=== PATIENT | male | born 1945 | race Caucasian/White ===

== ENCOUNTER 2018-05-11 05:36 | Inpatient (IN) ==
[2018-05-11 06:14] LABS: Basophils % 0.2 %; Eosinophils # 0.2 K/mcL (0.0-0.6); Eosinophils % 1.5 %; Hematocrit 52.4 % (37.5-50.1); Hemoglobin 17.3 g/dL (12.9-16.9); Immature Granulocytes % 0.2 % (0-4); Lymphocytes # 2.2 K/mcL (0.6-4.6); Lymphocytes % 22.6 %; Mean Corpuscular Hemoglobin 30.4 pg (28.0-33.3); Mean Corpuscular Volume 91.9 fL (83.0-100.0); Mean Platelet Volume 9.1 fL (9.4-12.4); Monocytes # 0.8 K/mcL (0.0-1.3); Monocytes % 7.7 %; Neutrophils # 6.6 K/mcL (1.6-8.9); Platelet Count 234 K/mcL (140-400); Red Cell Distribution Width 14.2 % (11.5-14.5); Segmented Neutrophils % 67.8 %
[2018-05-11 06:21] LABS: INR 1.1; Prothrombin Time 12.5 Seconds (9.4-12.1)
[2018-05-11 06:24] LABS: Activated Partial Thrombo Time 28.6 Seconds (26.0-36.0)
[2018-05-11] MEDS ORDERED: Ipratropium/Albuterol Neb 3 ML IH ONE (06:26)
--- NOTE | 2018-05-11 06:30 | Emergency Department Note ---
Disposition Clinical Impression: Elevated troponin Community acquired pneumonia Qualifiers: Laterality: right Lung location: lower lobe of lung Qualified Code(s): J18.1 - Lobar pneumonia, unspecified organism Dyspnea Qualifiers: Dyspnea type: unspecified Qualified Code(s): R06.00 - Dyspnea, unspecified Disposition: Admitted As Inpatient Condition: Fair Referrals: Ofelia Peterson [employer] [Primary Care Provider] - Forms: ED Satisfaction Letter Time of Disposition: 07:51 SOB HPI - General Chief Complaint: ED Shortness of Breath/Dyspnea Stated Complaint: shortness of breath Time Seen by Provider: 05/11/18 05:39 Source: EMS Limitations: no limitations Nursing Notes Reviewed: Yes Vital Signs Reviewed: Yes - History of Present Illness Nontoxic-appearing 72-year-old male presents for evaluation of shortness of breath that awoke him from his sleep at approximately 4:00 AM. He states a history of cigarette use with an approximately one pack per day smoking history. He complains of an associated cough that is productive of a clearish/ yellowish colored sputum. He states that this is his baseline "smoker's cough" . He denies any hemoptysis. He denies any pain with inspiration. He denies any chest pain. He denies any associated nausea or vomiting. He denies any noticeable swelling of the lower extremities. He does state a history of asthma , which is controlled with a "rescue inhaler". Family members state that he has been progressively getting more dyspneic with exertion for quite some time. Pt Subjective Complaint: shortness of breath Onset (ago): hour(s) Severity: moderate Consistency/Duration: other (Improved after oxygen administration) Improves with: oxygen Worsens with: exertion Known history of: asthma Associated symptoms: Reports: cough, wheezing, sputum production. Denies: chest pain, pain with inspiration, fever, orthopnea, lower extremity pain, palpitations, hemoptysis, diaphoresis, nausea/vomiting Treatment prior to arrival: none Cough present: Yes Cough Description: Involuntary Cough Frequency: Intermittent Sputum production: Yes Sputum Amount: Scant Sputum Color: Yellow - Related Data Home oxygen amount: none Allergies Allergy/AdvReac Type Severity Reaction Status Date / Time Penicillins Allergy Anaphylaxis Verified 05/11/18 05:44 All systems ED: reviewed and negative except as stated. Constitutional: Denies: fever, chills, weakness, weight change Eyes: Denies: eye pain, eye discharge, vision change ENT ED: Denies: ear pain, throat pain, dental pain, hearing loss, epistaxis, congestion, dysphagia Cardiovascular: Denies: chest pain, palpitations, dyspnea on exertion, edema, syncope Respiratory: Reports: as per HPI, cough, dyspnea, wheezes, sputum production. Denies: hemoptysis, stridor Gastrointestinal: Denies: abdominal pain, nausea, vomiting, diarrhea, constipation, hematemesis, melena, hematochezia Genitourinary: Denies: urgency, dysuria, frequency, hematuria Musculoskeletal: Denies: back pain, neck pain, arthralgia, myalgia Integumentary: Denies: rash, abrasion, lesions Neurological: Denies: headache, weakness, numbness, paresthesias, confusion, abnormal gait, vertigo Psychiatric: Denies: anxiety, depression, suicidal thoughts, homicidal thoughts , auditory hallucinations, visual hallucinations Endocrine: Denies: fatigue Hematological/Lymphatic: Denies: easy bleeding, easy bruising Allergic/Immunologic: Denies: facial swelling, urticaria Past Medical History - Past Medical History Attestation: Yes The following information was validated with the patient. Source: patient, nursing notes reviewed Medical history: Reports: COPD, hypertension - Social History Smoking Status: Current every day smoker Smokeless Tobacco Status: No Alcohol use: Reports: none Drug use: Reports: none Physical Exam - General Limitations: no limitations General appearance: alert, in no apparent distress - Head Head exam: atraumatic, normocephalic, normal inspection - Eye Eye exam: Present: normal appearance, PERRL, EOMI. Absent: nystagmus - ENT ENT exam: mucous membranes moist - Neck Neck exam: Present: normal inspection, full ROM, trachea midline - Chest Chest inspection: Present: normal inspection - Respiratory Respiratory exam: Present: wheezes (Extra wheezes noted bilaterally throughout the periphery). Absent: respiratory distress, stridor, accessory muscle use, prolonged expiratory phase - Cardiovascular Cardiovascular exam: Present: regular rate, normal rhythm, normal heart sounds - Abdominal Exam Abdominal exam: Present: soft, Non-Tender, normal bowel sounds - Extremities Exam Extremities exam: Present: normal inspection, full ROM. Absent: tenderness, pedal edema - Neurological Exam Neurological exam: Present: alert, oriented X3 - Psychiatric Psychiatric exam: Present: normal affect, normal mood - Skin Skin exam: Present: warm, dry, intact, normal color. Absent: rash Course Course Narrative: 0640: While the patient's age-adjusted d-dimer is still within normal limits, he remains tachycardic here in the department. In combination with chest x-ray results which revealed lateral lower lobe airspace disease and his persistent tachycardia, we will obtain a CTA of the chest. The patient did have a slightly elevated troponin at 0.04 however has no complaints of chest pain at all. Aspirin was aerial lineman in the emergency department. 0750: I discussed this patient's case with Dr. Escobedo of the Hospital services agreed to accept the patient for admission under the hospitalist care for further treatment of community-acquired pneumonia, and further evaluation of his elevated troponins. I discussed this plan with Dr. Florian has had face-to -face time with the patient and agrees with this plan. Vital Signs Temperature 97.9 F 05/11/18 05:39 Pulse Rate 106 05/11/18 05:39 Respiratory Rate 20 05/11/18 05:39 Blood Pressure 143/95 05/11/18 05:39 O2 Sat by Pulse Oximetry 96 05/11/18 05:39 Temperature 97.9 F 05/11/18 05:39 Pulse Rate 115 05/11/18 07:03 Respiratory Rate 24 05/11/18 07:15 Blood Pressure 146/98 05/11/18 07:03 O2 Sat by Pulse Oximetry 92 05/11/18 07:15 Oxygen Delivery Oxygen Delivery Nasal Cannula Shortness of Breath/Dyspnea - Medical Records Medical records reviewed: Yes I reviewed the patient's medical records. - Lab Data Lab results reviewed: Yes I reviewed the patient's lab results. Lab results narrative: Laboratory Last Values WBC 9.8 K/mcL (4.3-11.1) 05/11/18 05:58 RBC 5.70 M/mcL (4.19-5.50) H 05/11/18 05:58 Hgb 17.3 g/dL (12.9-16.9) H 05/11/18 05:58 Hct 52.4 % (37.5-50.1) H 05/11/18 05:58 MCV 91.9 fL (83.0-100.0) 05/11/18 05:58 MCH 30.4 pg (28.0-33.3) 05/11/18 05:58 MCHC 33.0 g/dL (31.6-35.5) 05/11/18 05:58 RDW 14.2 % (11.5-14.5) 05/11/18 05:58 Plt Count 234 K/mcL (140-400) 05/11/18 05:58 MPV 9.1 fL (9.4-12.4) L 05/11/18 05:58 Immature Gran % 0.2 % (0-4) 05/11/18 05:58 Seg Neutrophils % 67.8 % 05/11/18 05:58 Lymphocytes % 22.6 % 05/11/18 05:58 Monocytes % 7.7 % 05/11/18 05:58 Eosinophils % 1.5 % 05/11/18 05:58 Basophils % 0.2 % 05/11/18 05:58 Neutrophils # 6.6 K/mcL (1.6-8.9) 05/11/18 05:58 Lymphocytes # 2.2 K/mcL (0.6-4.6) 05/11/18 05:58 Monocytes # 0.8 K/mcL (0.0-1.3) 05/11/18 05:58 Eosinophils # 0.2 K/mcL (0.0-0.6) 05/11/18 05:58 Basophils # 0.0 K/mcL (0.0-0.2) 05/11/18 05:58 PT 12.5 Seconds (9.4-12.1) H 05/11/18 05:58 INR 1.1 05/11/18 05:58 APTT 28.6 Seconds (26.0-36.0) 05/11/18 05:58 D-Dimer 523 ng/mLFEU (0-500) H 05/11/18 05:58 Sodium 136 mEq/L (136-145) 05/11/18 05:58 Potassium 3.8 mEq/L (3.5-5.1) 05/11/18 05:58 Chloride 101 mEq/L (98-107) 05/11/18 05:58 Carbon Dioxide 30 mEq/L (23-29) H 05/11/18 05:58 BUN 15 mg/dL (8-23) 05/11/18 05:58 Creatinine 1.02 mg/dL (0.70-1.30) 05/11/18 05:58 Est GFR ( Amer) > 60 (> 60) 05/11/18 05:58 Est GFR (Non-Af Amer) > 60 (> 60) 05/11/18 05:58 BUN/Creatinine Ratio 15 (6-26) 05/11/18 05:58 Glucose 127 mg/dL (70-105) H 05/11/18 05:58 Calculated Osmolality 284 (280-300) 05/11/18 05:58 Calcium 9.1 mg/dL (8.6-10.3) 05/11/18 05:58 Troponin I 0.04 ng/mL (< 0.04) H* 05/11/18 05:58 B-Natriuretic Peptide 44 pg/mL (Less than 100) 05/11/18 05:58 Urine Color Yellow (Yellow) 05/11/18 06:28 Urine Clarity Clear (Clear) 05/11/18 06:28 Urine pH 6.0 pH Units (5.0-8.0) 05/11/18 06:28 Ur Specific [place] 1.021 (1.010-1.025) 05/11/18 06:28 Urine Protein Trace mg/dL (Neg-Trace) 05/11/18 06:28 Urine Glucose (UA) Normal mg/dL (Normal) 05/11/18 06:28 Urine Ketones Negative mg/dL (Negative) 05/11/18 06:28 Urine Blood Negative (Negative) 05/11/18 06:28 Urine Nitrite Negative (Negative) 05/11/18 06:28 Urine Bilirubin Negative (Negative) 05/11/18 06:28 Urine Urobilinogen Normal mg/dL (Normal) 05/11/18 06:28 Ur Leukocyte Esterase Negative (Negative) 05/11/18 06:28 Urine Microscopic RBC 3-5 per hpf (0-3) H 05/11/18 06:28 Urine Microscopic WBC 0-3 per hpf (0-3) 05/11/18 06:28 Ur Squamous Epith Cells None Seen per lpf (None-Few) 05/11/18 06:28 Urine Bacteria None Seen per hpf (None-Few) 05/11/18 06:28 Hyaline Casts None Seen per lpf (None-Few) 05/11/18 06:28 Ur Culture Indicated? NO (NO) 05/11/18 06:28 Result diagrams: 05/11/18 05:58 05/11/18 05:58 Lab Results 05/11/18 05/11/18 05/11/18 Range/Units 05:58 05:58 05:58 WBC 9.8 (4.3-11.1) K/mcL RBC 5.70 H (4.19-5.50) M/mcL Hgb 17.3 H (12.9-16.9) g/dL Hct 52.4 H (37.5-50.1) % MCV 91.9 (83.0-100.0) fL MCH 30.4 (28.0-33.3) pg MCHC 33.0 (31.6-35.5) g/dL RDW 14.2 (11.5-14.5) % Plt Count 234 (140-400) K/mcL MPV 9.1 L (9.4-12.4) fL Immature Gran % 0.2 (0-4) % Seg Neutrophils % 67.8 % Lymphocytes % 22.6 % Monocytes % 7.7 % Eosinophils % 1.5 % Basophils % 0.2 % Neutrophils # 6.6 (1.6-8.9) K/mcL Lymphocytes # 2.2 (0.6-4.6) K/mcL Monocytes # 0.8 (0.0-1.3) K/mcL Eosinophils # 0.2 (0.0-0.6) K/mcL Basophils # 0.0 (0.0-0.2) K/mcL PT 12.5 H (9.4-12.1) Seconds INR 1.1 APTT 28.6 (26.0-36.0) Seconds D-Dimer 523 H (0-500) ng/mLFEU Sodium 136 (136-145) mEq/L Potassium 3.8 (3.5-5.1) mEq/L Chloride 101 (98-107) mEq/L Carbon Dioxide 30 H (23-29) mEq/L BUN 15 (8-23) mg/dL Creatinine 1.02 (0.70-1.30) mg/dL Est GFR ( Amer) > 60 (> 60) Est GFR (Non-Af Amer) > 60 (> 60) BUN/Creatinine Ratio 15 (6-26) Glucose 127 H (70-105) mg/dL Calculated Osmolality 284 (280-300) Calcium 9.1 (8.6-10.3) mg/dL Troponin I 0.04 H* (< 0.04) ng/mL B-Natriuretic Peptide (Less than 100) pg/mL Urine Color (Yellow) Urine Clarity (Clear) Urine pH (5.0-8.0) pH Units Ur Specific [place] (1.010-1.025) Urine Protein (Neg-Trace) mg/dL Urine Glucose (UA) (Normal) mg/dL Urine Ketones (Negative) mg/dL Urine Blood (Negative) Urine Nitrite (Negative) Urine Bilirubin (Negative) Urine Urobilinogen (Normal) mg/dL Ur Leukocyte Esterase (Negative) Urine Microscopic RBC (0-3) per hpf Urine Microscopic WBC (0-3) per hpf Ur Squamous Epith Cells (None-Few) per lpf Urine Bacteria (None-Few) per hpf Hyaline Casts (None-Few) per lpf Ur Culture Indicated? (NO) 05/11/18 05/11/18 Range/Units 05:58 06:28 WBC (4.3-11.1) K/mcL RBC (4.19-5.50) M/mcL Hgb (12.9-16.9) g/dL Hct (37.5-50.1) % MCV (83.0-100.0) fL MCH (28.0-33.3) pg MCHC (31.6-35.5) g/dL RDW (11.5-14.5) % Plt Count (140-400) K/mcL MPV (9.4-12.4) fL Immature Gran % (0-4) % Seg Neutrophils % % Lymphocytes % % Monocytes % % Eosinophils % % Basophils % % Neutrophils # (1.6-8.9) K/mcL Lymphocytes # (0.6-4.6) K/mcL Monocytes # (0.0-1.3) K/mcL Eosinophils # (0.0-0.6) K/mcL Basophils # (0.0-0.2) K/mcL PT (9.4-12.1) Seconds INR APTT (26.0-36.0) Seconds D-Dimer (0-500) ng/mLFEU Sodium (136-145) mEq/L Potassium (3.5-5.1) mEq/L Chloride (98-107) mEq/L Carbon Dioxide (23-29) mEq/L BUN (8-23) mg/dL Creatinine (0.70-1.30) mg/dL Est GFR ( Amer) (> 60) Est GFR (Non-Af Amer) (> 60) BUN/Creatinine Ratio (6-26) Glucose (70-105) mg/dL Calculated Osmolality (280-300) Calcium (8.6-10.3) mg/dL Troponin I (< 0.04) ng/mL B-Natriuretic Peptide 44 (Less than 100) pg/mL Urine Color Yellow (Yellow) Urine Clarity Clear (Clear) Urine pH 6.0 (5.0-8.0) pH Units Ur Specific [place] 1.021 (1.010-1.025) Urine Protein Trace (Neg-Trace) mg/dL Urine Glucose (UA) Normal (Normal) mg/dL Urine Ketones Negative (Negative) mg/dL Urine Blood Negative (Negative) Urine Nitrite Negative (Negative) Urine Bilirubin Negative (Negative) Urine Urobilinogen Normal (Normal) mg/dL Ur Leukocyte Esterase Negative (Negative) Urine Microscopic RBC 3-5 H (0-3) per hpf Urine Microscopic WBC 0-3 (0-3) per hpf Ur Squamous Epith Cells None Seen (None-Few) per lpf Urine Bacteria None Seen (None-Few) per hpf Hyaline Casts None Seen (None-Few) per lpf Ur Culture Indicated? NO (NO) - Radiology Data Radiology results reviewed: Yes I reviewed the patient's radiology results. Chest X-Ray 05/11/18 05:41 IMPRESSION: Right greater than left lower lobe airspace disease. D/ / Vipul Lay MD / Vipul Lay MD Interpreting Provider: Vipul Lay MD Chest CTA 05/11/18 06:40 IMPRESSION: 1. No findings of pulmonary embolism. 2. 5.7 cm x 4.4 cm masslike consolidative opacity in the base of the right lower lobe with adjacent groundglass opacity, most likely pneumonia. Neoplasia is not excluded. Recommend follow-up imaging following treatment. 3. Diffuse tree-in-bud opacities bilaterally, most likely infectious bronchiolitis. 4. Mild bronchial wall thickening with patchy airway secretions, suggesting bronchitis. 5. Subpleural reticulations and consolidative opacities most prominent in the mid lungs. Considerations include interstitial fibrotic changes of indeterminate etiology and organizing pneumonia. Recommend attention on follow-up imaging. 6. Interstitial opacities near the right lung apex and base, potentially interstitial edema or pneumonia. 7. Mildly enlarged right hilar lymph node, most likely reactive. Recommend attention on follow-up imaging. D/ / Vipul Zuniga MD / Vipul Zuniga MD Interpreting Provider: Vipul Zuniga MD - EKG Data EKG attestation: Yes I reviewed and interpreted this EKG. EKG results narrative: EKG reviewed by Dr. George as well. EKG shows a sinus tachycardia with short MA interval at a rate of 115 bpm. MA interval 112, QRS duration 104, QT/QTc interval 320/388. No ectopy noted. No ST elevation. No significant changes when compared to an EKG dated from 06/08/13.
[2018-05-11 06:35] LABS: BUN/Creatinine Ratio 15 (6-26); Blood Urea Nitrogen 15 mg/dL (8-23); Calcium 9.1 mg/dL (8.6-10.3); Carbon Dioxide 30 mEq/L (23-29); Chloride 101 mEq/L (98-107); Glucose 127 mg/dL (70-105); Osmolality,Calculated 284 (280-300); Potassium 3.8 mEq/L (3.5-5.1); Sodium 136 mEq/L (136-145); eGFR For African Americans > 60 (> 60); eGFR For Non-African Americans > 60 (> 60)
[2018-05-11 06:37] LABS: Bilirubin,Urine Negative (Negative); Blood,Urine Negative (Negative); Clarity,Urine Clear (Clear); Color,Urine Yellow (Yellow); Glucose,Urine (UA) Normal (Normal); Ketones,Urine Negative (Negative); Leukocyte Esterase,Urine Negative (Negative); Nitrite,Urine Negative (Negative); Protein,Urine Trace mg/dL (Neg-Trace); Specific Gravity,Urine 1.021 (1.010-1.025); Urobilinogen,Urine Normal (Normal)
[2018-05-11 06:39] LABS: Troponin I 0.04 ng/mL (< 0.04)
[2018-05-11 06:40] LABS: Bacteria,Urine None Seen per hpf (None-Few); Hyaline Casts,Urine None Seen per lpf (None-Few); Squamous Epithelial Cell,Urine None Seen per lpf (None-Few); WBC,Urine 0-3 per hpf (0-3)
[2018-05-11] MEDS ORDERED: Aspirin 81 MG TAB.CHEW PO ONE (06:40)
[2018-05-11] MEDS ORDERED: Isovue-370 500 ML INFUS..BTL IV ONE (06:40)
[2018-05-11] MEDS ORDERED: Azithromycin 500 MG in D5% in Water 250 ML IVPB ONE (07:45)
--- NOTE | 2018-05-11 08:25 | Emergency Department Note ---
Disposition Clinical Impression: Elevated troponin Community acquired pneumonia Qualifiers: Laterality: right Lung location: lower lobe of lung Qualified Code(s): J18.1 - Lobar pneumonia, unspecified organism Dyspnea Qualifiers: Dyspnea type: unspecified Qualified Code(s): R06.00 - Dyspnea, unspecified Disposition: Admitted As Inpatient Condition: Fair General Adult HPI - General Chief complaint: ED Shortness of Breath/Dyspnea Stated complaint: shortness of breath Time Seen by Provider: 05/11/18 05:39 Source: EMS Limitations: no limitations Nursing Notes Reviewed: Yes Vital Signs Reviewed: Yes - History of Present Illness Pain Scale: 0 - Related Data Allergies Allergy/AdvReac Type Severity Reaction Status Date / Time Penicillins Allergy Anaphylaxis Verified 05/11/18 05:44 Constitutional: Denies: fever, chills, weakness, weight change Eyes: Denies: eye pain, eye discharge, vision change ENT ED: Denies: ear pain, throat pain, dental pain, hearing loss, epistaxis, congestion, dysphagia Cardiovascular: Denies: chest pain, palpitations, dyspnea on exertion, edema, syncope Respiratory: Reports: as per HPI, cough, dyspnea, wheezes, sputum production. Denies: hemoptysis, stridor Gastrointestinal: Denies: abdominal pain, nausea, vomiting, diarrhea, constipation, hematemesis, melena, hematochezia Genitourinary: Denies: urgency, dysuria, frequency, hematuria Musculoskeletal: Denies: back pain, neck pain, arthralgia, myalgia Integumentary: Denies: rash, abrasion, lesions Neurological: Denies: headache, weakness, numbness, paresthesias, confusion, abnormal gait, vertigo Psychiatric: Denies: anxiety, depression, suicidal thoughts, homicidal thoughts , auditory hallucinations, visual hallucinations Endocrine: Denies: fatigue Hematological/Lymphatic: Denies: easy bleeding, easy bruising Allergic/Immunologic: Denies: facial swelling, urticaria Past Medical History - Past Medical History Medical history: Reports: COPD, hypertension - Social History Smoking Status: Current every day smoker Smokeless Tobacco Status: No Alcohol use: Reports: none Drug use: Reports: none Physical Exam - General Limitations: no limitations General appearance: alert, in no apparent distress Course Vital Signs Temperature 97.9 F 05/11/18 05:39 Pulse Rate 106 05/11/18 05:39 Respiratory Rate 20 05/11/18 05:39 Blood Pressure 143/95 05/11/18 05:39 O2 Sat by Pulse Oximetry 96 05/11/18 05:39 Temperature 97.9 F 05/11/18 05:39 Pulse Rate 100 05/11/18 08:18 Respiratory Rate 18 05/11/18 08:18 Blood Pressure 121/82 05/11/18 08:18 O2 Sat by Pulse Oximetry 93 05/11/18 08:18 Oxygen Delivery Oxygen Delivery Nasal Cannula Medical Decision Making - Medical Records Medical records reviewed: Yes I reviewed the patient's medical records. - Lab Data Lab results reviewed: Yes I reviewed the patient's lab results. Result diagrams: 05/11/18 05:58 05/11/18 05:58 Lab Results 05/11/18 05/11/18 05/11/18 Range/Units 05:58 05:58 05:58 WBC 9.8 (4.3-11.1) K/mcL RBC 5.70 H (4.19-5.50) M/mcL Hgb 17.3 H (12.9-16.9) g/dL Hct 52.4 H (37.5-50.1) % MCV 91.9 (83.0-100.0) fL MCH 30.4 (28.0-33.3) pg MCHC 33.0 (31.6-35.5) g/dL RDW 14.2 (11.5-14.5) % Plt Count 234 (140-400) K/mcL MPV 9.1 L (9.4-12.4) fL Immature Gran % 0.2 (0-4) % Seg Neutrophils % 67.8 % Lymphocytes % 22.6 % Monocytes % 7.7 % Eosinophils % 1.5 % Basophils % 0.2 % Neutrophils # 6.6 (1.6-8.9) K/mcL Lymphocytes # 2.2 (0.6-4.6) K/mcL Monocytes # 0.8 (0.0-1.3) K/mcL Eosinophils # 0.2 (0.0-0.6) K/mcL Basophils # 0.0 (0.0-0.2) K/mcL PT 12.5 H (9.4-12.1) Seconds INR 1.1 APTT 28.6 (26.0-36.0) Seconds D-Dimer 523 H (0-500) ng/mLFEU Sodium 136 (136-145) mEq/L Potassium 3.8 (3.5-5.1) mEq/L Chloride 101 (98-107) mEq/L Carbon Dioxide 30 H (23-29) mEq/L BUN 15 (8-23) mg/dL Creatinine 1.02 (0.70-1.30) mg/dL Est GFR ( Amer) > 60 (> 60) Est GFR (Non-Af Amer) > 60 (> 60) BUN/Creatinine Ratio 15 (6-26) Glucose 127 H (70-105) mg/dL Calculated Osmolality 284 (280-300) Calcium 9.1 (8.6-10.3) mg/dL Troponin I 0.04 H* (< 0.04) ng/mL B-Natriuretic Peptide (Less than 100) pg/mL Urine Color (Yellow) Urine Clarity (Clear) Urine pH (5.0-8.0) pH Units Ur Specific [place] (1.010-1.025) Urine Protein (Neg-Trace) mg/dL Urine Glucose (UA) (Normal) mg/dL Urine Ketones (Negative) mg/dL Urine Blood (Negative) Urine Nitrite (Negative) Urine Bilirubin (Negative) Urine Urobilinogen (Normal) mg/dL Ur Leukocyte Esterase (Negative) Urine Microscopic RBC (0-3) per hpf Urine Microscopic WBC (0-3) per hpf Ur Squamous Epith Cells (None-Few) per lpf Urine Bacteria (None-Few) per hpf Hyaline Casts (None-Few) per lpf Ur Culture Indicated? (NO) 05/11/18 05/11/18 Range/Units 05:58 06:28 WBC (4.3-11.1) K/mcL RBC (4.19-5.50) M/mcL Hgb (12.9-16.9) g/dL Hct (37.5-50.1) % MCV (83.0-100.0) fL MCH (28.0-33.3) pg MCHC (31.6-35.5) g/dL RDW (11.5-14.5) % Plt Count (140-400) K/mcL MPV (9.4-12.4) fL Immature Gran % (0-4) % Seg Neutrophils % % Lymphocytes % % Monocytes % % Eosinophils % % Basophils % % Neutrophils # (1.6-8.9) K/mcL Lymphocytes # (0.6-4.6) K/mcL Monocytes # (0.0-1.3) K/mcL Eosinophils # (0.0-0.6) K/mcL Basophils # (0.0-0.2) K/mcL PT (9.4-12.1) Seconds INR APTT (26.0-36.0) Seconds D-Dimer (0-500) ng/mLFEU Sodium (136-145) mEq/L Potassium (3.5-5.1) mEq/L Chloride (98-107) mEq/L Carbon Dioxide (23-29) mEq/L BUN (8-23) mg/dL Creatinine (0.70-1.30) mg/dL Est GFR ( Amer) (> 60) Est GFR (Non-Af Amer) (> 60) BUN/Creatinine Ratio (6-26) Glucose (70-105) mg/dL Calculated Osmolality (280-300) Calcium (8.6-10.3) mg/dL Troponin I (< 0.04) ng/mL B-Natriuretic Peptide 44 (Less than 100) pg/mL Urine Color Yellow (Yellow) Urine Clarity Clear (Clear) Urine pH 6.0 (5.0-8.0) pH Units Ur Specific [place] 1.021 (1.010-1.025) Urine Protein Trace (Neg-Trace) mg/dL Urine Glucose (UA) Normal (Normal) mg/dL Urine Ketones Negative (Negative) mg/dL Urine Blood Negative (Negative) Urine Nitrite Negative (Negative) Urine Bilirubin Negative (Negative) Urine Urobilinogen Normal (Normal) mg/dL Ur Leukocyte Esterase Negative (Negative) Urine Microscopic RBC 3-5 H (0-3) per hpf Urine Microscopic WBC 0-3 (0-3) per hpf Ur Squamous Epith Cells None Seen (None-Few) per lpf Urine Bacteria None Seen (None-Few) per hpf Hyaline Casts None Seen (None-Few) per lpf Ur Culture Indicated? NO (NO) - Radiology Data Radiology results reviewed: Yes I reviewed the patient's radiology results. Chest X-Ray 05/11/18 05:41 IMPRESSION: Right greater than left lower lobe airspace disease. D/ / Vipul Lay MD / Vipul Lay MD Interpreting Provider: Vipul Lay MD Chest CTA 05/11/18 06:40 IMPRESSION: 1. No findings of pulmonary embolism. 2. 5.7 cm x 4.4 cm masslike consolidative opacity in the base of the right lower lobe with adjacent groundglass opacity, most likely pneumonia. Neoplasia is not excluded. Recommend follow-up imaging following treatment. 3. Diffuse tree-in-bud opacities bilaterally, most likely infectious bronchiolitis. 4. Mild bronchial wall thickening with patchy airway secretions, suggesting bronchitis. 5. Subpleural reticulations and consolidative opacities most prominent in the mid lungs. Considerations include interstitial fibrotic changes of indeterminate etiology and organizing pneumonia. Recommend attention on follow-up imaging. 6. Interstitial opacities near the right lung apex and base, potentially interstitial edema or pneumonia. 7. Mildly enlarged right hilar lymph node, most likely reactive. Recommend attention on follow-up imaging. D/ / Vipul Zuniga MD / Vipul Zuniga MD Interpreting Provider: Vipul Zuniga MD Critical Care Time Critical Care Time: No Attestation Statement - Attestation Attestation: IKelvin MD, personally evaluated this patient and discussed their management with the midlevel provicer, PAC/SKIRT MAKER. I reviewed the midlevel provider 's note and agree with the documented findings, medical decision making, and plan of care. 72-year-old male presenting to the emergency department with a complaint of shortness of breath. Patient is a smoker and continues to smoke. He has a history of COPD and uses an inhaler as well as home nebulizer treatments. He does not have home oxygen. He patient complains that he became short of breath during the night and has just been unable to get any air. No chest pain or palpitations. No syncope. No fever. No increased cough. He does have some sputum production which is baseline for him and he states it has been clear. On examination patient is a well-developed well-nourished elderly male in no acute distress. He is alert and oriented 3. There is no cyanosis or diaphoresis. Rest sounds are decreased bilaterally with tight diffuse bilateral expiratory wheezes. Heart regular with a mild tachycardia. Abdomen soft and nontender with normal bowel sounds. Labs reviewed. Chest x-ray showed some bibasilar airspace disease, right greater than left. CTA of the lungs had no evidence of pulmonary embolism. It did show a right lower lobe pneumonia and cannot rule out underlying neoplasm. Also other multifocal areas of possible pneumonia. Blood cultures obtained and antibiotics initiated. The hospitalist, Dr. Escobedo, was consulted and accepted admission of the patient.
[2018-05-11] MEDS ORDERED: Naloxone 0.4 MG/ML INJ IVP PRN (09:17)
--- NOTE | 2018-05-11 09:22 | Internal Med History&Physical ---
Date of Encounter: 05/11/18 Time of Encounter: 09:21 Internal Medicine - H&P: HPI Chief complaint: Shortness of breath Admitted From: Emergency Dept Plans for Post Hospital Care: Home History of present illness: Mr. Lea is a 72 year old male patient with a history of hypertension, COPD who presented to the ER with complaints of shortness of breath. He had an episode of what appears to be bronchitis recently and was prescribed prednisone. He felt better initially but began to have shortness of breath that began 2 days back. This has been progressively worsening so he came to the ER. He denies any chest pain. She does have cough with clear sputum. He did have an episode of blood-tinged sputum earlier this morning. He denies any fevers or chills. No nausea or vomiting. No recent hospitalizations. Past Med Surg Social Fam HX - Past Medical History Attestation: Yes The following information was validated with the patient. Source: patient Medical history: COPD, hypertension - Social History Smoking Status: Current every day smoker Smokeless Tobacco Status: No Alcohol use: none Drug use: none - Additional Family History Additional family history: Family history reviewed and found to be noncontributory at this time. Internal Medicine - H&P: Meds 3 Allergy/AdvReac Type Severity Reaction Status Date / Time Penicillins Allergy Anaphylaxis Verified 05/11/18 05:44 All Systems PM: A 10-system review of systems was performed and is negative for pertinent findings except as documented above in the HPI. - Constitutional Constitutional: no chills, no fever(s), no night sweats - EENT Eyes: no change in vision, no discharge, no pain, no photophobia Ears: no ear discharge, no ear pain, no tinnitus Nose, mouth and throat: no dysphagia, no nasal discharge, no neck pain, no sore throat - Cardiovascular Cardiovascular ROS IM: no chest pain, no diaphoresis, no dyspnea, no lightheadedness, no palpitations, no syncope - Respiratory Respiratory: cough, wheezing, excessive phlegm production - Gastrointestinal Gastrointestinal: no abdominal pain, no diarrhea, no hematemesis, no hematochezia, no melena, no nausea, no vomiting - Musculoskeletal Musculoskeletal ROS IM: no numbness, no tingling - Integumentary Integumentary IM: no rash, no unusual bruising - Neurological Neurological ROS: no confusion, no convulsions, no focal weakness, no numbness, no tingling, no tremor(s) - Hematologic/Lymphatic Hematologic/Lymphatic: no easy bruising - Constitutional Vitals: Temp Pulse Resp BP Pulse Ox 97.9 F 117 21 143/86 93 05/11/18 09:08 05/11/18 09:08 05/11/18 09:08 05/11/18 09:08 05/11/18 09:08 General appearance: Present: A&O X 3, answers questions appropriately - Respiratory Respiratory exam: Present: wheezes. Absent: accessory muscle use, rales, rhonchi - Cardiovascular Cardiovascular exam: Present: RRR, +S1, +S2. Absent: diastolic murmur, gallop, rubs, systolic murmur - GI/Abdominal GI/Abdominal exam: Present: normal bowel sounds, soft, no peritoneal signs. Absent: distended, tenderness - Extremities Exam Extremities exam: Present: warm, radial pulses palpable and symmetrical. Absent : calf tenderness, cyanotic, pedal edema Internal Med - H&P Results - Labs CBC & Chem 7: 05/11/18 05:58 05/11/18 05:58 - Impressions Impressions Chest X-Ray 05/11/18 05:41 IMPRESSION: Right greater than left lower lobe airspace disease. D/ / Vipul Lay MD / Vipul Lay MD Interpreting Provider: Vipul Lay MD Chest CTA 05/11/18 06:40 IMPRESSION: 1. No findings of pulmonary embolism. 2. 5.7 cm x 4.4 cm masslike consolidative opacity in the base of the right lower lobe with adjacent groundglass opacity, most likely pneumonia. Neoplasia is not excluded. Recommend follow-up imaging following treatment. 3. Diffuse tree-in-bud opacities bilaterally, most likely infectious bronchiolitis. 4. Mild bronchial wall thickening with patchy airway secretions, suggesting bronchitis. 5. Subpleural reticulations and consolidative opacities most prominent in the mid lungs. Considerations include interstitial fibrotic changes of indeterminate etiology and organizing pneumonia. Recommend attention on follow-up imaging. 6. Interstitial opacities near the right lung apex and base, potentially interstitial edema or pneumonia. 7. Mildly enlarged right hilar lymph node, most likely reactive. Recommend attention on follow-up imaging. D/ / Vipul Zuniga MD / Vipul Zuniga MD Interpreting Provider: Vipul Zuniga MD - Assessment and plan (1) Pneumonia Current Visit: Yes Status: Suspected Assessment and plan: Patient presenting with pneumonia in the right lower lobe. Most likely community-acquired. Will treat with Rocephin and azithromycin. Follow culture results. Check urine legionella and strep antigens. High risk for complications. Qualifiers: Pneumonia type: due to Pneumococcus Laterality: right Lung location: lower lobe of lung Qualified Code(s): J13 - Pneumonia due to Streptococcus pneumoniae (2) Elevated troponin Current Visit: Yes Status: Acute Assessment and plan: Mild elevation in troponin. Most likely related to pneumonia. Will trend troponins. Get 2-D echocardiogram. (3) Essential hypertension Current Visit: Yes Status: Chronic Assessment and plan: Monitor blood pressure. Continue home medications. (4) COPD (chronic obstructive pulmonary disease) Current Visit: Yes Status: Chronic Assessment and plan: Patient with history of COPD. Will place patient on bronchodilators. O2 supplementation as needed. Qualifiers: COPD type: chronic bronchitis Chronic bronchitis type: simple Qualified Code(s): J41.0 - Simple chronic bronchitis (5) Tobacco abuse Current Visit: Yes Status: Chronic Assessment and plan: Counseled about cessation. Offered nicotine patch. - Time Spent With Patient Total time spent is greater than 50% in coordination of care (as documented) at patient's floor/unit and/or counseling patient:
[2018-05-11] MEDS: cefTRIAXone 2,000 MG in 0.9 % Sodium Chloride Mini Bag 100 ML IVPB SCH (10:56)
[2018-05-11] MEDS: Nicotine 21 MG PATCH.TD24 TD SCH (10:57)
--- NOTE | 2018-05-11 13:30 | Event Note ---
Date of Encounter: 05/11/18 Time of Encounter: 13:29 Troponins increased to 0.35. Could be from demand ischemia and acute respiratory illness. Could also be from non-ST elevation NE. We will place patient on Lovenox for now. If troponins continue to trend upwards, we will consult cardiology.
[2018-05-11] MEDS: *HR* Enoxaparin 100 MG/ML SYRINGE SQ SCH ×2 (17:43→21:25)
[2018-05-11] MEDS ORDERED: *HR* Heparin 5,000 UNIT/ML VIAL SQ SCH (18:00)
[2018-05-12 01:38] LABS: Basophils % 0.2 %; Eosinophils # 0.2 K/mcL (0.0-0.6); Eosinophils % 1.5 %; Hematocrit 51.9 % (37.5-50.1); Hemoglobin 17.1 g/dL (12.9-16.9); Immature Granulocytes % 0.3 % (0-4); Lymphocytes # 2.7 K/mcL (0.6-4.6); Mean Corpuscular HGB Conc 32.9 g/dL (31.6-35.5); Mean Corpuscular Hemoglobin 30.6 pg (28.0-33.3); Mean Corpuscular Volume 92.8 fL (83.0-100.0); Mean Platelet Volume 9.3 fL (9.4-12.4); Monocytes % 8.4 %; Neutrophils # 8.2 K/mcL (1.6-8.9); Platelet Count 236 K/mcL (140-400); Red Blood Count 5.59 M/mcL (4.19-5.50); Red Cell Distribution Width 14.2 % (11.5-14.5); Segmented Neutrophils % 67.6 %
[2018-05-12 01:57] LABS: BUN/Creatinine Ratio 17 (6-26); Blood Urea Nitrogen 15 mg/dL (8-23); Calcium 9.2 mg/dL (8.6-10.3); Carbon Dioxide 31 mEq/L (23-29); Chloride 102 mEq/L (98-107); Glucose 115 mg/dL (70-105); Osmolality,Calculated 286 (280-300); Potassium 4.3 mEq/L (3.5-5.1); Sodium 137 mEq/L (136-145); eGFR For African Americans > 60 (> 60); eGFR For Non-African Americans > 60 (> 60)
[2018-05-12] MEDS: *HR* Enoxaparin 100 MG/ML SYRINGE SQ SCH (05:37)
[2018-05-12] MEDS ORDERED: Ipratropium/Albuterol Neb 3 ML IH PRN (07:39)
[2018-05-12] MEDS ORDERED: Ringers Solution, Lactated 1,000 ML IVC SCH (07:45)
[2018-05-12] MEDS ORDERED: Ringers Solution, Lactated 1,000 ML ONE (08:42)
[2018-05-12] MEDS: Aspirin Enteric Coated 81 MG Tablet PO SCH (08:48)
[2018-05-12] MEDS: Nicotine 21 MG PATCH.TD24 TD SCH (08:51)
[2018-05-12] MEDS: cefTRIAXone 2,000 MG in 0.9 % Sodium Chloride Mini Bag 100 ML IVPB SCH (08:52)
[2018-05-12] MEDS ORDERED: Lisinopril-HCTZ 20-12.5mg TABLET PO SCH (09:00)
--- NOTE | 2018-05-12 10:37 | Cardiology Consult Note ---
<Nicho Xiong - Last Filed: 05/12/18 10:32> Date of Encounter: 05/12/18 Time of Encounter: 10:32 Assessment and Plan (1) Community acquired pneumonia Current Visit: Yes Status: Acute CTA of the chest shows multilobular PNA and infectious bronchitis. H/o recent bronchitis. Leukocytosis and tachycardia noted. On IV antibiotics and IV fluid is being started. He is being followed by primary team. Qualifiers: Laterality: right Lung location: lower lobe of lung Qualified Code(s): J18.1 - Lobar pneumonia, unspecified organism (2) Elevated troponin Current Visit: Yes Status: Acute Troponin elevation at 0.35, 0.52, 0.42. Likely demand ischemia in the setting of multifocal PNA. EKG shows sinus tachycardia with no acute ST/T wave changes. Managment per primary team. Denies having significant chest pain symptoms. Noted to have ankle edema, abdominal bloating, and orthopnea. Monitor closely with IV fluid infusing. Symptoms may be secondary to PNA. TTE pending. Recommend continuing asa and lovenox. Currently hypertensive. Add low dose bb. Discussion w patient/family: The assessment and plan as outlined above was discussed with the patient and/or family members who expressed understanding and agreement. All questions were answered. Thank you for involving us in the care of your patient. Please call with any questions. History of Present Illness Consult date: 05/12/18 Requesting physician: Carson Escobedo Consult reason: elevated troponin Chief complaint: SOB, cough History of present illness: Mr. Lea is a 72 year old male with past medical history of tobacco use and HTN presents with difficulty breathing. Reports having viral bronchitis two months ago. He was treated with antibiotic and nebulizers with improvement. Shortly after feeling better he had recurrent symptoms and has relied on breathing treatment several times a day to help him breath. He is found to have PNA on CTA of the chest. Cardiology consulted for evaluation of elevated troponin. He denies history of CAD or prior cardiac work-up. He Denies chest pain but states his chest feels tight when it is hard to breath. Denies palpitations. Past Med Surg Social Fam HX - Past Medical History Medical history: COPD, hypertension Psychiatric history: no psych history - Social History Smoking Status: Current every day smoker Smokeless Tobacco Status: No Alcohol use: none Drug use: none Medications and Allergies Albuterol Sulfate [Ventolin Hfa] 2 puff IH Q4H PRN 05/11/18 [History] Aspirin [Lo-Dose Aspirin EC] 162 mg PO DAILY 05/11/18 [History] Clarithromycin [Clarithromycin ER] 1,000 mg PO DAILY 05/11/18 [History] Ibuprofen [Ibuprofen] 800 mg PO TID PRN 05/11/18 [History] Loratadine/Pseudoephedrine [Ra Lorata-D 24-Hour Tablet] 1 tab PO DAILY 05/11/18 [History] Montelukast [Singulair] 10 mg PO HS 05/11/18 [History] Quinapril/Hydrochlorothiazide [Quinapril-Hctz 20-12.5 mg Tab] 1 tab PO DAILY [History] predniSONE [PredniSONE] 20 mg PO AD 05/11/18 [History] 3 Allergy/AdvReac Type Severity Reaction Status Date / Time Penicillins Allergy See Verified 05/11/18 15:18 Comments All Systems Review: The remainder of the systems were reviewed and are negative Physical Examination Vital Signs, Last 4 Hours Temp Pulse Resp BP Pulse Ox 05/12/18 07:10 149/100 05/12/18 06:35 97.7 F 109 18 148/100 93 General: Conversant, No Apparent Distress HEENT: Atraumatic, Normocephaly, Mucus Membranes Moist Neck: No JVD, Normal carotid pulses Cardiac: Reg Rate and Rhythm, Normal S1 and S2, No Murmur Lungs: Other (respirations labored, expiratory wheezes throughout. ) Neuro: Alert and responsive, No focal deficits noted Abdomen: Soft, Non-Tender Skin: No rashes noted on visualized skin Musculoskeletal: No Chest Wall Tenderness Extremities: No Clubbing, No Cyanosis, No Edema, Normal Pulses Results 05/12/18 01:16 05/12/18 01:16 Lab Results 05/11/18 05/11/18 05/12/18 12:15 17:41 01:16 WBC 12.1 H Hgb 17.1 H Hct 51.9 H Plt Count 236 Sodium Potassium Chloride Carbon Dioxide BUN Creatinine Glucose Calcium Troponin I 0.35 H* 0.52 H* 05/12/18 05/12/18 01:16 01:16 WBC Hgb Hct Plt Count Sodium 137 Potassium 4.3 Chloride 102 Carbon Dioxide 31 H BUN 15 Creatinine 0.86 Glucose 115 H Calcium 9.2 Troponin I 0.42 H* Chest X-Ray 05/11/18 05:41 IMPRESSION: Right greater than left lower lobe airspace disease. D/ / Vipul Lay MD / Vipul Lay MD Interpreting Provider: Vipul Lay MD Chest CTA 05/11/18 06:40 IMPRESSION: 1. No findings of pulmonary embolism. 2. 5.7 cm x 4.4 cm masslike consolidative opacity in the base of the right lower lobe with adjacent groundglass opacity, most likely pneumonia. Neoplasia is not excluded. Recommend follow-up imaging following treatment. 3. Diffuse tree-in-bud opacities bilaterally, most likely infectious bronchiolitis. 4. Mild bronchial wall thickening with patchy airway secretions, suggesting bronchitis. 5. Subpleural reticulations and consolidative opacities most prominent in the mid lungs. Considerations include interstitial fibrotic changes of indeterminate etiology and organizing pneumonia. Recommend attention on follow-up imaging. 6. Interstitial opacities near the right lung apex and base, potentially interstitial edema or pneumonia. 7. Mildly enlarged right hilar lymph node, most likely reactive. Recommend attention on follow-up imaging. D/ / Vipul Zuniga MD / Vipul Zuniga MD Interpreting Provider: Vipul Zuniga MD - Imaging and Cardiology Chest Xray: report reviewed Echo: pending - EKG Interpretation EKG results cardiology: normal ECG Consult Discharge Plan - Plan Instructions: Acute Respiratory Distress Syndrome (DC), Chronic Obstructive Pulmonary Disease (DC), Chronic Hypertension (DC), Pneumonia (DC), Cigarette Smoking and Your Health, Portable Pinch Riveter (GEN) Referrals: Ofelia Peterson CNP [Primary Care Provider] - 05/21/18 1:00 pm <Malick Ocampo - Last Filed: 05/14/18 08:59> Date of Encounter: 05/14/18 - Attending Attestation I have personally performed a face to face evaluation on this patient. I have reviewed and agree with the care plan. History and Exam by me shows: Elevated troponin in setting of COPD exacerbation. Conservative mgmt. from cardiac standpt. Assessment and Plan Discussion w patient/family: The assessment and plan as outlined above was discussed with the patient and/or family members who expressed understanding and agreement. All questions were answered. Thank you for involving us in the care of your patient. Please call with any questions. History of Present Illness History of present illness: Mr. Lea is a 72 year old male All Systems Review: The remainder of the systems were reviewed and are negative Physical Examination Vital Signs, Last 4 Hours Temp Pulse Resp BP Pulse Ox 05/14/18 07:18 93 05/14/18 06:43 97.4 F L 83 16 135/73 94 Results 05/14/18 06:45 05/14/18 06:45 Lab Results 05/14/18 05/14/18 06:45 06:45 WBC 21.6 H Hgb 16.1 Hct 50.2 H Plt Count 271 Sodium 140 Potassium 4.6 Chloride 102 Carbon Dioxide 31 H BUN 21 Creatinine 0.74 Glucose 131 H Calcium 9.9
[2018-05-12] MEDS: Azithromycin 500 MG in D5% in Water 250 ML IVPB SCH (11:34)
[2018-05-12] MEDS ORDERED: Mag Hydrox/Al Hydrox/Simeth 30 ML UDC PO PRN (13:16)
--- NOTE | 2018-05-12 13:22 | Internal Med Progress Note ---
Date of Encounter: 05/12/18 Time of Encounter: 11:00 - Assessment and plan (1) Elevated troponin Current Visit: Yes Status: Acute Assessment and plan: Mild elevation in troponin. Most likely related to pneumonia. Will trend troponins. Get 2-D echocardiogram. 05/12: Cardiology evaluation appreciated. Suspected to be demand ischemia. Echocardiogram showed EF of 50-55%, mild left ventricular diastolic dysfunction. No pulmonary hypertension. (2) Pneumonia Current Visit: Yes Status: Suspected Assessment and plan: Patient presenting with pneumonia in the right lower lobe. Most likely community-acquired. Will treat with Rocephin and azithromycin. Follow culture results. Check urine legionella and strep antigens. High risk for complications. 05/12: Day #2 Rocephin and azithromycin. Anticipate a 7-10 day course total. Patient denies any choking or history of aspiration. Will need close follow-up imaging to ensure there is not an underlying mass Qualifiers: Pneumonia type: due to Pneumococcus Laterality: right Lung location: lower lobe of lung Qualified Code(s): J13 - Pneumonia due to Streptococcus pneumoniae (3) Essential hypertension Current Visit: Yes Status: Chronic Assessment and plan: Monitor blood pressure. Continue home medications. (4) COPD (chronic obstructive pulmonary disease) Current Visit: Yes Status: Chronic Assessment and plan: Patient with history of COPD. Will place patient on bronchodilators. O2 supplementation as needed. 05/12: Add IV Solu-Medrol. Mucolytic's. Qualifiers: COPD type: chronic bronchitis Chronic bronchitis type: simple Qualified Code(s): J41.0 - Simple chronic bronchitis (5) Tobacco abuse Current Visit: Yes Status: Chronic Assessment and plan: Counseled about cessation. Offered nicotine patch. - Time Spent With Patient Total time spent is greater than 50% in coordination of care (as documented) at patient's floor/unit and/or counseling patient: 25 - 35 minutes - Subjective Interval history: Mr. Lea is a 72 year old male patient with a history of hypertension, COPD who presented to the ER with complaints of shortness of breath. He had an episode of what appears to be bronchitis recently and was prescribed prednisone. He felt better initially but began to have shortness of breath that began 2 days back. This has been progressively worsening so he came to the ER. He denies any chest pain. She does have cough with clear sputum. He did have an episode of blood-tinged sputum earlier this morning. He denies any fevers or chills. No nausea or vomiting. No recent hospitalizations. 05/12: Patient continues to have dyspnea but improved. Vitamin Cesilia productive cough. No chest pain. No nausea, vomiting, diarrhea. No fevers or chills. He still reports wheezing. - Constitutional Vitals: Temp Pulse Resp BP Pulse Ox 97.5 F L 110 20 135/84 91 05/12/18 11:00 05/12/18 11:00 05/12/18 11:00 05/12/18 11:05/12/18 11:00 General appearance: Present: mild distress, A&O X 3, pleasant, answers questions appropriately Exam: Sitting up in bed, tripod position, increased work of breathing, full sentence dyspnea. - Head Head exam: Present: atraumatic, normocephalic - Eye Eye exam: Present: PERRL, conjuntiva pink, sclera anicteric Pupils: Present: PERRL - Neck Neck exam general surgery: Present: supple, trachea midline. Absent: lymphadenopathy - Respiratory Respiratory exam: Present: rales, respiratory distress, wheezes. Absent: accessory muscle use, rhonchi - Cardiovascular Cardiovascular exam: Present: RRR, +S1, +S2. Absent: diastolic murmur, gallop, rubs, systolic murmur - GI/Abdominal GI/Abdominal exam: Present: normal bowel sounds, soft, no peritoneal signs. Absent: distended, tenderness - Extremities Exam Extremities exam: Present: warm, radial pulses palpable and symmetrical. Absent : calf tenderness, cyanotic, pedal edema - Neurological Exam Neurological exam: Present: CN II-XII intact, oriented X3, no focal deficits. Absent: pronater drift, facial droop, speech deficit - Skin Skin exam: Present: dry, intact Additional comments: oh Internal Medicine: Result - Labs CBC & Chem 7: 05/12/18 01:16 05/12/18 01:16 Labs: Short CBC 05/12/18 Range/Units 01:16 WBC 12.1 H (4.3-11.1) K/mcL Hgb 17.1 H (12.9-16.9) g/dL Hct 51.9 H (37.5-50.1) % Plt Count 236 (140-400) K/mcL Neutrophils # 8.2 (1.6-8.9) K/mcL BMP 05/12/18 01:16 Sodium 137 Potassium 4.3 Chloride 102 Carbon Dioxide 31 H BUN 15 Creatinine 0.86 Glucose 115 H Calcium 9.2 Cardiac Enzymes 05/11/18 05/11/18 05/12/18 Range/Units 12:15 17:41 01:16 Troponin I 0.35 H* 0.52 H* 0.42 H* (< 0.04) ng/mL - ABG Interpretation ABG results: PT/INR, D-dimer PT 12.5 Seconds (9.4-12.1) H 05/11/18 05:58 D-Dimer 523 ng/mLFEU (0-500) H 05/11/18 05:58 Consult Discharge Plan - Plan Referrals: Ofelia Peterson, PHARMACEUTICAL WORKER [Primary Care Provider] -
[2018-05-12] MEDS ORDERED: methylPREDNISolone 60 MG in 0.9 % Sodium Chloride 100 ML IVPB SCH (13:28)
[2018-05-12] MEDS: methylPREDNISolone 125 MG/2 ML VIAL IVP SCH ×2 (14:19→19:41)
[2018-05-12] MEDS ORDERED: Acetaminophen 325 MG TABLET PO PRN (14:28)
[2018-05-12] MEDS ORDERED: Benzonatate 100 MG CAPSULE PO PRN (22:07)
[2018-05-13] MEDS: methylPREDNISolone 125 MG/2 ML VIAL IVP SCH ×4 (00:06→18:09)
[2018-05-13 03:44] LABS: Basophils % 0.1 %; Hematocrit 49.1 % (37.5-50.1); Hemoglobin 16.4 g/dL (12.9-16.9); Immature Granulocytes % 0.6 % (0-4); Lymphocytes # 1.4 K/mcL (0.6-4.6); Lymphocytes % 7.6 %; Mean Corpuscular HGB Conc 33.4 g/dL (31.6-35.5); Mean Corpuscular Hemoglobin 30.7 pg (28.0-33.3); Mean Corpuscular Volume 91.8 fL (83.0-100.0); Mean Platelet Volume 9.7 fL (9.4-12.4); Monocytes # 0.7 K/mcL (0.0-1.3); Neutrophils # 15.6 K/mcL (1.6-8.9); Platelet Count 241 K/mcL (140-400); Red Blood Count 5.35 M/mcL (4.19-5.50); Red Cell Distribution Width 13.8 % (11.5-14.5); Segmented Neutrophils % 87.7 %
[2018-05-13 03:59] LABS: BUN/Creatinine Ratio 24 (6-26); Blood Urea Nitrogen 19 mg/dL (8-23); Calcium 9.4 mg/dL (8.6-10.3); Carbon Dioxide 30 mEq/L (23-29); Chloride 99 mEq/L (98-107); Glucose 213 mg/dL (70-105); Osmolality,Calculated 285 (280-300); Potassium 4.5 mEq/L (3.5-5.1); Sodium 133 mEq/L (136-145); eGFR For African Americans > 60 (> 60); eGFR For Non-African Americans > 60 (> 60)
[2018-05-13] MEDS: Lisinopril 20 MG TABLET PO SCH (10:45)
[2018-05-13] MEDS: Nicotine 21 MG PATCH.TD24 TD SCH (10:45)
[2018-05-13] MEDS: Aspirin Enteric Coated 81 MG Tablet PO SCH (10:45)
[2018-05-13] MEDS: cefTRIAXone 2,000 MG in 0.9 % Sodium Chloride Mini Bag 100 ML IVPB SCH (10:46)
[2018-05-13] MEDS: *HR* Enoxaparin 40 MG/0.4 ML SYRINGE SQ SCH (10:46)
[2018-05-13] MEDS: Azithromycin 500 MG in D5% in Water 250 ML IVPB SCH (10:47)
--- NOTE | 2018-05-13 10:54 | Internal Med Progress Note ---
Date of Encounter: 05/13/18 Time of Encounter: 09:00 - Assessment and plan (1) Pneumonia Current Visit: Yes Status: Suspected Assessment and plan: Patient presenting with pneumonia in the right lower lobe. Most likely community-acquired. Will treat with Rocephin and azithromycin. Follow culture results. Check urine legionella and strep antigens. High risk for complications. 05/12: Day #2 Rocephin and azithromycin. Anticipate a 7-10 day course total. Patient denies any choking or history of aspiration. Will need close follow-up imaging to ensure there is not an underlying mass 05/13: Day #3 Rocephin and Azithromycin. Clinically improved. White blood cell count has increased but patient has clinically improved. Suspect this is a steroid effect. Qualifiers: Pneumonia type: due to Pneumococcus Laterality: right Lung location: lower lobe of lung Qualified Code(s): J13 - Pneumonia due to Streptococcus pneumoniae (2) COPD (chronic obstructive pulmonary disease) Current Visit: Yes Status: Chronic Assessment and plan: Patient with history of COPD. Will place patient on bronchodilators. O2 supplementation as needed. 05/12: Add IV Solu-Medrol. Mucolytic's. 05/13: Continue current therapy. Change to oral steroids tomorrow. Aggressive bronchodilator therapy and mucolytics. Qualifiers: COPD type: chronic bronchitis Chronic bronchitis type: simple Qualified Code(s): J41.0 - Simple chronic bronchitis (3) Elevated troponin Current Visit: Yes Status: Acute Assessment and plan: Mild elevation in troponin. Most likely related to pneumonia. Will trend troponins. Get 2-D echocardiogram. 05/12: Cardiology evaluation appreciated. Suspected to be demand ischemia. Echocardiogram showed EF of 50-55%, mild left ventricular diastolic dysfunction. No pulmonary hypertension. (4) Essential hypertension Current Visit: Yes Status: Chronic (5) Tobacco abuse Current Visit: Yes Status: Chronic Assessment and plan: Counseled about cessation. Offered nicotine patch. 05/13: Continue counseling. Patient is not motivated to quit. (6) Acute hypoxemic respiratory failure Current Visit: Yes Status: Acute Assessment and plan: Due to pneumonia and COPD exacerbation Continue to monitor. Wean as able, may need home O2. - Time Spent With Patient Total time spent is greater than 50% in coordination of care (as documented) at patient's floor/unit and/or counseling patient: 25 - 35 minutes - Subjective Interval history: Mr. Lea is a 72 year old male patient with a history of hypertension, COPD who presented to the ER with complaints of shortness of breath. He had an episode of what appears to be bronchitis recently and was prescribed prednisone. He felt better initially but began to have shortness of breath that began 2 days back. This has been progressively worsening so he came to the ER. He denies any chest pain. She does have cough with clear sputum. He did have an episode of blood-tinged sputum earlier this morning. He denies any fevers or chills. No nausea or vomiting. No recent hospitalizations. 05/12: Patient continues to have dyspnea but improved. Minimal productive cough. No chest pain. No nausea, vomiting, diarrhea. No fevers or chills. He still reports wheezing. 05/13: Patient states he feels much better today. He is still short of breath and sitting up in bed to assist with his breathing. No chest pain. He is producing more sputum, yellow in color. No fevers or chills. No nausea, vomiting, diarrhea. - Constitutional Vitals: Temp Pulse Resp BP Pulse Ox 97.9 F 96 16 129/76 92 05/13/18 06:41 05/13/18 06:41 05/13/18 06:41 05/13/18 06:41 05/13/18 06:41 General appearance: Present: mild distress, A&O X 3, pleasant, answers questions appropriately Exam: Sitting up on the edge of the bed, tripod position. Conversational dyspnea. - Head Head exam: Present: atraumatic, normocephalic - Eye Eye exam: Present: PERRL, conjuntiva pink, sclera anicteric Pupils: Present: PERRL - Neck Neck exam general surgery: Present: supple, trachea midline. Absent: lymphadenopathy - Respiratory Respiratory exam: Present: CTAB. Absent: accessory muscle use, rales, rhonchi, wheezes - Cardiovascular Cardiovascular exam: Present: RRR, +S1, +S2. Absent: diastolic murmur, gallop, rubs, systolic murmur - GI/Abdominal GI/Abdominal exam: Present: normal bowel sounds, soft, no peritoneal signs. Absent: distended, tenderness - Extremities Exam Extremities exam: Present: warm, radial pulses palpable and symmetrical. Absent : calf tenderness, cyanotic, pedal edema - Neurological Exam Neurological exam: Present: CN II-XII intact, oriented X3, no focal deficits. Absent: pronater drift, facial droop, speech deficit - Skin Skin exam: Present: dry, intact Internal Medicine: Result - Labs CBC & Chem 7: 05/13/18 03:28 05/13/18 03:28 Labs: Short CBC 05/13/18 Range/Units 03:28 WBC 17.7 H (4.3-11.1) K/mcL Hgb 16.4 (12.9-16.9) g/dL Hct 49.1 (37.5-50.1) % Plt Count 241 (140-400) K/mcL Neutrophils # 15.6 H (1.6-8.9) K/mcL BMP 05/13/18 03:28 Sodium 133 L Potassium 4.5 Chloride 99 Carbon Dioxide 30 H BUN 19 Creatinine 0.78 Glucose 213 H Calcium 9.4 - ABG Interpretation ABG results: PT/INR, D-dimer PT 12.5 Seconds (9.4-12.1) H 05/11/18 05:58 D-Dimer 523 ng/mLFEU (0-500) H 05/11/18 05:58 Consult Discharge Plan - Plan Referrals: Ofelia Peterson CNP [Primary Care Provider] - 05/21/18 1:00 pm
--- NOTE | 2018-05-13 13:18 | Cardiology Progress Note ---
Date of Encounter: 05/13/18 Time of Encounter: 13:16 Assessment and Plan (1) Community acquired pneumonia Current Visit: Yes Status: Acute CTA of the chest shows multilobular PNA and infectious bronchitis. H/o recent bronchitis. Leukocytosis and tachycardia noted. On IV antibiotics and IV fluid is being started. He is being followed by primary team. Qualifiers: Laterality: right Lung location: lower lobe of lung Qualified Code(s): J18.1 - Lobar pneumonia, unspecified organism (2) Elevated troponin Current Visit: Yes Status: Acute Troponin elevation at 0.35, 0.52, 0.42. Likely demand ischemia in the setting of multifocal PNA. EKG shows sinus tachycardia with no acute ST/T wave changes. Managment per primary team. Denies having significant chest pain symptoms. TTE completed shows preserved EF. No WMA. There is moderate aortic stenosis. Recommend continuing asa and bb. Medical management. Out-pt cardiology f/u. (3) Aortic stenosis Current Visit: Yes Status: Acute Moderate aortic stenosis on TTE. Mean gradient 30 mmHg. Peak velocity 3.45 m/ s. Leaflets not well visualized. EF 50-55%. Recommend out-pt monitoring with cardiology. Qualifiers: Cardiac valve disease etiology: etiology unspecified Qualified Code(s): I35.0 - Nonrheumatic aortic (valve) stenosis Discussion w patient/family: The assessment and plan as outlined above was discussed with the patient and/or family members who expressed understanding and agreement. All questions were answered. Thank you for involving us in the care of your patient. Please call with any questions. Subjective Principal diagnosis: Multilobular PNA Interval history: Reports he is breathing much better. Denies chest pain. Objective Vital Signs, Last 4 Hours Temp Pulse Resp BP Pulse Ox 05/13/18 11:12 97.6 F 106 16 115/77 88 General: Conversant, No Apparent Distress HEENT: Atraumatic, Normocephaly, Mucus Membranes Moist Neck: No JVD, Normal carotid pulses Cardiac: Reg Rate and Rhythm, Normal S1 and S2, No Murmur Lungs: Other (Respirations easy. Lungs diminished on the right LL and bilateral upper lobes with rhonci scattered throughout. ) Neuro: Alert and responsive, No focal deficits noted Abdomen: Soft, Non-Tender Skin: No rashes noted on visualized skin Musculoskeletal: No Chest Wall Tenderness Extremities: No Clubbing, No Cyanosis, Normal Pulses, Other (edema noted in left ankle, pt reports is chronic. ) Results 05/13/18 03:28 05/13/18 03:28 Lab Results 05/13/18 05/13/18 03:28 03:28 WBC 17.7 H Hgb 16.4 Hct 49.1 Plt Count 241 Sodium 133 L Potassium 4.5 Chloride 99 Carbon Dioxide 30 H BUN 19 Creatinine 0.78 Glucose 213 H Calcium 9.4 - Imaging and Cardiology Echo: report reviewed Consult Discharge Plan - Plan Referrals: Ofelia Peterson, PIETRO [Primary Care Provider] - 05/21/18 1:00 pm
--- NOTE | 2018-05-13 17:59 | Electrocardiograph Report ---
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
[2018-05-14] MEDS: methylPREDNISolone 125 MG/2 ML VIAL IVP SCH ×2 (00:03→06:26)
[2018-05-14 07:05] LABS: Basophils % 0.1 %; Eosinophils % 0.1 %; Hematocrit 50.2 % (37.5-50.1); Hemoglobin 16.1 g/dL (12.9-16.9); Immature Granulocytes % 0.8 % (0-4); Lymphocytes # 1.4 K/mcL (0.6-4.6); Lymphocytes % 6.4 %; Mean Corpuscular HGB Conc 32.1 g/dL (31.6-35.5); Mean Corpuscular Hemoglobin 29.6 pg (28.0-33.3); Mean Corpuscular Volume 92.3 fL (83.0-100.0); Mean Platelet Volume 9.8 fL (9.4-12.4); Monocytes # 1.2 K/mcL (0.0-1.3); Monocytes % 5.7 %; Neutrophils # 18.8 K/mcL (1.6-8.9); Platelet Count 271 K/mcL (140-400); Red Blood Count 5.44 M/mcL (4.19-5.50); Red Cell Distribution Width 14.2 % (11.5-14.5); Segmented Neutrophils % 86.9 %
[2018-05-14 07:25] LABS: BUN/Creatinine Ratio 28 (6-26); Blood Urea Nitrogen 21 mg/dL (8-23); Calcium 9.9 mg/dL (8.6-10.3); Carbon Dioxide 31 mEq/L (23-29); Chloride 102 mEq/L (98-107); Glucose 131 mg/dL (70-105); Osmolality,Calculated 295 (280-300); Potassium 4.6 mEq/L (3.5-5.1); Sodium 140 mEq/L (136-145); eGFR For African Americans > 60 (> 60); eGFR For Non-African Americans > 60 (> 60)
--- NOTE | 2018-05-14 08:30 | Internal Med Progress Note ---
<Maribel Jarvis N - Last Filed: 05/14/18 18:13> Date of Encounter: 05/14/18 Time of Encounter: 08:30 - Assessment and plan (1) Pneumonia Current Visit: Yes Status: Suspected Assessment and plan: Day #4 of rocephin and azithromycin. Expect a total of antibiotic course of 5 days. WBC count has continued to rise (21.6 today, up from 17.7 yesterday); however, suspect this is due to steroid effect as patient has had symptomatic improvement and has remained afebrile. Qualifiers: Pneumonia type: due to Pneumococcus Laterality: right Lung location: lower lobe of lung Qualified Code(s): J13 - Pneumonia due to Streptococcus pneumoniae (2) COPD (chronic obstructive pulmonary disease) Current Visit: Yes Status: Chronic Assessment and plan: Day #3 of steroids. Changed dose of IV solu-medrol to 40 mg Q8H in preparation for weaning/transitioning to PO steroids tomorrow. Expect a total of 5 days of steroid therapy. Patient has qualified for home oxygen therapy, which is being arranged in preparation for expected discharge tomorrow. Qualifiers: COPD type: chronic bronchitis Chronic bronchitis type: simple Qualified Code(s): J41.0 - Simple chronic bronchitis (3) Essential hypertension Current Visit: Yes Status: Chronic Assessment and plan: Continue current medication regimen. (4) Dark stools Current Visit: Yes Status: Acute Assessment and plan: Patient complaining of darker coloration to his stool. Low suspicion of GI bleed , as hemoglobin/hematocrit are stable and patient has had hemoptysis. Hemoccult ordered to assess/rule-out for potential bleed. (5) Tobacco abuse Current Visit: Yes Status: Chronic Assessment and plan: Patient is using nicotine patch. Encouraged continued smoking cessation. (6) Elevated troponin Current Visit: Yes Status: Acute Assessment and plan: Likely due to demand ischemia. Cardiology was initially consulted but did not recommend further investigation at this time. Will continue to monitor. (7) Acute on chronic respiratory failure with hypoxemia Current Visit: Yes Status: Acute Assessment and plan: Improving. Will continue to monitor. Patient will be discharged with home oxygen available. - Time Spent With Patient Total time spent is greater than 50% in coordination of care (as documented) at patient's floor/unit and/or counseling patient: - Subjective Interval history: Mr. Lea is a 72-year old male who was admitted with a right lower lobe pneumonia and COPD exacerbation. He reports improvement in his symptoms, and states that while his sputum is does still contain some blood, it has lessened and become more clear. He denies any fevers, chills, or chest pain. He does report some continued exertional dyspnea, though it is not as severe today as it was yesterday.\\. He was qualified today to receive supplemental oxygen at home, which will be set up prior to discharge. He reports that the color of his stool has darkened, approaching black in color, and states that he is going "more regularly", approximately three times per day. He denies any other complaints or concerns at this time. - Constitutional Vitals: Temp Pulse Resp BP Pulse Ox 97.4 F L 83 16 135/73 93 05/14/18 06:43 05/14/18 06:43 05/14/18 06:43 05/14/18 06:43 05/14/18 07:18 Exam: Patient is alert and oriented. He does not appear to be in acute distress. He is pleasant and conversational, and answers questions appropriately. - Head Head exam: Present: atraumatic, normocephalic - Neck Additional comments: Neck is supple with no apparent JVD or lymphadenopathy. - Respiratory Additional comments: Intermittent expiratory wheeze present. Decreased breath sounds bilaterally, particularly in the lower lobes due to diminished respiratory effort. - Cardiovascular Additional comments: Regular rate and rhythm. 2/6 systolic murmur present. - Extremities Exam Additional comments: Patient moves all extremities spontaneously. Mild lower extremity edema present bilaterally. Internal Medicine: Result - Labs CBC & Chem 7: 05/14/18 06:45 05/14/18 06:45 Labs: Short CBC 05/14/18 Range/Units 06:45 WBC 21.6 H (4.3-11.1) K/mcL Hgb 16.1 (12.9-16.9) g/dL Hct 50.2 H (37.5-50.1) % Plt Count 271 (140-400) K/mcL Neutrophils # 18.8 H (1.6-8.9) K/mcL BMP 05/14/18 06:45 Sodium 140 Potassium 4.6 Chloride 102 Carbon Dioxide 31 H BUN 21 Creatinine 0.74 Glucose 131 H Calcium 9.9 - ABG Interpretation ABG results: PT/INR, D-dimer PT 12.5 Seconds (9.4-12.1) H 05/11/18 05:58 D-Dimer 523 ng/mLFEU (0-500) H 05/11/18 05:58 Consult Discharge Plan - Plan Instructions: Acute Respiratory Distress Syndrome (DC), Chronic Obstructive Pulmonary Disease (DC), Chronic Hypertension (DC), Pneumonia (DC), Cigarette Smoking and Your Health, Home Aid (GEN) Referrals: Ofelia Peterson CNP [Primary Care Provider] - 05/21/18 1:00 pm <Vitor Hart - Last Filed: 05/14/18 18:20> Date of Encounter: 05/14/18 - Assessment and plan (1) Acute on chronic respiratory failure with hypoxemia Current Visit: Yes Status: Acute (2) Pneumonia Current Visit: Yes Status: Suspected Qualifiers: Pneumonia type: due to Pneumococcus Laterality: right Lung location: lower lobe of lung Qualified Code(s): J13 - Pneumonia due to Streptococcus pneumoniae (3) Essential hypertension Current Visit: Yes Status: Chronic (4) COPD (chronic obstructive pulmonary disease) Current Visit: Yes Status: Chronic Qualifiers: COPD type: chronic bronchitis Chronic bronchitis type: simple Qualified Code(s): J41.0 - Simple chronic bronchitis (5) Tobacco abuse Current Visit: Yes Status: Chronic (6) COPD exacerbation Current Visit: Yes Status: Acute Assessment and plan: Taper steroids today. (7) Dark stools Current Visit: Yes Status: Acute (8) Elevated troponin Current Visit: Yes Status: Acute - Time Spent With Patient Total time spent is greater than 50% in coordination of care (as documented) at patient's floor/unit and/or counseling patient: - Constitutional Vitals: Temp Pulse Resp BP Pulse Ox 97.5 F L 64 16 111/76 96 05/14/18 15:30 05/14/18 15:30 05/14/18 15:30 05/14/18 15:30 05/14/18 15:30 Internal Medicine: Result - Labs CBC & Chem 7: 05/14/18 06:45 05/14/18 06:45 Labs: Short CBC 05/14/18 Range/Units 06:45 WBC 21.6 H (4.3-11.1) K/mcL Hgb 16.1 (12.9-16.9) g/dL Hct 50.2 H (37.5-50.1) % Plt Count 271 (140-400) K/mcL Neutrophils # 18.8 H (1.6-8.9) K/mcL BMP 05/14/18 06:45 Sodium 140 Potassium 4.6 Chloride 102 Carbon Dioxide 31 H BUN 21 Creatinine 0.74 Glucose 131 H Calcium 9.9 - ABG Interpretation ABG results: PT/INR, D-dimer PT 12.5 Seconds (9.4-12.1) H 05/11/18 05:58 D-Dimer 523 ng/mLFEU (0-500) H 05/11/18 05:58 - Attending Attestation I examined this patient and my medical decision-making was reviewed with the Resident Physician on 05/14/18. I agree with the documented findings, disposition and treatment plan as described except to the extent set forth below. Mr Lea is currently admitted for acute exac COPD and probable pneumonia. He remains moderate to high risk due to potential for worsening respiratory status. Mr Lea feels OK. He is on high dose IV steroids. No fever or chills. Less cough. No GI issues. Exam alert Comfortable at rest. Mucus membranes dry Heart reg No wheeze at this time No edema I/P 1. Exac COPD 2. Probable PNA Further diagnoses and plan as above Anticipate d/c tomorrow.
[2018-05-14] MEDS: Aspirin Enteric Coated 81 MG Tablet PO SCH (09:50)
[2018-05-14] MEDS: Nicotine 21 MG PATCH.TD24 TD SCH (09:50)
[2018-05-14] MEDS: cefTRIAXone 1,000 MG in Water for inj. (sterile) 20 ML 10 ML IVP SCH (09:51)
[2018-05-14] MEDS: Azithromycin 500 MG in D5% in Water 250 ML IVPB SCH (09:51)
[2018-05-14] MEDS: Lisinopril 20 MG TABLET PO SCH (09:52)
[2018-05-14] MEDS: *HR* Enoxaparin 40 MG/0.4 ML SYRINGE SQ SCH (09:52)
[2018-05-14] MEDS: MethylPREDNISolone 40 MG/ML VIAL IVP SCH (17:49)
[2018-05-15] MEDS: MethylPREDNISolone 40 MG/ML VIAL IVP SCH ×2 (00:29→09:06)
[2018-05-15 07:21] VITALS: BP 114/66
--- NOTE | 2018-05-15 07:57 | Internal Med Progress Note ---
Date of Encounter: 05/15/18 - Assessment and plan (1) Elevated troponin Current Visit: Yes Status: Acute (2) Pneumonia Current Visit: Yes Status: Suspected Qualifiers: Pneumonia type: due to Pneumococcus Laterality: right Lung location: lower lobe of lung Qualified Code(s): J13 - Pneumonia due to Streptococcus pneumoniae (3) Essential hypertension Current Visit: Yes Status: Chronic (4) COPD (chronic obstructive pulmonary disease) Current Visit: Yes Status: Chronic Qualifiers: COPD type: chronic bronchitis Chronic bronchitis type: simple Qualified Code(s): J41.0 - Simple chronic bronchitis (5) Tobacco abuse Current Visit: Yes Status: Chronic (6) Dark stools Current Visit: Yes Status: Acute (7) Acute on chronic respiratory failure with hypoxemia Current Visit: Yes Status: Acute (8) COPD exacerbation Current Visit: Yes Status: Acute - Time Spent With Patient Total time spent is greater than 50% in coordination of care (as documented) at patient's floor/unit and/or counseling patient: - Subjective Interval history: Mr. Lea is a 72-year old male who was admitted with a right lower lobe pneumonia and COPD exacerbation. He reports improvement in his symptoms, and states that while his sputum is does still contain some blood, it has lessened and become more clear. He denies any fevers, chills, or chest pain. He does report some continued exertional dyspnea, though it is not as severe today as it was yesterday.\\. He was qualified today to receive supplemental oxygen at home, which will be set up prior to discharge. He reports that the color of his stool has darkened, approaching black in color, and states that he is going "more regularly", approximately three times per day. He denies any other complaints or concerns at this time. - Constitutional Vitals: Temp Pulse Resp BP Pulse Ox 97.8 F 97 18 114/66 95 05/15/18 07:20 05/15/18 07:20 05/15/18 07:20 05/15/18 07:20 05/15/18 07:20 General appearance: Present: cooperative, A&O X 3, pleasant, no acute distress, answers questions appropriately Internal Medicine: Result - Labs CBC & Chem 7: 05/14/18 06:45 05/14/18 06:45 - ABG Interpretation ABG results: PT/INR, D-dimer PT 12.5 Seconds (9.4-12.1) H 05/11/18 05:58 D-Dimer 523 ng/mLFEU (0-500) H 05/11/18 05:58 Consult Discharge Plan - Plan Instructions: Acute Respiratory Distress Syndrome (DC), Chronic Obstructive Pulmonary Disease (DC), Chronic Hypertension (DC), Pneumonia (DC), Cigarette Smoking and Your Health, [employer] (GEN) Referrals: Oeflia Peterson CNP [Primary Care Provider] - 05/21/18 1:00 pm
[2018-05-15 08:49] LABS: Basophils % 0.1 %; Hematocrit 47.7 % (37.5-50.1); Hemoglobin 15.5 g/dL (12.9-16.9); Immature Granulocytes % 0.8 % (0-4); Lymphocytes # 1.3 K/mcL (0.6-4.6); Mean Corpuscular HGB Conc 32.5 g/dL (31.6-35.5); Mean Corpuscular Hemoglobin 30.6 pg (28.0-33.3); Mean Corpuscular Volume 94.1 fL (83.0-100.0); Mean Platelet Volume 9.8 fL (9.4-12.4); Monocytes % 5.3 %; Neutrophils # 16.4 K/mcL (1.6-8.9); Platelet Count 280 K/mcL (140-400); Red Blood Count 5.07 M/mcL (4.19-5.50); Red Cell Distribution Width 14.1 % (11.5-14.5); Segmented Neutrophils % 86.8 %
[2018-05-15] MEDS ORDERED: Azithromycin 250 MG TABLET PO SCH (09:00)
[2018-05-15] MEDS: Aspirin Enteric Coated 81 MG Tablet PO SCH (09:06)
[2018-05-15] MEDS: Lisinopril 20 MG TABLET PO SCH (09:06)
[2018-05-15] MEDS: Nicotine 21 MG PATCH.TD24 TD SCH (09:07)
[2018-05-15] MEDS: *HR* Enoxaparin 40 MG/0.4 ML SYRINGE SQ SCH (09:07)
[2018-05-15] MEDS: cefTRIAXone 1,000 MG in Water for inj. (sterile) 20 ML 10 ML IVP SCH (09:16)
--- NOTE | 2018-05-15 09:53 | Discharge Summary ---
<Maribel Jarvis N - Last Filed: 05/15/18 14:51> - NOTES TO OUTPATIENT PROVIDER Notes to Outpatient Provider: Mr. Lea was admitted on 05/11/2018 for COPD exacerbation and right lower lobe pneumonia. He was treated with a 5-day course of rocephin and azithromycin, with an additional two days of azithromycin 500mg prescribed upon discharge. He received high-dose IV steroids for 4 days, with PO steroids prescribed at discharge for steroid taper. While admitted, he was qualified for use of supplimental oxygen at home, which has been arranged by his case resolution specialist. Orders not resulted at time of discharge: Pending orders 05/14/18 10:21 Fecal Hemoccult [Occult Blood,Stool] [BF] Stat Date of Encounter: 05/15/18 Time of Encounter: 09:52 - Discharge Diagnosis (1) Pneumonia Priority: Primary Status: Suspected Assessment and Plan: Day #5 of rocephin and azithromycin. Patient discharged with an additional 2 days of azithromycin 500mg. Qualifiers: Pneumonia type: due to Pneumococcus Laterality: right Lung location: lower lobe of lung Qualified Code(s): J13 - Pneumonia due to Streptococcus pneumoniae (2) Acute on chronic respiratory failure with hypoxemia Priority: Secondary Status: Acute Assessment and Plan: Improving. Patient will be discharged with home oxygen available. (3) COPD (chronic obstructive pulmonary disease) Priority: Secondary Status: Chronic Assessment and Plan: Complete course of steroids as prescribed. Patient instructed to use inhaler as directed and follow up with PCP for further management. Qualifiers: COPD type: chronic bronchitis Chronic bronchitis type: simple Qualified Code(s): J41.0 - Simple chronic bronchitis (4) Essential hypertension Priority: Secondary Status: Chronic Assessment and Plan: Continue home medication therapy. (5) Dark stools Priority: Secondary Status: Resolved Assessment and Plan: Patient reports return to normal stool coloration. He was advised to follow up with his PCP should this recur. (6) Tobacco abuse Priority: Secondary Status: Chronic Assessment and Plan: Encouraged continued smoking cessation. Patient was prescribed nicotine patches to assist with that goal. (7) Elevated troponin Priority: Secondary Status: Resolved (8) COPD exacerbation Priority: Secondary Status: Acute Assessment and Plan: Transitioned patient to PO steroids following discharge. Plan to start with 50mg prednisone daily, decreasing by 10mg Q3 days, for a total taper of 15 days. Patient was provided a prescription for a one-month supply of albuterol Q4h PRN dyspnea. Hospital course: Mr. Lea is a 72 year old male who presented to the ED on 05/11/2018 complaining of shortness of breath that woke him from his sleep. He reported an associated cough productive of yellow-tinged sputum. Evaluation in the ED revealed a probable pneumonia in the right lower lobe, for which he was admitted to the hospital and antibiotic therapy was initiated. Cardiology was consulted for elevated troponins. Echocardiogram revealed LVEF 50-55% and mild left ventricular diastolic dysfunction, along with moderate aortic stenosis. Outpatient cardiology follow up was advised after discharge. Patient reported some dark colored stools on day 4 of this hospitalization, for which a hemoccult was ordered. The patient was unable to provide a stool sample prior to discharge, but did report that his stool returned to its normal color on the day of dischage. The patient was treated for a total of 5 days of antibiotics and received high- dose IV steroids for a total of 4 days, with good improvement of symptoms. Patient reported good alleviation of dyspnea with use of supplemental oxygen, and was qualified for home oxygen use, which was arranged. Upon discharge, patient was provided with a 15-day taper of PO steroids and two additional days of azithromycin 500mg. Discharge discussed with: patient, family Time spent discussing smoking cessation with patient: 3 to 10 minutes - Time Spent with Patient Total time spent providing and/or coordinating discharge services: - Discharge Medications Prescriptions: Albuterol Neb [AccuNeb] 0.63 mg IH Q4H PRN 30 Days #1 pkg PRN Reason: Dyspnea Azithromycin [Zithromax] 500 mg PO Q24H #2 tablet Metoprolol [Lopressor] 25 mg PO BID #30 tablet Nicotine Patch [Nicoderm] 21 mg TD DAILY 30 Days patch.[id number] predniSONE [PredniSONE] 10 mg PO DAILY #45 tablet Home Medications: Albuterol Sulfate [Ventolin Hfa] 2 puff IH Q4H PRN 05/11/18 [History] Aspirin [Lo-Dose Aspirin EC] 162 mg PO DAILY 05/11/18 [History] Ibuprofen 800 mg PO TID PRN 05/11/18 [History] Loratadine/Pseudoephedrine [Ra Lorata-D 24-Hour Tablet] 1 tab PO DAILY 05/11/18 [History] Montelukast [Singulair] 10 mg PO HS 05/11/18 [History] Quinapril/Hydrochlorothiazide [Quinapril-Hctz 20-12.5 mg Tab] 1 tab PO DAILY [History] Albuterol Neb [AccuNeb] 0.63 mg IH Q4H PRN 30 Days #1 pkg 05/15/18 [Rx] Azithromycin [Zithromax] 500 mg PO Q24H #2 tablet 05/15/18 [Rx] Metoprolol [Lopressor] 25 mg PO BID #30 tablet 05/15/18 [Rx] Nicotine Patch [Nicoderm] 21 mg TD DAILY 30 Days patch.td24 05/15/18 [Rx] predniSONE [PredniSONE] 10 mg PO DAILY #45 tablet 05/15/18 [Rx] Allergies/Adverse Reactions: 3 Allergy/AdvReac Type Severity Reaction Status Date / Time Penicillins Allergy See Verified 05/11/18 15:18 Comments Date of admission: 05/11/18 10:34 Primary care physician: Ofelia Peterson CNP Consults: 05/11/18 17:31 Consult to Cardiology [CONS] Routine Comment: Consulting Provider: Cardiology [place] Reason for Consult: Elevated troponin Call Completed: No Discharging clinician: Maribel Jarvis Anticipated date of discharge: 05/15/18 - Constitutional Vitals: Temp Pulse Resp BP Pulse Ox 97.8 F 97 18 114/66 95 05/15/18 07:20 05/15/18 07:20 05/15/18 07:20 05/15/18 07:20 05/15/18 07:20 Exam: Patient is awake and conversational. He is sitting up and appears to be in no acute distress. - Head Additional comments: Atraumatic and normocephalic. Patient has nasal canula in place. - Respiratory Additional comments: Occasional wheeze present bilaterally. Decreased breath sounds due to poor inspiration. - Cardiovascular Additional comments: Regular rate and rhythm. Systolic murmur present. - Neurological Exam Additional comments: Patient move all extremities spontaneously. No apparent focal deficits. - Patient Status Disposition: Home, Self-Care Condition: Fair Functional capacity at discharge: independent ambulation Overall status at discharge: patient is progressing back to baseline - Discharge Instructions Instructions: Metoprolol (By mouth), Albuterol (By breathing), Prednisone (By mouth), Azithromycin (By mouth), Nicotine (Absorbed through the skin), Acute Respiratory Distress Syndrome (DC), Chronic Obstructive Pulmonary Disease (DC), Chronic Hypertension (DC), Pneumonia (DC), Cigarette Smoking and Your Health, Can Line Examiner (GEN) Follow Up With: Ofelia Peterson CNP [Primary Care Provider] - 05/21/18 1:00 pm Additional Instructions: Finish course of antibiotics as prescribed. Take steroids as directed: 50mg for 3 days, then 40mg for 3 days, then 30mg for 3 days, then 20mg for 3 days, then 10mg for 3 days. Use albuterol every 4 hours as needed for shortness of breath. Continue taking metoprolol 25mg twice daily. Continue smoking cessation with assistance of nicotine patches. Follow up with your primary care provider in 3-5 days. Return to the emergency department if symptoms worsen/recur or if new concerns arise. - Diet and Activity Activity: increase activity as tolerated, other (Wear oxygen as needed) Diet: regular diet <Vitor Hart - Last Filed: 05/15/18 16:40> Orders not resulted at time of discharge: Pending orders 05/14/18 10:21 Fecal Hemoccult [Occult Blood,Stool] [BF] Stat Date of Encounter: 05/15/18 - Discharge Diagnosis (1) Acute on chronic respiratory failure with hypoxemia Status: Acute (2) COPD exacerbation Status: Acute (3) Pneumonia Status: Suspected Qualifiers: Pneumonia type: due to Pneumococcus Laterality: right Lung location: lower lobe of lung Qualified Code(s): J13 - Pneumonia due to Streptococcus pneumoniae (4) Essential hypertension Status: Chronic (5) COPD (chronic obstructive pulmonary disease) Status: Chronic Qualifiers: COPD type: chronic bronchitis Chronic bronchitis type: simple Qualified Code(s): J41.0 - Simple chronic bronchitis (6) Tobacco abuse Status: Chronic Hospital course: Mr. Lea is a 72 year old male - Time Spent with Patient Total time spent providing and/or coordinating discharge services: Date of admission: 05/11/18 10:34 Primary care physician: Ofelia Peterson CNP Consults: 05/11/18 17:31 Consult to Cardiology [CONS] Routine Comment: Consulting Provider: [facility] [place] Reason for Consult: Elevated troponin Call Completed: No - Constitutional Vitals: Temp Pulse Resp BP Pulse Ox 97.8 F 97 18 114/66 95 05/15/18 07:20 05/15/18 07:20 05/15/18 07:20 05/15/18 07:20 05/15/18 07:20 - Attending Attestation I examined this patient and my medical decision-making was reviewed with the Resident Physician on 05/15/18. I agree with the documented findings, disposition and treatment plan as described except to the extent set forth below. Mr Lea has been admitted for acute respiratory failure due to COPD. He has qualified for oxygen. He is feeling OK and is afebrile. He will complete abx and steroids. He is ready for discharge home. Exam alert Comfortable Mucus membranes dry Heart reg Lungs diminished but clear Plan D/C home today Complete abx and steroids Oxygen Follow up with PCP
== END 2018-05-15 12:09 | disposition home or self-care (01) | DRG 193 ==
LOC: EMEROO 05:36 → 2NENU 05:36 → SUATTDRO 10:34
PROVIDERS: ADMIT Internal Medicine; ATTEND Internal Medicine

== ENCOUNTER 2018-12-27 22:09 | Observation (INO) ==
[2018-12-27] MEDS ORDERED: WATER FOR INJ NS ONE (22:24)
[2018-12-27] MEDS ORDERED: TRANEXAMIC ACID NS ONE (22:24)
--- NOTE | 2018-12-27 22:31 | Emergency Department Note ---
Disposition Clinical Impression: Hemoptysis Disposition: Admitted As Inpatient Condition: Good Referrals: Ofelia Peterson CNP [Primary Care Provider] - Forms: ED Satisfaction Letter Time of Disposition: 01:43 SOB HPI - General Chief Complaint: ED Shortness of Breath/Dyspnea Stated Complaint: Vomiting Blood Time Seen by Provider: 12/27/18 22:24 Source: patient, EMS Mode of arrival: EMS Limitations: no limitations Nursing Notes Reviewed: Yes Vital Signs Reviewed: Yes - History of Present Illness Patient is a 73-year-old male with past medical history of COPD, previous smoking history. He presents today via EMS due to hemoptysis. Patient states that around 9:30 PM, he felt a gurgling in his right chest. He did not have any pain at that time. He started coughing up blood. Denies any vomiting of blood. This is a charting ER from the original complaint. He stated that he coughed up a large amount of blood in his sink. EMS states that when they arrived he was 91%. He usually does not wear any oxygen, does not use any daily inhalers. Denies any recent instrumentation or trauma. Denies any blood thinners. Denies any previous episodes of coughing up blood. Denies any previous history of CT or stents. Not any previous known history of lung cancer or tumors. - Related Data Home Medications Medication Instructions Recorded Confirmed Albuterol Sulfate [Ventolin Hfa] 2 puff IH Q4H PRN 05/11/18 05/11/18 Aspirin [Lo-Dose Aspirin EC] 162 mg PO DAILY 05/11/18 05/11/18 Ibuprofen 800 mg PO TID PRN 05/11/18 05/11/18 Loratadine/Pseudoephedrine [Ra 1 tab PO DAILY 05/11/18 05/11/18 Lorata-D 24-Hour Tablet] Montelukast [Singulair] 10 mg PO HS 05/11/18 05/11/18 Quinapril/Hydrochlorothiazide 1 tab PO DAILY 05/11/18 05/11/18 [Quinapril-Hctz 20-12.5 mg Tab] Previous Rx's Medication Instructions Recorded Albuterol Neb [AccuNeb] 0.63 mg IH Q4H PRN 30 Days #1 pkg 05/15/18 Azithromycin [Zithromax] 500 mg PO Q24H #2 tablet 05/15/18 Metoprolol [Lopressor] 25 mg PO BID #30 tablet 05/15/18 Nicotine Patch [Nicoderm] 21 mg TD DAILY 30 Days patch.td24 05/15/18 predniSONE [PredniSONE] 10 mg PO DAILY #45 tablet 05/15/18 Allergies Allergy/AdvReac Type Severity Reaction Status Date / Time Penicillins Allergy See Verified 05/11/18 15:18 Comments All systems ED: reviewed and negative except as stated. Constitutional: Denies: fever Cardiovascular: Denies: chest pain Respiratory: Reports: dyspnea, hemoptysis Genitourinary: Denies: urgency, dysuria Integumentary: Denies: rash Neurological: Denies: headache, weakness Past Medical History - Past Medical History Attestation: Yes The following information was validated with the patient. Source: patient Medical history: Reports: COPD, hypertension Psychiatric history: Reports: no psych history - Social History Smoking Status: Current every day smoker Smokeless Tobacco Status: No Alcohol use: Reports: none Drug use: Reports: none Physical Exam - General Limitations: no limitations General appearance: alert, in no apparent distress - Head Head exam: atraumatic, normocephalic, normal inspection - Eye Eye exam: Present: normal appearance, PERRL, EOMI - ENT ENT exam: normal exam, normal oropharynx, mucous membranes moist - Neck Neck exam: Present: normal inspection, full ROM, trachea midline - Chest Chest inspection: Present: normal inspection, symmetric chest wall rise - Respiratory Respiratory exam: Present: normal lung sounds bilaterally. Absent: respiratory distress, wheezes, stridor - Cardiovascular Cardiovascular exam: Present: regular rate, normal rhythm, normal heart sounds - Abdominal Exam Abdominal exam: Present: soft, Non-Tender. Absent: tenderness, distention, guarding, rebound, rigidity - Extremities Exam Extremities exam: Present: normal inspection, full ROM. Absent: tenderness, pedal edema - Neurological Exam Neurological exam: Present: alert, oriented X3 - Psychiatric Psychiatric exam: Present: normal affect, normal mood - Skin Skin exam: Present: warm, dry, intact, normal color Course Course Narrative: Patient was tachycardic and oxygen saturation was 92% on 4 L nasal cannula oxygen on presentation. He is not in respiratory distress. Lung sounds were relatively clear. He has no wheezing. He did have a bag of small amount of bright red blood, is now spitting up blood with saliva and extend. He believes that the bleeding is slowing down at this time. We will go ahead and type and cross and hold 2 units of blood, call pharmacy to ordered nebulized T x-ray to help with bleeding. We will go ahead and perform EKG chest x-ray. We will also perform CTA of the chest to assess for source of bleeding. 01:43 mildly elevated troponin which is chronic for the patient. Otherwise, hemoglobin is stable. No elevation white blood cell count. CT scan shows small right-sided pleural effusion which I believe may be blood. There is also consolidation of the right LL. Covered with levaquin for possible pneumonia. After nebulized TXA, patient has no additional hemoptysis at this time. The pressure stable with 120 systolic. Heart rate has normalized to the 90s. P atient was given 1 L normal saline bolus. Blood was crossed and 2 units on hold but not infused. I talked with the hospitalist Dr. Franco who feels comfortable with keeping the patient here overnight for observation. Patient will likely require a pulmonology consult in the morning for bronchoscopy. Chest X-Ray 12/27/18 22:35 IMPRESSION: Right middle lobe and right lower lobe consolidation with a small right pleural effusion. Follow-up is recommended to document resolution. D/ / Julissa Rowland MD / Julissa Rowland MD Interpreting Provider: Julissa Rowland MD Chest CTA 12/28/18 22:35 IMPRESSION: No evidence pulmonary embolism. Small right pleural effusion and right basilar consolidation suggestive of pneumonia. Follow-up to resolution is recommended. The aerated lungs show ground-glass opacity as well as some interlobular septal thickening raising the possibility of a component of edema. Also, peripheral irregular markings with basilar prominence are also present, suspicious for underlying fibrosis. D/ / Doris Newby Cha, MD / Doris Newby Cha, MD Interpreting Provider: Doris Newby Cha, MD Vital Signs Temperature 97.9 F 12/27/18 22:20 Pulse Rate 108 12/27/18 22:20 Respiratory Rate 18 12/27/18 22:20 Blood Pressure 123/64 12/27/18 22:20 O2 Sat by Pulse Oximetry 92 12/27/18 22:20 Temperature 97.9 F 12/27/18 22:20 Pulse Rate 97 12/28/18 00:21 Respiratory Rate 16 12/28/18 00:21 Blood Pressure 123/64 12/27/18 22:20 O2 Sat by Pulse Oximetry 97 12/28/18 00:21 Oxygen Delivery Oxygen Delivery Nasal Cannula Shortness of Breath/Dyspnea - MDM Narrative Medical decision making narrative: Patient was tachycardic and oxygen saturation was 92% on 4 L nasal cannula oxygen on presentation. He is not in respiratory distress. Lung sounds were relatively clear. He has no wheezing. He did have a bag of small amount of bright red blood, is now spitting up blood with saliva and extend. He believes that the bleeding is slowing down at this time. We will go ahead and type and cross and hold 2 units of blood, call pharmacy to ordered nebulized T x-ray to h elp with bleeding. We will go ahead and perform EKG chest x-ray. We will also perform CTA of the chest to assess for source of bleeding. 01:43 mildly elevated troponin which is chronic for the patient. Otherwise, hemoglobin is stable. No elevation white blood cell count. CT scan shows small right-sided pleural effusion which I believe may be blood. There is also consolidation of the right LL. Covered with levaquin for possible pneumonia. After nebulized TXA, patient has no additional hemoptysis at this time. The pressure stable with 120 systolic. Heart rate has normalized to the 90s. Patient was given 1 L normal saline bolus. Blood was crossed and 2 units on hold but not infused. I talked with the hospitalist Dr. Franco who feels comfortable with keeping the patient here overnight for observation. Patient will likely require a pulmonology consult in the morning for bronchoscopy. - Medical Records Medical records reviewed: Yes I reviewed the patient's medical records. - Lab Data Lab results reviewed: Yes I reviewed the patient's lab results. Result diagrams: 12/27/18 22:22 12/27/18 22:22 Lab Results 12/27/18 12/27/18 12/27/18 Range/Units 22:22 22:22 23:25 WBC 10.6 (4.3-11.1) K/mcL RBC 5.06 (4.19-5.50) M/mcL Hgb 14.7 (12.9-16.9) g/dL Hct 44.1 (37.5-50.1) % MCV 87.2 (83.0-100.0) fL MCH 29.1 (28.0-33.3) pg MCHC 33.3 (31.6-35.5) g/dL RDW 13.5 (11.5-14.5) % Plt Count 286 (140-400) K/mcL MPV 9.3 L (9.4-12.4) fL Immature Gran % 0.4 (0-4) % Seg Neutrophils % 54.1 % Lymphocytes % 34.9 % Monocytes % 9.2 % Eosinophils % 0.9 % Basophils % 0.5 % Neutrophils # 5.7 (1.6-8.9) K/mcL Lymphocytes # 3.7 (0.6-4.6) K/mcL Monocytes # 1.0 (0.0-1.3) K/mcL Eosinophils # 0.1 (0.0-0.6) K/mcL Basophils # 0.1 (0.0-0.2) K/mcL PT (9.4-12.1) Seconds INR APTT (26.0-36.0) Seconds Sodium 138 (136-145) mEq/L Potassium 3.2 L (3.5-5.1) mEq/L Chloride 104 (98-107) mEq/L Carbon Dioxide 28 (23-29) mEq/L BUN 18 (8-23) mg/dL Creatinine 1.02 (0.70-1.30) mg/dL Est GFR ( Amer) > 60 (> 60) Est GFR (Non-Af Amer) > 60 (> 60) BUN/Creatinine Ratio 18 (6-26) Glucose 106 H (70-105) mg/dL Calculated Osmolality 288 (280-300) Calcium 9.2 (8.6-10.3) mg/dL Total Bilirubin (0.3-1.0) mg/dL Direct Bilirubin (0.0-0.2) mg/dL Indirect Bilirubin (0.0-1.2) mg/dL AST (13-39) Units/L ALT (7-52) Units/L Alkaline Phosphatase (34-104) Units/L Troponin I 0.04 H* (< 0.04) ng/mL Serum Total Protein (6.4-8.9) g/dL Albumin (3.5-5.7) g/dL Globulin (2.4-3.5) g/dL Albumin/Globulin Ratio (1.1-2.2) Blood Type A NEGATIVE Antibody Screen NEGATIVE Crossmatch See Detail 12/27/18 12/27/18 Range/Units 23:25 23:25 WBC (4.3-11.1) K/mcL RBC (4.19-5.50) M/mcL Hgb (12.9-16.9) g/dL Hct (37.5-50.1) % MCV (83.0-100.0) fL MCH (28.0-33.3) pg MCHC (31.6-35.5) g/dL RDW (11.5-14.5) % Plt Count (140-400) K/mcL MPV (9.4-12.4) fL Immature Gran % (0-4) % Seg Neutrophils % % Lymphocytes % % Monocytes % % Eosinophils % % Basophils % % Neutrophils # (1.6-8.9) K/mcL Lymphocytes # (0.6-4.6) K/mcL Monocytes # (0.0-1.3) K/mcL Eosinophils # (0.0-0.6) K/mcL Basophils # (0.0-0.2) K/mcL PT 12.6 H (9.4-12.1) Seconds INR 1.1 APTT 27.3 (26.0-36.0) Seconds Sodium (136-145) mEq/L Potassium (3.5-5.1) mEq/L Chloride (98-107) mEq/L Carbon Dioxide (23-29) mEq/L BUN (8-23) mg/dL Creatinine (0.70-1.30) mg/dL Est GFR ( Amer) (> 60) Est GFR (Non-Af Amer) (> 60) BUN/Creatinine Ratio (6-26) Glucose (70-105) mg/dL Calculated Osmolality (280-300) Calcium (8.6-10.3) mg/dL Total Bilirubin 0.3 (0.3-1.0) mg/dL Direct Bilirubin 0.1 (0.0-0.2) mg/dL Indirect Bilirubin 0.2 (0.0-1.2) mg/dL AST 10 L (13-39) Units/L ALT 8 (7-52) Units/L Alkaline Phosphatase 46 (34-104) Units/L Troponin I (< 0.04) ng/mL Serum Total Protein 6.6 (6.4-8.9) g/dL Albumin 3.6 (3.5-5.7) g/dL Globulin 3.0 (2.4-3.5) g/dL Albumin/Globulin Ratio 1.2 (1.1-2.2) Blood Type Antibody Screen Crossmatch - Radiology Data Radiology results reviewed: Yes I reviewed the patient's radiology results. Chest X-Ray 12/27/18 22:35 IMPRESSION: Right middle lobe and right lower lobe consolidation with a small right pleural effusion. Follow-up is recommended to document resolution. D/ / Julissa Rowland MD / Julissa Rowland MD Interpreting Provider: Julissa Rowland MD Chest CTA 12/28/18 22:35 IMPRESSION: No evidence pulmonary embolism. Small right pleural effusion and right basilar consolidation suggestive of pneumonia. Follow-up to resolution is recommended. The aerated lungs show ground-glass opacity as well as some interlobular septal thickening raising the possibility of a component of edema. Also, peripheral irregular markings with basilar prominence are also present, suspicious for underlying fibrosis. D/ / Doris Newby Cha, MD / Doris Newby Cha, MD Interpreting Provider: Doris Newby Cha, MD [facility] - [facility] Situation: Demographics, MOA Background: Presenting Complaint, Relevant PMH, Meds, & Allergies Assessment: Vital Signs, Course and respsone to treatment, Exam Concerns, Patient/Family Expectation, Pertinant Lab Results Recommendation: Barrier(s) to disposition, Recommendation based on pending enriqueta dies, treatments, or consults Carla Report Given to: Dr Joan Aguirre Repor Time: 01:43
[2018-12-27] MEDS ORDERED: Isovue-370 500 ML BOTTLE IVP ONE (22:35)
[2018-12-27 22:57] LABS: Basophils # 0.1 K/mcL (0.0-0.2); Basophils % 0.5 %; Eosinophils # 0.1 K/mcL (0.0-0.6); Eosinophils % 0.9 %; Hematocrit 44.1 % (37.5-50.1); Hemoglobin 14.7 g/dL (12.9-16.9); Immature Granulocytes % 0.4 % (0-4); Lymphocytes # 3.7 K/mcL (0.6-4.6); Lymphocytes % 34.9 %; Mean Corpuscular HGB Conc 33.3 g/dL (31.6-35.5); Mean Corpuscular Hemoglobin 29.1 pg (28.0-33.3); Mean Corpuscular Volume 87.2 fL (83.0-100.0); Mean Platelet Volume 9.3 fL (9.4-12.4); Monocytes % 9.2 %; Neutrophils # 5.7 K/mcL (1.6-8.9); Platelet Count 286 K/mcL (140-400); Red Blood Count 5.06 M/mcL (4.19-5.50); Red Cell Distribution Width 13.5 % (11.5-14.5); Segmented Neutrophils % 54.1 %
[2018-12-27] MEDS ORDERED: Tranexamic Acid 1,000 MG/10 ML VIAL NS ONE (23:00)
[2018-12-27 23:14] LABS: BUN/Creatinine Ratio 18 (6-26); Blood Urea Nitrogen 18 mg/dL (8-23); Calcium 9.2 mg/dL (8.6-10.3); Carbon Dioxide 28 mEq/L (23-29); Chloride 104 mEq/L (98-107); Glucose 106 mg/dL (70-105); Osmolality,Calculated 288 (280-300); Potassium 3.2 mEq/L (3.5-5.1); Sodium 138 mEq/L (136-145); eGFR For Non-African Americans > 60 (> 60)
[2018-12-27 23:16] LABS: Troponin I 0.04 ng/mL (< 0.04)
--- NOTE | 2018-12-28 00:17 | Emergency Department Note ---
Disposition Clinical Impression: Hemoptysis Disposition: Admitted As Inpatient Condition: Good General Adult HPI - General Chief complaint: ED Shortness of Breath/Dyspnea Stated complaint: Vomiting Blood Time Seen by Provider: 12/27/18 22:37 Source: patient, EMS Mode of arrival: EMS Limitations: no limitations Nursing Notes Reviewed: Yes Vital Signs Reviewed: Yes - History of Present Illness Pain Scale: 0 - Related Data Home Medications Medication Instructions Recorded Confirmed Albuterol Sulfate [Ventolin Hfa] 2 puff IH Q4H PRN 05/11/18 05/11/18 Aspirin [Lo-Dose Aspirin EC] 162 mg PO DAILY 05/11/18 12/28/18 Ibuprofen 800 mg PO TID PRN 05/11/18 05/11/18 Loratadine/Pseudoephedrine [Ra 1 tab PO DAILY 05/11/18 12/28/18 Lorata-D 24-Hour Tablet] Montelukast [Singulair] 10 mg PO HS 05/11/18 12/28/18 Quinapril/Hydrochlorothiazide 1 tab PO DAILY 05/11/18 12/28/18 [Quinapril-Hctz 20-12.5 mg Tab] Previous Rx's Medication Instructions Recorded Albuterol Neb [AccuNeb] 0.63 mg IH Q4H PRN 30 Days #1 pkg 05/15/18 Azithromycin [Zithromax] 500 mg PO Q24H #2 tablet 05/15/18 Metoprolol [Lopressor] 25 mg PO BID #30 tablet 05/15/18 Nicotine Patch [Nicoderm] 21 mg TD DAILY 30 Days patch.td24 05/15/18 predniSONE [PredniSONE] 10 mg PO DAILY #45 tablet 05/15/18 Allergies Allergy/AdvReac Type Severity Reaction Status Date / Time Penicillins Allergy See Verified 05/11/18 15:18 Comments Constitutional: Denies: fever Cardiovascular: Denies: chest pain Respiratory: Reports: dyspnea, hemoptysis Genitourinary: Denies: urgency, dysuria Integumentary: Denies: rash Neurological: Denies: headache, weakness Past Medical History - Past Medical History Medical history: Reports: COPD, hypertension Psychiatric history: Reports: no psych history - Social History Smoking Status: Current every day smoker Smokeless Tobacco Status: No Alcohol use: Reports: none Drug use: Reports: none Physical Exam - General Limitations: no limitations General appearance: alert, in no apparent distress Course Vital Signs Temperature 97.9 F 12/27/18 22:20 Pulse Rate 108 12/27/18 22:20 Respiratory Rate 18 12/27/18 22:20 Blood Pressure 123/64 12/27/18 22:20 O2 Sat by Pulse Oximetry 92 12/27/18 22:20 Temperature 97.9 F 12/27/18 22:20 Pulse Rate 95 12/28/18 02:08 Respiratory Rate 18 12/28/18 02:08 Blood Pressure 110/76 12/28/18 02:08 O2 Sat by Pulse Oximetry 98 12/28/18 02:08 Oxygen Delivery Oxygen Delivery Nasal Cannula Medical Decision Making - Medical Records Medical records reviewed: Yes I reviewed the patient's medical records. - Lab Data Lab results reviewed: Yes I reviewed the patient's lab results. Result diagrams: 12/27/18 22:22 12/27/18 22:22 Lab Results 12/27/18 12/27/18 12/27/18 Range/Units 22:22 22:22 23:25 WBC 10.6 (4.3-11.1) K/mcL RBC 5.06 (4.19-5.50) M/mcL Hgb 14.7 (12.9-16.9) g/dL Hct 44.1 (37.5-50.1) % MCV 87.2 (83.0-100.0) fL MCH 29.1 (28.0-33.3) pg MCHC 33.3 (31.6-35.5) g/dL RDW 13.5 (11.5-14.5) % Plt Count 286 (140-400) K/mcL MPV 9.3 L (9.4-12.4) fL Immature Gran % 0.4 (0-4) % Seg Neutrophils % 54.1 % Lymphocytes % 34.9 % Monocytes % 9.2 % Eosinophils % 0.9 % Basophils % 0.5 % Neutrophils # 5.7 (1.6-8.9) K/mcL Lymphocytes # 3.7 (0.6-4.6) K/mcL Monocytes # 1.0 (0.0-1.3) K/mcL Eosinophils # 0.1 (0.0-0.6) K/mcL Basophils # 0.1 (0.0-0.2) K/mcL PT (9.4-12.1) Seconds INR APTT (26.0-36.0) Seconds Sodium 138 (136-145) mEq/L Potassium 3.2 L (3.5-5.1) mEq/L Chloride 104 (98-107) mEq/L Carbon Dioxide 28 (23-29) mEq/L BUN 18 (8-23) mg/dL Creatinine 1.02 (0.70-1.30) mg/dL Est GFR ( Amer) > 60 (> 60) Est GFR (Non-Af Amer) > 60 (> 60) BUN/Creatinine Ratio 18 (6-26) Glucose 106 H (70-105) mg/dL Calculated Osmolality 288 (280-300) Calcium 9.2 (8.6-10.3) mg/dL Total Bilirubin (0.3-1.0) mg/dL Direct Bilirubin (0.0-0.2) mg/dL Indirect Bilirubin (0.0-1.2) mg/dL AST (13-39) Units/L ALT (7-52) Units/L Alkaline Phosphatase (34-104) Units/L Troponin I 0.04 H* (< 0.04) ng/mL Serum Total Protein (6.4-8.9) g/dL Albumin (3.5-5.7) g/dL Globulin (2.4-3.5) g/dL Albumin/Globulin Ratio (1.1-2.2) Blood Type A NEGATIVE Antibody Screen NEGATIVE Crossmatch See Detail 12/27/18 12/27/18 Range/Units 23:25 23:25 WBC (4.3-11.1) K/mcL RBC (4.19-5.50) M/mcL Hgb (12.9-16.9) g/dL Hct (37.5-50.1) % MCV (83.0-100.0) fL MCH (28.0-33.3) pg MCHC (31.6-35.5) g/dL RDW (11.5-14.5) % Plt Count (140-400) K/mcL MPV (9.4-12.4) fL Immature Gran % (0-4) % Seg Neutrophils % % Lymphocytes % % Monocytes % % Eosinophils % % Basophils % % Neutrophils # (1.6-8.9) K/mcL Lymphocytes # (0.6-4.6) K/mcL Monocytes # (0.0-1.3) K/mcL Eosinophils # (0.0-0.6) K/mcL Basophils # (0.0-0.2) K/mcL PT 12.6 H (9.4-12.1) Seconds INR 1.1 APTT 27.3 (26.0-36.0) Seconds Sodium (136-145) mEq/L Potassium (3.5-5.1) mEq/L Chloride (98-107) mEq/L Carbon Dioxide (23-29) mEq/L BUN (8-23) mg/dL Creatinine (0.70-1.30) mg/dL Est GFR ( Amer) (> 60) Est GFR (Non-Af Amer) (> 60) BUN/Creatinine Ratio (6-26) Glucose (70-105) mg/dL Calculated Osmolality (280-300) Calcium (8.6-10.3) mg/dL Total Bilirubin 0.3 (0.3-1.0) mg/dL Direct Bilirubin 0.1 (0.0-0.2) mg/dL Indirect Bilirubin 0.2 (0.0-1.2) mg/dL AST 10 L (13-39) Units/L ALT 8 (7-52) Units/L Alkaline Phosphatase 46 (34-104) Units/L Troponin I (< 0.04) ng/mL Serum Total Protein 6.6 (6.4-8.9) g/dL Albumin 3.6 (3.5-5.7) g/dL Globulin 3.0 (2.4-3.5) g/dL Albumin/Globulin Ratio 1.2 (1.1-2.2) Blood Type Antibody Screen Crossmatch - Radiology Data Radiology results reviewed: Yes I reviewed the patient's radiology results. Chest X-Ray 12/27/18 22:35 IMPRESSION: Right middle lobe and right lower lobe consolidation with a small right pleural effusion. Follow-up is recommended to document resolution. D/ / Julissa Rowland MD / Julissa Rowland MD Interpreting Provider: Julissa Rowland MD Chest CTA 12/28/18 22:35 IMPRESSION: No evidence pulmonary embolism. Small right pleural effusion and right basilar consolidation suggestive of pneumonia. Follow-up to resolution is recommended. The aerated lungs show ground-glass opacity as well as some interlobular septal thickening raising the possibility of a component of edema. Also, peripheral irregular markings with basilar prominence are also present, suspicious for underlying fibrosis. D/ / Doris Newby Cha, MD / Doris Newby Cha, MD Interpreting Provider: Doris Newby Cha, MD - EKG Data EKG #1 EKG attestation: Yes I reviewed and interpreted this EKG. EKG results narrative: EKG shows a normal sinus rhythm with ventricular rate of 95. No ST segment elevation or depression. No ectopy or arrhythmia. Normal EKG. Critical Care Time Critical Care Time: Yes Total Critical Care Time: 35 Attestation: Critical care performed: Time is exclusive of separately billable procedures. Time includes: direct patient care, patient reassessment, coordination of patient care, interpretation of data (laboratory data, radiology data, and respiratory data), review of patient's medical records, medical consultation and documentation of patient care. Procedures included in critical care time: Procedures excluded from critical care time: Attestation Statement - Attestation Attestation: I, Kelvin Florian MD, personally evaluated this patient and discussed their management with the resident physician. I reviewed the resident's note and agree with the documented findings, medical decision making, and plan of care. 73-year-old male presents to the emergency department with a complaint of hemoptysis which started just shortly prior to arrival. Patient states he was taking a shower and he felt a pulling sensation in the right mid anterior chest. He then suddenly felt short of breath and he started coughing and coughed up a moderate amount of bright red blood. He states this happened several times over a short period of time and then the blood started clearing up. He states as the blood cleared up the shortness of breath seemed to clear up also. He denies having any chest pain with the episode. No diaphoresis. No palpitations. No dizziness or syncope. He does take low-dose aspirin daily but is not on any other blood thinner medications. No prior history of hemoptysis. No history of lung cancer. No other abnormal bleeding or bruising. Patient states the bleeding seems to have resolved now and he feels fine at this time. On examination patient is a well-developed well-nourished well-appearing elderly male in no acute distress. He is alert and oriented 3. There is no cyanosis or diaphoresis. Breath sounds are decreased in the right base but no definite rales or wheezes noted. Heart regular with a slight tachycardia. Abdomen soft and nontender with normal bowel sounds. Chest x-ray shows right middle lobe and right lower lobe consolidation with a small right pleural effusion. CT of the chest with contrast was obtained and showed similar findings. No mass noted. Labs reviewed. EKG normal. Patient received nebulized TXA. He had no further bleeding while here in the emergency department. The hospitalist, Dr. Franco, was consulted and accepted admission of the patient.
[2018-12-28 00:43] LABS: Albumin 3.6 g/dL (3.5-5.7); Albumin/Globulin Ratio 1.2 (1.1-2.2); Bilirubin,Direct 0.1 mg/dL (0.0-0.2); Bilirubin,Indirect 0.2 mg/dL (0.0-1.2); Bilirubin,Total 0.3 mg/dL (0.3-1.0); Total Protein 6.6 g/dL (6.4-8.9)
[2018-12-28 00:45] LABS: INR 1.1; Prothrombin Time 12.6 Seconds (9.4-12.1)
[2018-12-28 00:48] LABS: Activated Partial Thrombo Time 27.3 Seconds (26.0-36.0)
[2018-12-28] MEDS ORDERED: 0.9 % Sodium Chloride 1,000 ML IVC ONE (00:49)
[2018-12-28] MEDS ORDERED: Levofloxacin 750 MG/150 ML 750 MG/150 ML BAG IVPB ONE (00:49)
[2018-12-28] MEDS ORDERED: Potassium Chloride Elixir 20 MEQ/15 ML UDC PO ONE (01:59)
[2018-12-28] MEDS ORDERED: Acetaminophen 325 MG TABLET PO PRN (01:59)
[2018-12-28] MEDS ORDERED: Ringers Solution, Lactated 1,000 ML IVC SCH (02:00)
--- NOTE | 2018-12-28 02:34 | Internal Med History&Physical ---
Date of Encounter: 12/28/18 Time of Encounter: 02:15 Internal Medicine - H&P: HPI Chief complaint: hemoptysis Admitted From: Emergency Dept Plans for Post Hospital Care: Home History of present illness: Christian Lea is a 73 year old man with hypertension and severe COPD who had a significant smoking history who is brought in by EMS due to hemoptysis. He reported that around 9:30 PM he felt a gurgling sensation on the right side of his chest and subsequently started coughing up blood. He said it was a significant amount coughed up into the sink and upon EMS arrival he was saturating 91% on room air. He is not on home oxygen and not on any blood thinners. Denies prior history of hemoptysis. No known lung cancer or tumors. On arrival he was notably tachycardic and was saturating 92% on 4 L of oxygen but not in distress. His lungs are reportedly clear to auscultation but he did expectorate a small amount of bright red blood and subsequently was spitting up blood mixed with saliva. He reported noticing that the bleeding was slowing down. He was administered nebulized tranexamic acid in the ER thus far remained stable. Chest CT was done and reviewed by me showing significant areas of pulmonary fibrosis, irregular markings and septal thickening with a persistent right pleural effusion and infiltrate which was compared to last CT from a year ago where there was a notable mass-like consolidation in the same area. He is admitted for observation. He says this is the first time this happens to him and otherwise feels well. Past Med Surg Social Fam HX - Past Medical History Medical history: COPD, hypertension Psychiatric history: no psych history - Social History Smoking Status: Current every day smoker Smokeless Tobacco Status: No Alcohol use: none Drug use: none - Family History Father Hx Family Cardiac Disorders: Yes (HTN) Mother Hx Family Endocrine Disorder: Yes (DM) Internal Medicine - H&P: Meds Albuterol Sulfate [Ventolin Hfa] 2 puff IH Q4H PRN 05/11/18 [History] Aspirin [Lo-Dose Aspirin EC] 162 mg PO DAILY 05/11/18 [History] Ibuprofen 800 mg PO TID PRN 05/11/18 [History] Loratadine/Pseudoephedrine [Ra Lorata-D 24-Hour Tablet] 1 tab PO DAILY 05/11/18 [History] Montelukast [Singulair] 10 mg PO HS 05/11/18 [History] Quinapril/Hydrochlorothiazide [Quinapril-Hctz 20-12.5 mg Tab] 1 tab PO DAILY 05/11/18 [History] Albuterol Neb [AccuNeb] 0.63 mg IH Q4H PRN 30 Days #1 pkg 05/15/18 [Rx] Azithromycin [Zithromax] 500 mg PO Q24H #2 tablet 05/15/18 [Rx] Metoprolol [Lopressor] 25 mg PO BID #30 tablet 05/15/18 [Rx] Nicotine Patch [Nicoderm] 21 mg TD DAILY 30 Days patch.td24 05/15/18 [Rx] predniSONE [PredniSONE] 10 mg PO DAILY #45 tablet 05/15/18 [Rx] Allergy/AdvReac Type Severity Reaction Status Date / Time Penicillins Allergy See Verified 05/11/18 15:18 Comments All Systems PM: A 10-system review of systems was performed and is negative for pertinent findings except as documented above in the HPI. Family history reviewed and found non-contributory. - Constitutional Vitals: Temp Pulse Resp BP Pulse Ox 97.9 F 95 18 110/76 98 12/27/18 22:20 12/28/18 02:08 12/28/18 02:08 12/28/18 02:08 12/28/18 02:08 Exam: Vitals: Reviewed General: Well developed white man lying comfortably in bed in no acute distress. Skin: Warm and supple. HEENT: Moist mucous membranes. No conjunctivae pallor. Neck: No lymphadenopathy. No JVD. No carotid bruits. No palpable thyroid. Chest: Reduced breath sounds in the right lower lung field and fine rales on the left base. No wheezes or rhonchi. Heart: Normal S1 & S2; rhythmic. No rubs or murmurs. Abdomen: Non-distended, soft and non-tender to palpation. No peritoneal reaction. Extremities: No clubbing, cyanosis or edema. No calf tenderness. Normal distal pulses. Neurological: Awake, alert and oriented to person, place and time. No focal deficits. Psych: Affect appropriate. Internal Med - H&P Results - Labs CBC & Chem 7: 12/27/18 22:22 12/27/18 22:22 Labs: Short CBC 12/27/18 Range/Units 22:22 WBC 10.6 (4.3-11.1) K/mcL Hgb 14.7 (12.9-16.9) g/dL Hct 44.1 (37.5-50.1) % Plt Count 286 (140-400) K/mcL Neutrophils # 5.7 (1.6-8.9) K/mcL BMP 12/27/18 22:22 Sodium 138 Potassium 3.2 L Chloride 104 Carbon Dioxide 28 BUN 18 Creatinine 1.02 Glucose 106 H Calcium 9.2 Cardiac Enzymes 12/27/18 Range/Units 22:22 Troponin I 0.04 H* (< 0.04) ng/mL Liver Function 12/27/18 Range/Units 23:25 Total Bilirubin 0.3 (0.3-1.0) mg/dL Direct Bilirubin 0.1 (0.0-0.2) mg/dL AST 10 L (13-39) Units/L ALT 8 (7-52) Units/L Alkaline Phosphatase 46 (34-104) Units/L Albumin 3.6 (3.5-5.7) g/dL - Impressions ITS Impressions Chest X-Ray 12/27/18 22:35 IMPRESSION: Right middle lobe and right lower lobe consolidation with a small right pleural effusion. Follow-up is recommended to document resolution. D/ / Julissa Rowland MD / Julissa Rowland MD Interpreting Provider: Julissa Rowland MD Chest CTA 12/28/18 22:35 IMPRESSION: No evidence pulmonary embolism. Small right pleural effusion and right basilar consolidation suggestive of pneumonia. Follow-up to resolution is recommended. The aerated lungs show ground-glass opacity as well as some interlobular septal thickening raising the possibility of a component of edema. Also, peripheral irregular markings with basilar prominence are also present, suspicious for underlying fibrosis. D/ / Doris eNwby Cha, MD / Doris Newby Cha, MD Interpreting Provider: Doris Newby Cha, MD - Assessment and plan (1) Hemoptysis Current Visit: Yes Status: Acute Assessment and plan: Unclear etiology. He has significant lung disease as seen on his CT scan and it could be secondary to bronchitis, inflammatory processes or infection. I witnessed the copious amount of thick red blood in a bag he had at bedside but further tussive episodes in my presence did not lead to hemoptysis. Will keep him NPO for now. Hold aspirin. Consult pulmonary for evaluation as he may benefit from a bronchoscopy if this is to recur. Will provide nebulizer therapy for airway clearance. Will also continue empiric abx for possible underlying pneumonia. (2) Acute hypoxemic respiratory failure Current Visit: Yes Status: Acute Assessment and plan: In the setting of COPD and seemingly has pulmonary fibrotic lesions. Supplemental oxygen as needed and nebulizer therapy provided. (3) Essential hypertension Current Visit: Yes Status: Chronic Assessment and plan: Will resume home oral antihypertensives. (4) DVT prophylaxis Current Visit: Yes Status: Acute Assessment and plan: IPC ordered. - Time Spent With Patient Total time spent is greater than 50% in coordination of care (as documented) at patient's floor/unit and/or counseling patient: Greater than 35 minutes
[2018-12-28 04:28] LABS: Basophils # 0.1 K/mcL (0.0-0.2); Basophils % 0.5 %; Eosinophils # 0.2 K/mcL (0.0-0.6); Eosinophils % 1.3 %; Hematocrit 40.2 % (37.5-50.1); Hemoglobin 13.3 g/dL (12.9-16.9); Immature Granulocytes % 0.3 % (0-4); Lymphocytes # 2.7 K/mcL (0.6-4.6); Lymphocytes % 23.5 %; Mean Corpuscular HGB Conc 33.1 g/dL (31.6-35.5); Mean Corpuscular Hemoglobin 29.4 pg (28.0-33.3); Mean Corpuscular Volume 88.7 fL (83.0-100.0); Mean Platelet Volume 9.8 fL (9.4-12.4); Monocytes % 8.2 %; Neutrophils # 7.6 K/mcL (1.6-8.9); Platelet Count 270 K/mcL (140-400); Red Blood Count 4.53 M/mcL (4.19-5.50); Red Cell Distribution Width 13.7 % (11.5-14.5); Segmented Neutrophils % 66.2 %
[2018-12-28 04:49] LABS: BUN/Creatinine Ratio 15 (6-26); Blood Urea Nitrogen 15 mg/dL (8-23); Calcium 8.8 mg/dL (8.6-10.3); Carbon Dioxide 27 mEq/L (23-29); Chloride 104 mEq/L (98-107); Glucose 116 mg/dL (70-105); Osmolality,Calculated 290 (280-300); Potassium 3.6 mEq/L (3.5-5.1); Sodium 139 mEq/L (136-145); eGFR For Non-African Americans > 60 (> 60)
[2018-12-28] MEDS: Ipratropium/Albuterol Neb 3 ML IH SCH ×3 (04:59→11:15)
--- NOTE | 2018-12-28 08:17 | Pre-Sedation Evaluation ---
Pre-sedation evaluation - Pre-sedation checklist Date of procedure: 12/28/18 Procedure: Bronchoscopy Recent Vitals: Last Vital Signs Temp 97.9 F 12/28/18 07:49 Pulse 110 12/28/18 07:49 Resp 16 12/28/18 07:49 BP 121/69 12/28/18 07:49 Pulse Ox 93 12/28/18 07:49 Dietary Status: NPO after Midnight Possible difficult airway: No ASA Classification *see protocol: CLASS III-Severe systemic disease Plan of Care: Pt appropriate candidate for procedure/moderate/conscious sedation, Risks/benefits of procedure/sedation discussed w/ patient/family
[2018-12-28] MEDS ORDERED: Tetracaine/Benzocaine/Butamben 1 SPRAY AEROSOL MM ONE (08:18)
[2018-12-28] MEDS ORDERED: Albuterol 2.5 MG/3 ML NEBULIZER IH ONE (08:18)
[2018-12-28] MEDS ORDERED: *HR* Midazolam HCl 5 MG/5 ML VIAL IVP ONE ×2 (08:18→09:01)
[2018-12-28] MEDS ORDERED: Lidocaine Viscous Oral Soln 15 ML SOLUTION MM ONE (08:18)
[2018-12-28] MEDS ORDERED: *HR* EPINEPHrine 1 MG/10 ML SYRINGE INTRATRACH PRN (08:19)
[2018-12-28] MEDS ORDERED: *HR* FentaNYL (PF) 100 MCG/2 ML VIAL IVP ONE (08:19)
--- NOTE | 2018-12-28 08:29 | Pulmonology Consult Note ---
Date of Encounter: 12/28/18 Time of Encounter: 07:50 Assessment and Plan (1) Hemoptysis Current Visit: Yes Status: Acute Patient is still having hemoptysis, however he stated he is feeling better and have explained to him the cause could be from COPD exacerbation/pneumonia, however endobronchial lesions in the differential diagnosis since he has signif icant history of smoking in the past. I have explained to patient in the presence of the nurse about bronchoscopy and airway inspection and he agreed to have it done. A bronchoscopy is recommended. The procedure , risks, benefits, complications, and expected outcomes have been reviewed. Benefits of diagnosis, as well as risks to include bleeding, infection, pneumothorax which may require surgical intervention, and in a small population. The patient is aware that sometimes test is nondiagnostic. Discussed with patient and agrees to proceed. (2) Pneumonia Current Visit: No Status: Suspected Patient is being treated for this and will send testing for Streptococcus pneumonia and will as well as Legionella. Qualifiers: Pneumonia type: due to unspecified organism Laterality: right Lung location: lower lobe of lung Qualified Code(s): J18.1 - Lobar pneumonia, unspecified organism (3) Acute on chronic respiratory failure with hypoxemia Current Visit: No Status: Acute Patient needs to be on systemic steroid and also wean off oxygen to keep SPO2 around 92%. I will add Symbicort and he needed to be evaluated before discharge home oxygen need. (4) COPD exacerbation Current Visit: No Status: Acute History of Present Illness Consult date: 12/28/18 Requesting physician: Heather Franco Reason for consult: other (Hemoptysis) Chief complaint: Hemoptysis History of present illness: This is pleasant 73-year-old gentleman with history of COPD and he has been on home oxygen in the past, however significant anymore as he was doing good and he said he was not using any inhalers. Patient stated that he felt gurgling and his chest and brought to the emergency room due to hemoptysis and he was found to have witness hemoptysis and it is difficult to quantify it but it has been more than a teaspoon and he said he was treated for double pneumonia last year. He stated he felt some right-sided chest sensation and then coughing, fresh blood. He had CT chest done which was abnormal and also was found to be hypoxic. She denies any significant productive cough and no significant wheezing. Overall patient is poor historian and denies any significant fever or chills. Patient said he still have blood when he coughs but it is getting better. He denies any history of TB in the past and denies any weight loss. He denies any nosebleed or vomiting blood. Past Med Surg Social Fam HX - Past Medical History Medical history: COPD, hypertension Psychiatric history: no psych history - Social History Smoking Status: Current every day smoker Smokeless Tobacco Status: No Alcohol use: none Drug use: none - Family History Father Hx Family Cardiac Disorders: Yes (HTN) Mother Hx Family Endocrine Disorder: Yes (DM) Medications and Allergies Albuterol Sulfate [Ventolin Hfa] 2 puff IH Q4H PRN 05/11/18 [History] Aspirin [Lo-Dose Aspirin EC] 162 mg PO DAILY 05/11/18 [History] Ibuprofen 800 mg PO TID PRN 05/11/18 [History] Loratadine/Pseudoephedrine [Ra Lorata-D 24-Hour Tablet] 1 tab PO DAILY 05/11/18 [History] Montelukast [Singulair] 10 mg PO HS 05/11/18 [History] Quinapril/Hydrochlorothiazide [Quinapril-Hctz 20-12.5 mg Tab] 1 tab PO DAILY 05/11/18 [History] Albuterol Neb [AccuNeb] 0.63 mg IH Q4H PRN 30 Days #1 pkg 05/15/18 [Rx] Azithromycin [Zithromax] 500 mg PO Q24H #2 tablet 05/15/18 [Rx] Metoprolol [Lopressor] 25 mg PO BID #30 tablet 05/15/18 [Rx] Nicotine Patch [Nicoderm] 21 mg TD DAILY 30 Days patch.td24 05/15/18 [Rx] predniSONE [PredniSONE] 10 mg PO DAILY #45 tablet 05/15/18 [Rx] Allergy/AdvReac Type Severity Reaction Status Date / Time Penicillins Allergy See Verified 05/11/18 15:18 Comments All Systems: The remainder of the systems were reviewed and are negative Physical Examination Vital Signs: Vital Signs, Last 4 Hours Temp Pulse Resp BP Pulse Ox 12/28/18 07:49 97.9 F 110 16 121/69 93 12/28/18 04:59 16 93 General: Patient is in no acute distress. HEENT: Normocephalic atraumatic, pupils are equal round and reactive to light and accommodation, anicteric sclera, nares is patent, mucous membranes moist, no JVD, trachea is midline Cardiovascular: Normal sinus rhythm, S1 and S2 audible, no murmur or rubs Respiratory: Scattered rhonchi to auscultation bilaterally. No acute distress. No wheezing. Patient not using accessory muscles. Abdomen: Soft, nontender, nondistended, positive bowel sounds in all 4 quadrants Extremities: Warm, dry, nolower extremity edema. Normal capillary refill. Neuro: Alert and oriented and follows commands. Grossly no neuro deficits. Skin: Warm to touch : No obvious abnormalities. Psych: Normal Results - Laboratory Findings CBC and BMP: 12/28/18 03:12 12/28/18 03:12 PT/INR, D-dimer PT 12.6 Seconds (9.4-12.1) H 12/27/18 23:25 Abnormal lab findings: Abnormal lab results WBC 11.5 K/mcL (4.3-11.1) H 12/28/18 03:12 PT 12.6 Seconds (9.4-12.1) H 12/27/18 23:25 Glucose 116 mg/dL (70-105) H 12/28/18 03:12 AST 10 Units/L (13-39) L 12/27/18 23:25 Troponin I 0.04 ng/mL (< 0.04) H* 12/27/18 22:22 - Diagnostic Findings CT scan - chest: report reviewed, image reviewed - Clinical Findings Intake & Output: Intake & Output 12/27/18 12/28/18 12/28/18 23:59 07:59 15:59 Intake Total 1000 / 1000 Balance 1000 / 1000 Weight 88.314 kg 90 kg Consult Discharge Plan - Plan Referrals: Ofelia Peterson CNP [Primary Care Provider] -
[2018-12-28] MEDS: Budesonide/Formoterol 160/4.5 1 PUFF INH IH SCH ×2 (08:54→23:42)
[2018-12-28] MEDS ORDERED: Lidocaine Viscous Oral Soln 15 ML SOLUTION ONE (08:58)
[2018-12-28] MEDS ORDERED: *HR* FentaNYL (PF) 100 MCG/2 ML VIAL ONE (09:01)
--- NOTE | 2018-12-28 10:11 | Event Note ---
Date of Encounter: 12/28/18 Time of Encounter: 14:00 Patient seen and evaluated by nocturnalist earlier this morning and also by m yself. Briefly patient is a 73-year-old male with past medical history see for for smoking is COPD who presented to the ER due to hemoptysis. CT of the chest show no evidence of PE but right basilar consolidation suggestive of pneumonia was identified. Pulmonology was consulted and bronchoscopy was done this morning which showed blood clot in the francisco, right lower lobe and right mainstem bronchus; bronchial alveolar lavage was performed and awaiting BAL results. Will continue IV Solu-Medrol in addition to Levaquin for pneumonia; streptococcal pneumonia and legionella antigens pending
[2018-12-28] MEDS: Lisinopril-HCTZ 20-12.5mg TABLET PO SCH (12:39)
[2018-12-28] MEDS: Loratadine/Pseudophed (12 HR) 1 EACH TABLET PO SCH ×2 (12:39→21:19)
[2018-12-28] MEDS: Ringers Solution, Lactated 1,000 ML IVC SCH (14:16)
[2018-12-28] MEDS: methylPREDNISolone 125 MG/2 ML VIAL IVP SCH ×2 (16:58→23:56)
[2018-12-28] MEDS: Levofloxacin 750 MG/150 ML 750 MG/150 ML BAG IVPB SCH (23:56)
[2018-12-29] MEDS: Ringers Solution, Lactated 1,000 ML IVC SCH (00:09)
--- NOTE | 2018-12-29 06:24 | Pulmonology Progress Note ---
Date of Encounter: 12/29/18 Time of Encounter: 06:24 Assessment and Plan (1) Community acquired pneumonia Current Visit: No Status: Acute Conclusion this is 73-year-old gentleman who presents with pneumonia and hemoptysis status post bronchoscopy which was noted for some fresh bleeding in the right lower lobe as well as a clot formation in the right mainstem results secondary to pneumonia which was seen on radiographic imaging. Appears to be improving at this point and suspect he does have some underlying COPD with acute exacerbation also complicating the current admission. Recs: -Hemoptysis has essentially resolved no further intervention from the standpoint is necessary -Transition from IV to by mouth prednisone 40 mg to complete a 5 day burst -cont Symbicort 160/4.52 puffs twice a day - patient should be discharged with this to go home with possible - Continue antibiotics (respiratory fluoroquinolone) complete 7-10 days based upon clinical course pending microbiological data from bronchoscopy still pending -Outpatient pulmonary follow-up in 2-4 weeks to establish care for pneumonia as well as COPD -repeat CT scan in 4-6 weeks demonstrated resolution of pneumonia. Do not hesitate to call me with any questions or concerns Tim Allie [phone] Qualifiers: Laterality: right Lung location: lower lobe of lung Qualified Code(s): J18.1 - Lobar pneumonia, unspecified organism (2) Pneumonia Current Visit: No Status: Suspected Qualifiers: Pneumonia type: due to unspecified organism Laterality: right Lung location: lower lobe of lung Qualified Code(s): J18.1 - Lobar pneumonia, unspecified organism (3) COPD (chronic obstructive pulmonary disease) Current Visit: No Status: Chronic Qualifiers: COPD type: chronic bronchitis Chronic bronchitis type: simple Qualified Code(s): J41.0 - Simple chronic bronchitis Subjective Principal diagnosis: Pneumonia Interval history: Mr. Lea states that the large blood clots that his been coughing up before have subsided he now has cough with generally clear sputum occasional flecks of blood he is in no distress up eating his breakfast. Denies any untoward effects status post bronchoscopy Objective PUL Vital signs: Last Vital Signs Temp 97.4 F L 12/29/18 02:19 Pulse 115 12/29/18 02:19 Resp 18 12/29/18 02:19 BP 105/72 12/29/18 02:19 Pulse Ox 92 12/29/18 02:19 General appearance: no acute distress Eyes: nonicteric Neck: supple Auscultation: right: rhonchi Cardiovascular: regular rate and rhythm Gastrointestinal: normoactive bowel sounds Extremities: no cyanosis, no edema, no clubbing Musculoskeletal: no deformities normal mental status, non-focal exam mood appropriate Results - Laboratory Findings CBC and BMP: 12/28/18 03:12 12/28/18 03:12 PT/INR, D-dimer PT 12.6 Seconds (9.4-12.1) H 12/27/18 23:25 Abnormal lab findings: Abnormal lab results WBC 11.5 K/mcL (4.3-11.1) H 12/28/18 03:12 PT 12.6 Seconds (9.4-12.1) H 12/27/18 23:25 Glucose 116 mg/dL (70-105) H 12/28/18 03:12 AST 10 Units/L (13-39) L 12/27/18 23:25 Troponin I 0.04 ng/mL (< 0.04) H* 12/27/18 22:22 - Microbiology Findings Microbiology Findings: Microbiology, Last 48 Hours 12/28/18 09:33 Respiratory Culture - Preliminary Right Lower Lobe Lung Culture is incubating. 12/28/18 09:33 Gram Stain - Preliminary Right Lower Lobe Lung - Clinical Findings Intake & Output: Intake & Output 12/28/18 12/28/18 12/29/18 15:59 23:59 07:59 Intake Total 240 / 240 950 / 950 150 / 150 Output Total 400 / 400 Balance 240 / 240 550 / 550 150 / 150 Weight 89.8 kg - VTE Documentation of Mechanical Device: Intermittent pneumatic compression device Consult Discharge Plan - Plan Referrals: Ofelia Peterson FINANCIAL SALES MANAGER [Primary Care Provider] - (follow up appointment has been requested. Office will call with date and time of appointment. )
[2018-12-29] MEDS: Budesonide/Formoterol 160/4.5 1 PUFF INH IH SCH ×2 (07:59→21:26)
[2018-12-29] MEDS: methylPREDNISolone 125 MG/2 ML VIAL IVP SCH ×2 (08:35→16:18)
[2018-12-29] MEDS: Loratadine/Pseudophed (12 HR) 1 EACH TABLET PO SCH ×2 (08:35→19:58)
[2018-12-29] MEDS: Lisinopril-HCTZ 20-12.5mg TABLET PO SCH (08:35)
[2018-12-29 09:49] LABS: Appearance of Body Fluid Cloudy (Clear)
[2018-12-29 09:50] LABS: Volume of Body Fluid 15 mL
--- NOTE | 2018-12-29 14:50 | Internal Med Progress Note ---
Hospitalist Progress Note - Encounter Date of Encounter: 12/29/18 Time of Encounter: 13:00 - Subjective Interval History: Patient's hemoptysis has resolved but still requiring O2 supplementation. - Exam Vitals: Temp Pulse Resp BP Pulse Ox 97.6 F 108 16 107/61 91 12/29/18 11:26 12/29/18 11:26 12/29/18 11:26 12/29/18 11:26 12/29/18 11:26 Exam: Gen.: Nonacute distress, alert and oriented 3 ENT: Mucosal membranes moist Respiratory: Lungs are clear to auscultation bilaterally without any wheezing rhonchi or rales Cardiovascular: Normal S1 and S2 regular rate rhythm no murmurs rubs or gallops Abdomen: Soft, nontender and nondistended with positive bowel sounds Extremities: No lower extremity edema Skin: Normal color - Assessment and Plan (1) Acute hypoxemic respiratory failure Current Visit: Yes Status: Acute Assessment and Plan: Patient still requiring oxygen supplementation this morning Will attempt to wean as tolerates. If unable to wean well-qualified patient for home O2 on 12/30/18 (2) Hemoptysis Current Visit: Yes Status: Acute Assessment and Plan: Pulmonology was consulted and bronchoscopy was done on 12/28/18 which showed blood clot in the francisco, right lower lobe and right mainstem bronchus; bronchial alveolar lavage was performed and awaiting BAL results. Will continue IV Solu-Medrol in addition to Levaquin for pneumonia; streptococcal pneumonia and legionella negative as are respiratory cultures. (3) Essential hypertension Current Visit: Yes Status: Chronic Assessment and Plan: Will resume home oral antihypertensives. DVT Prophylaxis: SCDs - Time Spent with Patient Total time spent is greater than 50% in coordination of care (as documented) at patient's floor/unit and/or counseling patient: Internal Medicine: Result - Labs CBC & Chem 7: 12/28/18 03:12 12/28/18 03:12 - ABG Interpretation ABG results: PT/INR, D-dimer PT 12.6 Seconds (9.4-12.1) H 12/27/18 23:25 - VTE Documentation of Mechanical Device: Intermittent pneumatic compression device Consult Discharge Plan - Plan Referrals: Ofelia Peterson, [employer] SECRETARY [Primary Care Provider] - (follow up appointment has been requested. Office will call with date and time of appointment. )
[2018-12-29] MEDS ORDERED: *HR* Promethazine 25 MG/ML VIAL IVP PRN (19:28)
[2018-12-30] MEDS: methylPREDNISolone 125 MG/2 ML VIAL IVP SCH ×2 (00:29→08:22)
[2018-12-30] MEDS: Levofloxacin 750 MG/150 ML 750 MG/150 ML BAG IVPB SCH (00:30)
[2018-12-30] MEDS: Ringers Solution, Lactated 1,000 ML IVC SCH (00:35)
[2018-12-30 04:11] LABS: Basophils % 0.1 %; Eosinophils % 0.1 %; Hematocrit 36.9 % (37.5-50.1); Hemoglobin 12.4 g/dL (12.9-16.9); Immature Granulocytes % 0.5 % (0-4); Lymphocytes % 4.6 %; Mean Corpuscular HGB Conc 33.6 g/dL (31.6-35.5); Mean Corpuscular Hemoglobin 29.8 pg (28.0-33.3); Mean Corpuscular Volume 88.7 fL (83.0-100.0); Mean Platelet Volume 9.7 fL (9.4-12.4); Monocytes # 1.5 K/mcL (0.0-1.3); Monocytes % 7.3 %; Platelet Count 288 K/mcL (140-400); Red Blood Count 4.16 M/mcL (4.19-5.50); Segmented Neutrophils % 87.4 %
[2018-12-30 04:12] LABS: Neutrophils # 18.3 K/mcL (1.6-8.9)
[2018-12-30 04:29] LABS: BUN/Creatinine Ratio 25 (6-26); Blood Urea Nitrogen 19 mg/dL (8-23); Calcium 9.1 mg/dL (8.6-10.3); Carbon Dioxide 27 mEq/L (23-29); Chloride 101 mEq/L (98-107); Glucose 210 mg/dL (70-105); Osmolality,Calculated 288 (280-300); Sodium 135 mEq/L (136-145); eGFR For Non-African Americans > 60 (> 60)
[2018-12-30] MEDS: Loratadine/Pseudophed (12 HR) 1 EACH TABLET PO SCH (08:22)
[2018-12-30] MEDS: Lisinopril-HCTZ 20-12.5mg TABLET PO SCH (08:22)
[2018-12-30 09:58] LABS: Adenovirus Not Detected (Not Detect); Bordetella Pertussis Not Detected (Not Detect); Chlamydophila pneumoniae Not Detected (Not Detect); Coronavirus 229E Not Detected (Not Detect); Coronavirus HKU1 Not Detected (Not Detect); Coronavirus NL63 Not Detected (Not Detect); Coronavirus OC43 Not Detected (Not Detect); Human Metapneumovirus Not Detected (Not Detect); Human Rhinovirus/Enterovirus Not Detected (Not Detect); Influenza A Subtype 2009 H1 Not Detected (Not Detect); Influenza A Untypeable Not Detected (Not Detect); Influenza B Not Detected (Not Detect); Mycoplasma pneumoniae Not Detected (Not Detect); Parainfluenza Virus 1 Not Detected (Not Detect); Parainfluenza Virus 2 Not Detected (Not Detect); Parainfluenza Virus 3 Not Detected (Not Detect); Parainfluenza Virus 4 Not Detected (Not Detect); Respiratory Syncytial Virus Not Detected (Not Detect)
[2018-12-30] MEDS: Budesonide/Formoterol 160/4.5 1 PUFF INH IH SCH (10:38)
[2018-12-30 11:21] VITALS: BP 98/68
--- NOTE | 2018-12-30 15:35 | Discharge Summary ---
- NOTES TO OUTPATIENT PROVIDER Notes to Outpatient Provider: follow up with primary care provider Orders not resulted at time of discharge: Pending orders 12/27/18 23:25 Red Blood Cells [BBK] Stat Type and Screen [BBK] Stat 12/28/18 09:33 AFB Culture, Respiratory [TB] Routine AFB Smear [TB] Routine Fungal Culture [MYC] Routine 12/28/18 09:42 Cytology [PTH] Routine 12/31/18 04:00 Basic Metabolic Panel AM 0400 Complete Blood Count [HEME] AM 0400 Date of Encounter: 12/30/18 Time of Encounter: 11:00 - Discharge Diagnosis (1) Acute hypoxemic respiratory failure Priority: Primary Status: Acute (2) Hemoptysis Priority: Primary Status: Acute (3) Essential hypertension Priority: Secondary Status: Chronic Hospital course: Patient is a 73-year-old male with past medical history significant for hyperten tanner and severe COPD who had a significant smoking history who is brought in by EMS due to hemoptysis. Patients CT of the chest was abnormal therefore pulmonology was consulted with recommendations for bronchoscopy which showed blood clot in the francisco, right lower lobe and right mainstem bronchus; bronchial alveolar lavage cultures were negative. Patient was treated with Levaquin and IV Solu-Medrol for suspected pneumonia. Patients acute hypoxic respiratory failure resolved and he will be discharged to complete a 5 day course of Levaquin and prednisone. - Time Spent with Patient Total time spent providing and/or coordinating discharge services: - Discharge Medications Prescriptions: Levofloxacin [Levaquin] 500 mg PO DAILY 5 Days #5 tablet predniSONE [PredniSONE] 40 mg PO DAILY 5 Days #10 tablet Home Medications: Montelukast [Singulair] 10 mg PO HS 05/11/18 [History] Quinapril/Hydrochlorothiazide [Quinapril-Hctz 20-12.5 mg Tab] 1 tab PO DAILY 05/11/18 [History] HydrOXYzine 10 mg PO DAILY PRN 12/29/18 [History] Levofloxacin [Levaquin] 500 mg PO DAILY 5 Days #5 tablet 12/30/18 [Rx] predniSONE [PredniSONE] 40 mg PO DAILY 5 Days #10 tablet 12/30/18 [Rx] Allergies/Adverse Reactions: Allergy/AdvReac Type Severity Reaction Status Date / Time Penicillins Allergy See Verified 12/30/18 15:00 Comments Date of admission: 12/28/18 01:50 Primary care physician: Ofelia Peterson CNP Consults: 12/28/18 01:59 Consult to Pulmonology [CONS] Routine Consulting Provider: [facility] Reason for Consult: 73 year old man with COPD presenting with hemoptysis. Seen to have findings concerning for pulmonary fibrosis on CT Call Completed: No 12/30/18 09:57 Consult to Nurse Navigator [CONS] Routine Comment: Pneumonia - Constitutional Vitals: Temp Pulse Resp BP Pulse Ox 97.5 F L 110 15 98/68 93 12/30/18 11:14 12/30/18 11:14 12/30/18 11:14 12/30/18 11:14 12/30/18 12:31 Exam: Gen.: Nonacute distress, alert and oriented 3 ENT: Mucosal membranes moist Respiratory: Lungs are clear to auscultation bilaterally without any wheezing rhonchi or rales Cardiovascular: Normal S1 and S2 regular rate rhythm no murmurs rubs or gallops Abdomen: Soft, nontender and nondistended with positive bowel sounds Extremities: No lower extremity edema Skin: Normal color - Patient Status Disposition: Home, Self-Care Condition: Good - Discharge Instructions Instructions: Upper Gastrointestinal Endoscopy (DC), Acute Hemoptysis (DC), Acute Hemoptysis (GEN) Follow Up With: Ofelia Peterson CNP [Primary Care Provider] - 01/03/19 10:35 am () - VTE Documentation of Mechanical Device: Intermittent pneumatic compression device
--- NOTE | 2019-01-01 00:38 | Electrocardiograph Report ---
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
== END 2018-12-30 18:15 | disposition home or self-care (01) ==
LOC: EMEROOARM 22:09 → 3BNU 22:09 → SUATTDRO 12-28 01:50 → 3BNU 12-28 02:38
PROVIDERS: ADMIT Internal Medicine; ATTEND Hospitalist

== ENCOUNTER 2019-01-19 09:05 | Inpatient (IN) ==
[2019-01-19] MEDS ORDERED: Ipratropium/Albuterol Neb 3 ML IH ONE (09:14)
[2019-01-19] MEDS ORDERED: methylPREDNISolone 125 MG/2 ML VIAL IVP ONE (09:14)
[2019-01-19] MEDS ORDERED: Ipratropium/Albuterol Neb 3 ML ONE (09:15)
--- NOTE | 2019-01-19 09:24 | Emergency Department Note ---
Disposition Clinical Impression: HCAP (healthcare-associated pneumonia), Hypoxia, Tachycardia, NSTEMI (non-ST elevated myocardial infarction) Sepsis Qualifiers: Sepsis type: sepsis due to unspecified organism Qualified Code(s): A41.9 - Sepsis, unspecified organism Pulmonary edema Qualifiers: Chronicity: acute Qualified Code(s): J81.0 - Acute pulmonary edema Disposition: Admitted As Inpatient Condition: Fair Referrals: Ofelia Peterson [employer]HB[employer]NER [Primary Care Provider] - Forms: ED Satisfaction Letter General Adult HPI - General Chief complaint: ED Shortness of Breath/Dyspnea Stated complaint: LOUISA Time Seen by Provider: 01/19/19 09:06 Source: patient, family, EMS Mode of arrival: EMS Limitations: no limitations Nursing Notes Reviewed: Yes Vital Signs Reviewed: Yes - History of Present Illness HPI Narrative: 73-year-old male with significant past medical history of COPD not on any oxygen at home and recent admission due to hemoptysis presenting to the emergency department chief complaint of difficulty in breathing. According to the patient since Sunday (3 days ago) he has had worsening shortness of breath. Has been coughing up sputum but denies any hemoptysis. Denies any fevers, chest pain, ab dominal pain. He states today when he woke up he was very diaphoretic and had severe shortness of breath and called EMS. When they arrived his oxygen saturation was in the low 90s. They placed him on 15 L nonrebreather and oxygen saturation up to 100%. Patient denies any recent sick contacts. Pain Scale: 0 - Related Data Home Medications Medication Instructions Recorded Confirmed RX: Montelukast [Singulair] 10 mg PO HS 05/11/18 01/19/19 RX: Quinapril/Hydrochlorothiazide 1 tab PO DAILY 05/11/18 01/19/19 [Quinapril-Hctz 20-12.5 mg Tab] RX: HydrOXYzine 10 mg PO DAILY PRN 12/29/18 01/19/19 Albuterol Sulfate [Albuterol 1 puff IH DAILY PRN 01/19/19 01/19/19 Inhaler] Tiotropium [Spiriva] 18 mcg IH 0700 01/19/19 01/19/19 Allergies Allergy/AdvReac Type Severity Reaction Status Date / Time Penicillins Allergy See Verified 01/19/19 09:19 Comments All systems ED: reviewed and negative except as stated. Constitutional: Denies: fever Eyes: Reports: as per HPI ENT ED: Reports: as per HPI Cardiovascular: Denies: chest pain Respiratory: Reports: dyspnea, wheezes Gastrointestinal: Denies: abdominal pain Genitourinary: Reports: as per HPI Musculoskeletal: Reports: as per HPI Integumentary: Reports: as per HPI Neurological: Reports: as per HPI Psychiatric: Reports: as per HPI Endocrine: Reports: as per HPI Hematological/Lymphatic: Reports: as per HPI Allergic/Immunologic: Reports: as per HPI Past Medical History - Past Medical History Attestation: Yes The following information was validated with the patient. Medical history: Reports: COPD, hypertension Psychiatric history: Reports: no psych history - Social History Smoking Status: Former smoker Smokeless Tobacco Status: No Alcohol use: Reports: none Drug use: Reports: none Physical Exam - General Limitations: no limitations General appearance: alert, in distress (moderate respiratory) - Head Head exam: atraumatic, normocephalic, normal inspection - Eye Eye exam: Absent: scleral icterus - ENT ENT exam: mucous membranes moist - Neck Neck exam: Present: full ROM - Chest Chest inspection: Present: symmetric chest wall rise - Respiratory Respiratory exam: Present: other (Inspiratory and expiratory wheezing in the bilateral upper lung coronado. Rhonchi bilateral lower lung coronado. Decreased breath sounds throughout.) - Cardiovascular Cardiovascular exam: Present: normal rhythm, tachycardia, normal heart sounds - Abdominal Exam Abdominal exam: Present: soft, Non-Tender. Absent: distention, guarding, rebound - Extremities Exam Extremities exam: Present: full ROM - Neurological Exam Neurological exam: Present: alert, oriented X3 - Psychiatric Psychiatric exam: Present: normal affect - Skin Skin exam: Present: warm Course Course Narrative: 73-year-old male presenting for shortness of breath. In the room he is alert and oriented 3. He states tachycardic in the 140s. Pulse ox 100% on 15 L nonr ebreather. He is in moderate respiratory distress. Respiratory was called to bedside for BiPAP placement. Concern for pneumonia versus pulmonary edema versus PE at this time. We will obtain basic laboratory analysis including troponin, EKG, d-dimer and chest x-ray. Patient will be given DuoNeb's, steroids and placed on BiPAP. Disposition will be admission pending laboratory analysis and further workup. Patient agrees with this plan. - Reevaluation(s) Reevaluation #1: Patient laboratory analysis shows leukocytosis, elevated troponin, elevated d-dimer along with a elevated lactic acid. We will provide the patient with healthcare acquired pneumonia antibiotics including vancomycin, azithromycin and cefepime. We will perform a CTA as well. Repeat EKG completed and does show some minimal ST segment elevation in V1, V2 and V3 with diffuse ST segment depression in all other leads. Patient continues to deny any chest pain but is diaphoretic. We will return to cardiology for further recommendations. Patient remains alert and oriented and hemodynamically stable at this time. Reevaluation #2: Spoke with the general internist and physician leader chain builder lo[employer] control Dr. Hernández who states that the EKG is nondiagnostic but would recommend heparinizing the patient at this time along with aspirin. We will add this to the patient's medications. CTA completed and did not show any pulmonary embolus. Does show multifocal pneumonia. Patient's heart rate has stabilized along with blood pressure. He did become mildly hypotensive with systolic in the 90s after Nitropaste was applied to this was removed. At this time will plan to admit the patient for multifocal pneumonia, healthcare acquired pneumonia, and STEMI. Patient remains alert and oriented 3 and hemodynamically stable. He agrees with this plan. I spoke with the hospitalist chain builder lo[employer] control Dr. Escobedo who agrees to accept the patient at this time. Vital Signs Temperature 0 F L 01/19/19 09:11 Pulse Rate 144 01/19/19 09:11 Respiratory Rate 32 01/19/19 09:11 Blood Pressure 150/104 01/19/19 09:11 O2 Sat by Pulse Oximetry 97 01/19/19 09:11 Temperature 95.6 F L 01/19/19 09:32 Pulse Rate 136 01/19/19 11:28 Respiratory Rate 26 01/19/19 11:28 Blood Pressure 90/65 01/19/19 11:28 O2 Sat by Pulse Oximetry 99 01/19/19 11:28 Oxygen Delivery Oxygen Delivery Bipap Medical Decision Making - Lab Data Result diagrams: 01/19/19 09:15 01/19/19 09:15 Lab Results 01/19/19 01/19/19 01/19/19 Range/Units 09:15 09:15 09:15 WBC 20.7 H (4.3-11.1) K/mcL RBC 4.96 (4.19-5.50) M/mcL Hgb 14.1 (12.9-16.9) g/dL Hct 44.6 (37.5-50.1) % MCV 89.9 (83.0-100.0) fL MCH 28.4 (28.0-33.3) pg MCHC 31.6 (31.6-35.5) g/dL RDW 13.3 (11.5-14.5) % Plt Count 592 H (140-400) K/mcL MPV 9.3 L (9.4-12.4) fL Immature Gran % 0.4 (0-4) % Seg Neutrophils % 48.9 % Lymphocytes % 30.6 % Monocytes % 7.8 % Eosinophils % 11.7 % Basophils % 0.6 % Neutrophils # 10.1 H (1.6-8.9) K/mcL Lymphocytes # 6.3 H (0.6-4.6) K/mcL Monocytes # 1.6 H (0.0-1.3) K/mcL Eosinophils # 2.4 H (0.0-0.6) K/mcL Basophils # 0.1 (0.0-0.2) K/mcL Platelet Estimate Increased H (Normal) PT (9.4-12.1) Seconds INR D-Dimer (0-500) ng/mLFEU Sodium 134 L (136-145) mEq/L Potassium 4.5 (3.5-5.1) mEq/L Chloride 98 (98-107) mEq/L Carbon Dioxide 27 (23-29) mEq/L BUN 16 (8-23) mg/dL Creatinine 1.08 (0.70-1.30) mg/dL Est GFR ( Amer) > 60 (> 60) Est GFR (Non-Af Amer) > 60 (> 60) BUN/Creatinine Ratio 15 (6-26) Glucose 264 H (70-105) mg/dL Calculated Osmolality 288 (280-300) Lactic Acid (0.5-2.2) mmol/L Calcium 9.2 (8.6-10.3) mg/dL Troponin I 0.21 H* (< 0.04) ng/mL B-Natriuretic Peptide 764 H (Less than 100) pg/mL 03/10/19 03/10/19 Range/Units 09:15 09:28 WBC (4.3-11.1) K/mcL RBC (4.19-5.50) M/mcL Hgb (12.9-16.9) g/dL Hct (37.5-50.1) % MCV (83.0-100.0) fL MCH (28.0-33.3) pg MCHC (31.6-35.5) g/dL RDW (11.5-14.5) % Plt Count (140-400) K/mcL MPV (9.4-12.4) fL Immature Gran % (0-4) % Seg Neutrophils % % Lymphocytes % % Monocytes % % Eosinophils % % Basophils % % Neutrophils # (1.6-8.9) K/mcL Lymphocytes # (0.6-4.6) K/mcL Monocytes # (0.0-1.3) K/mcL Eosinophils # (0.0-0.6) K/mcL Basophils # (0.0-0.2) K/mcL Platelet Estimate (Normal) PT 15.1 H (9.4-12.1) Seconds INR 1.3 D-Dimer 2144 H (0-500) ng/mLFEU Sodium (136-145) mEq/L Potassium (3.5-5.1) mEq/L Chloride (98-107) mEq/L Carbon Dioxide (23-29) mEq/L BUN (8-23) mg/dL Creatinine (0.70-1.30) mg/dL Est GFR ( Amer) (> 60) Est GFR (Non-Af Amer) (> 60) BUN/Creatinine Ratio (6-26) Glucose (70-105) mg/dL Calculated Osmolality (280-300) Lactic Acid 3.3 H (0.5-2.2) mmol/L Calcium (8.6-10.3) mg/dL Troponin I (< 0.04) ng/mL B-Natriuretic Peptide (Less than 100) pg/mL - EKG Data EKG #1 EKG attestation: Yes I reviewed and interpreted this EKG. EKG results narrative: Sinus tachycardia. 152 beats for minute. OK interval 127, QRS 103, QTC 465. Minimal ST segment elevation noted in V1, V2 and V3. ST segment depression noted in leads 1, 2, V5 and V6. Unchanged from previous completed earlier today . EKG #2 EKG attestation: Yes I reviewed and interpreted this EKG. EKG results narrative: Sinus tachycardia. 152 beats for minute. OK interval 127, QRS 103, QTC 465. Minimal ST segment elevation noted in V1, V2 and V3. ST segment depression noted in leads 1, 2, V5 and V6. Unchanged from previous completed earlier today. Attestation Statement - Attestation Attestation: I, Malick Borrego, examined this patient and my medical decision-making was reviewed with the [employer]LEBRANT/PA/Advanced Practice Nurse/Resident Physician. I agree with the documented findings, disposition and treatment plan as described except to the extent set forth below. 73-year-old male presents by EMS to the emergency Department with concerns of difficulty breathing. Patient states he was recently admitted to the hospital for a ruptured blood vessel in the right lower lobe and was diagnosed with COPD and pneumonia. Patient was treated with antibiotics and discharged home with steroids. He was recently restarted on steroids by his PCP 2 days prior to arrival. Patient states his breathing has been worsening over the past 2-3 days. Denies fever, chest pain, syncopal episode. Patient has not vomited. On physical exam the patient is diaphoretic and tachycardic and tachypnea. BP was 150/104. Patient had crackles and decreased breath sounds in the bilateral posterior lung coronado. Chest x-ray showed diffuse vascular congestion with right pleural effusion versus infiltrate of the right lower lobe. Because patient was recently admitted to the hospital we must rule out PE and will obt ain a d-dimer. D-dimer was elevated and CTA is pending. Patient was started on health-care associated pneumonia antibiotics emergency department for possible pneumonia as he has a white count of 20.3 and is tachycardic and Neck with a chest x-ray that shows possible infiltrate in right lower lobe. We are cautious with our fluid bolus as patient also has possible CHF as a cause of his dyspnea. Patient will be admitted to hospitalist for further care and evaluation. Imaging still pending.
[2019-01-19 09:26] LABS: Basophils # 0.1 K/mcL (0.0-0.2); Basophils % 0.6 %; Eosinophils # 2.4 K/mcL (0.0-0.6); Eosinophils % 11.7 %; Hematocrit 44.6 % (37.5-50.1); Hemoglobin 14.1 g/dL (12.9-16.9); Immature Granulocytes % 0.4 % (0-4); Lymphocytes # 6.3 K/mcL (0.6-4.6); Lymphocytes % 30.6 %; Mean Corpuscular HGB Conc 31.6 g/dL (31.6-35.5); Mean Corpuscular Hemoglobin 28.4 pg (28.0-33.3); Mean Corpuscular Volume 89.9 fL (83.0-100.0); Mean Platelet Volume 9.3 fL (9.4-12.4); Monocytes # 1.6 K/mcL (0.0-1.3); Monocytes % 7.8 %; Neutrophils # 10.1 K/mcL (1.6-8.9); Platelet Count 592 K/mcL (140-400); Red Blood Count 4.96 M/mcL (4.19-5.50); Red Cell Distribution Width 13.3 % (11.5-14.5); Segmented Neutrophils % 48.9 %
[2019-01-19] MEDS ORDERED: Nitroglycerin 0.4 MG TAB.SUBL SL ONE (09:43)
[2019-01-19] MEDS ORDERED: Nitroglycerin 1 INCH/GM PACKET TP ONE (09:43)
[2019-01-19] MEDS ORDERED: Cefepime HCl 2,000 MG in Water for inj. (sterile) 20 ML 20 ML IVP STA (09:45)
[2019-01-19] MEDS ORDERED: Azithromycin 500 MG in D5% in Water 250 ML IVPB ONE (09:47)
[2019-01-19] MEDS ORDERED: Isovue-370 500 ML BOTTLE IVP ONE (09:49)
[2019-01-19 09:51] LABS: BUN/Creatinine Ratio 15 (6-26); Blood Urea Nitrogen 16 mg/dL (8-23); Calcium 9.2 mg/dL (8.6-10.3); Carbon Dioxide 27 mEq/L (23-29); Chloride 98 mEq/L (98-107); Glucose 264 mg/dL (70-105); Osmolality,Calculated 288 (280-300); Potassium 4.5 mEq/L (3.5-5.1); Sodium 134 mEq/L (136-145); eGFR For Non-African Americans > 60 (> 60)
[2019-01-19 09:55] LABS: Troponin I 0.21 ng/mL (< 0.04)
[2019-01-19 10:06] LABS: Platelet Estimate Increased (Normal)
[2019-01-19] MEDS ORDERED: *HR* Heparin 5,000 UNIT/ML VIAL IVP PRN (10:44)
[2019-01-19] MEDS ORDERED: *HR* Heparin 5,000 UNIT/ML VIAL IVP ONE (10:44)
[2019-01-19] MEDS ORDERED: Aspirin 325 MG TABLET PO ONE (10:44)
[2019-01-19] MEDS ORDERED: 0.9 % Sodium Chloride 500 ML IVC ONE (10:58)
[2019-01-19 11:01] LABS: INR 1.3; Prothrombin Time 15.1 Seconds (9.4-12.1)
[2019-01-19] MEDS: Heparin 25,000 UNIT/250 ML D5W 25,000 UNIT/250 ML IV.SOLN IVC SCH (12:12)
[2019-01-19] MEDS ORDERED: Lisinopril 20 MG TABLET PO SCH (12:45)
[2019-01-19] MEDS ORDERED: hydroCHLOROthiazide 25 MG TABLET PO SCH (12:45)
[2019-01-19] MEDS ORDERED: Ipratropium/Albuterol Neb 3 ML IH PRN (13:45)
--- NOTE | 2019-01-19 13:49 | Internal Med History&Physical ---
Date of Encounter: 01/19/19 Time of Encounter: 12:30 Internal Medicine - H&P: HPI Chief complaint: Dyspnea Admitted From: Home Plans for Post Hospital Care: Home History of present illness: Mr. Lea is a 73 year old male with possible medical history of COPD, recent admission for hemoptysis and right-sided pneumonia in December 2018 who presents with 3 days of shortness of breath and coughing up sputum without any hemoptysis. He denies any chest pain, abdominal pain or any other pain. He saw his primary care physician 2 days ago and was started on an antibiotic. He progressively got worse and this morning he was attended by the EMS with saturations in the low 90s. The patient was given supplemental oxygen and his saturations came up to 100%. The patient states that he does not take flu shots because it makes him sick. He denies any sick contacts. The patient had an elevated troponin and minimal elevation V1 to V3. Cardiology was consulted and recommended IV heparin drip. He was also given Nitropaste but his blood pressure dropped and that was discontinued. His d-dimer was elevated and a CTA is negative for pulmonary embolism. The CTA shows new pleural thickening and lymphadenopathy in the chest since the last CT about 25 days ago. Past Med Surg Social Fam HX - Past Medical History Medical history: COPD, hypertension Psychiatric history: no psych history - Social History Smoking Status: Former smoker Smokeless Tobacco Status: No Alcohol use: none Drug use: none - Family History Father Hx Family Cardiac Disorders: Yes (HTN) Hx Family Cancer: Yes (Lung Cancer) Mother Hx Family Endocrine Disorder: Yes (DM) Internal Medicine - H&P: Meds Montelukast [Singulair] 10 mg PO HS 05/11/18 [History] Quinapril/Hydrochlorothiazide [Quinapril-Hctz 20-12.5 mg Tab] 1 tab PO DAILY 05/11/18 [History] HydrOXYzine 10 mg PO DAILY PRN 12/29/18 [History] Albuterol Sulfate [Albuterol Inhaler] 1 puff IH DAILY PRN 01/19/19 [History] Tiotropium [Spiriva] 18 mcg IH 0700 01/19/19 [History] Allergy/AdvReac Type Severity Reaction Status Date / Time Penicillins Allergy See Verified 01/19/19 09:19 Comments All Systems PM: A 10-system review of systems was performed and is negative for pertinent findings except as documented above in the HPI. - Constitutional Vitals: Temp Pulse Resp BP Pulse Ox 95.6 F L 131 28 102/74 99 01/19/19 09:32 01/19/19 12:26 01/19/19 12:26 01/19/19 12:26 01/19/19 12:26 General appearance: Present: mild distress, A&O X 3 Exam: Patient is currently using BiPAP. - Head Head exam: Present: atraumatic, normocephalic - Eye Eye exam: Present: EOMI, conjuntiva pink, sclera anicteric Pupils: Present: PERRL - Neck Neck exam general surgery: Present: full ROM, normal inspection, supple, trachea midline. Absent: thyromegaly - Respiratory Respiratory exam: Present: decreased breath sounds, rales. Absent: accessory muscle use, rhonchi Additional comments: There are slight crackles in the left lung base. - Cardiovascular Cardiovascular exam: Present: RRR, +S1, +S2. Absent: diastolic murmur, gallop, rubs, systolic murmur - GI/Abdominal GI/Abdominal exam: Present: soft, no peritoneal signs. Absent: distended, tenderness - Extremities Exam Extremities exam: Present: warm, radial pulses palpable and symmetrical. Absent: calf tenderness, cyanotic, pedal edema - Neurological Exam Neurological exam: Present: CN II-XII intact, oriented X3, no focal deficits. Absent: pronater drift, facial droop, speech deficit - Psychiatric Psychiatric exam: Present: normal affect, normal mood - Skin Skin exam: Present: dry, intact Internal Med - H&P Results - Labs CBC & Chem 7: 01/19/19 09:15 01/19/19 09:15 Labs: Short CBC 01/19/19 Range/Units 09:15 WBC 20.7 H (4.3-11.1) K/mcL Hgb 14.1 (12.9-16.9) g/dL Hct 44.6 (37.5-50.1) % Plt Count 592 H (140-400) K/mcL Neutrophils # 10.1 H (1.6-8.9) K/mcL BMP 01/19/19 09:15 Sodium 134 L Potassium 4.5 Chloride 98 Carbon Dioxide 27 BUN 16 Creatinine 1.08 Glucose 264 H Calcium 9.2 Cardiac Enzymes 01/19/19 01/19/19 Range/Units 09:15 12:18 Troponin I 0.21 H* 0.22 H* (< 0.04) ng/mL - Impressions ITS Impressions Chest X-Ray 01/19/19 09:14 IMPRESSION: Dense airspace consolidation the right lower lobe concerning for right lower lobe pneumonia. Diffuse bilateral airspace opacities suggesting concomitant pulmonary edema. D/ / Brian Mcdaniel MD / Brian Mcdaniel MD Interpreting Provider: Brian Mcdaniel MD Chest CTA 01/19/19 09:49 IMPRESSION: No findings diagnostic of pulmonary embolus Increasing airspace disease throughout the right hemithorax suggesting pneumonia. Increasing multifocal pleural thickening. Along with the interstitial prominence, this raises the question of lymphangitic pathology. Lymphangitic metastatic disease would be difficult to exclude. Soft tissue density in the azygoesophageal recess region is likely developing adenopathy. Similar findings are noted along the margin of the right main bronchus. D/ / Tobin Smith / Tobin Smith Interpreting Provider: Tobin Smith - Assessment and Plan (1) Pneumonia Current Visit: No Status: Suspected Assessment and plan: Admit patient to acute medicine. Patient was given a dose of IV vancomycin, cefepime and azithromycin. We will continue with the same. Check Legionella urine antigen and Streptococcus urine antigen. Oxygen supplementation as needed and BiPAP therapy. Continue nebulization treatment. Qualifiers: Pneumonia type: due to unspecified organism Laterality: right Lung location: lower lobe of lung Qualified Code(s): J18.1 - Lobar pneumonia, unspecified organism (2) Sepsis Current Visit: Yes Status: Acute Assessment and plan: Treatment would be that of the underlying cause that his pneumonia. Repeat la ctic acid level is pending. Qualifiers: Sepsis type: sepsis due to unspecified organism Qualified Code(s): A41.9 - Sepsis, unspecified organism (3) Elevated troponin Current Visit: No Status: Resolved Assessment and plan: Elevated troponin could be from an STEMI versus demand ischemia. Cardiology has been consulted. Continue IV heparin with monitoring. Continue aspirin. Check echocardiogram. (4) Imaging abnormalities Current Visit: Yes Status: Acute Assessment and plan: Due to pleural thickening and lymphadenopathy in the thorax will consult pulmonology. (5) Acute hypoxemic respiratory failure Current Visit: No Status: Acute Assessment and plan: Treatment as above for pneumonia and COPD exacerbation. (6) COPD exacerbation Current Visit: No Status: Acute Assessment and plan: Treatment as above pneumonia. IV Solu-Medrol 80 mg every 8 hours with subsequent taper as patient improves. (7) HTN (hypertension) Current Visit: Yes Status: Acute Assessment and plan: For now patient's ELSA inhibitor and hydrochlorothiazide has been held as blood pressure low to low-normal.. If blood pressure improves we will restart. Qualifiers: Hypertension type: essential hypertension Qualified Code(s): I10 - Essential (primary) hypertension - Time Spent With Patient Total time spent is greater than 50% in coordination of care (as documented) at patient's floor/unit and/or counseling patient: 25 - 35 minutes
[2019-01-19] MEDS: Cefepime HCl 2,000 MG in Water for inj. (sterile) 20 ML 20 ML IVP SCH (17:23)
[2019-01-19] MEDS: *HR* Heparin 5,000 UNIT/ML VIAL IVP PRN (18:59)
[2019-01-19] MEDS ORDERED: Vancomycin (wt based) 1,000 MG VIAL IVPB SCH (21:00)
[2019-01-19] MEDS: methylPREDNISolone 125 MG/2 ML VIAL IVP SCH (23:04)
[2019-01-20] MEDS: Cefepime HCl 2,000 MG in Water for inj. (sterile) 20 ML 20 ML IVP SCH ×3 (01:03→18:39)
[2019-01-20 01:07] LABS: Basophils % 0.2 %; Eosinophils # 0.1 K/mcL (0.0-0.6); Eosinophils % 0.5 %; Hematocrit 37.6 % (37.5-50.1); Immature Granulocytes % 0.5 % (0-4); Lymphocytes # 0.7 K/mcL (0.6-4.6); Lymphocytes % 5.6 %; Mean Corpuscular HGB Conc 31.4 g/dL (31.6-35.5); Mean Corpuscular Hemoglobin 27.7 pg (28.0-33.3); Mean Corpuscular Volume 88.3 fL (83.0-100.0); Mean Platelet Volume 9.2 fL (9.4-12.4); Monocytes # 0.7 K/mcL (0.0-1.3); Monocytes % 5.6 %; Neutrophils # 10.7 K/mcL (1.6-8.9); Platelet Count 409 K/mcL (140-400); Red Blood Count 4.26 M/mcL (4.19-5.50); Red Cell Distribution Width 13.4 % (11.5-14.5); Segmented Neutrophils % 87.6 %
[2019-01-20 01:09] LABS: Hemoglobin 11.8 g/dL (12.9-16.9)
[2019-01-20 01:26] LABS: BUN/Creatinine Ratio 23 (6-26); Blood Urea Nitrogen 25 mg/dL (8-23); Calcium 8.7 mg/dL (8.6-10.3); Carbon Dioxide 25 mEq/L (23-29); Chloride 103 mEq/L (98-107); Glucose 169 mg/dL (70-105); Osmolality,Calculated 288 (280-300); Sodium 135 mEq/L (136-145); eGFR For Non-African Americans > 60 (> 60)
[2019-01-20] MEDS: *HR* Heparin 5,000 UNIT/ML VIAL IVP PRN (01:40)
--- NOTE | 2019-01-20 08:17 | Cardiology Consult Note ---
Date of Encounter: 01/20/19 Time of Encounter: 09:24 Assessment and Plan (1) Elevated troponin Current Visit: Yes Status: Acute Trops elevated on admission 0.21 -> 0.22 -> 0.84 -> 0.89 -> 0.65 EKG from ED showed no ischemic changes Echo this morning revealed decreased LVEF at 25-30% when compared to echo from 04/29 at 50-55% Also noted right wall motion abnormality. Unchanged calcified arotic valve with moderate stenosis. Repeat EKG this morning revealed no significant change Recommend optimizing medical management including treatment of pneumonia. Once respiratory status improves would recommend limited echo with definity. Continue Heparin drip at this time. May consider discontinuing in AM. (2) Pneumonia Current Visit: Yes Status: Suspected As seen on CXR and CTA chest Pulmonology consulted Management per primary and pulm Qualifiers: Pneumonia type: due to unspecified organism Laterality: right Lung location: lower lobe of lung Qualified Code(s): J18.1 - Lobar pneumonia, unspecified organism (3) COPD (chronic obstructive pulmonary disease) Current Visit: Yes Status: Chronic Management per primary Qualifiers: COPD type: chronic bronchitis Chronic bronchitis type: simple Qualified Code(s): J41.0 - Simple chronic bronchitis Discussion w patient/family: The assessment and plan as outlined above was discussed with the patient and/or family members who expressed understanding and agreement. All questions were answered. Thank you for involving us in the care of your patient. Please call with any questions. History of Present Illness Consult date: 01/20/19 Requesting physician: Maria T Mckeon Consult reason: Elevated troponins with reported EKG changes Chief complaint: Dyspnea History of present illness: Mr. Lea is a 73 year old male with PMH of COPD and HTN. He was recently admitted in 12/31 for hemoptysis and right sided pneumonia. He presented to the ED on 01/19/19 for dyspnea and increased sputum production without hemoptysis of 3 days duration. Denied any chest pain or abdominal pain. CXR from the ED revealed dense consolidation of the right lower lobe concerning for pneumonia with diffuse bilateral airspace opacities suggesting concomitant pulmonary edema. CTA chest redemonstrated the right airspace disease suggestive of pneumonia. Multifocal pleural thickening and interstitial prominence was also noted, question lymphagitic pathology or metastatic disease. He was started on broad spectrum abx for pneumonia. Troponin was found to be elevated at 0.21. EKG revealed nonspecific minimal ST segment elevation in leads V1, V2, and V3. Low dose heparin drip was started at that time as well. Cardiology was consulted for elevated troponins with reported EKG changes. Pt seen and examined at bedside chair today. Admits to continued shortness of breath despite BiPAP. Continue to deny chest pain. Denies any fever, chills, abdominal pain, nausea, or vomiting. Past Med Surg Social Fam HX - Past Medical History Medical history: COPD, hypertension Psychiatric history: no psych history - Social History Smoking Status: Former smoker Smokeless Tobacco Status: No Alcohol use: none Drug use: none - Family History Father Living Status: Hx Family Cardiac Disorders: Yes Hx Family Cancer: Yes (Lung Cancer) Mother Living Status: Hx Family Endocrine Disorder: Yes Medications and Allergies Montelukast [Singulair] 10 mg PO HS 05/11/18 [History] Quinapril/Hydrochlorothiazide [Quinapril-Hctz 20-12.5 mg Tab] 1 tab PO DAILY 05/11/18 [History] HydrOXYzine 10 mg PO DAILY PRN 12/29/18 [History] Albuterol Sulfate [Albuterol Inhaler] 2 puff IH DAILY PRN 01/19/19 [History] Tiotropium Piercy [Spiriva Respimat] 2 puff IH DAILY 01/20/19 [History] Allergy/AdvReac Type Severity Reaction Status Date / Time Penicillins Allergy See Verified 01/20/19 12:52 Comments All Systems Review: The remainder of the systems were reviewed and are negative - EENT Eyes: no blurred vision, no loss of vision Nose, mouth and throat: no sinus pain, no sore throat - Cardiovascular Cardiovascular: dyspnea at rest, dyspnea on exertion, no chest pain at rest, no chest pain with exertion, no diaphoresis, no lightheadedness, no orthopnea, no palpitations, no paroxysmal nocturnal dyspnea, no syncope - Respiratory Respiratory: cough, dyspnea, hemoptysis (back in December, but none since previous admission ) - Gastrointestinal Gastrointestinal: no abdominal pain, no constipation, no diarrhea - Genitourinary Genitourinary: no dysuria, no hematuria - Musculoskeletal Musculoskeletal: no back pain, no muscle weakness - Integumentary Integumentary: no erythema, no rash, no unusual bruising - Neurological Neurological: no dizziness, no numbness, no syncope, no tingling - Psychiatric Psychiatric: no anxiety, no depression - Hematological/Lymphatic Hematologic/Lymphatic: no easy bleeding, no easy bruising Physical Examination Vital Signs, Last 4 Hours Temp Pulse Resp BP Pulse Ox 01/20/19 07:19 97.9 F 111 21 118/75 100 01/20/19 04:40 17 106/72 98 General: Conversant, Other (mild respiratory distress ) HEENT: Atraumatic, Normocephaly, Mucus Membranes Moist Neck: No JVD, Normal carotid pulses Cardiac: Normal S1 and S2, No Murmur, Other (Irregularly irregular. Tachycardic. ) Lungs: Normal Breath Sounds, No Wheeze, Rales, Rhonchi, Other (labored breahting on bipap ) Neuro: Alert and responsive, No focal deficits noted Abdomen: Soft, Non-Tender Skin: No rashes noted on visualized skin Musculoskeletal: No Chest Wall Tenderness Extremities: No Clubbing, No Cyanosis, No Edema, Normal Pulses Results 01/20/19 00:54 01/20/19 00:54 Lab Results 01/19/19 01/19/19 01/19/19 09:15 09:15 09:15 WBC 20.7 H Hgb 14.1 Hct 44.6 Plt Count 592 H INR D-Dimer Sodium 134 L Potassium 4.5 Chloride 98 Carbon Dioxide 27 BUN 16 Creatinine 1.08 Glucose 264 H Calcium 9.2 Troponin I 0.21 H* B-Natriuretic Peptide 764 H 01/19/19 01/19/19 01/19/19 09:15 12:18 17:55 WBC Hgb Hct Plt Count INR 1.3 D-Dimer 2144 H Sodium Potassium Chloride Carbon Dioxide BUN Creatinine Glucose Calcium Troponin I 0.22 H* 0.84 H* B-Natriuretic Peptide 01/20/19 01/20/19 01/20/19 00:54 00:54 00:54 WBC 12.2 H Hgb 11.8 L D Hct 37.6 Plt Count 409 H INR D-Dimer Sodium 135 L Potassium 5.0 Chloride 103 Carbon Dioxide 25 BUN 25 H Creatinine 1.07 Glucose 169 H Calcium 8.7 Troponin I 0.89 H* B-Natriuretic Peptide 01/20/19 07:11 WBC Hgb Hct Plt Count INR D-Dimer Sodium Potassium Chloride Carbon Dioxide BUN Creatinine Glucose Calcium Troponin I 0.65 H* B-Natriuretic Peptide - Imaging and Cardiology Chest Xray: report reviewed, image reviewed Echo: report reviewed - EKG Interpretation EKG results cardiology: personally reviewed, sinus rhythm (Tachycardic with rate 136), no diagnostic ischemia Consult Discharge Plan - Plan Referrals: Ofelia Peterson, PIETRO [Primary Care Provider] - 01/28/19 1:00 pm
--- NOTE | 2019-01-20 08:23 | Internal Med Progress Note ---
<Eris Haque - Last Filed: 01/20/19 15:13> Hospitalist Progress Note - Encounter Date of Encounter: 01/20/19 Time of Encounter: 08:00 - Subjective Interval History: Mr. Lea is a 73 year-old M history of COPD, and HTN. Presented with 3d of SOB, and cough. Was recently admitted for hemoptysis Dec 2018. Patient was seen this a.m. at bedside. He was resting in his wheelchair with BiPap. Pt had just returned from getting his Echo, and complained of being hungry. He denies any chest pain, abdominal pain, fevers, chills, nausea or vomiting. He admits to feeling slightly SOB at rest and a non productive cough. He was able to converse appropriately and his oxygen saturation was 99% on BiPap. - Exam Vitals: Temp Pulse Resp BP Pulse Ox 97.9 F 111 21 118/75 100 01/20/19 07:19 01/20/19 07:19 01/20/19 07:19 01/20/19 07:01/20/19 07:19 Exam: General: A&Ox3, appears slightly fatigued. HEENT: Head is non traumatic, EOMI. Cardiovascular: Regular rate and rhythm, no murmurs appreciated. Lungs: Slightly distant lung sounds, expiratory wheezes noted on the lung bases bilaterally . Abdomen: Soft, obese abdomen, BSx3, no guarding, no pain on palpation. Skin: Cool and dry, no rashes of exposed surfaces. Extremities: No edema of the lower extremities, radial and dorsal pedis pulses intact and symmetric +2. - Assessment and Plan (1) Acute hypoxemic respiratory failure Current Visit: No Status: Acute Assessment and Plan: Patient presented with complaints of shortness of breath and difficulty in breathing. Subjective history of COPD. ED course oxygen saturation in low 90's requiring non-rebreather oxygen at 15L -Failure of relief of symptoms of SOB with oxymask -Currently using BiPap with some improvement of symptoms and oxygen saturation of 100% -Consider blood gases if symptoms don't improve on current therapy regimen. -Continue Duoneb's, Solu-Medrol day 2. Continue for total of 10 days will transition to P.O steroids as symptoms improve. (2) Pneumonia Current Visit: Yes Status: Suspected Assessment and Plan: Recent hospital stay ending on 12/30/18 that consisted of possible pneumonia and hemoptysis. Current symptoms consistent with pneumonia, or lung disease given history of COPD. Imaging supports dense airspace consolidation the right lower lobe concerning for right lower lobe pneumonia. -Day 2 of IV antibiotics including vancomycin, cefepime and azithromycin. Will treat for 10 days total, will adjust to PO give clinical course with transition to oral medication prior to discharge. -FLU A/B negative. Blood cultures pending. -Check Legionella urine antigen and Streptococcus urine antigen pending. -Oxygen supplementation. (3) Sepsis Current Visit: Yes Status: Acute Assessment and Plan: Sepsis is likely secondary to underlying disease. Patient has likely source with lung disease and symptoms, vitals upon admission include respiratory rate of 21, and heart rate 111 sinus tachycardia. -Lactic acid 2.1, -CBC; WBC 20.7 initally now 12.2 -Blood cultures pending, with narrow selection if given result. -Continue fluids (4) Elevated troponin Current Visit: Yes Status: Acute Assessment and Plan: Troponin evaluated on admission found to be 0.22 trends -->0.84, 0.89, 0.65. EKG from ED showed no ischemic changes. -Cardiology consulted appreciate recommendations. IV heparin, Echo showing 25- 50% LVEF compared to previous echo of 50-55%. Right wall motion abnormality. -Repeat EKG today showed no signs of significant changes. -Continue to follow recommendations of Cardiology. (5) COPD (chronic obstructive pulmonary disease) Current Visit: Yes Status: Chronic Assessment and Plan: Treatment similar as the above pneumonia. -Continue IV Solu-Medrol 80 mg every 8 hours with, taper as patient improves. (6) HTN (hypertension) Current Visit: Yes Status: Acute Assessment and Plan: History of HTN patient was ypertensive on admission with blood pressure of 150/101. -Quinapril/Hctz 20-12.5 for blood pressure control initally held due to low B/P readings. Will continue to watch and administer with elevated readings. -Continue to monitor with B/P checks. - Time Spent with Patient Total time spent is greater than 50% in coordination of care (as documented) at patient's floor/unit and/or counseling patient: 25 - 35 minutes Plan of Care Discussed with: patient Internal Medicine: Result - Labs CBC & Chem 7: 01/20/19 14:30 01/20/19 00:54 Labs: Short CBC 01/19/19 01/20/19 Range/Units 09:15 00:54 WBC 20.7 H 12.2 H (4.3-11.1) K/mcL Hgb 14.1 11.8 L D (12.9-16.9) g/dL Hct 44.6 37.6 (37.5-50.1) % Plt Count 592 H 409 H (140-400) K/mcL Neutrophils # 10.1 H 10.7 H (1.6-8.9) K/mcL BMP 01/19/19 01/20/19 09:15 00:54 Sodium 134 L 135 L Potassium 4.5 5.0 Chloride 98 103 Carbon Dioxide 27 25 BUN 16 25 H Creatinine 1.08 1.07 Glucose 264 H 169 H Calcium 9.2 8.7 Cardiac Enzymes 01/19/19 01/19/19 01/19/19 Range/Units 09:15 12:18 17:55 Troponin I 0.21 H* 0.22 H* 0.84 H* (< 0.04) ng/mL 01/20/19 01/20/19 Range/Units 00:54 07:11 Troponin I 0.89 H* 0.65 H* (< 0.04) ng/mL - ABG Interpretation ABG results: PT/INR, D-dimer PT 15.1 Seconds (9.4-12.1) H 01/19/19 09:15 D-Dimer 2144 ng/mLFEU (0-500) H 01/19/19 09:15 - Impressions Impressions Chest X-Ray 01/19/19 09:14 IMPRESSION: Dense airspace consolidation the right lower lobe concerning for right lower lobe pneumonia. Diffuse bilateral airspace opacities suggesting concomitant pulmonary edema. D/ / Brian Mcdaniel MD / Brian Mcdaniel MD Interpreting Provider: Brian Mcdaniel MD Chest CTA 01/19/19 09:49 IMPRESSION: No findings diagnostic of pulmonary embolus Increasing airspace disease throughout the right hemithorax suggesting pneumonia. Increasing multifocal pleural thickening. Along with the interstitial prominence, this raises the question of lymphangitic pathology. Lymphangitic metastatic disease would be difficult to exclude. Soft tissue density in the azygoesophageal recess region is likely developing adenopathy. Similar findings are noted along the margin of the right main bronchus. D/ / Tobin Smith / Tobin Smith Interpreting Provider: Tobin Smith 01/20/2019 IMPRESSION: LVEF 25-30%. Severe global and segmental left ventricular systolic dysfunction. Indeterminate diastolic function. Mild right ventricular hypokinesis. Severely calcified aortic valve with moderate aortic stenosis, no significant change compared to 05/11/2018 study Mild mitral regurgitation. Unable to estimate RVSP due to lack of TR jet. Recommend repeat limited echo with definity after rate control. Cardiology consult team notified via [employer]. Left Ventricular Wall Motion: Rest Echo Findings The apical inferior, mid inferior, basal inferior, basal anterior, mid inferior septal, basal inferior septal, mid anterior lateral, basal anterior lateral, mid inferior lateral, basal anterior septal and basal inferior lateral cheek were hypokinetic. The apex, apical anterior, mid anterior, apical septal, apical lateral and mid anterior septal cheek were akinetic. Findings: Study Quality * Technically sub-optimal due to clinical status. ECG Findings * Atrial fibrillation, RVR, BBB. Left Ventricle * LVEF 25-30%. * Normal LV chamber size and wall thickness. * Severe global and segmental left ventricular systolic dysfunction. * Indeterminate diastolic function. * Definity echo contrast was not used. Right Ventricle * Normal right ventricular size. * Mild right ventricular hypokinesis. Left Atrium * Normal left atrial size. Right Atrium * Normal right atrial size. Interatrial Septum * Interatrial septum not well evaluated. Aortic Valve * Severely calcified aortic valve leaflets. * Moderate aortic stenosis. * Peak and mean gradients are 46, 25 mmHg, respectively. * Trace aortic regurgitation. Mitral Valve * Normal mitral valve structure. * No mitral stenosis. * Mild mitral regurgitation. Tricuspid Valve * Normal tricuspid valve structure. * No tricuspid stenosis. * Trace tricuspid regurgitation. * Unable to estimate RVSP due to lack of TR jet. Pulmonic Valve * Pulmonic valve is not well visualized. * No pulmonic stenosis. * No pulmonic regurgitation. Aorta * Normally sized aortic root. Pericardium * The pericardium appears normal. IVC * The IVC is not well evaluated. - VTE Reasons for not Prescribing Prophylaxis: Not indicated-Anticoagulated or INR therapeutic Consult Discharge Plan - Plan Referrals: Ofelia Peterson, PIETRO [Primary Care Provider] - 01/28/19 1:00 pm <Keny Goodman - Last Filed: 01/20/19 17:48> Hospitalist Progress Note - Encounter Date of Encounter: 01/20/19 Internal Medicine: Result - Labs CBC & Chem 7: 01/20/19 14:30 01/20/19 00:54 Labs: Short CBC 01/20/19 01/20/19 Range/Units 00:54 14:30 WBC 12.2 H (4.3-11.1) K/mcL Hgb 11.8 L D 13.4 D (12.9-16.9) g/dL Hct 37.6 43.3 (37.5-50.1) % Plt Count 409 H (140-400) K/mcL Neutrophils # 10.7 H (1.6-8.9) K/mcL BMP 01/20/19 00:54 Sodium 135 L Potassium 5.0 Chloride 103 Carbon Dioxide 25 BUN 25 H Creatinine 1.07 Glucose 169 H Calcium 8.7 Cardiac Enzymes 01/19/19 01/20/19 01/20/19 Range/Units 17:55 00:54 07:11 Troponin I 0.84 H* 0.89 H* 0.65 H* (< 0.04) ng/mL - ABG Interpretation ABG results: PT/INR, D-dimer PT 15.1 Seconds (9.4-12.1) H 01/19/19 09:15 D-Dimer 2144 ng/mLFEU (0-500) H 01/19/19 09:15 - Impressions Impressions Echocardiogram 01/20/19 13:14 Impressions: LVEF 25-30%. Severe global and segmental left ventricular systolic dysfunction. Indeterminate diastolic function. Mild right ventricular hypokinesis. Severely calcified aortic valve with moderate aortic stenosis, no significant change compared to 05/11/2018 study Mild mitral regurgitation. Unable to estimate RVSP due to lack of TR jet. Recommend repeat limited echo with definity after rate control. Cardiology consult team notified via [employer]. Left Ventricular Wall Motion: Rest Echo Findings The apical inferior, mid inferior, basal inferior, basal anterior, mid inferior septal, basal inferior septal, mid anterior lateral, basal anterior lateral, mid inferior lateral, basal anterior septal and basal inferior lateral cheek were hypokinetic. The apex, apical anterior, mid anterior, apical septal, apical lateral and mid anterior septal cheek were akinetic. Findings: Study Quality * Technically sub-optimal due to clinical status. ECG Findings * Atrial fibrillation, RVR, BBB. Left Ventricle * LVEF 25-30%. * Normal LV chamber size and wall thickness. * Severe global and segmental left ventricular systolic dysfunction. * Indeterminate diastolic function. * Definity echo contrast was not used. Right Ventricle * Normal right ventricular size. * Mild right ventricular hypokinesis. Left Atrium * Normal left atrial size. Right Atrium * Normal right atrial size. Interatrial Septum * Interatrial septum not well evaluated. Aortic Valve * Severely calcified aortic valve leaflets. * Moderate aortic stenosis. * Peak and mean gradients are 46, 25 mmHg, respectively. * Trace aortic regurgitation. Mitral Valve * Normal mitral valve structure. * No mitral stenosis. * Mild mitral regurgitation. Tricuspid Valve * Normal tricuspid valve structure. * No tricuspid stenosis. * Trace tricuspid regurgitation. * Unable to estimate RVSP due to lack of TR jet. Pulmonic Valve * Pulmonic valve is not well visualized. * No pulmonic stenosis. * No pulmonic regurgitation. Aorta * Normally sized aortic root. Pericardium * The pericardium appears normal. IVC * The IVC is not well evaluated. - Attending Attestation Patient seen and examined together with the medical student. Relevant objective data including labs, imaging, and micro were reviewed. Medical decision making was discussed with the medical student and is reflected in the note above, with the following comments: Bony Lea is a 73 M who p/w SOB, hypoxia. Today he is still SOB and feels tired requiring BiPAP. He and are concerned about his recurrent pneumonia as well as the "spot" seen on his lungs. O On exam, pt comfortable and satting well on Bipap. Does have coarse biphasic breath sounds blunted on R lower half. CT chest to have extensive RML/RLL infiltrates concerning for pneumonia, causing COPD exacerbation, acute hypoxic respiratory failure, and severe sepsis. He is on broad spectrum abx (vanc, cefepime, azithro). Rec'd fluid boluses and pressures remain good. CXR also concerning for cephalization and PA fullness suggestive of fluid overload, and labs showed elevated troponin so TTE ordered; it shows acute systolic heart failure EF 20%, however his HR was 130s during exam and therefore is of questionable value. Will repeat once patient's respiratory and hemodynamic status improves. A - Pneumonia - COPD exacerbation - Acute hypoxic respiratory failure - Severe sepsis - Acute systolic heart failure, EF 20% (needs repeat limited TTE for LVEF when no longer tachycardic) - Demand ischemia - Asymmetric pleural thickening and lymphadenopathy present on CT this admission and last month but also present but less pronounced in summer 2018, concern for malignancy and post-obstructive pneumonias P Continue empiric vanc / cefepime / azithro Check UAgs, follow up cultures Cardio and Pulm following BiPAP as needed, wean as able <Eris Haque - Last Filed: 01/20/19 15:13> (2) Pneumonia Qualifiers: Pneumonia type: due to unspecified organism Laterality: right Lung location: lower lobe of lung Qualified Code(s): J18.1 - Lobar pneumonia, unspecified organism (3) Sepsis Qualifiers: Sepsis type: sepsis due to unspecified organism Qualified Code(s): A41.9 - Sepsis, unspecified organism (5) COPD (chronic obstructive pulmonary disease) Qualifiers: COPD type: chronic bronchitis Chronic bronchitis type: simple Qualified Code(s): J41.0 - Simple chronic bronchitis (6) HTN (hypertension) Qualifiers: Hypertension type: essential hypertension Qualified Code(s): I10 - Essential (primary) hypertension
[2019-01-20] MEDS ORDERED: Aminoglycoside Consult 1 EACH MC ONE (08:38)
[2019-01-20] MEDS ORDERED: [UNRECOGNIZED DRUG - OTHER] PO SCH (09:00)
[2019-01-20] MEDS ORDERED: QUINAPRIL PO SCH (09:00)
[2019-01-20] MEDS ORDERED: HYDROCHLOROTHIAZIDE PO SCH (09:00)
[2019-01-20] MEDS: Aspirin Enteric Coated 81 MG Tablet PO SCH (09:52)
[2019-01-20] MEDS: methylPREDNISolone 125 MG/2 ML VIAL IVP SCH ×3 (09:53→23:31)
[2019-01-20] MEDS ORDERED: Azithromycin 500 MG in D5% in Water 250 ML IVPB SCH (10:00)
[2019-01-20] MEDS: Heparin 25,000 UNIT/250 ML D5W 25,000 UNIT/250 ML IV.SOLN IVC SCH (12:12)
[2019-01-20 14:56] LABS: Hematocrit 43.3 % (37.5-50.1); Hemoglobin 13.4 g/dL (12.9-16.9)
[2019-01-20] MEDS ORDERED: Acetaminophen 325 MG TABLET PO PRN (15:08)
--- NOTE | 2019-01-20 16:54 | Pulmonology Consult Note ---
Date of Encounter: 01/20/19 Time of Encounter: 15:00 Assessment and Plan (1) Acute hypoxemic respiratory failure Current Visit: No Status: Acute Patient presented with acute hypoxemic respiratory failure most likely secondary to worsening pneumonia, worsening pleural effusion and also worsening acute on chronic systolic heart failure. Patient is dependent on BiPAP most likely due to the afterload and preload reduction of the posterior airway pressure in the setting of systolic heart failure. Cardiology on consult for evaluation for NSTEMI and systolic heart failure. (2) HCAP (healthcare-associated pneumonia) Current Visit: Yes Status: Acute To continue broad-spectrum antibiotics. To add doxycycline to the current regimen of antibiotics (3) NSTEMI (non-ST elevated myocardial infarction) Current Visit: Yes Status: Acute Patient will need diagnostic thoracentesis on the right side will hold heparin a t 2 AM tomorrow hypotensive consult findings radiology as patient has complicated pleural anatomy. (4) COPD exacerbation Current Visit: No Status: Acute Continue with BiPAP to give breaks for by mouth intake. To continue schedule bronchodilators, prednisone and also to continue broad-spectrum antibiotics. (5) Systolic CHF Current Visit: Yes Status: Acute To put him on diuresis as tolerated will try Lasix 20 mg IV Qualifiers: Heart failure chronicity: acute Qualified Code(s): I50.21 - Acute systolic (congestive) heart failure (6) Pleural effusion Current Visit: Yes Status: Acute Patient has worsening pleural effusion secondary to possible right-sided pneumonia concern for complicated parapneumonic effusion will consult in terventional radiology for diagnostic/therapeutic thoracentesis will hold off heparin tomorrow morning at 2 AM I personally complicated with the RN who is taking care of this patient. History of Present Illness Consult date: 01/20/19 Requesting physician: Emily Brock Reason for consult: pneumonia, pleural effusion Chief complaint: shortness of breadth History of present illness: 73-year-old male with past medical history significant for COPD, chronic smoking came with pneumonia and hemoptysis in December 2018 during that hospital stay he got a bronchoscopy which showed clot in his main [place] and also bleeding from his right lower lobe patient had minimal facial pleural effusion at the time patient coming with worsening shortness of breath cough and sputum production CTA showed did not show any evidence of pulmonary embolism but showed worsening for pneumonia in the right middle lobe and the right lower lobe. Patient also has worsening right-sided pleural effusion patient dependent on BiPAP this time with acceptable oxygenation and ventilation. Patient developed non-ST elevation [place] cardiology evaluated recommended pulmonary consult. Patient denies any current chest pain patient feels better when he is on BiPAP. Patient had an echo showed systolic heart failure CT chest also showed thickening of interlobular septa. Patient is here for evaluation of acute respiratory failure. Past Med Surg Social Fam HX - Past Medical History Medical history: COPD, hypertension Psychiatric history: no psych history - Social History Smoking Status: Former smoker Smokeless Tobacco Status: No Alcohol use: none Drug use: none - Family History Father Living Status: Hx Family Cardiac Disorders: Yes Hx Family Cancer: Yes (Lung Cancer) Mother Living Status: Hx Family Endocrine Disorder: Yes Medications and Allergies Montelukast [Singulair] 10 mg PO HS 05/11/18 [History] Quinapril/Hydrochlorothiazide [Quinapril-Hctz 20-12.5 mg Tab] 1 tab PO DAILY 05/11/18 [History] HydrOXYzine 10 mg PO DAILY PRN 12/29/18 [History] Albuterol Sulfate [Albuterol Inhaler] 2 puff IH DAILY PRN 01/19/19 [History] Tiotropium [place] [Spiriva Respimat] 2 puff IH DAILY 01/20/19 [History] Allergy/AdvReac Type Severity Reaction Status Date / Time Penicillins Allergy See Verified 01/20/19 12:52 Comments All Systems: The remainder of the systems were reviewed and are negative Physical Examination Vital Signs: Vital Signs, Last 4 Hours Temp Pulse Resp BP Pulse Ox 01/20/19 16:08 98.1 F 111 30 96/74 100 General appearance: appears uncomfortable Effort: mildly labored Auscultation: right: diminished breath sounds, bilateral: rales (bilateral bibasilar rales ) Cardiovascular: other (Sinus tachycardia ) Results - Laboratory Findings CBC and BMP: 01/20/19 14:30 01/20/19 00:54 PT/INR, D-dimer PT 15.1 Seconds (9.4-12.1) H 01/19/19 09:15 D-Dimer 2144 ng/mLFEU (0-500) H 01/19/19 09:15 Abnormal lab findings: Abnormal lab results WBC 12.2 K/mcL (4.3-11.1) H 01/20/19 00:54 MCH 27.7 pg (28.0-33.3) L 01/20/19 00:54 MCHC 31.4 g/dL (31.6-35.5) L 01/20/19 00:54 Plt Count 409 K/mcL (140-400) H 01/20/19 00:54 MPV 9.2 fL (9.4-12.4) L 01/20/19 00:54 Neutrophils # 10.7 K/mcL (1.6-8.9) H 01/20/19 00:54 Platelet Estimate Increased (Normal) H 01/19/19 09:15 PT 15.1 Seconds (9.4-12.1) H 01/19/19 09:15 D-Dimer 2144 ng/mLFEU (0-500) H 01/19/19 09:15 Sodium 135 mEq/L (136-145) L 01/20/19 00:54 BUN 25 mg/dL (8-23) H 01/20/19 00:54 Glucose 169 mg/dL (70-105) H 01/20/19 00:54 Troponin I 0.65 ng/mL (< 0.04) H* 01/20/19 07:11 B-Natriuretic Peptide 764 pg/mL (Less than 100) H 01/19/19 09:15 - Microbiology Findings Microbiology Findings: Microbiology, Last 48 Hours 01/19/19 10:03 Blood Culture - Preliminary Peripheral Venipuncture Culture is incubating and being continuously monitored for growth. Final report to follow. 01/19/19 14:07 Influenza Types A,B Antigen - Final Nasopharyngeal 01/19/19 10:20 Blood Culture - Preliminary Peripheral Venipuncture Culture is incubating and being continuously monitored for growth. Final report to follow. - Clinical Findings Intake & Output: Intake & Output 01/20/19 01/20/19 01/20/19 07:59 15:59 23:59 Intake Total 733.5 / 733.5 Balance 733.5 / 733.5 Weight 84.4 kg Consult Discharge Plan - Plan Referrals: Ofelia Peterson, BROADCAST DESIGNER [Primary Care Provider] - 01/28/19 1:00 pm
[2019-01-20] MEDS ORDERED: *HR* Morphine 2 MG/ML SYRINGE IVP ONE (17:52)
[2019-01-20] MEDS: OXYCODONE Oral CONC 10 MG/0.5 ML ORAL.SYG SL PRN (21:19)
--- NOTE | 2019-01-20 22:21 | Electrocardiograph Report ---
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
[2019-01-20] MEDS: Doxycycline 100 MG in 0.9 % Sodium Chloride Mini Bag 100 ML IVPB SCH (23:31)
[2019-01-21] MEDS: Cefepime HCl 2,000 MG in Water for inj. (sterile) 20 ML 20 ML IVP SCH ×3 (01:56→18:09)
[2019-01-21 06:12] LABS: Basophils % 0.1 %; Hematocrit 41.1 % (37.5-50.1); Hemoglobin 12.8 g/dL (12.9-16.9); Immature Granulocytes % 0.5 % (0-4); Lymphocytes # 0.9 K/mcL (0.6-4.6); Lymphocytes % 5.6 %; Mean Corpuscular HGB Conc 31.1 g/dL (31.6-35.5); Mean Corpuscular Hemoglobin 27.8 pg (28.0-33.3); Mean Corpuscular Volume 89.2 fL (83.0-100.0); Mean Platelet Volume 9.2 fL (9.4-12.4); Monocytes # 1.3 K/mcL (0.0-1.3); Monocytes % 8.5 %; Neutrophils # 13.5 K/mcL (1.6-8.9); Platelet Count 481 K/mcL (140-400); Red Blood Count 4.61 M/mcL (4.19-5.50); Red Cell Distribution Width 13.4 % (11.5-14.5); Segmented Neutrophils % 85.3 %
--- NOTE | 2019-01-21 06:18 | Internal Med Progress Note ---
Hospitalist Progress Note - Encounter Date of Encounter: 01/21/19 - Exam Vitals: Temp Pulse Resp BP Pulse Ox 98.3 F 117 27 100/73 97 01/21/19 03:51 01/21/19 03:51 01/21/19 03:51 01/21/19 03:51 01/21/19 03:51 - Assessment and Plan (1) Elevated troponin Current Visit: Yes Status: Acute (2) Pneumonia Current Visit: Yes Status: Suspected (3) COPD (chronic obstructive pulmonary disease) Current Visit: Yes Status: Chronic - Time Spent with Patient Total time spent is greater than 50% in coordination of care (as documented) at patient's floor/unit and/or counseling patient: Internal Medicine: Result - Labs CBC & Chem 7: 01/21/19 05:56 01/20/19 00:54 Labs: Short CBC 01/20/19 01/21/19 Range/Units 14:30 05:56 WBC 15.8 H (4.3-11.1) K/mcL Hgb 13.4 D 12.8 L (12.9-16.9) g/dL Hct 43.3 41.1 (37.5-50.1) % Plt Count 481 H (140-400) K/mcL Neutrophils # 13.5 H (1.6-8.9) K/mcL Cardiac Enzymes 01/20/19 Range/Units 07:11 Troponin I 0.65 H* (< 0.04) ng/mL - ABG Interpretation ABG results: PT/INR, D-dimer PT 15.1 Seconds (9.4-12.1) H 01/19/19 09:15 D-Dimer 2144 ng/mLFEU (0-500) H 01/19/19 09:15 - Impressions Impressions Echocardiogram 01/20/19 13:14 Impressions: LVEF 25-30%. Severe global and segmental left ventricular systolic dysfunction. Indeterminate diastolic function. Mild right ventricular hypokinesis. Severely calcified aortic valve with moderate aortic stenosis, no significant change compared to 05/11/2018 study Mild mitral regurgitation. Unable to estimate RVSP due to lack of TR jet. Recommend repeat limited echo with definity after rate control. Cardiology consult team notified via [employer]. Left Ventricular Wall Motion: Rest Echo Findings The apical inferior, mid inferior, basal inferior, basal anterior, mid inferior septal, basal inferior septal, mid anterior lateral, basal anterior lateral, mid inferior lateral, basal anterior septal and basal inferior lateral cheek were hypokinetic. The apex, apical anterior, mid anterior, apical septal, apical lateral and mid anterior septal cheek were akinetic. Findings: Study Quality * Technically sub-optimal due to clinical status. ECG Findings * Atrial fibrillation, RVR, BBB. Left Ventricle * LVEF 25-30%. * Normal LV chamber size and wall thickness. * Severe global and segmental left ventricular systolic dysfunction. * Indeterminate diastolic function. * Definity echo contrast was not used. Right Ventricle * Normal right ventricular size. * Mild right ventricular hypokinesis. Left Atrium * Normal left atrial size. Right Atrium * Normal right atrial size. Interatrial Septum * Interatrial septum not well evaluated. Aortic Valve * Severely calcified aortic valve leaflets. * Moderate aortic stenosis. * Peak and mean gradients are 46, 25 mmHg, respectively. * Trace aortic regurgitation. Mitral Valve * Normal mitral valve structure. * No mitral stenosis. * Mild mitral regurgitation. Tricuspid Valve * Normal tricuspid valve structure. * No tricuspid stenosis. * Trace tricuspid regurgitation. * Unable to estimate RVSP due to lack of TR jet. Pulmonic Valve * Pulmonic valve is not well visualized. * No pulmonic stenosis. * No pulmonic regurgitation. Aorta * Normally sized aortic root. Pericardium * The pericardium appears normal. IVC * The IVC is not well evaluated. - VTE Reasons for not Prescribing Prophylaxis: Not indicated-Anticoagulated or INR therapeutic Consult Discharge Plan - Plan Referrals: Ofelia Peterson AUTOMATION MECHANIC [Primary Care Provider] - 01/28/19 1:00 pm (2) Pneumonia Qualifiers: Pneumonia type: due to unspecified organism Laterality: right Lung location: lower lobe of lung Qualified Code(s): J18.1 - Lobar pneumonia, unspecified organism (3) COPD (chronic obstructive pulmonary disease) Qualifiers: COPD type: chronic bronchitis Chronic bronchitis type: simple Qualified Code(s): J41.0 - Simple chronic bronchitis
[2019-01-21 06:19] LABS: INR 1.4; Prothrombin Time 15.3 Seconds (9.4-12.1)
[2019-01-21 06:31] LABS: BUN/Creatinine Ratio 36 (6-26); Blood Urea Nitrogen 38 mg/dL (8-23); Calcium 9.7 mg/dL (8.6-10.3); Carbon Dioxide 25 mEq/L (23-29); Chloride 101 mEq/L (98-107); Glucose 194 mg/dL (70-105); Osmolality,Calculated 294 (280-300); Potassium 5.2 mEq/L (3.5-5.1); Sodium 135 mEq/L (136-145); eGFR For Non-African Americans > 60 (> 60)
[2019-01-21] MEDS: Aspirin Enteric Coated 81 MG Tablet PO SCH (07:40)
[2019-01-21] MEDS: OXYCODONE Oral CONC 10 MG/0.5 ML ORAL.SYG SL PRN ×2 (07:40→14:41)
[2019-01-21] MEDS: methylPREDNISolone 125 MG/2 ML VIAL IVP SCH ×2 (07:40→16:59)
--- NOTE | 2019-01-21 08:16 | Cardiology Progress Note ---
Date of Encounter: 01/21/19 Time of Encounter: 09:00 Assessment and Plan (1) Elevated troponin Current Visit: Yes Status: Acute Trops elevated on admission 0.21 -> 0.22 -> 0.84 -> 0.89 -> 0.65 EKG from ED showed no ischemic changes Echo this morning revealed decreased LVEF at 25-30% when compared to echo from 04/29 at 50-55% Also noted right wall motion abnormality. Unchanged calcified arotic valve with moderate stenosis. Repeat EKG on 01/20 revealed no significant change Recommend optimizing medical management including treatment of pneumonia. Once respiratory status improves would recommend limited echo with definity. Since patient has been on Heparin drip to close to 48 hours, ok to transition to VTE prophylaxis with SQ Heparin. (2) Tachycardia Current Visit: Yes Status: Acute Sinus tachycardia Likely related to sepsis with pneumonia Since respiratory status has improved will start low dose selective BB to help with HR (3) Pneumonia Current Visit: Yes Status: Suspected As seen on CXR and CTA chest Pulmonology consulted Management per primary and pulm Qualifiers: Pneumonia type: due to unspecified organism Laterality: right Lung location: lower lobe of lung Qualified Code(s): J18.1 - Lobar pneumonia, unspecified organism (4) COPD (chronic obstructive pulmonary disease) Current Visit: Yes Status: Chronic Management per primary Qualifiers: COPD type: chronic bronchitis Chronic bronchitis type: simple Qualified Code(s): J41.0 - Simple chronic bronchitis Discussion w patient/family: The assessment and plan as outlined above was discussed with the patient and/or family members who expressed understanding and agreement. All questions were answered. Thank you for involving us in the care of your patient. Please call with any questions. Subjective Principal diagnosis: Acute hypoxemic respiratory failure Interval history: Pt seen and examined at bedside. Currently off BiPAP and SpO2 is 97% on high flow nasal cannula at 10lpm O2. States he feels better today endorsing improved shortness of breath. Does complain of rib pain. States the rib pain began last night when he went to move from the chair to the bed and twisted. States the rib pain makes the shortness of breath worse. Denies any chest pain or chest tightness. No lightheadedness or syncope. No palpitations. Objective Vital Signs, Last 4 Hours Temp Pulse Resp BP Pulse Ox 01/21/19 07:10 98.1 F 118 17 102/79 98 General: Conversant, Other (mild distress related to respiratory status ) HEENT: Atraumatic, Normocephaly, Mucus Membranes Moist Neck: No JVD, Normal carotid pulses Cardiac: Normal S1 and S2, No Murmur, Other (tachycardic with pulse approximately 114 at time of exam ) Lungs: No Wheeze, Rales, Rhonchi, Other (grossly decreased breath sounds ) Neuro: Alert and responsive, No focal deficits noted Abdomen: Soft, Non-Tender Skin: No rashes noted on visualized skin Musculoskeletal: No Chest Wall Tenderness Extremities: No Clubbing, No Cyanosis, No Edema, Normal Pulses Results 01/21/19 05:56 01/21/19 05:56 Lab Results 01/20/19 01/21/19 01/21/19 14:30 05:56 05:56 WBC 15.8 H Hgb 13.4 D 12.8 L Hct 43.3 41.1 Plt Count 481 H INR Sodium 135 L Potassium 5.2 H Chloride 101 Carbon Dioxide 25 BUN 38 H Creatinine 1.06 Glucose 194 H Calcium 9.7 01/21/19 05:56 WBC Hgb Hct Plt Count INR 1.4 Sodium Potassium Chloride Carbon Dioxide BUN Creatinine Glucose Calcium - Imaging and Cardiology Echo: report reviewed - EKG Interpretation EKG results cardiology: personally reviewed, sinus rhythm, no diagnostic ischemia - VTE Reasons for not Prescribing Prophylaxis: Not indicated-Anticoagulated or INR therapeutic Consult Discharge Plan - Plan Referrals: Ofelia Peterson CNP [Primary Care Provider] - 01/28/19 1:00 pm
--- NOTE | 2019-01-21 09:16 | Pulmonology Progress Note ---
Date of Encounter: 01/21/19 Time of Encounter: 08:00 Assessment and Plan (1) Acute hypoxemic respiratory failure Current Visit: No Status: Acute Mostly secondary to worsening pneumonia, worsening pleural effusion in the setting of systolic CHF exacerbation. (2) HCAP (healthcare-associated pneumonia) Current Visit: Yes Status: Acute Continue broad-spectrum antibiotics I suspect this pleural effusion is not parapneumonic might be malignancy related to his pro-calcitonin is negative a low suspicion for recurrent pneumonia will de-escalate antibiotics. (3) NSTEMI (non-ST elevated myocardial infarction) Current Visit: Yes Status: Acute This patient has hemorrhagic pleural effusion we will hold off heparin drip spoke with the nurse to hold off heparin drip (4) COPD exacerbation Current Visit: No Status: Acute Continue schedule bronchodilators and steroids. (5) Systolic CHF Current Visit: Yes Status: Acute Continue diuresis as tolerated. Qualifiers: Heart failure chronicity: acute Qualified Code(s): I50.21 - Acute systolic (congestive) heart failure (6) Pleural effusion Current Visit: Yes Status: Acute Patient has bilateral pleural effusion but more on the right side 1 L of hemorrhagic pleural effusion was removed. Concerning for malignancy consulted thoracic surgery spoke with Dr. Dan he might take him to the OR when he is s table . Subjective Principal diagnosis: Hypoxic respiratory failure with penumonia and CHF exacerbation Interval history: Patient after the thoracentesis is doing well oxygen requirement coming down patient still complaining of some sharp shortness of breath patient denies for chest pain chest tightness denies any palpitation or syncope. Objective PUL Vital signs: Last Vital Signs Temp 98.1 F 01/21/19 07:10 Pulse 118 01/21/19 07:10 Resp 17 01/21/19 07:10 BP 102/79 01/21/19 07:10 Pulse Ox 98 01/21/19 07:10 Effort: mildly labored Auscultation: right: diminished breath sounds, bilateral: wheezes (minimal s cattered wheezes) Results - Laboratory Findings CBC and BMP: 01/21/19 05:56 01/21/19 05:56 PT/INR, D-dimer PT 15.3 Seconds (9.4-12.1) H 01/21/19 05:56 D-Dimer 2144 ng/mLFEU (0-500) H 01/19/19 09:15 Abnormal lab findings: Abnormal lab results WBC 15.8 K/mcL (4.3-11.1) H 01/21/19 05:56 Hgb 12.8 g/dL (12.9-16.9) L 01/21/19 05:56 MCH 27.8 pg (28.0-33.3) L 01/21/19 05:56 MCHC 31.1 g/dL (31.6-35.5) L 01/21/19 05:56 Plt Count 481 K/mcL (140-400) H 01/21/19 05:56 MPV 9.2 fL (9.4-12.4) L 01/21/19 05:56 Neutrophils # 13.5 K/mcL (1.6-8.9) H 01/21/19 05:56 Platelet Estimate Increased (Normal) H 01/19/19 09:15 PT 15.3 Seconds (9.4-12.1) H 01/21/19 05:56 D-Dimer 2144 ng/mLFEU (0-500) H 01/19/19 09:15 Sodium 135 mEq/L (136-145) L 01/21/19 05:56 Potassium 5.2 mEq/L (3.5-5.1) H 01/21/19 05:56 BUN 38 mg/dL (8-23) H 01/21/19 05:56 BUN/Creatinine Ratio 36 (6-26) H 01/21/19 05:56 Glucose 194 mg/dL (70-105) H 01/21/19 05:56 Troponin I 0.65 ng/mL (< 0.04) H* 01/20/19 07:11 B-Natriuretic Peptide 764 pg/mL (Less than 100) H 01/19/19 09:15 - Microbiology Findings Microbiology Findings: Microbiology, Last 48 Hours 01/19/19 10:03 Blood Culture - Preliminary Peripheral Venipuncture Culture is incubating and being continuously monitored for growth. Final report to follow. 01/19/19 14:07 Influenza Types A,B Antigen - Final Nasopharyngeal 01/19/19 10:20 Blood Culture - Preliminary Peripheral Venipuncture Culture is incubating and being continuously monitored for growth. Final report to follow. - Clinical Findings Intake & Output: Intake & Output 01/20/19 01/21/19 01/21/19 23:59 07:59 15:59 Intake Total 340 / 340 490 / 490 240 / 240 Output Total 200 / 200 250 / 250 Balance 140 / 140 240 / 240 240 / 240 Weight 85 kg - VTE Reasons for not Prescribing Prophylaxis: Not indicated-Anticoagulated or INR therapeutic Consult Discharge Plan - Plan Referrals: Ofelia Peterson CNP [Primary Care Provider] - 01/28/19 1:00 pm
[2019-01-21] MEDS: Doxycycline 100 MG in 0.9 % Sodium Chloride Mini Bag 100 ML IVPB SCH ×2 (10:43→21:10)
[2019-01-21] MEDS: *HR* Heparin 5,000 UNIT/ML VIAL SQ SCH ×2 (14:30→21:11)
[2019-01-21 14:37] LABS: Albumin 3.3 g/dL (3.5-5.7); Globulin 3.3 g/dL (2.4-3.5); Lactate Dehydrogenase 186 Units/L (140-271); Total Protein 6.6 g/dL (6.4-8.9)
--- NOTE | 2019-01-21 15:38 | Cardiothoracic Consult Note ---
Date of Encounter: 01/22/19 Time of Encounter: 15:35 Assessment and Plan (1) Community acquired pneumonia Current Visit: No Status: Acute The assessment and plan as outlined above was discussed with the patient and/or family members who expressed understanding and agreement. All questions were answered. continue antibx per pulmonary Qualifiers: Laterality: right Lung location: lower lobe of lung Qualified Code(s): J18.1 - Lobar pneumonia, unspecified organism (2) Pleural effusion Current Visit: Yes Status: Acute The assessment and plan as outlined above was discussed with the patient and/or family members who expressed understanding and agreement. All questions were answered. I have reviewed all examinations as well as discussed plan of care with pulmonary/critical care. The patient's sister was at the bedside so I was also able to obtain her in regards to the LAD tinged pleural fluid, the pleural nodularity, and indications and benefits of bronchoscopy and right thoracoscopy for both diagnosis and treatment. We will complete preoperative orders for tomorrow. I informed the family that we have no idea what time surgery would be scheduled. - History of Present Illness Consult date: 01/21/19 Requesting physician: Madelyn Trevino Consult reason: hemothorax Chief complaint: sob History of present illness: Mr. Lea is a 73 year old male admitted to the [facility] system on January 19. He presented with an approximately 2-3 day history of increasing shortness of breath and dyspnea on exertion. CT scan of the chest was performed which demonstrated a new increasing pleural effusion compared to early December 2018. He underwent a dorsum T-System of approximately 1000 mL of blood tinged fluid. His dyspnea is slightly improved after the thoracentesis. I am being consult for further evaluation of the remaining fluid in the pleural space as well as the nodularity of the pleura. Past Med Surg Social Fam HX - Past Medical History Medical history: COPD, hypertension Psychiatric history: no psych history - Past Surgical History Surgical History: no surgical history - Social History Smoking Status: Former smoker (up to 4 packs per day for 50 to 55 years.) Smokeless Tobacco Status: No Alcohol use: none Drug use: none Occupational status: retired Current living situation: Home - Independent Activity Level: Independent ambulation, Mostly sedentary - Family History Father Living Status: Hx Family Cardiac Disorders: Yes Hx Family Cancer: Yes (Lung Cancer) Mother Living Status: Hx Family Endocrine Disorder: Yes - Additional Family History Additional family history: lung cancer, diabetes mellitus, hypertension, cad, hypothyroidism Medications and Allergies RX: Montelukast [Singulair] 10 mg PO HS 05/11/18 [History] RX: Quinapril/Hydrochlorothiazide [Quinapril-Hctz 20-12.5 mg Tab] 1 tab PO DAILY 05/11/18 [History] RX: HydrOXYzine 10 mg PO DAILY PRN 12/29/18 [History] Albuterol Sulfate [Albuterol Inhaler] 2 puff IH DAILY PRN 01/19/19 [History] Tiotropium [place] [Spiriva Respimat] 2 puff IH DAILY 01/20/19 [History] Allergy/AdvReac Type Severity Reaction Status Date / Time Penicillins Allergy See Verified 01/20/19 12:52 Comments All Systems Review: The remainder of the systems were reviewed and are negative - Constitutional Constitutional: anorexia, fatigue, lethargy, weakness, weight loss (more than 30 pounds over 8 months ) - Cardiovascular Cardiovascular: diaphoresis, dyspnea at rest, dyspnea on exertion - Respiratory Respiratory: cough, dyspnea, hemoptysis, wheezing, chest wall pain Physical Examination Vital Signs, Last 4 Hours Temp Pulse Resp BP Pulse Ox 01/21/19 15:16 97.6 F 112 18 105/72 98 01/21/19 11:38 98 General: Conversant, No Apparent Distress, Well developed HEENT: Atraumatic, Normocephaly, Trachea midline Neck: Normal carotid pulses, Other (no cervicle or supraclavivular adenopathy ) Cardiac: Reg Rate and Rhythm, Normal S1 and S2, No Murmur Lungs: Other (cta on the left. significantly decreased on the right. ) Neuro: Alert and responsive, No focal deficits noted, Cranial nerves intact, Motor nerves intact, Other (easily falls asleep as he just received medicaitons ) Vascular: Normal capillary refill Abdomen: Soft, Non-tender, Other (bs present. ) Extremities: No Clubbing, No Cyanosis, No Edema, Normal Pulses Results 01/22/19 11:27 01/22/19 11:27 Lab Results, Last 24 hours 01/21/19 01/21/19 01/21/19 05:56 05:56 05:56 WBC 15.8 H Hgb 12.8 L Hct 41.1 Plt Count 481 H INR 1.4 Sodium 135 L Potassium 5.2 H Chloride 101 Carbon Dioxide 25 BUN 38 H Creatinine 1.06 Glucose 194 H Calcium 9.7 - Imaging Chest Xray: image reviewed Consult Discharge Plan - Plan Referrals: Ofelia Peterson CNP [Primary Care Provider] - 01/28/19 1:00 pm
[2019-01-21 15:51] LABS: Glucose,Pleural Fluid 166 mg/dL (No Ref Range); LDH,Pleural Fluid 792 Units/L (No Ref Range)
[2019-01-21 16:35] LABS: RBC,Pleural Fluid 0.529 M/mcL
--- NOTE | 2019-01-21 17:12 | Internal Med Progress Note ---
<Eris Haque - Last Filed: 01/21/19 18:20> Hospitalist Progress Note - Encounter Date of Encounter: 01/21/19 Time of Encounter: 09:45 - Subjective Interval History: Patient was seen this a.m. at bedside. Resting in bed, complaining of increased anxiety but is appreciative of now receiving his PRN Hydoxyzine. Endorses increased anxiety, SOB at rest and increased work of breathing. He denies fevers, chest pain, cough, nausea, vomiting, changes of vision numbness or tingling of the extremities. Discussed plan to have paracentesis. - Exam Vitals: Temp Pulse Resp BP Pulse Ox 97.6 F 112 18 105/72 98 01/21/19 15:16 01/21/19 15:16 01/21/19 15:16 01/21/19 15:16 01/21/19 15:16 Exam: General: A&Ox3, appears slightly fatigued, not in acute respiratory distress. HEENT: Head is non traumatic, EOMI, neck is soft no lymphadenopathy appreciated. Cardiovascular: Regular rate and rhythm, no murmurs auscultated. Lungs: Good respiratory effort, there are expiratory wheezes throughout lung bases bilaterally with right greater than left.. Abdomen: Soft, obese abdomen, BSx3, no guarding, no pain on palpation. Skin: Cool and dry, no rashes of exposed surface. Extremities: No edema of the lower extremities. - Assessment and Plan (1) Acute hypoxemic respiratory failure Current Visit: No Status: Acute Assessment and Plan: Presented w/SOB and LOUISA. Most likely secondary to worsening state of pneumonia, pleural effusion in the setting of systolic CHF exacerbation. O2 saturation of 98% on 10L NC. -Continue to provide oxygen supplementation for treatment of increased work of breathing. -Thoracentesis performed, pt reports some improvement of SOB. -Day 3 Solu-Medrol 80mg IV will continue for totoal of 10d with transition to PO as symptoms improve. PRN Duonebs Q6hrs -Will consider blood gases if symptoms don't improve on current therapy regimen. (2) Pneumonia Current Visit: Yes Status: Suspected Assessment and Plan: Hospital stay 12/30/18 that consisted of pneumonia and hemoptysis. Current symptoms consistent with pneumonia, or lung disease given history of COPD. Imaging supports dense airspace consolidation the right lower lobe concerning for right lower lobe pneumonia. -Day 3 of IV antibiotics including vancomycin, cefepime and azithromycin. -Pulm consulted and recommends to continue broad-spectrum antibiotics, with suspicion pleural effusion is not parapneumonic, could be malignancy related to his pro-calcitonin is negative a low suspicion for recurrent pneumonia will de- escalate antibiotics -Blood cultures pending 01/19 no growth, Pleural fluid culture pending. -Continue to monitor vitals and provide oxygenation. (3) Pleural effusion Current Visit: Yes Status: Acute Assessment and Plan: CT scan of the chest was performed which demonstrated a new increasing pleural effusion compared to early December 2018. This likely contributing to patient's LOUISA/SOB. -Patient underwent a thoracentesis by IR with approximately 1000 mL of blood tinged fluid removed. -Cardiothoracic consult recommends bronchoscopy and right thoracoscopy for both diagnosis and treatment. Repeat CXR showed improvement of pleural effusion fluid collection. (4) Systolic CHF Current Visit: Yes Status: Acute Assessment and Plan: Cardiology consulted appreciate recommendations. Evaluation included recommending IV heparin, Echo showing 25-30% LVEF compared to previous echo of 50-55%. Intermediate diastolic dysfunction. Right wall motion abnormality. -Possible additional study once tachycardia is more stable. -Continue to monitor with telemetry and EKG. Will follow recommendations by Cardiology. (5) Sepsis Current Visit: Yes Status: Acute Assessment and Plan: Sepsis is likely secondary to underlying disease. Etiology likely localized to infectious etiology of the lung vs neoplasm equivalent, vitals upon admission include respiratory rate of 21, and heart rate 111 sinus tachycardia. -CBC; WBC 20.7 initally now 15.8 with left shift. Lactic acid 2.1, -Blood cultures pending, with narrow selection if given result. FLU negative. -Continue fluids (6) Elevated troponin Current Visit: Yes Status: Resolved Assessment and Plan: Troponin evaluated on admission found to be 0.22 trends -->0.84, 0.89, 0.65. EKG from ED showed no ischemic changes. -Repeat EKG today showed no signs of significant changes. -Continue to follow recommendations of Cardiology. (7) COPD (chronic obstructive pulmonary disease) Current Visit: Yes Status: Chronic Assessment and Plan: Treatment similar as the above pneumonia. -Continue IV Solu-Medrol 80 mg every 8 hours with, taper as patient improves. (8) HTN (hypertension) Current Visit: Yes Status: Acute Assessment and Plan: History of HTN patient was ypertensive on admission with blood pressure of 150/101. -Quinapril/Hctz 20-12.5 for blood pressure control initally held due to low B/P readings. Will continue to watch and administer with elevated readings. -Continue to monitor with B/P checks (9) Hyperkalemia Current Visit: Yes Status: Acute Assessment and Plan: Potassium elevated at 5.7 -Likely secondary to sepsis and pneumonia. Continue to monitor (10) Tachycardia Current Visit: Yes Status: Acute Assessment and Plan: Patient has sinus tachycardia likely related to sepsis with pneumonia. -Cardiology consulted and appreciate recommendations including starting low dose selective BB to help with HR. DVT Prophylaxis: 5,000 units SC Heparin Q8H - Time Spent with Patient Total time spent is greater than 50% in coordination of care (as documented) at patient's floor/unit and/or counseling patient: Greater than 35 minutes Plan of Care Discussed with: patient Internal Medicine: Result - Labs CBC & Chem 7: 01/21/19 05:56 01/21/19 16:00 Labs: Short CBC 01/21/19 Range/Units 05:56 WBC 15.8 H (4.3-11.1) K/mcL Hgb 12.8 L (12.9-16.9) g/dL Hct 41.1 (37.5-50.1) % Plt Count 481 H (140-400) K/mcL Neutrophils # 13.5 H (1.6-8.9) K/mcL BMP 01/21/19 01/21/19 05:56 16:00 Sodium 135 L Potassium 5.2 H 5.7 H Chloride 101 Carbon Dioxide 25 BUN 38 H Creatinine 1.06 Glucose 194 H Calcium 9.7 Liver Function 01/21/19 Range/Units 05:56 Albumin 3.3 L (3.5-5.7) g/dL - ABG Interpretation ABG results: PT/INR, D-dimer PT 15.3 Seconds (9.4-12.1) H 01/21/19 05:56 D-Dimer 2144 ng/mLFEU (0-500) H 01/19/19 09:15 - Impressions Impressions Chest X-Ray 01/19/19 09:14 IMPRESSION: Dense airspace consolidation the right lower lobe concerning for right lower lobe pneumonia. Diffuse bilateral airspace opacities suggesting concomitant pulmonary edema. D/ / Brian Mcdaniel MD / Brian Mcdaniel MD Interpreting Provider: Brian Mcdaniel MD Chest CTA 01/19/19 09:49 IMPRESSION: No findings diagnostic of pulmonary embolus Increasing airspace disease throughout the right hemithorax suggesting pneumonia. Increasing multifocal pleural thickening. Along with the interstitial prominence, this raises the question of lymphangitic pathology. Lymphangitic metastatic disease would be difficult to exclude. Soft tissue density in the azygoesophageal recess region is likely developing adenopathy. Similar findings are noted along the margin of the right main bronchus. D/ / Tobin Smith / Tobin Smith Interpreting Provider: Tobin Smith 01/20/2019 IMPRESSION: LVEF 25-30%. Severe global and segmental left ventricular systolic dysfunction. Indeterminate diastolic function. Mild right ventricular hypokinesis. Severely calcified aortic valve with moderate aortic stenosis, no significant change compared to 05/11/2018 study Mild mitral regurgitation. Unable to estimate RVSP due to lack of TR jet. Recommend repeat limited echo with definity after rate control. Cardiology consult team notified via [employer]. Left Ventricular Wall Motion: Rest Echo Findings The apical inferior, mid inferior, basal inferior, basal anterior, mid inferior septal, basal inferior septal, mid anterior lateral, basal anterior lateral, mid inferior lateral, basal anterior septal and basal inferior lateral cheek were hypokinetic. The apex, apical anterior, mid anterior, apical septal, apical lateral and mid anterior septal cheek were akinetic. Findings: Study Quality * Technically sub-optimal due to clinical status. ECG Findings * Atrial fibrillation, RVR, BBB. Left Ventricle * LVEF 25-30%. * Normal LV chamber size and wall thickness. * Severe global and segmental left ventricular systolic dysfunction. * Indeterminate diastolic function. * Definity echo contrast was not used. Right Ventricle * Normal right ventricular size. * Mild right ventricular hypokinesis. Left Atrium * Normal left atrial size. Right Atrium * Normal right atrial size. Interatrial Septum * Interatrial septum not well evaluated. Aortic Valve * Severely calcified aortic valve leaflets. * Moderate aortic stenosis. * Peak and mean gradients are 46, 25 mmHg, respectively. * Trace aortic regurgitation. Mitral Valve * Normal mitral valve structure. * No mitral stenosis. * Mild mitral regurgitation. Tricuspid Valve * Normal tricuspid valve structure. * No tricuspid stenosis. * Trace tricuspid regurgitation. * Unable to estimate RVSP due to lack of TR jet. Pulmonic Valve * Pulmonic valve is not well visualized. * No pulmonic stenosis. * No pulmonic regurgitation. Aorta * Normally sized aortic root. Pericardium * The pericardium appears normal. IVC * The IVC is not well evaluated. Thoracentesis 01/21/19 09:09 IMPRESSION: Successful ultrasound guided thoracentesis. D/ / Que Bravo MD / Que Bravo MD Interpreting Provider: Que Bravo MD Chest X-Ray 01/21/19 14:05 IMPRESSION: 1. There appears to be decrease in the right pleural effusion. 2. No pneumothorax. 3. Otherwise, stable chest D/ / Vipul Ayala MD / Vipul Ayala MD Interpreting Provider: Vipul Ayala MD - VTE Reasons for not Prescribing Prophylaxis: Not indicated-Anticoagulated or INR therapeutic Consult Discharge Plan - Plan Referrals: Ofelia Peterson CNP [Primary Care Provider] - 01/28/19 1:00 pm <Keny Goodman - Last Filed: 01/21/19 18:39> Hospitalist Progress Note - Encounter Date of Encounter: 01/21/19 Internal Medicine: Result - Labs CBC & Chem 7: 01/21/19 05:56 01/21/19 16:00 Labs: Short CBC 01/21/19 Range/Units 05:56 WBC 15.8 H (4.3-11.1) K/mcL Hgb 12.8 L (12.9-16.9) g/dL Hct 41.1 (37.5-50.1) % Plt Count 481 H (140-400) K/mcL Neutrophils # 13.5 H (1.6-8.9) K/mcL BMP 01/21/19 01/21/19 05:56 16:00 Sodium 135 L Potassium 5.2 H 5.7 H Chloride 101 Carbon Dioxide 25 BUN 38 H Creatinine 1.06 Glucose 194 H Calcium 9.7 Liver Function 01/21/19 Range/Units 05:56 Albumin 3.3 L (3.5-5.7) g/dL - ABG Interpretation ABG results: PT/INR, D-dimer PT 15.3 Seconds (9.4-12.1) H 01/21/19 05:56 D-Dimer 2144 ng/mLFEU (0-500) H 01/19/19 09:15 - Attending Attestation Patient seen and examined together with the medical student. Relevant objective data including labs, imaging, and micro were reviewed. Medical decision making was discussed with the medical student and is reflected in the note above, with the following comments: Bony Lea is a 73 M who p/w SOB, hypoxia. Today he is still SOB but less so than yesterday, and has not required BiPAP today. Seen by Pulm yesterday and he is amenable to thoracentesis today. Seen again afterward and he tolerated it well. O On exam, pt comfortable and satting 98% on 10L NC. Still has coarse biphasic breath sounds blunted on R lower half. Post-thora CXR without PTX, does show interval improvement. About 1L bloody fluid removed. A Pneumonia COPD exacerbation Acute hypoxic respiratory failure - O2 req improving Severe sepsis - resolved Tachycardia - initially thought 2/2 sepsis and hypoxia but possibly from new CHF or questionable underlying malignancy? Acute systolic heart failure, EF 20%, c/b demand ischemia R pleural effusion and asymmetric pleural thickening a/w lymphadenopathy, present and progressive since 2018, concern for malignancy P - Continue empiric cefepime, PO azithro - Check UAgs, follow up cultures - S/p Thoracentesis today with blood output - Consult CTSurg for bronchoscopy and thoracostomy tomorrow - Cardio and Pulm following - needs repeat limited TTE for LVEF when no longer tachycardic - consider LHC prior to d/c - hi bull O2, wean as able <Eris Haque - Last Filed: 01/21/19 18:20> (2) Pneumonia Qualifiers: Pneumonia type: due to unspecified organism Laterality: right Lung location: lower lobe of lung Qualified Code(s): J18.1 - Lobar pneumonia, unspecified organism (4) Systolic CHF Qualifiers: Heart failure chronicity: acute Qualified Code(s): I50.21 - Acute systolic (congestive) heart failure (5) Sepsis Qualifiers: Sepsis type: sepsis due to unspecified organism Qualified Code(s): A41.9 - Sepsis, unspecified organism (7) COPD (chronic obstructive pulmonary disease) Qualifiers: COPD type: chronic bronchitis Chronic bronchitis type: simple Qualified Code(s): J41.0 - Simple chronic bronchitis (8) HTN (hypertension) Qualifiers: Hypertension type: essential hypertension Qualified Code(s): I10 - Essential (primary) hypertension
[2019-01-21 17:35] LABS: Appearance of Pleural Fl Bloody (Clear)
--- NOTE | 2019-01-21 18:33 | Electrocardiograph Report ---
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
[2019-01-22] MEDS: Cefepime HCl 2,000 MG in Water for inj. (sterile) 20 ML 20 ML IVP SCH ×3 (01:09→21:22)
[2019-01-22] MEDS: methylPREDNISolone 125 MG/2 ML VIAL IVP SCH ×4 (01:10→23:04)
[2019-01-22] MEDS: OXYCODONE Oral CONC 10 MG/0.5 ML ORAL.SYG SL PRN (03:02)
[2019-01-22] MEDS ORDERED: Levalbuterol Neb 1.25 MG/3 ML IH PRN (04:04)
[2019-01-22] MEDS: *HR* Heparin 5,000 UNIT/ML VIAL SQ SCH ×3 (05:35→21:22)
[2019-01-22] MEDS: Aspirin Enteric Coated 81 MG Tablet PO SCH (08:18)
[2019-01-22] MEDS ORDERED: *HR* Midazolam HCl 5 MG/5 ML VIAL IVP ONE ×2 (08:45→17:26)
[2019-01-22] MEDS ORDERED: D5% in Water 250 ML IV BAG IV ONE (09:15)
[2019-01-22] MEDS ORDERED: *HR* Norepinephrine 4 MG/4 ML VIAL IVC ONE (09:15)
[2019-01-22] MEDS: Doxycycline 100 MG in 0.9 % Sodium Chloride Mini Bag 100 ML IVPB SCH ×2 (09:55→21:24)
--- NOTE | 2019-01-22 10:44 | Cardiology Progress Note ---
Addendum entered and electronically signed by Lazaro Russo DO 01/22/19 12:47: I have personally performed a face to face evaluation on this patient. I have reviewed and agree with the care plan. History and Exam by me shows: The patient, his , and I had a long discussion this morning regarding his current status. In general, his overall respiratory status appears to be marginal. He is scheduled for bronchoscopy with possible biopsy later today. We reviewed his previous cardiovascular findings, which include reduced LV function on TTE in the setting of tachycardia. We discussed the possibility of an ischemic evaluation in the future, but all recognize the patient's current condition would not allow for diagnostic cardiac catheterization. Recommend continue supportive care. Tachycardia remains, which is not unexpected given his respiratory insufficiency. He does seem to be tolerating a low-dose beta hoa. Repeat TTE when heart rate better controlled. Heart rate should improve as respiratory status improves. If EF rem ains reduced, we could consider an ischemic evaluation in the future. Based upon his hemodynamics, we can add/titrate goal-directed medical therapy for reduce EF as his condition evolves. Overall, his current prognosis appears guarded. was updated. Thanks, Lazaro Russo DO, [facility] Original Note: Date of Encounter: 01/22/19 Time of Encounter: 09:30 Assessment and Plan (1) Elevated troponin Current Visit: Yes Status: Resolved Per cardiology: -Trops elevated on admission 0.21 -> 0.22 -> 0.84 -> 0.89 -> 0.65 -EKG from ED showed no ischemic changes -Echo revealed decreased LVEF at 25-30% when compared to echo from 04/29 at 50- 55% -Also noted right wall motion abnormality. Unchanged calcified arotic valve with moderate stenosis. -Repeat EKG on 01/20 revealed no significant change -Recommend optimizing medical management including treatment of pneumonia. -Once respiratory status improves would recommend limited echo with definity since patient was tachycardic on initial TTE. Once HR improves, will repeat limi gama TTE with definity. -Can consider ischemic eval if LVEF remains reduced on repeat limited TTE. -Will switch BB to toprol. Consider addition of lucita/arb/entresto if LVEF remains low on repeat TTE. (2) Pneumonia Current Visit: Yes Status: Suspected Per cardiology: -As seen on CXR and CTA chest -Pulmonology consulted -Management per primary and pulm -Of note, pending bronchoscopy and thoroscopy today. Qualifiers: Pneumonia type: due to unspecified organism Laterality: right Lung location: lower lobe of lung Qualified Code(s): J18.1 - Lobar pneumonia, unspecified organism (3) Tachycardia Current Visit: Yes Status: Acute Per cardiology: -Sinus tachycardia -Likely related to sepsis with pneumonia -Suspect HR will improved as clinical condition improves. Discussion w patient/family: The assessment and plan as outlined above was discussed with the patient who expressed understanding and agreement. All questions were answered. Thank you for involving us in the care of your patient. Please call with any questions. Discussed and reviewed with Subjective Principal diagnosis: Hypoxic respiratory failure with penumonia and CHF exacerbation Interval history: Patient with conversational dyspnea. Nodding head to answer questions. Denies chest pain. States breathing is worse today. Objective Vital Signs, Last 4 Hours Temp Pulse Resp BP Pulse Ox 01/22/19 08:29 124 01/22/19 07:43 97.4 F L 124 20 127/76 99 General: Other (Conversational dyspnea noted. Nodding head to answer most questions. ) HEENT: Atraumatic, Normocephaly, Mucus Membranes Moist Neck: No JVD, Normal carotid pulses Cardiac: Normal S1 and S2, No Murmur, Other (tachycardic. ) Lungs: Other (Refused respiratory assessment. ) Neuro: Alert and responsive, No focal deficits noted Abdomen: Soft, Non-Tender Skin: No rashes noted on visualized skin Musculoskeletal: No Chest Wall Tenderness Extremities: No Clubbing, No Cyanosis, No Edema, Normal Pulses Results 01/21/19 05:56 01/21/19 16:00 Lab Results Impressions Thoracentesis 01/21/19 09:09 IMPRESSION: Successful ultrasound guided thoracentesis. D/ / uQe Bravo MD / Que Bravo MD Interpreting Provider: Que Bravo MD Chest X-Ray 01/21/19 14:05 IMPRESSION: 1. There appears to be decrease in the right pleural effusion. 2. No pneumothorax. 3. Otherwise, stable chest D/ / Vipul Ayala MD / Vipul Ayala MD Interpreting Provider: Vipul Ayala MD Active Medications Acetaminophen (Tylenol) 325 mg PO Q6HR PRN PRN Reason: Analgesia Stop: 07/22/19 15:09 Last Admin: 01/20/19 15:29 Dose: 325 mg Aspirin (Aspirin Ec) 81 mg PO DAILY KEENAN Stop: 07/22/19 09:01 Last Admin: 01/22/19 08:18 Dose: Not Given Atorvastatin Calcium (Lipitor) 20 mg PO HS KEENAN Stop: 07/23/19 21:01 Last Admin: 01/21/19 21:10 Dose: 20 mg Calcium Carbonate (Tums) 1,000 mg PO Q4HR PRN; Protocol PRN Reason: Heartburn Stop: 07/22/19 12:24 Last Admin: 01/21/19 11:09 Dose: 1,000 mg Talc 4 gm/ Sodium Chloride 50 (ml/ Syringe 1 each) 0 gm IX ONCE ONE Stop: 01/22/19 12:01 Heparin Sodium (Porcine) (Heparin) 5,000 unit SQ Q8HCO KEENAN Stop: 07/23/19 14:01 Last Admin: 01/22/19 05:35 Dose: 5,000 unit Hydroxyzine HCl (Hydroxyzine) 10 mg PO TID PRN PRN Reason: Anxiety Stop: 07/22/19 13:05 Last Admin: 01/22/19 08:18 Dose: 10 mg Cefepime HCl 2,000 mg/ Sterile (Water) 20 mls @ 300 mls/hr IVP Q8H KEENAN Stop: 07/21/19 18:01 Last Infusion: 01/22/19 08:24 Dose: Infused Doxycycline Hyclate 100 mg/ (Sodium Chloride) 100 mls @ 100 mls/hr IVPB Q12H KEENAN Stop: 07/22/19 22:01 Last Admin: 01/22/19 09:55 Dose: 100 mls/hr Levalbuterol HCl (Xopenex) 1.25 mg IH [id number] PRN PRN Reason: Wheezing Stop: 05/01/19 04:05 Last Admin: 01/22/19 04:11 Dose: 1.25 mg Methylprednisolone (Solu-Medrol) 80 mg IVP Q8HR KEENAN Stop: 07/22/19 00:01 Last Admin: 01/22/19 08:17 Dose: 80 mg Metoprolol Tartrate (Lopressor) 25 mg PO BID KEENAN Stop: 07/23/19 11:46 Last Admin: 01/22/19 08:18 Dose: 25 mg Oxycodone HCl (Oxycodone Oral Conc) 5 mg SL Q6HR PRN; Protocol PRN Reason: Analgesia Stop: 07/22/19 16:52 Last Admin: 01/22/19 03:02 Dose: 5 mg Laboratory Tests 01/19/19 01/19/19 01/19/19 09:15 12:18 17:55 WBC Hgb Potassium Creatinine Troponin I 0.21 H* 0.22 H* 0.84 H* 01/20/19 01/20/19 01/21/19 00:54 07:11 05:56 WBC 15.8 H Hgb 12.8 L Potassium Creatinine Troponin I 0.89 H* 0.65 H* 01/21/19 05:56 WBC Hgb Potassium 5.2 H Creatinine 1.06 Troponin I - Imaging and Cardiology Chest Xray: report reviewed Echo: report reviewed - EKG Interpretation EKG results cardiology: other (Telemetry reviewed with average HR previous 12 hours noted to be 119, ST. PVCs noted.) - VTE Reasons for not Prescribing Prophylaxis: Not indicated-Anticoagulated or INR therapeutic Consult Discharge Plan - Plan Referrals: Ofelia Peterson CNP [Primary Care Provider] - 01/28/19 1:00 pm
[2019-01-22] MEDS ORDERED: *HR* Metoprolol 5 MG/5 ML VIAL IVP PRN (11:00)
--- NOTE | 2019-01-22 11:19 | Internal Med Progress Note ---
<Emily Brock - Last Filed: 01/22/19 18:58> Hospitalist Progress Note - Encounter Date of Encounter: 01/22/19 Time of Encounter: 09:00 - Subjective Interval History: Mr. Lea was seen at bedside this morning. His vitals showed continued tachycardia. He was still requiring 8 liters of supplemental oxygen. He was resting in bed and appeared fatigued and not very communicative. He continued to complain of shortness of breath. He also complained of being thirsty. His was at bedside and noted episode of confusion overnight while he was on the BiPAP. He had no other complaints, denied fever, chills, nausea, emesis or chest pain. - Exam Vitals: Temp Pulse Resp BP Pulse Ox 97.7 F 105 22 81/61 100 01/22/19 11:10 01/22/19 11:10 01/22/19 11:10 01/22/19 11:10 01/22/19 11:10 Exam: General: A&Ox3, pale in appearance, not in acute respiratory distress. HEENT: Head is non traumatic, EOMI, trachea is midline Cardiovascular: Regular rhythm with elevated heart rate, no murmurs auscultated. Lungs: Decreased lung sounds at all lung lobes, no rhonci or rales Abdomen: Soft, obese abdomen, BSx3, no guarding, no pain on palpation. Skin: Cool and dry, no rashes of exposed surface. Extremities: No edema of the lower extremities. Psych: flat affect, thought content not congruent - Assessment and Plan (1) Hemothorax Current Visit: Yes Status: Acute Assessment and Plan: Presented with acute hypoxic respiratory failure. He was requiring high supplemental oxygen. CT of the chest showed increasing pulmonary vascular congestion. He underwent thoracentesis and had 1 liter of fluid drained which showed bloody effusion. Plan: Planned for cardiothoracic surgery today Continue to monitor hemoglobin, hemoglobin since admission: 14.1-->13.4 --> 12.8 --> 12.8 Repeat CBC in the morning (2) Elevated troponin Current Visit: Yes Status: Resolved Assessment and Plan: Troponin evaluated on admission found to be 0.22 trends -->0.84, 0.89, 0.65. EKG from ED showed no ischemic changes. -Telemetry continues to show sinus tachycardia -MARIA ELENA conducted at admission which showed low EF, will need repeat MARIA ELENA after heart rate decreases (3) Pneumonia Current Visit: Yes Status: Suspected Assessment and Plan: Hospital acquired pneumonia Hospital stay 12/30/18 that consisted of pneumonia and hemoptysis. Current symptoms consistent with pneumonia, or lung disease given history of COPD. Imaging supports dense airspace consolidation the right lower lobe concerning for right lower lobe pneumonia. -Day 4 of maxipime, day 3 doxycycline -Pulmonology consulted and recommends to continue broad-spectrum antibiotics, with suspicion pleural effusion is not parapneumonic, could be malignancy related to his pro-calcitonin is negative a low suspicion for recurrent pneumonia -Blood cultures pending 01/19 no growth, Pleural fluid culture pending. -Continue to monitor vitals and provide oxygenation. (4) COPD (chronic obstructive pulmonary disease) Current Visit: Yes Status: Chronic Assessment and Plan: Continues to have respiratory failure. Requiring 8 L of high flow supplemental oxygen. Likely secondary to pneumonia and pleural effusion, malignancy cannot be ruled out yet -Continue IV Solu-Medrol 80 mg every 8 hours, will consider tapering once his respiratory failure and improves -Pulmonology is also currently following -Continue to treat the pneumonia with doxycycline and cefepime, day 4 -Pending bronchoscopy and thoracoscopy today (5) Tachycardia Current Visit: Yes Status: Acute Assessment and Plan: Continues to have tachycardia could be secondary to sepsis -5 mg IV lopressor Q6HR -Currently sinus tachycardia -Asymptomatic, we will continue to monitor on telemetry (6) Hyperkalemia Current Visit: Yes Status: Acute Assessment and Plan: Continues to have hyperkalemia. Yesterday was 5.7 and today is 5.8 and he was given kayexelate and had a bowel movement. -Today also appears to have an FRANCY, creatinine 1.72 -Will continue kayexelate and receive calcium glucanate -Need to monitor intake and output -Repeat CMP in the A.M. (7) Elevated LFTs Current Visit: Yes Status: Acute Assessment and Plan: AST is 442 and ALT is 687. Likely secondary to shock liver given his low EF and current sepsis. -Will continue to treat his pneumonia -Will repeat labs tomorrow morning -If it continues to remain elevated will require further imaging DVT Prophylaxis: 5,000 units SC Heparin Q8H - Time Spent with Patient Total time spent is greater than 50% in coordination of care (as documented) at patient's floor/unit and/or counseling patient: Internal Medicine: Result - Labs CBC & Chem 7: 01/22/19 17:25 01/22/19 17:25 Labs: BMP 01/21/19 01/21/19 05:56 16:00 Sodium 135 L Potassium 5.2 H 5.7 H Chloride 101 Carbon Dioxide 25 BUN 38 H Creatinine 1.06 Glucose 194 H Calcium 9.7 Liver Function 01/21/19 Range/Units 05:56 Albumin 3.3 L (3.5-5.7) g/dL - ABG Interpretation ABG results: PT/INR, D-dimer PT 15.3 Seconds (9.4-12.1) H 01/21/19 05:56 D-Dimer 2144 ng/mLFEU (0-500) H 01/19/19 09:15 - Impressions Impressions Thoracentesis 01/21/19 09:09 IMPRESSION: Successful ultrasound guided thoracentesis. D/ / Que Bravo MD / Que Bravo MD Interpreting Provider: Que Bravo MD Chest X-Ray 01/21/19 14:05 IMPRESSION: 1. There appears to be decrease in the right pleural effusion. 2. No pneumothorax. 3. Otherwise, stable chest D/ / Vipul Ayala MD / Vipul Ayala MD Interpreting Provider: Vipul Ayala MD - VTE Reasons for not Prescribing Prophylaxis: Not indicated-Anticoagulated or INR therapeutic Consult Discharge Plan - Plan Referrals: Ofelia Peterson CNP [Primary Care Provider] - 01/28/19 1:00 pm <Nela Villela - Last Filed: 01/22/19 22:29> Hospitalist Progress Note - Encounter Date of Encounter: 01/22/19 - Exam Vitals: Temp Pulse Resp BP Pulse Ox 97.9 F 101 16 84/63 100 01/22/19 19:00 01/22/19 21:00 01/22/19 21:15 01/22/19 21:15 01/22/19 21:15 - Assessment and Plan (1) Elevated troponin Current Visit: Yes Status: Resolved (2) Pneumonia Current Visit: Yes Status: Suspected (3) COPD (chronic obstructive pulmonary disease) Current Visit: Yes Status: Chronic (4) Tachycardia Current Visit: Yes Status: Acute (5) Hemothorax Current Visit: Yes Status: Acute (6) Hyperkalemia Current Visit: Yes Status: Acute (7) Elevated LFTs Current Visit: Yes Status: Acute - Time Spent with Patient Total time spent is greater than 50% in coordination of care (as documented) at patient's floor/unit and/or counseling patient: Internal Medicine: Result - Labs CBC & Chem 7: 01/22/19 17:25 01/22/19 18:37 Labs: Short CBC 01/22/19 01/22/19 Range/Units 11:27 17:25 WBC 15.8 H 15.5 H (4.3-11.1) K/mcL Hgb 12.8 L 12.2 L (12.9-16.9) g/dL Hct 40.4 40.2 (37.5-50.1) % Plt Count 465 H 427 H (140-400) K/mcL Neutrophils # 13.9 H 13.6 H (1.6-8.9) K/mcL BMP 01/22/19 01/22/19 01/22/19 11:27 17:25 18:37 Sodium 139 137 137 Potassium 5.8 H 5.8 H 4.9 Chloride 104 104 103 Carbon Dioxide 23 22 L 25 BUN 73 H 83 H 88 H Creatinine 1.72 H 2.22 H 2.24 H Glucose 212 H 197 H 253 H Calcium 9.9 9.3 9.5 Cardiac Enzymes 01/22/19 Range/Units 21:05 Troponin I 14.62 H* (< 0.04) ng/mL Liver Function 01/22/19 Range/Units 11:27 Total Bilirubin 1.1 H (0.3-1.0) mg/dL AST 442 H (13-39) Units/L ALT 687 H (7-52) Units/L Alkaline Phosphatase 70 (34-104) Units/L Albumin 3.3 L (3.5-5.7) g/dL Urine 01/22/19 Range/Units 21:01 Urine Color Dark Yellow (Yellow) Urine Clarity Turbid A (Clear) Urine pH 5.5 (5.0-8.0) pH Units Ur Specific Mckee 1.022 (1.010-1.025) Urine Protein 100 H (Neg-Trace) mg/dL Urine Glucose (UA) Normal (Normal) mg/dL - ABG Interpretation ABG results: ABG ABG pH 7.45 pH Units (7.32-7.45) D 01/22/19 19:56 ABG pCO2 30 mmHg (35-45) L D 01/22/19 19:56 ABG pO2 195 mmHg (85-104) H D 01/22/19 19:56 ABG O2 Saturation 100 % (95-98) H 01/22/19 19:56 PT/INR, D-dimer PT 22.2 Seconds (9.4-12.1) H 01/22/19 17:25 D-Dimer 2144 ng/mLFEU (0-500) H 01/19/19 09:15 - Impressions Impressions Chest X-Ray 01/22/19 16:54 IMPRESSION: 1. Endotracheal tube in satisfactory position 2. Unchanged bibasilar volume loss and right-sided pleural effusion 3. Possible pulmonary edema D/ / Vipul Ayala MD / Vipul Ayala MD Interpreting Provider: Vipul Ayala MD Echocardiogram Limited Views 01/22/19 17:13 Impressions: LVEF 25%. Severe global and segmental left ventricular systolic dysfunction. Normal RV size with moderate right ventricular hypokinesis. Estimated RA pressure 15 mmHg. LV and RV function slightly worse compared to 01/20/2019 study. Left Ventricular Wall Motion: Rest Echo Findings The basal inferior, mid anterior, basal anterior, basal inferior septal, apical lateral, mid anterior lateral, basal anterior lateral, mid inferior lateral and basal inferior lateral cheek were hypokinetic. The apex, apical inferior, mid inferior, apical anterior, apical septal, mid inferior septal, mid anterior septal and basal anterior septal cheek were akinetic. Findings: Study Quality * Technically adequate exam. ECG Findings * Sinus tachycardia. Left Ventricle * LVEF 25%. * Severe global and segmental left ventricular systolic dysfunction. * There is no LV thrombus. * Definity echo contrast was used. Right Ventricle * Normal RV size with moderate right ventricular hypokinesis. Left Atrium * Normal left atrial size. Right Atrium * Normal right atrial size. Tricuspid Valve * Estimated RA pressure is 15 mmHg. IVC * The IVC is dilated. * < 50% respiratory change. Pleural Effusion * Moderate pleural effusion. - Attending Attestation I examined this patient and my medical decision-making was reviewed with the Resident Physician. I agree with the documented findings, disposition and treatment plan as described except to the extent set forth below. PWife at bedside. Patient is hard of hearing but responds to verbal commands appropriately. He notes he is short of breath and having chills. VS: reviewed, labs: reviewed. On exam, patient appears lethargic but easily aroused. He has poor inspiratory effort with expiratory wheezing and rales throughout. Plan is for thoracotomy. Patient is high risk and so he will be sent to ICU post thoracotomy <Emily Brock - Last Filed: 01/22/19 18:58> (3) Pneumonia Qualifiers: Pneumonia type: due to unspecified organism Laterality: right Lung location: lower lobe of lung Qualified Code(s): J18.1 - Lobar pneumonia, unspecified organism (4) COPD (chronic obstructive pulmonary disease) Qualifiers: COPD type: chronic bronchitis Chronic bronchitis type: simple Qualified Code(s): J41.0 - Simple chronic bronchitis <Nela Villela - Last Filed: 01/22/19 22:29> (2) Pneumonia Qualifiers: Pneumonia type: due to unspecified organism Laterality: right Lung location: lower lobe of lung Qualified Code(s): J18.1 - Lobar pneumonia, unspecified o rganism (3) COPD (chronic obstructive pulmonary disease) Qualifiers: COPD type: chronic bronchitis Chronic bronchitis type: simple Qualified Code(s): J41.0 - Simple chronic bronchitis
--- NOTE | 2019-01-22 11:34 | Anesthesia Evaluation PreOp ---
Date of Encounter: 01/22/19 Time of Encounter: 15:13 - Past History Planned Operation: Right Thoracoscopy, Bronchoscopy Cardiac History: GA (NSTEMI), CHF (exacerbation EF 25%), HTN, Other (Assessment and Plan (1) Elevated troponin Current Visit: Yes Status: Resolved Per cardiology: -Trops elevated on admission 0.21 -> 0.22 -> 0.84 -> 0.89 -> 0.65 - EKG from ED showed no ischemic changes -Echo revealed decreased LVEF at 25-30% when compared to echo from 04/29 at 50-55% -Also noted right wall motion abnormality. Unchanged calcified arotic valve with moderate stenosis. -Repeat EKG on 01/20 revealed no significant change -Recommend optimizing medical management including treatment of pneumonia. -Once respiratory status improves would recommend limited echo with definity since patient was tachycardic on initial TTE. Once HR improves, will repeat limited TTE with definity. -Can consider ischemic eval if LVEF remains reduced on repeat limited TTE. -Will sw itch BB to toprol. Consider addition of lucita/arb/entresto if LVEF remains low on repeat TTE.) Pulmonary History: Former smoker (>56y/o), COPD, Other (pneumonia with dyspnea, pleural effusion) GRAIN THRESHER History: Other (currently confused with breif moments of coherence) Other Medical History: Renal (acute renal failure), Other (hyperkalemia) Anesthesia History: Past Anesthesia Alcohol Use: none Drug use: none Medications and Allergies Montelukast [Singulair] 10 mg PO HS 05/11/18 [History] Quinapril/Hydrochlorothiazide [Quinapril-Hctz 20-12.5 mg Tab] 1 tab PO DAILY 05/11/18 [History] HydrOXYzine 10 mg PO DAILY PRN 12/29/18 [History] Albuterol Sulfate [Albuterol Inhaler] 2 puff IH DAILY PRN 01/19/19 [History] Tiotropium [place] [Spiriva Respimat] 2 puff IH DAILY 01/20/19 [History] Allergy/AdvReac Type Severity Reaction Status Date / Time Penicillins Allergy See Verified 01/20/19 12:52 Comments - Meds/Allergy Pre-op Review Medications Reviewed: Yes Allergies Reviewed: Yes Beta Blockers on Current Med List: Yes If Beta Blockers taken, Date/Time (Last Dose taken): [id number] today Anesthesia Results - Labs 01/22/19 11:27 01/22/19 11:27 - Imaging EKG: report reviewed (Supraventricular tachycardia Repolarization abnormality, prob rate related Electronically Signed On 01-21-2019 18:32:12 EDT by Jad Segal) Additional studies: mpressions: LVEF 25-30%. Severe global and segmental left ventricular systolic dysfunction. Indeterminate diastolic function. Mild right ventricular hypokinesis. Severely calcified aortic valve with moderate aortic stenosis, no significant change compared to 05/11/2018 study Mild mitral regurgitation. Unable to estimate RVSP due to lack of TR jet. Recommend repeat limited echo with definity after rate control. Cardiology consult team notified via [employer]. Anesthesia Exam Vital Signs/O2 Sat/Glucose, Most Current Temp Pulse Resp BP Pulse Ox 01/22/19 11:10 97.7 F 105 22 81/61 100 01/22/19 08:29 124 Weight: 85kg NPO (# of Hours): >8 - HEENT Pupil (Motor): Pupils equal Mallampati: III Teeth: Edentulous (upper) Oral Opening: Greater than 3 - GRAIN THRESHER LOC: Confused (agitated) - Cardiac Rhythm: Regular - Pulmonary Respiratory Effort: Labored Anesthesia Assess/Plan ASA Score: 4 (acute CHF, COPD with acute exacerbation, hypoxic respiratory failure) Level of consciousness: Cooperative Anesthetic Plan: General (pt is hypotensive and tachycardic, plan GETA, he is at increased risk for hemodynamic collapse and periop cardiac complications as well as respiratory failure, post op intubation and ICU stay, i discussed this with pt's Carly Lea) Monitoring Plan: Standard Monitors Recovery Plan: PACU (may require icu stay)
[2019-01-22 11:42] LABS: Basophils % 0.1 %; Hematocrit 40.4 % (37.5-50.1); Hemoglobin 12.8 g/dL (12.9-16.9); Immature Granulocytes % 0.6 % (0-4); Lymphocytes # 0.6 K/mcL (0.6-4.6); Lymphocytes % 3.5 %; Mean Corpuscular HGB Conc 31.7 g/dL (31.6-35.5); Mean Corpuscular Hemoglobin 28.1 pg (28.0-33.3); Mean Corpuscular Volume 88.8 fL (83.0-100.0); Mean Platelet Volume 9.5 fL (9.4-12.4); Monocytes # 1.3 K/mcL (0.0-1.3); Neutrophils # 13.9 K/mcL (1.6-8.9); Nucleated Red Blood Cells 0.1 /100 WBC (0); Platelet Count 465 K/mcL (140-400); Red Blood Count 4.55 M/mcL (4.19-5.50); Red Cell Distribution Width 13.8 % (11.5-14.5); Segmented Neutrophils % 87.8 %
--- NOTE | 2019-01-22 11:48 | Pulmonology Progress Note ---
Date of Encounter: 01/22/19 Time of Encounter: 09:00 Assessment and Plan (1) Acute hypoxemic respiratory failure Current Visit: No Status: Acute Mostly secondary to worsening pneumonia, worsening pleural effusion in the setting of systolic CHF exacerbation. Patient went to the OR developed cardiogenic shock patient was transferred to the ICU mechanical ventilation will do low tidal volume strategy will start on inotrope norepinephrine. And I repeated the blood gas adequate gas exchange and acceptable ventilation. (2) Cardiogenic shock Current Visit: Yes Status: Acute EF 25% with RV systolic dysfunction both the low ejection fraction and the low RV systolic function with patient mechanical ventilated during the procedure would increased PA pressures which the reduced blood flowing through the lung and getting back to the left side of the heart. Patient has other end organ damage kidney injury (3) HCAP (healthcare-associated pneumonia) Current Visit: Yes Status: Acute Continue broad-spectrum antibiotics I suspect this pleural effusion is not parapneumonic might be malignancy related to his pro-calcitonin is negative a low suspicion for recurrent pneumonia . (4) NSTEMI (non-ST elevated myocardial infarction) Current Visit: Yes Status: Acute This patient has hemorrhagic pleural effusion we will hold off heparin drip sp jose with the nurse to hold off heparin drip. (5) COPD exacerbation Current Visit: No Status: Acute Continue schedule bronchodilators and steroids. (6) Systolic CHF Current Visit: Yes Status: Acute Patient systolic CHF with recent echo showing some decline in LV systolic function also some declined RV function.. Will hold off diuretics and blood pressure medication for now. Qualifiers: Heart failure chronicity: acute Qualified Code(s): I50.21 - Acute systolic (congestive) heart failure (7) Pleural effusion Current Visit: Yes Status: Acute Patient has bilateral pleural effusion but more on the right side 1 L of hemorrhagic pleural effusion was removed. Concerning for malignancy consulted thoracic surgery spoke with Dr. Dan is going to take him to the OR today. Subjective Principal diagnosis: Hypoxic respiratory failure with penumonia and CHF exacerbation Interval history: Patient after the thoracentesis is doing well oxygen requirement coming down patient still complaining of some sharp shortness of breath patient denies for chest pain chest tightness denies any palpitation or syncope. Patient went to the OR for bronchoscopy and thoracoscopy patient had a bronchoscopy done under general anesthesia patient has some cobblestoning appearance in the right bronchus intermedius no other endobronchial lesion in the pleural space disease is more concerning for malignancy before we do that thoracoscopy patient decompensated into cardiogenic shock. Patient has signs of low output with worsening renal and liver function. After the episode of intraoperative hypotension the procedure was called off patient was transferred to the ICU. Objective PUL Vital signs: Last Vital Signs Temp 97.7 F 01/22/19 11:10 Pulse 105 01/22/19 11:10 Resp 22 01/22/19 11:10 BP 81/61 01/22/19 11:10 Pulse Ox 100 01/22/19 11:10 Auscultation: bilateral: diminished breath sounds (basilar diminshed breadth sounds ), rales (scattere rales ) unable to assess due to mental status Results - Laboratory Findings CBC and BMP: 01/22/19 17:25 01/22/19 18:37 PT/INR, D-dimer PT 15.3 Seconds (9.4-12.1) H 01/21/19 05:56 D-Dimer 2144 ng/mLFEU (0-500) H 01/19/19 09:15 Abnormal lab findings: Abnormal lab results WBC 15.8 K/mcL (4.3-11.1) H 01/22/19 11:27 Hgb 12.8 g/dL (12.9-16.9) L 01/22/19 11:27 Plt Count 465 K/mcL (140-400) H 01/22/19 11:27 Neutrophils # 13.9 K/mcL (1.6-8.9) H 01/22/19 11:27 Nucleated RBCs/100 WBC 0.1 /100 WBC (0) H 01/22/19 11:27 Platelet Estimate Increased (Normal) H 01/19/19 09:15 PT 15.3 Seconds (9.4-12.1) H 01/21/19 05:56 D-Dimer 2144 ng/mLFEU (0-500) H 01/19/19 09:15 Sodium 135 mEq/L (136-145) L 01/21/19 05:56 Potassium 5.7 mEq/L (3.5-5.1) H 01/21/19 16:00 BUN 38 mg/dL (8-23) H 01/21/19 05:56 BUN/Creatinine Ratio 36 (6-26) H 01/21/19 05:56 Glucose 194 mg/dL (70-105) H 01/21/19 05:56 Troponin I 0.65 ng/mL (< 0.04) H* 01/20/19 07:11 B-Natriuretic Peptide 764 pg/mL (Less than 100) H 01/19/19 09:15 Albumin 3.3 g/dL (3.5-5.7) L 01/21/19 05:56 Albumin/Globulin Ratio 1.0 (1.1-2.2) L 01/21/19 05:56 Pleural Appearance Bloody (Clear) A 01/21/19 14:00 Pleural RBC 0.529 M/mcL (0.000-0.002) H 01/21/19 14:00 Pleural Tot Nuc Cell 1225 TNC/mcL (0-1000) H 01/21/19 14:00 - Microbiology Findings Microbiology Findings: Microbiology, Last 48 Hours 01/21/19 14:00 Body Fluid Culture - Preliminary Pleural Fluid 01/21/19 14:00 Anaerobic Culture - Preliminary Pleural Fluid Culture is incubating. 01/19/19 10:03 Blood Culture - Preliminary Peripheral Venipuncture Culture is incubating and being continuously monitored for growth. Final report to follow. - Clinical Findings Intake & Output: Intake & Output 01/21/19 01/22/19 01/22/19 23:59 07:59 15:59 Intake Total 520 / 520 Output Total 300 / 300 300 / 300 Balance 220 / 220 -280 / -280 - VTE Reasons for not Prescribing Prophylaxis: Not indicated-Anticoagulated or INR therapeutic Consult Discharge Plan - Plan Referrals: Ofelia Peterson CNP [Primary Care Provider] - 01/28/19 1:00 pm Critical Care Time Critical Care Time: Yes Total Critical Care Time: 50 Attestation: I spent 40 minutes of Critical Care time with this patient. It involved decision making of high complexity to assess, manipulate, and support vital organ system failure and/or to prevent further life threatening deterioration of the patient's condition. The time involved in the performance of separately reportable procedures was not counted toward critical care time.
[2019-01-22] MEDS ORDERED: SODIUM CHLORIDE IX ONE (12:00)
[2019-01-22] MEDS ORDERED: TALC IX ONE (12:00)
[2019-01-22] MEDS ORDERED: TALC (Sterile Pwd) 4 GM VIAL IX ONE (12:00)
[2019-01-22 12:14] LABS: Albumin 3.3 g/dL (3.5-5.7); Bilirubin,Total 1.1 mg/dL (0.3-1.0); Calcium 9.9 mg/dL (8.6-10.3); Globulin 3.3 g/dL (2.4-3.5); Potassium 5.8 mEq/L (3.5-5.1); Total Protein 6.6 g/dL (6.4-8.9)
[2019-01-22] MEDS ORDERED: *HR* FentaNYL (PF) 100 MCG/2 ML VIAL ONE (12:29)
[2019-01-22] MEDS ORDERED: *HR* Propofol 200 MG/20 ML VIAL IVP ONE (12:29)
[2019-01-22] MEDS ORDERED: *HR* Rocuronium Bromide 50 MG/5 ML VIAL ONE (12:30)
[2019-01-22] MEDS ORDERED: Dexamethasone 4 MG/ML VIAL ONE (12:30)
[2019-01-22] MEDS ORDERED: Ondansetron 4 MG/2 ML VIAL ONE (12:30)
[2019-01-22] MEDS ORDERED: Lidocaine -MPF 2% 2 ML VIAL ONE (12:30)
[2019-01-22] MEDS ORDERED: *HR* Midazolam HCl 2 MG/2 ML VIAL ONE (12:35)
[2019-01-22] MEDS ORDERED: 0.9 % Sodium Chloride 500 ML IVC ONE (13:55)
[2019-01-22] MEDS ORDERED: *HR* PHENYLEPHRINE 1,000 MCG/10 ML SYRINGE IVP ONE ×2 (14:45→15:34)
[2019-01-22] MEDS ORDERED: SUGAMMADEX SODIUM 500 MG/5 ML VIAL IV ONE (15:25)
[2019-01-22] MEDS ORDERED: EPHEDrine 50 MG/ML VIAL ONE (15:39)
[2019-01-22] MEDS ORDERED: *HR* Etomidate 40 MG/20 ML VIAL IVP ONE (15:44)
[2019-01-22] MEDS ORDERED: *HR* Phenylephrine 10 MG/ML VIAL ONE (15:51)
[2019-01-22] MEDS ORDERED: *HR* Vasopressin 20 UNIT/ML VIAL ONE (15:59)
--- NOTE | 2019-01-22 16:51 | Operative Note ---
Date of procedure: 01/22/19 Pre-op diagnosis: cap, lung cancer, malignant pleural effusion Post-op diagnosis: same Procedure: bronchoscopy with aspiration Complications: none Anesthesia: GETA Surgeon: Pacheco Dan Was there an budget assistant present: No Estimated blood loss (cc): 0 Specimen: none Condition: critical Disposition: ICU Procedure in Detail: The patient was brought to the operating room and placed on the operating room table in supine position. After undergoing general anesthesia with sequential compressive devices on bilateral lower extremities and scheduled antibiotics on board for his community-acquired pneumonia, bronchoscopy was performed and thick copious secretions were aspirated from the left upper lobe bronchus left lower lobe bronchus and bronchus intermedius each time the bronchoscope had to be flushed due to the thick secretions plugging the bronchoscope. During this time however the patient did drop her blood pressure into the 60s with significant decrease in the ST segments. Anesthesia continued with inotropic support with near resolution of the ST segment depression. The double-lumen endotracheal tube was placed but after positioning the patient ST segments became elevated and the blood pressure again dropped into the 70s. This responded to inotropic support. In discussion with anesthesia both myself and anesthesia came to the mutual conclusion that proceeding with surgery could lead to an intraoperative . Surgery was aborted.
--- NOTE | 2019-01-22 16:57 | Electrocardiograph Report ---
[address] [place] [address] Test Date: 2019-01-21 Pat Name: Christian Lea Department: 110 Room: 07 Gender: M Investigations Chief: : 1945 Requested By: Vipul Chavarria Order Number: [id number] Reading MD: Brina Urena Measurements Intervals [place] Rate: 112 P: 50 [place]: 153 QRS: 40 QRSD: 112 T: 129 QT: 298 QTc: 364 Interpretive Statements SINUS TACHYCARDIA INTRAVENTRICULAR CONDUCTION DELAY ST DEVIATION AND MODERATE T-WAVE ABNORMALITY, CONSIDER LATERAL ISCHEMIA Electronically Signed On 01-22-2019 16:55:44 EDT by Brina Urena
[2019-01-22] MEDS: Norepinephrine 4 MG in D5% in Water 250 ML IVC SCH (17:05)
[2019-01-22 17:25] LABS: ABG Base Excess -5 mEq/L (-2 to 3); ABG HCO3 24 mEq/L (21-27); ABG Oxygen Saturation 100 % (95-98); ABG PCO2 60 mmHg (35-45); ABG PH 7.21 pH Units (7.32-7.45); ABG PO2 404 mmHg (85-104); ABG TCO2 26 mEq/L (20-26); Blood Gas Modality VC; Blood Gas PEEP 5 cm H2O; Blood Gas Respiration Rate 12; Blood Gas VT 500 cc
[2019-01-22] MEDS ORDERED: Insulin Human Regular 10 UNIT in 0.9 % Sodium Chloride 10 ML IV ONE (17:25)
[2019-01-22] MEDS ORDERED: *HR* Dextrose 50 % in Water (Syg) 50 ML SYRINGE ONE (17:25)
[2019-01-22] MEDS ORDERED: *HR* Dextrose 50 % in Water (Syg) 50 ML SYRINGE IVP ONE (17:26)
--- NOTE | 2019-01-22 17:29 | Electrocardiograph Report ---
[address] [place] [address] Test Date: 2019-01-20 Pat Name: Christian Lea Department: 110 Room: [facility] Gender: M Fur Scraper: : 1945 Requested By: Alex Islas Order Number: [id number] Reading MD: Brina Urena Measurements Intervals [place] Rate: 136 P: 51 NV: 142 QRS: 50 QRSD: 110 T: 114 QT: 330 QTc: 410 Interpretive Statements SINUS TACHYCARDIA INTRAVENTRICULAR CONDUCTION DELAY ST DEVIATION AND MODERATE T-WAVE ABNORMALITY, CONSIDER ISCHEMIA Electronically Signed On 01-22-2019 17:28:08 EDT by Brina Urena
[2019-01-22 17:33] LABS: VBG Ionized Calcium 1.19 mmol/L (1.15-1.35)
[2019-01-22 17:38] LABS: Basophils % 0.1 %; Hematocrit 40.2 % (37.5-50.1); Hemoglobin 12.2 g/dL (12.9-16.9); Immature Granulocytes % 0.8 % (0-4); Lymphocytes # 0.6 K/mcL (0.6-4.6); Lymphocytes % 3.9 %; Mean Corpuscular HGB Conc 30.3 g/dL (31.6-35.5); Mean Corpuscular Hemoglobin 27.4 pg (28.0-33.3); Mean Corpuscular Volume 90.3 fL (83.0-100.0); Mean Platelet Volume 9.4 fL (9.4-12.4); Monocytes # 1.2 K/mcL (0.0-1.3); Monocytes % 7.6 %; Neutrophils # 13.6 K/mcL (1.6-8.9); Nucleated Red Blood Cells 0.3 /100 WBC (0); Platelet Count 427 K/mcL (140-400); Red Blood Count 4.45 M/mcL (4.19-5.50); Red Cell Distribution Width 13.7 % (11.5-14.5); Segmented Neutrophils % 87.6 %
[2019-01-22 17:43] LABS: Prothrombin Time 22.2 Seconds (9.4-12.1)
[2019-01-22 17:46] LABS: Activated Partial Thrombo Time 35.2 Seconds (26.0-36.0)
[2019-01-22 17:58] LABS: Calcium 9.3 mg/dL (8.6-10.3); Magnesium 2.8 mg/dL (1.6-2.6); Potassium 5.8 mEq/L (3.5-5.1)
--- NOTE | 2019-01-22 18:04 | Procedure Note ---
<Odalis Maher M - Last Filed: 01/22/19 18:01> Date of procedure: 01/22/19 Procedure: Right femoral central venous catheter placement Central Venous Catheter (CVC, Central Line) Placement Date: 01/22/19 Time: 1720 Indication: Hemodynamic monitoring/Intravenous access Resident: Odalis Maher DO PGY1 Attending: Dr. Trevino A time-out was completed verifying correct patient, procedure, site, positioning, and special equipment if applicable. The patient was placed in a dependent position appropriate for central line placement based on the vein to be cannulated. The patients right groin was prepped and draped in sterile fashion. The patient was intubated and sedated therefore no local anesthetic was used. A triple lumen 9 [place] Cordis catheter was introduced into the the right common femoral vein using the Seldinger technique and under ultrasound guidance. The catheter was threaded smoothly over the guide wire and appropriate blood return was obtained. Placement within the vein was confirmed with ultrasound. Each lumen of the catheter was evacuated of air and flushed with sterile saline. The catheter was then sutured in place to the skin and a sterile dressing with antibiotic disc applied. Perfusion to the extremity distal to the point of catheter insertion was checked and found to be adequate. Dr. Trevino, attending was present for the entire procedure. Estimated Blood Loss: 1mL The patient tolerated the procedure well and there were no complications. Anesthesia: IV sedation Was there an commercial lending assistant present: Yes Chain Pegger: Madelyn Trevino Estimated blood loss (cc): 1 Specimen: none Condition: critical Disposition: ICU <Madelyn Trevino S - Last Filed: 01/22/19 21:10> Procedure: I was present during the entire procedure and i assisted in the critical portions of the procedure.
[2019-01-22] MEDS ORDERED: Perflutren Lipid Microsphere 1.3 ML in 0.9 % Sodium Chloride 8.7 ML IVP ONE (18:29)
[2019-01-22] MEDS: FentaNYL (PF) 1,000 MCG in 0.9 % Sodium Chloride 80 ML IVC SCH (19:13)
[2019-01-22 19:59] LABS: ABG Base Excess -2 mEq/L (-2 to 3); ABG HCO3 21 mEq/L (21-27); ABG Oxygen Saturation 100 % (95-98); ABG PCO2 30 mmHg (35-45); ABG PH 7.45 pH Units (7.32-7.45); ABG PO2 195 mmHg (85-104); ABG TCO2 22 mEq/L (20-26); Blood Gas Modality ASSIST CONTROL; Blood Gas PEEP 5 cm H2O; Blood Gas Respiration Rate 22; Blood Gas VT 500 cc
[2019-01-22 20:18] LABS: Calcium 9.5 mg/dL (8.6-10.3); Phosphorous 7.2 mg/dL (2.7-4.5); Potassium 4.9 mEq/L (3.5-5.1)
[2019-01-22] MEDS: Heparin 25,000 UNIT/250 ML D5W 25,000 UNIT/250 ML IV.SOLN IVC SCH ×2 (20:42→22:58)
[2019-01-22 21:13] LABS: Bilirubin,Urine Small (Negative); Blood,Urine Large (Negative); Clarity,Urine Turbid (Clear); Color,Urine Dark Yellow (Yellow); Glucose,Urine (UA) Normal (Normal); Ketones,Urine Trace mg/dL (Negative); Leukocyte Esterase,Urine Trace (Negative); Nitrite,Urine Negative (Negative); PH,Urine 5.5 pH Units (5.0-8.0); Protein,Urine 100 mg/dL (Neg-Trace); Specific Gravity,Urine 1.022 (1.010-1.025); Urobilinogen,Urine Normal (Normal)
[2019-01-22 21:15] LABS: Squamous Epithelial Cell,Urine Many per lpf (None-Few); WBC,Urine 30-50 per hpf (0-3)
[2019-01-22 21:31] LABS: Hyaline Casts,Urine Many per lpf (None-Few)
[2019-01-22 21:33] LABS: Bacteria,Urine Moderate per hpf (None-Few); RBC,Urine 15-30 per hpf (0-3)
[2019-01-22] MEDS ORDERED: *HR* Heparin 5,000 UNIT/ML VIAL IVP ONE (22:08)
[2019-01-22] MEDS ORDERED: *HR* Heparin 5,000 UNIT/ML VIAL IVP PRN (22:08)
--- NOTE | 2019-01-22 22:37 | Event Note ---
Date of Encounter: 01/22/19 Time of Encounter: 22:37 Troponin elevation noted. Repeat EKG done is unchanged from the previous 2 days. He will be started on norepinephrine for BP support given his hypotensive state all day. Will start heparin drip. I spoke with the clinical liaison Dr Rodríguez who read his echos which shows wall motion abnormalities and a significantly reduced EF, with a change noted in the second in comparison to the first echo. The concern now is if he will benefit from a cardiac cath at this point for ischemic evaluation also taking into account his critically ill state and worsening kidney function. He also expressed concern that there may be an overriding type 2 demand component given the notable hypotensive episode that occurred in the OR and has persisted until now. We will repeat another troponin at 4am and continue heparin/norpepinephrine as needed. I discontinued the beta blockers currently ordered.
[2019-01-22 23:14] LABS: Albumin 2.6 g/dL (3.5-5.7); Albumin/Globulin Ratio 0.9 (1.1-2.2); Bilirubin,Direct 0.6 mg/dL (0.0-0.2); Bilirubin,Indirect 0.5 mg/dL (0.0-1.2); Bilirubin,Total 1.1 mg/dL (0.3-1.0); Globulin 2.8 g/dL (2.4-3.5); Total Protein 5.4 g/dL (6.4-8.9)
[2019-01-23 04:08] LABS: Hematocrit 32.8 % (37.5-50.1); Immature Granulocytes % 0.5 % (0-4); Lymphocytes # 0.6 K/mcL (0.6-4.6); Lymphocytes % 5.5 %; Mean Corpuscular HGB Conc 30.5 g/dL (31.6-35.5); Mean Corpuscular Hemoglobin 27.4 pg (28.0-33.3); Mean Corpuscular Volume 89.9 fL (83.0-100.0); Mean Platelet Volume 9.8 fL (9.4-12.4); Monocytes # 0.7 K/mcL (0.0-1.3); Monocytes % 7.4 %; Neutrophils # 8.6 K/mcL (1.6-8.9); Nucleated Red Blood Cells 0.3 /100 WBC (0); Platelet Count 266 K/mcL (140-400); Red Blood Count 3.65 M/mcL (4.19-5.50); Red Cell Distribution Width 13.8 % (11.5-14.5); Segmented Neutrophils % 86.6 %
[2019-01-23 04:16] LABS: INR 2.2; Prothrombin Time 25.3 Seconds (9.4-12.1)
[2019-01-23 04:32] LABS: Activated Partial Thrombo Time 188.7 Seconds (26.0-36.0)
[2019-01-23 04:34] LABS: Calcium 6.3 mg/dL (8.6-10.3); Potassium 3.9 mEq/L (3.5-5.1); Troponin I 23.68 ng/mL (< 0.04)
[2019-01-23 05:03] LABS: ABG Base Excess -2 mEq/L (-2 to 3); ABG HCO3 24 mEq/L (21-27); ABG Oxygen Saturation 97 % (95-98); ABG PCO2 46 mmHg (35-45); ABG PH 7.33 pH Units (7.32-7.45); ABG PO2 92 mmHg (85-104); ABG TCO2 26 mEq/L (20-26); Blood Gas Modality ASSIST CONTROL; Blood Gas PEEP 5 cm H2O; Blood Gas Respiration Rate 16; Blood Gas VT 500 cc
[2019-01-23] MEDS: *HR* Heparin 5,000 UNIT/ML VIAL IVP PRN ×2 (05:18→12:18)
[2019-01-23 05:51] LABS: Albumin 2.1 g/dL (3.5-5.7); Albumin/Globulin Ratio 0.9 (1.1-2.2); Bilirubin,Direct 0.4 mg/dL (0.0-0.2); Bilirubin,Indirect 0.5 mg/dL (0.0-1.2); Bilirubin,Total 0.9 mg/dL (0.3-1.0); Globulin 2.3 g/dL (2.4-3.5); Total Protein 4.4 g/dL (6.4-8.9)
--- NOTE | 2019-01-23 08:34 | Anesthesia Evaluation Post Op ---
Date of Encounter: 01/22/19 Time of Encounter: 05:40 (late entry) - Vital Signs Vital Signs: Vital Signs/O2 Sat/Glucose, Most Current Temp Pulse Resp BP Pulse Ox 01/23/19 08:12 96.6 F L 01/23/19 07:32 107 16 84/58 98 01/23/19 07:31 16 85/58 98 01/23/19 06:00 106 16 88/59 94 01/23/19 05:47 16 81/56 98 01/23/19 05:00 104 16 82/56 97 - Lungs Lungs: Rhonchi - Airway Airway: Intubated - Cardiovascular Regular Rate - Mental Status Mental Status: Sedated - Pain Pain Scale used: Unable to assess - Nausea Vomiting Nausea Vomiting: Not Present - Hydration Hydration: NPO - Discharge PostOp Status: Transfer Patient to floor (ICU) Attestation: Pt is critically ill and did not tolerate induction/intubation and breif bronchoscopy, pt had st segement changes, became hypotensive and had change in QRS morphology in the or, he responded to pressors and after discussion with surgeon we decided to abort the case as the patient was very high risk for intraoperative . Pt was taken to the ICU for further management per ICU team
[2019-01-23] MEDS: methylPREDNISolone 125 MG/2 ML VIAL IVP SCH ×3 (08:45→23:38)
[2019-01-23] MEDS: Cefepime HCl 2,000 MG in Water for inj. (sterile) 20 ML 20 ML IVP SCH ×2 (08:48→21:26)
[2019-01-23] MEDS ORDERED: Metoprolol XL (24 HR) Succ 25 MG TAB.ER.24H PO SCH (09:00)
[2019-01-23 10:09] LABS: Hematocrit 39.3 % (37.5-50.1); Hemoglobin 12.4 g/dL (12.9-16.9); Immature Granulocytes % 0.4 % (0-4); Lymphocytes # 0.6 K/mcL (0.6-4.6); Mean Corpuscular HGB Conc 31.6 g/dL (31.6-35.5); Mean Corpuscular Hemoglobin 27.8 pg (28.0-33.3); Mean Corpuscular Volume 88.1 fL (83.0-100.0); Mean Platelet Volume 9.8 fL (9.4-12.4); Monocytes # 0.9 K/mcL (0.0-1.3); Monocytes % 7.5 %; Neutrophils # 10.5 K/mcL (1.6-8.9); Nucleated Red Blood Cells 0.7 /100 WBC (0); Platelet Count 326 K/mcL (140-400); Red Blood Count 4.46 M/mcL (4.19-5.50); Red Cell Distribution Width 13.9 % (11.5-14.5); Segmented Neutrophils % 87.1 %
--- NOTE | 2019-01-23 10:12 | Electrocardiograph Report ---
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
[2019-01-23] MEDS ORDERED: SODIUM BICARBONATE IVC SCH (10:15)
[2019-01-23] MEDS ORDERED: SODIUM CHLORIDE 0.45% IVC SCH (10:15)
--- NOTE | 2019-01-23 10:38 | Nephrology Consult Note ---
Date of Encounter: 01/23/19 Time of Encounter: 10:33 Assessment and Plan (1) Acute kidney injury Current Visit: Yes Status: Acute Patient has never had chronic kidney disease in the past, has never seen a cda teacher in the past. GFR was 29 yesterday is 23 today. Kayexalate ordered for K of 5.4. Minimal urine output noted, is receiving Albumin at this time. Continues to be on Levophed. Avoid nephrotoxins and renal dose. Strict I/O No indication for AUTOMOBILE MECHANIC ASSISTANT today, could change depending on clinical picture. Retroperitoneal US ordered. Urine studies ordered. (2) Acute hypoxemic respiratory failure Current Visit: Yes Status: Acute Continues to be on vent, per ICU team. (3) HCAP (healthcare-associated pneumonia) Current Visit: Yes Status: Acute Per ICU team. (4) NSTEMI (non-ST elevated myocardial infarction) Current Visit: Yes Status: Acute Cardiology on board, appreciate recommendations. (5) Pleural effusion Current Visit: Yes Status: Acute Per ICU team. (6) Hypotension Current Visit: Yes Status: Acute Continue Levophed. Qualifiers: Qualified Code(s): I95.9 - Hypotension, unspecified History of Present Illness - Reason for Consult Consult date: 01/23/19 Acute Kidney Injury Requesting physician: Nela Villela - Chief Complaint difficulty in breathing - History of Present Illness Mr. Lea is a 73 year old male who presented to ED on 01/19/19 for difficulty in breathing. Recent admission due to hemoptysis, family reports he went home and is never really regained his strength. Patient is currently sedated on the ventilator so most information has been collected from at bedside and with chart review. Per ED record, patient was coughing up sputum but denied hemoptysis at this time. Denies fever or chills. Denies chest pain. No urinary symptoms, denies hematuria, dysuria, urgency, or frequency. PMH: COPD and hypertension. He is a former smoker, denies EtOH or illicit drug use. He lives at home with his . His mother was on dialysis for a short time this included 2-3 tr eatments in the hospital, was never a routine outpatient hemodialysis patient. He has never seen a cda teacher in the past, has never been told he has chronic kidney disease. His does tell me he was taking some Motrin at home but not routinely and not more than once a day. Unsure of dosage. Past Med Surg Social Fam HX - Past Medical History Medical history: COPD, hypertension Psychiatric history: no psych history - Past Surgical History Surgical History: no surgical history - Social History Smoking Status: Former smoker (up to 4 packs per day for 50 to 55 years.) Smokeless Tobacco Status: No Alcohol use: none Drug use: none - Family History Father Living Status: Hx Family Cardiac Disorders: Yes Hx Family Cancer: Yes (Lung Cancer) Mother Living Status: Hx Family Endocrine Disorder: Yes Medications and Allergies Montelukast [Singulair] 10 mg PO HS 05/11/18 [History] Quinapril/Hydrochlorothiazide [Quinapril-Hctz 20-12.5 mg Tab] 1 tab PO DAILY 05/11/18 [History] HydrOXYzine 10 mg PO DAILY PRN 12/29/18 [History] Albuterol Sulfate [Albuterol Inhaler] 2 puff IH DAILY PRN 01/19/19 [History] Tiotropium [place] [Spiriva Respimat] 2 puff IH DAILY 01/20/19 [History] Allergy/AdvReac Type Severity Reaction Status Date / Time Penicillins Allergy See Verified 01/20/19 12:52 Comments Review of Systems All Systems review (narrative): The remainder of the systems are negative. Constitutional: fatigue, no chills, no fever(s) Cardiovascular: dyspnea, dyspnea on exertion, no chest pain, no edema Respiratory: no cough, no hemoptysis Gastrointestinal: no abdominal pain, no diarrhea, no nausea, no vomiting Genitourinary Male: no dysuria, no urinary frequency, no urinary hesitancy, no urinary incontinence Exam - Vital Signs Vital signs: Initial Vital Signs Temp Pulse Resp BP Pulse Ox 0 F L 144 32 150/104 97 01/19/19 09:11 01/19/19 09:11 01/19/19 09:11 01/19/19 09:11 01/19/19 09:11 Vital Signs - Last 8 Hours Temp Pulse Resp BP Pulse Ox 01/23/19 09:47 16 83/58 97 01/23/19 09:00 108 16 83/57 98 01/23/19 08:12 96.6 F L 01/23/19 08:00 96.6 F L 108 16 85/58 97 01/23/19 07:32 107 16 84/58 98 01/23/19 07:31 16 85/58 98 01/23/19 06:00 106 16 88/59 94 01/23/19 05:47 16 81/56 98 01/23/19 05:00 104 16 82/56 97 01/23/19 04:00 103 16 91/61 100 01/23/19 03:32 18 94/63 97 01/23/19 03:00 105 16 81/65 100 Intake and Output 01/22/19 01/23/19 01/23/19 23:59 07:59 15:59 Intake Total 167.1 / 167.1 110.1 / 110.1 336 / 336 Output Total 280 / 280 150 / 150 300 / 300 Balance -112.9 / -112.9 -39.9 / -39.9 36 / 36 Intake: IV Fluids 167.1 / 167.1 110.1 / 110.1 336 / 336 HumuLIN R 10 UNIT In Normal 10.1 / 10.1 Saline Flush 10 ML @ 1212 mls/ hr IV ONCE ONE Rx#:[id number] ALBURX 5% 12.5 gm In 250 ml @ 250 / 250 60 mls/hr IVC .Q4H10M KEENAN Rx#: [id number] Heparin 25,000 UNIT/250 ML D5W 60.3 / 60.3 25,000 unit In 250 ml @ 11.7 UNIT/KG/HR 9.945 mls/hr IVC . Q24H KEENAN Rx#:[id number] Versed 50 MG In 0.9 % Sodium 30.7 / 30.7 Chloride 90 ML @ 2 MG/HR 4 mls/ hr IVC CONT KEENAN Rx#:[id number] Levophed 4 MG In Dextrose 5% 37 / 37 19.1 / 19.1 66 / 66 250 ML @ 5 MCG/MIN 19.05 mls/hr IVC CONT KEENAN Rx#:[id number] Maxipime 2,000 MG In Water for 20 / 20 20 / 20 inj. (sterile) 20 ML @ 300 mls/ hr IVP Q12H KEENAN Rx#:[id number] Doxycycline 100 MG In 0.9 % 100 / 100 Sodium Chloride (Mini-Bag +) 100 ML @ 100 mls/hr IVPB Q12H KEENAN Rx#:[id number] Oral 0 / 0 Output: Estimated Blood Loss 0 / 0 Catheter 280 / 280 50 / 50 Gastric Drainage 150 / 150 250 / 250 Other: Blood Glucose* 203 - General Appearance General appearance: well-developed, well-nourished EENT: ATNC, hearing intact, vision intact Neck: supple Respiratory: clear Cardiology: no edema, normal S1, normal S2 Gastrointestinal: normoactive bowel sounds, no tenderness, no guarding Integumentary: no rash, warm and dry Neurologic: alert and oriented x3 Musculoskeletal: no deformities, no erythema Psychiatric: mood/affect appropriate, cooperative Results - Lab Results 01/23/19 09:55 01/23/19 09:55 Most recent lab results ABG pH 7.33 pH Units (7.32-7.45) 01/23/19 04:59 ABG pCO2 46 mmHg (35-45) H 01/23/19 04:59 ABG pO2 92 mmHg (85-104) 01/23/19 04:59 ABG HCO3 24 mEq/L (21-27) 01/23/19 04:59 ABG O2 Saturation 97 % (95-98) 01/23/19 04:59 Calcium 6.3 mg/dL (8.6-10.3) L 01/23/19 03:50 Phosphorus 7.2 mg/dL (2.7-4.5) H 01/22/19 18:37 Magnesium 2.8 mg/dL (1.6-2.6) H 01/22/19 17:25 Consult Discharge Plan - Plan Referrals: Ofelia Peterson CNP [Primary Care Provider] - 01/28/19 1:00 pm
[2019-01-23] MEDS ORDERED: Artificial Tears SOLN 15 ML BOTTLE BOTH EYES PRN (10:44)
[2019-01-23] MEDS ORDERED: D5% in Water 1,000 ML IVC PRN (10:49)
[2019-01-23] MEDS ORDERED: *HR* Dextrose 50 % in Water (Syg) 50 ML SYRINGE IVP PRN (10:49)
[2019-01-23] MEDS ORDERED: Dextrose Gel 15 GM/37.5 ML TUBE PO PRN ×2 (10:49)
[2019-01-23 10:52] LABS: Potassium 5.4 mEq/L (3.5-5.1)
[2019-01-23] MEDS: Doxycycline 100 MG in 0.9 % Sodium Chloride Mini Bag 100 ML IVPB SCH ×2 (10:57→21:25)
[2019-01-23] MEDS ORDERED: 0.9 % Sodium Chloride 500 ML IVC ONE (11:00)
[2019-01-23] MEDS: FentaNYL (PF) 1,000 MCG in 0.9 % Sodium Chloride 80 ML IVC SCH ×2 (11:28→23:57)
[2019-01-23 11:34] LABS: ABG Base Excess -3 mEq/L (-2 to 3); ABG HCO3 24 mEq/L (21-27); ABG Oxygen Saturation 95 % (95-98); ABG PCO2 50 mmHg (35-45); ABG PH 7.29 pH Units (7.32-7.45); ABG PO2 85 mmHg (85-104); ABG TCO2 26 mEq/L (20-26); Blood Gas Modality ASSIST CONTROL; Blood Gas PEEP 5 cm H2O; Blood Gas Respiration Rate 16; Blood Gas VT 500 cc
[2019-01-23 11:40] LABS: VBG Ionized Calcium 1.11 mmol/L (1.15-1.35)
[2019-01-23] MEDS: Aspirin Enteric Coated 81 MG Tablet PO SCH (11:42)
[2019-01-23] MEDS: Artificial Tears SOLN 15 ML BOTTLE BOTH EYES SCH ×4 (11:48→23:38)
[2019-01-23] MEDS: Insulin LISPRO 300 UNITS/3 ML VIAL SQ SCH ×2 (11:49→15:51)
--- NOTE | 2019-01-23 11:57 | Cardiology Progress Note ---
Date of Encounter: 01/23/19 Time of Encounter: 10:30 Assessment and Plan (1) Elevated troponin Current Visit: Yes Status: Resolved Taken over Hospital Cardiology Service today. Reviewed all pertinent medical records regarding Mr. Lea' case. The patient presented with pneumonia in December and was discharged. His symptoms worsened at home and subsequently he presented with respiratory failure and ultimately was intubated and transferred to ICU initally thought secondary to worsening pneumonia. Echo 01/20/19 demonstrated newly discovered LVEF - personally reviewed echo images. LVEF severely reduced but difficult to quantify given tachycardia. An echo performed on 01/22/19 was done when heart rates were better - images also personally revi ewed - LVEF severely reduced estimated at 15%. RV function appears moderately reduced as well. Findings demonstrate biventricular heart failure. Etiology of initial Echo findings is unclear - troponins were noted to be elevated in setting of PNA and septic picture. Over the last 24h, troponins markedly elevated after attempting anesthesia induction for bronchoscopy now requiring pressor and inotropic agents. ECG without acute findings. Per Critical Care team, limited bronchoscopy and bloody thoracentesis suggest malignancy. Discussed with Critical Care team patient's clinical status. We considered LHC/RHC. I also discussed the patient's case with Dr. Perez, Interventional Cardiology. Patient's overall clinical picture is poor and would not be an ideal candidate for shop laborer at this time. This was also discussed with patient's who strongly declined pursuing a cath at this time. The critical care team and I also discussed transfer to a tertiary care center given advanced heart failure and complexity of his condition. I attempted to also discuss this with the patient's but she was not in the room at the time. Per Primary team, had declined. (2) Systolic CHF Current Visit: Yes Status: Acute Biventricular heart failure in setting of pneumonia and respiratory failure. Ov igor clinical condition is poor. Recommended transfer but patient's declined. Qualifiers: Heart failure chronicity: acute Qualified Code(s): I50.21 - Acute systolic (congestive) heart failure Discussion w patient/family: The assessment and plan as outlined above was discussed with the patient and/or family members who expressed understanding and agreement. All questions were answered. Thank you for involving us in the care of your patient. Please call with any questions. Subjective Principal diagnosis: Hypoxic respiratory failure with penumonia and CHF exacerba tion Interval history: Patient decompensated during bronchoscopy yesterday after induction of general anesthesia. Per records, ST depressions noted on telemetry monitoring. The case was aborted. Patient responded to pressor agents. Objective Vital Signs, Last 4 Hours Temp Pulse Resp BP Pulse Ox 01/23/19 09:47 16 83/58 97 01/23/19 09:00 108 16 83/57 98 01/23/19 08:12 96.6 F L 01/23/19 08:00 96.6 F L 108 16 85/58 97 General: Other (intubated, sedated) HEENT: Other (ETT in place) Neck: No JVD Cardiac: Reg Rate and Rhythm, Normal S1 and S2, No Murmur Lungs: Other (diminished breath sounds) Neuro: Other (intubated sedated) Abdomen: Soft, Non-Tender, Other (soft BS present) Extremities: No Edema Results 01/23/19 09:55 01/23/19 09:55 Lab Results 01/22/19 01/22/19 01/22/19 11:27 17:25 17:25 WBC 15.5 H Hgb 12.2 L Hct 40.2 Plt Count 427 H INR 2.0 APTT 35.2 Sodium 139 Potassium 5.8 H Chloride 104 Carbon Dioxide 23 BUN 73 H Creatinine 1.72 H Glucose 212 H Calcium 9.9 Magnesium Total Bilirubin 1.1 H AST 442 H ALT 687 H Alkaline Phosphatase 70 Troponin I 01/22/19 01/22/19 01/22/19 17:25 18:37 21:05 WBC Hgb Hct Plt Count INR APTT Sodium 137 137 Potassium 5.8 H 4.9 Chloride 104 103 Carbon Dioxide 22 L 25 BUN 83 H 88 H Creatinine 2.22 H 2.24 H Glucose 197 H 253 H Calcium 9.3 9.5 Magnesium 2.8 H Total Bilirubin AST ALT Alkaline Phosphatase Troponin I 14.62 H* 01/22/19 01/23/19 01/23/19 22:20 03:50 03:50 WBC 9.9 Hgb 10.0 L D Hct 32.8 L Plt Count 266 INR 2.2 APTT 188.7 H* D Sodium Potassium Chloride Carbon Dioxide BUN Creatinine Glucose Calcium Magnesium Total Bilirubin 1.1 H AST 1504 H ALT 1717 H Alkaline Phosphatase 56 Troponin I 01/23/19 01/23/1919 03:50 09:55 09:55 WBC 12.1 H Hgb 12.4 L D Hct 39.3 Plt Count 326 INR APTT Sodium 150 H D 138 D Potassium 3.9 5.4 H D Chloride 115 H 104 Carbon Dioxide 16 L 23 BUN 80 H 109 H Creatinine 1.71 H 2.72 H Glucose 173 H 224 H Calcium 6.3 L 9.0 Magnesium Total Bilirubin 0.9 AST 900 H ALT 1305 H Alkaline Phosphatase 44 Troponin I 23.68 H* - Imaging and Cardiology Echo: report reviewed (01/20 and 01/22), image reviewed (01/20 Echo LVEF 20-25% while tachycardic, 01/22 Echo LVEF 15%) - EKG Interpretation EKG results cardiology: personally reviewed (ECG 01/22/19 2200 minor changes when compared to prior ECG - not STEMI) - VTE Reasons for not Prescribing Prophylaxis: Not indicated-Anticoagulated or INR therapeutic Consult Discharge Plan - Plan Referrals: Ofelia Peterson FURNACE REPAIR MECHANIC [Primary Care Provider] - 01/28/19 1:00 pm
--- NOTE | 2019-01-23 12:06 | Cardiothoracic Progress Note ---
Date of Encounter: 01/23/19 Time of Encounter: 12:05 - Assessment and plan (1) Community acquired pneumonia Current Visit: No Status: Acute The assessment and plan as outlined above was discussed with the patient and/or family members who expressed understanding and agreement. All questions were answered. continue antibx per pulmonary Qualifiers: Laterality: right Lung location: lower lobe of lung Qualified Code(s): J18.1 - Lobar pneumonia, unspecified organism (2) Pleural effusion Current Visit: Yes Status: Acute The assessment and plan as outlined above was discussed with the patient and/or family members who expressed understanding and agreement. All questions were answered. xray is stable updated and sister in law . Vital Signs, Last 4 Hours Temp Pulse Resp BP Pulse Ox 01/23/19 09:47 16 83/58 97 01/23/19 09:00 108 16 83/57 98 01/23/19 08:12 96.6 F L Oxgyen Flow Rate Oxygen Flow Rate (LPM) 8 Weight 01/21/19 01/22/19 01/23/19 23:59 23:59 23:59 Weight 85 kg - Physical Examination General: Other (intubated and sedated ) HEENT: Atraumatic, Normocephaly, Trachea midline Cardiac: Reg Rate and Rhythm, Normal S1 and S2 Lungs: Decreased breath sounds Neuro: Other (not grimacing to noxious stimuli or voice ) Abdomen: Soft - Labs 01/23/19 09:55 01/23/19 09:55 Lab Results, Last 24 hours 01/22/19 01/22/19 01/22/19 11:27 17:25 17:25 WBC 15.5 H Hgb 12.2 L Hct 40.2 Plt Count 427 H INR 2.0 APTT 35.2 Sodium 139 Potassium 5.8 H Chloride 104 Carbon Dioxide 23 BUN 73 H Creatinine 1.72 H Glucose 212 H Calcium 9.9 Magnesium Total Bilirubin 1.1 H AST 442 H ALT 687 H Alkaline Phosphatase 70 Troponin I 01/22/19 01/22/19 01/22/19 17:25 18:37 21:05 WBC Hgb Hct Plt Count INR APTT Sodium 137 137 Potassium 5.8 H 4.9 Chloride 104 103 Carbon Dioxide 22 L 25 BUN 83 H 88 H Creatinine 2.22 H 2.24 H Glucose 197 H 253 H Calcium 9.3 9.5 Magnesium 2.8 H Total Bilirubin AST ALT Alkaline Phosphatase Troponin I 14.62 H* 01/22/19 01/23/19 01/23/19 22:20 03:50 03:50 WBC 9.9 Hgb 10.0 L D Hct 32.8 L Plt Count 266 INR 2.2 APTT 188.7 H* D Sodium Potassium Chloride Carbon Dioxide BUN Creatinine Glucose Calcium Magnesium Total Bilirubin 1.1 H AST 1504 H ALT 1717 H Alkaline Phosphatase 56 Troponin I 01/23/19 01/23/19 01/23/19 03:50 09:55 09:55 WBC 12.1 H Hgb 12.4 L D Hct 39.3 Plt Count 326 INR APTT Sodium 150 H D 138 D Potassium 3.9 5.4 H D Chloride 115 H 104 Carbon Dioxide 16 L 23 BUN 80 H 109 H Creatinine 1.71 H 2.72 H Glucose 173 H 224 H Calcium 6.3 L 9.0 Magnesium Total Bilirubin 0.9 AST 900 H ALT 1305 H Alkaline Phosphatase 44 Troponin I 23.68 H* - VTE Reasons for not Prescribing Prophylaxis: Not indicated-Anticoagulated or INR therapeutic Consult Discharge Plan - Plan Referrals: Ofelia Peterson CNP [Primary Care Provider] - 01/28/19 1:00 pm
[2019-01-23] MEDS: Norepinephrine 4 MG in D5% in Water 250 ML IVC SCH (15:32)
--- NOTE | 2019-01-23 15:36 | Pulmonology Progress Note ---
Date of Encounter: 01/23/19 Time of Encounter: 08:00 Assessment and Plan (1) Acute hypoxemic respiratory failure Current Visit: No Status: Acute Mostly secondary to worsening pneumonia, worsening pleural effusion in the setting of systolic CHF exacerbation. Patient went to the OR developed cardiogenic shock patient was transferred to the ICU mechanical ventilation will do low tidal volume strategy will start on inotrope norepinephrine. And I repeated the blood gas adequate gas exchange and acceptable ventilation. 01/23 patient with pneumonia now with right-sided pleural effusion with pleural fluid cytology showing no malignant cells and he is complicated with acute exacerbation of systolic heart failure with low output with shock with multior esmer dysfunction. Patient is intubated and mechanical ventilated. (2) Cardiogenic shock Current Visit: Yes Status: Acute EF 25% with RV systolic dysfunction both the low ejection fraction and the low RV systolic function with patient mechanical ventilated during the procedure would increased PA pressures which the reduced blood flowing through the lung and getting back to the left side of the heart. Patient has other end organ damage kidney injury 01/23 spoke with bilingual school psychologist today patient has biventricular heart failure patient is high risk candidate for left heart catheterization and right heart catheterization started on inotrope dobutamine see that will help his kidney function and liver function. Given the option for the family to take him to advance tertiary care heart failure management as suggested by bilingual school psychologist to patient declined it. We will continue with the vitamin and follow-up with lactate, his basic metabolic panel and I will follow his hepatic function. (3) HCAP (healthcare-associated pneumonia) Current Visit: Yes Status: Acute Continue broad-spectrum antibiotics I suspect this pleural effusion is not parapneumonic might be malignancy related to his pro-calcitonin is negative a low suspicion for recurrent pneumonia . 01/23 continue broad-spectrum antibiotics until the pleural fluid culture comes negative then we can de-escalate antibiotics. (4) NSTEMI (non-ST elevated myocardial infarction) Current Visit: Yes Status: Acute Patient with worsening systolic function when compared to 2018 most likely due to ischemic cardiomyopathy patient is a high risk for left heart catheterization and right heart catheterization according to cardiology team case was discussed with pharmacy services director who is on-call today. Will continue the current medical management according to cardiology appreciate their input. (5) COPD exacerbation Current Visit: No Status: Acute Continue schedule bronchodilators and steroids. (6) Systolic CHF Current Visit: Yes Status: Acute Patient has biventricular heart failure discussed about various options with cardiology will continue dobutamine for now. Qualifiers: Heart failure chronicity: acute Qualified Code(s): I50.21 - Acute systolic (congestive) heart failure (7) Pleural effusion Current Visit: Yes Status: Acute Patient has bilateral pleural effusion but more on the right side 1 L of hemorrhagic pleural effusion was removed. Concerning for malignancy consulted thoracic surgery spoke with Dr. Dan is going to take him to the OR today. 01/23 patient pleural fluid cytology is negative waiting for microbiology. This might be possible malignant pleural effusion will need that thoracoscopy at some point when patient is more stable. (8) Shock liver Current Visit: Yes Status: Acute Most likely due to the low output state due to systolic heart failure. (9) Acute kidney injury Current Visit: Yes Status: Acute Most likely due to acute tubular necrosis secondary to low output state nephrology following will need dialysis in one or 2 days. Subjective Principal diagnosis: Hypoxic respiratory failure with penumonia and CHF exacerba tion Interval history: Patient after the thoracentesis is doing well oxygen requirement coming down patient still complaining of some sharp shortness of breath patient denies for chest pain chest tightness denies any palpitation or syncope. Patient went to the OR for bronchoscopy and thoracoscopy patient had a bronchoscopy done under general anesthesia patient has some cobblestoning appearance in the right bronchus intermedius no other endobronchial lesion in the pleural space disease is more concerning for malignancy before we do that thoracoscopy patient decompensated into cardiogenic shock. Patient has signs of low output with worsening renal and liver function. After the episode of intraoperative hypotension the procedure was called off patient was transferred to the ICU. 01/23 patient is not responding not much patient is in cardiogenic shock with end organ damage with kidney and liver. Patient had an non-ST elevation [place] in the OR yesterday while trying to do an attempted surgical thoracoscopy. Patient is still intubated and ventilated needing on and off vasopressors/ionotropes Objective PUL Vital signs: Last Vital Signs Temp 98.4 F 01/23/19 12:54 Pulse 119 01/23/19 14:00 Resp 16 01/23/19 15:00 BP 88/66 01/23/19 14:00 Pulse Ox 98 01/23/19 15:00 General appearance: other (patient is intubated and sedated ) Auscultation: bilateral: diminished breath sounds (Basilar diminished breath sounds), rales (Minimal scattered rales) Cardiovascular: other (sinus tachycardia ) unable to assess due to mental status other (Unable to assess due to mental status) Ventilator Settings Ventilator Settings: Ventilator Settings, Last 8 Hours Ventilator Tidal Volume 500 Setting Ventilator Tidal Volume 500 Setting Ventilator Tidal Volume 500 Setting Ventilator Tidal Volume 500 Setting Ventilator Tidal Volume 500 Setting Ventilator Tidal Volume 500 Setting Ventilator Tidal Volume 500 Setting Ventilator Tidal Volume 500 Setting Ventilator Tidal Volume 500 Setting Ventilator Tidal Volume 500 Setting Ventilator Tidal Volume 500 Setting Ventilator Respiratory Rate 16 Setting Ventilator Respiratory Rate 16 Setting Ventilator Respiratory Rate 16 Setting Ventilator Respiratory Rate 16 Setting Ventilator Respiratory Rate 16 Setting Ventilator Respiratory Rate 16 Setting Ventilator Respiratory Rate 16 Setting Ventilator Respiratory Rate 16 Setting Ventilator Respiratory Rate 16 Setting Ventilator Respiratory Rate 16 Setting Ventilator Respiratory Rate 16 Setting Actual Respiratory Rate 16 Actual Respiratory Rate 16 Actual Respiratory Rate 16 Actual Respiratory Rate 16 Actual Respiratory Rate 16 Actual Respiratory Rate 16 Actual Respiratory Rate 16 Actual Respiratory Rate 16 Actual Respiratory Rate 16 Actual Respiratory Rate 16 Actual Respiratory Rate 16 Positive End Expiratory 5 Pressure Positive End Expiratory 5 Pressure Positive End Expiratory 5 Pressure Positive End Expiratory 5 Pressure Positive End Expiratory 5 Pressure Positive End Expiratory 5 Pressure Positive End Expiratory 5 Pressure Positive End Expiratory 5 Pressure Positive End Expiratory 5 Pressure Positive End Expiratory 5 Pressure Positive End Expiratory 5 Pressure Peak Inspiratory Airway 24 Pressure Peak Inspiratory Airway 26 Pressure Peak Inspiratory Airway 26 Pressure Peak Inspiratory Airway 26 Pressure Peak Inspiratory Airway 25 Pressure Peak Inspiratory Airway 26 Pressure Peak Inspiratory Airway 25 Pressure Peak Inspiratory Airway 25 Pressure Peak Inspiratory Airway 23 Pressure Peak Inspiratory Airway 25 Pressure Peak Inspiratory Airway 26 Pressure Results - Laboratory Findings CBC and BMP: 01/23/19 09:55 01/23/19 09:55 ABG ABG pH 7.29 pH Units (7.32-7.45) L 01/23/19 11:32 ABG pCO2 50 mmHg (35-45) H 01/23/19 11:32 ABG pO2 85 mmHg (85-104) 01/23/19 11:32 ABG O2 Saturation 95 % (95-98) 01/23/19 11:32 PT/INR, D-dimer PT 25.3 Seconds (9.4-12.1) H 01/23/19 03:50 D-Dimer 2144 ng/mLFEU (0-500) H 01/19/19 09:15 Abnormal lab findings: Abnormal lab results WBC 12.1 K/mcL (4.3-11.1) H 01/23/19 09:55 Hgb 12.4 g/dL (12.9-16.9) L D 01/23/19 09:55 MCH 27.8 pg (28.0-33.3) L 01/23/19 09:55 Neutrophils # 10.5 K/mcL (1.6-8.9) H 01/23/19 09:55 Nucleated RBCs/100 WBC 0.7 /100 WBC (0) H 01/23/19 09:55 Platelet Estimate Increased (Normal) H 01/19/19 09:15 PT 25.3 Seconds (9.4-12.1) H 01/23/19 03:50 APTT 188.7 Seconds (26.0-36.0) H* D 01/23/19 03:50 D-Dimer 2144 ng/mLFEU (0-500) H 01/19/19 09:15 Heparin Anti-Xa, Unfract 0.20 IU/mL (0.30-0.70) L 01/23/19 11:25 ABG pH 7.29 pH Units (7.32-7.45) L 01/23/19 11:32 ABG pCO2 50 mmHg (35-45) H 01/23/19 11:32 ABG Base Excess -3 mEq/L (-2 to 3) L 01/23/19 11:32 Potassium 5.4 mEq/L (3.5-5.1) H D 01/23/19 09:55 BUN 109 mg/dL (8-23) H 01/23/19 09:55 Creatinine 2.72 mg/dL (0.70-1.30) H 01/23/19 09:55 Est GFR ( Amer) 28 (> 60) L 01/23/19 09:55 Est GFR (Non-Af Amer) 23 (> 60) L 01/23/19 09:55 BUN/Creatinine Ratio 40 (6-26) H 01/23/19 09:55 Glucose 224 mg/dL (70-105) H 01/23/19 09:55 POC Glucose 199 mg/dL (70-99) H 01/23/19 11:48 Calculated Osmolality 327 (280-300) H 01/23/19 09:55 Uric Acid 13.0 mg/dL (2.3-7.6) H 01/22/19 18:37 Venous Ioniz Calcium 1.11 mmol/L (1.15-1.35) L 01/23/19 11:37 Phosphorus 7.2 mg/dL (2.7-4.5) H 01/22/19 18:37 Magnesium 2.8 mg/dL (1.6-2.6) H 01/22/19 17:25 Direct Bilirubin 0.4 mg/dL (0.0-0.2) H 01/23/19 03:50 AST 900 Units/L (13-39) H 01/23/19 03:50 ALT 1305 Units/L (7-52) H 01/23/19 03:50 Creatine Kinase 620 Units/L (30-223) H 01/23/19 03:50 Troponin I 23.68 ng/mL (< 0.04) H* 01/23/19 03:50 B-Natriuretic Peptide 764 pg/mL (Less than 100) H 01/19/19 09:15 Serum Total Protein 4.4 g/dL (6.4-8.9) L 01/23/19 03:50 Albumin 2.1 g/dL (3.5-5.7) L 01/23/19 03:50 Globulin 2.3 g/dL (2.4-3.5) L 01/23/19 03:50 Albumin/Globulin Ratio 0.9 (1.1-2.2) L 01/23/19 03:50 Urine Clarity Turbid (Clear) A 01/22/19 21:01 Urine Protein 100 mg/dL (Neg-Trace) H 01/22/19 21:01 Urine Ketones Trace mg/dL (Negative) H 01/22/19 21:01 Urine Blood Large (Negative) H 01/22/19 21:01 Urine Bilirubin Small (Negative) H 01/22/19 21:01 Ur Leukocyte Esterase Trace (Negative) H 01/22/19 21:01 Urine Microscopic RBC 15-30 per hpf (0-3) H 01/22/19 21:01 Urine Microscopic WBC 30-50 per hpf (0-3) H 01/22/19 21:01 Ur Squamous Epith Cells Many per lpf (None-Few) H 01/22/19 21:01 Urine Bacteria Moderate per hpf (None-Few) H 01/22/19 21:01 Hyaline Casts Many per lpf (None-Few) H 01/22/19 21:01 Pleural Appearance Bloody (Clear) A 01/21/19 14:00 Pleural RBC 0.529 M/mcL (0.000-0.002) H 01/21/19 14:00 Pleural Tot Nuc Cell 1225 TNC/mcL (0-1000) H 01/21/19 14:00 - Microbiology Findings Microbiology Findings: Microbiology, Last 48 Hours 01/21/19 14:00 Body Fluid Culture - Preliminary Pleural Fluid 01/22/19 20:00 Legionella Antigen - Final Urine,Clean Catch Streptococcus pneumoniae Antigen (M - Final 01/21/19 14:00 Acid Fast Stain - Final Pleural Fluid 01/21/19 14:00 Anaerobic Culture - Preliminary Pleural Fluid Culture is incubating. - Clinical Findings Intake & Output: Intake & Output 01/22/19 01/23/19 01/23/19 23:59 07:59 15:59 Intake Total 167.1 / 167.1 110.1 / 110.1 643 / 643 Output Total 280 / 280 150 / 150 400 / 400 Balance -112.9 / -112.9 -39.9 / -39.9 243 / 243 - VTE Reasons for not Prescribing Prophylaxis: Not indicated-Anticoagulated or INR therapeutic Consult Discharge Plan - Plan Referrals: Ofelia Peterson CNP [Primary Care Provider] - 01/28/19 1:00 pm Critical Care Time Critical Care Time: Yes Total Critical Care Time: 50 Attestation: I I spent 50 minutes of Critical Care time with this patient. It involved decision making of high complexity to assess, manipulate, and support vital organ system failure and/or to prevent further life threatening deterioration of the patient's condition. The time involved in the performance of separately reportable procedures was not counted toward critical care time.
[2019-01-23 16:30] LABS: ABG Base Excess -1 mEq/L (-2 to 3); ABG HCO3 23 mEq/L (21-27); ABG Oxygen Saturation 98 % (95-98); ABG PCO2 35 mmHg (35-45); ABG PH 7.43 pH Units (7.32-7.45); ABG PO2 100 mmHg (85-104); ABG TCO2 24 mEq/L (20-26); Blood Gas PEEP 5 cm H2O; Blood Gas Respiration Rate 22; Blood Gas VT 550 cc
--- NOTE | 2019-01-23 19:14 | Event Note ---
Date of Encounter: 01/23/19 Time of Encounter: 19:12 I was called by the nurse who stated that the family wished to change CODE STATUS. I discussed with the patient's sister, Sommer at bedside who states that the family has decided to make him a DNR CCA. This decision is mainly coming from his Carly with all family in agreement. I has to speak with the patient's however the sister states that she is extremely broken up and does not want to talk right now. She did strongly firm that this is a family physician and everybody is agreeable. The nurse also states that the wants to change CODE STATUS to DNR CCA. We will change CODE STATUS to DNR CCA and did make myself available at any time to speak with the patient's .
[2019-01-23] MEDS ORDERED: Insulin LISPRO 300 UNITS/3 ML VIAL SQ SCH (21:00)
[2019-01-23] MEDS: Heparin 25,000 UNIT/250 ML D5W 25,000 UNIT/250 ML IV.SOLN IVC SCH (21:24)
[2019-01-23] MEDS: Chlorhexidine Rinse 15 ML MOUTHWASH MM SCH (21:26)
[2019-01-24] MEDS: Norepinephrine 4 MG in D5% in Water 250 ML IVC SCH ×3 (01:51→15:55)
[2019-01-24 02:46] LABS: Adenovirus Not Detected (Not Detect); Bordetella Pertussis Not Detected (Not Detect); Chlamydophila pneumoniae Not Detected (Not Detect); Coronavirus 229E Not Detected (Not Detect); Coronavirus HKU1 Not Detected (Not Detect); Coronavirus NL63 Not Detected (Not Detect); Coronavirus OC43 Not Detected (Not Detect); Human Metapneumovirus Not Detected (Not Detect); Human Rhinovirus/Enterovirus Not Detected (Not Detect); Influenza A Subtype 2009 H1 Not Detected (Not Detect); Influenza A Untypeable Not Detected (Not Detect); Influenza B Not Detected (Not Detect); Mycoplasma pneumoniae Not Detected (Not Detect); Parainfluenza Virus 1 Not Detected (Not Detect); Parainfluenza Virus 2 Not Detected (Not Detect); Parainfluenza Virus 3 Not Detected (Not Detect); Parainfluenza Virus 4 Not Detected (Not Detect); Respiratory Syncytial Virus Not Detected (Not Detect)
[2019-01-24] MEDS: Artificial Tears SOLN 15 ML BOTTLE BOTH EYES SCH ×4 (03:35→15:56)
[2019-01-24] MEDS: *HR* Heparin 5,000 UNIT/ML VIAL IVP PRN (04:12)
[2019-01-24 05:54] LABS: ABG Base Excess 0 mEq/L (-2 to 3); ABG HCO3 25 mEq/L (21-27); ABG Oxygen Saturation 95 % (95-98); ABG PCO2 41 mmHg (35-45); ABG PO2 78 mmHg (85-104); ABG TCO2 26 mEq/L (20-26); Blood Gas Modality ASSIST CONTROL; Blood Gas PEEP 5 cm H2O; Blood Gas Respiration Rate 22; Blood Gas VT 550 cc
[2019-01-24 06:39] LABS: Hematocrit 33.8 % (37.5-50.1); Immature Granulocytes % 0.8 % (0-4); Lymphocytes # 0.6 K/mcL (0.6-4.6); Lymphocytes % 4.9 %; Mean Corpuscular HGB Conc 31.7 g/dL (31.6-35.5); Mean Corpuscular Hemoglobin 27.7 pg (28.0-33.3); Mean Corpuscular Volume 87.6 fL (83.0-100.0); Mean Platelet Volume 9.9 fL (9.4-12.4); Monocytes # 1.1 K/mcL (0.0-1.3); Monocytes % 9.4 %; Neutrophils # 9.9 K/mcL (1.6-8.9); Nucleated Red Blood Cells 0.9 /100 WBC (0); Platelet Count 234 K/mcL (140-400); Red Blood Count 3.86 M/mcL (4.19-5.50); Segmented Neutrophils % 84.9 %
[2019-01-24 06:43] LABS: Hemoglobin 10.7 g/dL (12.9-16.9)
[2019-01-24] MEDS: Insulin LISPRO 300 UNITS/3 ML VIAL SQ SCH ×3 (08:12→15:55)
--- NOTE | 2019-01-24 08:13 | Cardiothoracic Progress Note ---
Date of Encounter: 01/24/19 Time of Encounter: 08:10 - Assessment and plan (1) Community acquired pneumonia Current Visit: No Status: Acute The assessment and plan as outlined above was discussed with the patient and/or family members who expressed understanding and agreement. All questions were answered. continue antibx per pulmonary Qualifiers: Laterality: right Lung location: lower lobe of lung Qualified Code(s): J18.1 - Lobar pneumonia, unspecified organism (2) Pleural effusion Current Visit: Yes Status: Acute The assessment and plan as outlined above was discussed with the patient and/or family members who expressed understanding and agreement. All questions were answered. xray is stable updated and sister in law . (3) Cardiogenic shock Current Visit: Yes Status: Acute The assessment and plan as outlined above was discussed with the patient and/or family members who expressed understanding and agreement. All questions were answered. i have ordered HIT panel as plt count has decreased nearly 50%. recheck troponin. would recommend follow up echo since starting dobutamine to eval heart function. - Subjective Interval history: change in code status Vital Signs, Last 4 Hours Pulse Resp BP Pulse Ox 01/24/19 07:23 22 87/60 97 01/24/19 07:00 111 22 93/62 92 01/24/19 06:13 23 92 01/24/19 06:00 121 22 83/58 92 01/24/19 05:00 111 22 88/60 96 Oxgyen Flow Rate Oxygen Flow Rate (LPM) 8 Weight 01/22/19 01/23/19 01/24/19 23:59 23:59 23:59 Weight 82.1 kg - Physical Examination General: Other (intuabed and sedated ) HEENT: Atraumatic, Normocephaly Neck: No JVD Cardiac: Reg Rate and Rhythm, Normal S1 and S2 Lungs: Normal Breath Sounds Neuro: Other (sedated on versed and fentanly) Vascular: Normal capillary refill Abdomen: Soft, Non-tender - Labs 01/24/19 06:08 01/24/19 06:08 Lab Results, Last 24 hours 01/23/19 01/23/19 01/24/19 09:55 09:55 06:08 WBC 12.1 H 11.7 H Hgb 12.4 L D 10.7 L D Hct 39.3 33.8 L Plt Count 326 234 Sodium 138 D Potassium 5.4 H D Chloride 104 Carbon Dioxide 23 BUN 109 H Creatinine 2.72 H Glucose 224 H Calcium 9.0 01/24/19 06:08 WBC Hgb Hct Plt Count Sodium 147 H D Potassium 4.0 D Chloride 110 H Carbon Dioxide 20 L BUN 112 H Creatinine 2.65 H Glucose 228 H Calcium 7.0 L - VTE Reasons for not Prescribing Prophylaxis: Not indicated-Anticoagulated or INR therapeutic Consult Discharge Plan - Plan Referrals: Ofelia Peterson CNP [Primary Care Provider] - 01/28/19 1:00 pm
[2019-01-24] MEDS: Cefepime HCl 2,000 MG in Water for inj. (sterile) 20 ML 20 ML IVP SCH (08:28)
[2019-01-24] MEDS: Chlorhexidine Rinse 15 ML MOUTHWASH MM SCH (08:28)
[2019-01-24] MEDS: methylPREDNISolone 125 MG/2 ML VIAL IVP SCH (08:28)
[2019-01-24] MEDS: Aspirin Enteric Coated 81 MG Tablet PO SCH (08:28)
--- NOTE | 2019-01-24 08:32 | Pulmonology Progress Note ---
<Lisa Vanegas M - Last Filed: 01/24/19 15:19> Date of Encounter: 01/24/19 Time of Encounter: 09:15 Assessment and Plan (1) Acute hypoxemic respiratory failure Current Visit: No Status: Acute Patient is intubated and on mechanical ventilation since 01/22/19 Likely due to pneumonia, acute on chronic CHF, right sided pleural effusion, cardiogenic shock Continue daily ABG and adjust vent settings accordingly Will add precedex for sedation in addition to versed and fentanyl Continue doxycycline and cefepime for pneumonia, wean off vent as tolerated (2) Cardiogenic shock Current Visit: Yes Status: Acute Developed cardiogenic shock in the OR on 01/22 EF 25% with severe global and segmental LV systolic dysfunction, moderate RV hypokinesis Has end organ ischemia with FRANCY and transaminitis On dobutamine and levofed Will obtain repeat limited echocardiogram to assess EF as patient on dobutamine (3) HCAP (healthcare-associated pneumonia) Current Visit: Yes Status: Acute CXR 01/22 with right sided pleural effusion and bibasilar volume loss Pleural effusion likely malignancy related to pro-calcitonin negative and low suspicion for recurrent pneumonia Urine legionella Ag and strep Ag negative Pleural fluid acid fast stain and culture 01/21 negative Influenza negative Blood cultures x2 01/19 negative On cefepime day 6, doxycycline, day 5. (4) NSTEMI (non-ST elevated myocardial infarction) Current Visit: Yes Status: Acute Troponin elevating. 14.62, 23.68, today 28.41 Has worsening systolic function likely ischemic cardiomyopathy Cardiology evaluated patient. Appreciate their recommendations Patient is high risk for LHC and RHC Continue medical management with aspirin and lipitor (5) Acute on chronic systolic heart failure Current Visit: Yes Status: Acute Patient has cardiogenic shock and likely iscemic cardiomyopathy with NSTEMI Cardiology following Continue with dobutamine as above Pending repeat echocardiogram results (6) COPD exacerbation Current Visit: No Status: Acute Continue IV solumedrol Plan as above (7) Shock liver Current Visit: Yes Status: Acute LFTs improving Likely ischemic hepatitis from from low output state from systolic heart failure Continue to monitor (8) Pleural effusion Current Visit: Yes Status: Acute Bilateral pleural effusion R>L with 1L of hemorrhagic pleural effusion removed on 01/21/19 Concerning for malignancy Cytology negative to date Appreciate thoracic surgery, Dr. Dan recommendations (9) Acute kidney injury Current Visit: Yes Status: Acute Stable. BUN 112 and Cr 2.65 with GFR 24 today Liekly due to acute tubular necrosis due to low output state from systolic heart failure Retroperitoneal US reviewed and no evidence of hydronephrosis Appreciate Nephrology recommendations Avoid nephrotoxic medications Continue to monitor Subjective Principal diagnosis: Hypoxic respiratory failure with penumonia and CHF exacerbation Interval history: Patient is seen and examined at bedside with family. He is sedated and intubated on mechanical ventilation for acute on chronic respiratory failure due to pneumonia and cardiogenic shock. Not responsive. Code status changed overnight to [id number]. Remains on presser support with levofed and on dobutamine. No acute events overnight. Yesterday intake 1967mL with output of 860mL. Objective PUL Vital signs: Last Vital Signs Temp 97.9 F 01/24/19 04:00 Pulse 111 01/24/19 07:00 Resp 22 01/24/19 07:23 BP 87/60 01/24/19 07:23 Pulse Ox 97 01/24/19 07:23 General appearance: other (sedated and intuabted) Eyes: nonicteric ENT: oropharynx moist Effort: other (bibasilar diminished breath sounds otherwise no crackles or wheezing) Cardiovascular: other (regular rhythm, tachycardic) Gastrointestinal: normoactive bowel sounds, soft, non-distended Extremities: no cyanosis, no edema other (Unable to assess neurologic status due to sedation) other (unable to assess due to mental status) Ventilator Settings Ventilator Settings: Ventilator Settings, Last 8 Hours Ventilator Tidal Volume 550 Setting Ventilator Tidal Volume 550 Setting Ventilator Tidal Volume 550 Setting Ventilator Tidal Volume 550 Setting Ventilator Tidal Volume 550 Setting Ventilator Tidal Volume 550 Setting Ventilator Tidal Volume 550 Setting Ventilator Tidal Volume 550 Setting Ventilator Tidal Volume 550 Setting Ventilator Tidal Volume 550 Setting Ventilator Tidal Volume 550 Setting Ventilator Respiratory Rate 22 Setting Ventilator Respiratory Rate 22 Setting Ventilator Respiratory Rate 22 Setting Ventilator Respiratory Rate 22 Setting Ventilator Respiratory Rate 22 Setting Ventilator Respiratory Rate 22 Setting Ventilator Respiratory Rate 22 Setting Ventilator Respiratory Rate 22 Setting Ventilator Respiratory Rate 22 Setting Ventilator Respiratory Rate 22 Setting Ventilator Respiratory Rate 22 Setting Actual Respiratory Rate 22 Actual Respiratory Rate 22 Actual Respiratory Rate 22 Actual Respiratory Rate 22 Actual Respiratory Rate 22 Actual Respiratory Rate 22 Actual Respiratory Rate 22 Actual Respiratory Rate 22 Actual Respiratory Rate 22 Actual Respiratory Rate 22 Positive End Expiratory 5 Pressure Positive End Expiratory 5 Pressure Positive End Expiratory 5 Pressure Positive End Expiratory 5 Pressure Positive End Expiratory 5 Pressure Positive End Expiratory 5 Pressure Positive End Expiratory 5 Pressure Positive End Expiratory 5 Pressure Positive End Expiratory 5 Pressure Positive End Expiratory 5 Pressure Positive End Expiratory 5 Pressure Peak Inspiratory Airway 30 Pressure Peak Inspiratory Airway 31 Pressure Peak Inspiratory Airway 31 Pressure Peak Inspiratory Airway 31 Pressure Peak Inspiratory Airway 30 Pressure Peak Inspiratory Airway 30 Pressure Peak Inspiratory Airway 30 Pressure Peak Inspiratory Airway 30 Pressure Peak Inspiratory Airway 30 Pressure Peak Inspiratory Airway 30 Pressure Results - Laboratory Findings CBC and BMP: 01/24/19 06:08 01/24/19 06:08 ABG ABG pH 7.40 pH Units (7.32-7.45) 01/24/19 05:51 ABG pCO2 41 mmHg (35-45) 01/24/19 05:51 ABG pO2 78 mmHg (85-104) L 01/24/19 05:51 ABG O2 Saturation 95 % (95-98) 01/24/19 05:51 PT/INR, D-dimer PT 25.3 Seconds (9.4-12.1) H 01/23/19 03:50 D-Dimer 2144 ng/mLFEU (0-500) H 01/19/19 09:15 Abnormal lab findings: Abnormal lab results WBC 11.7 K/mcL (4.3-11.1) H 01/24/19 06:08 RBC 3.86 M/mcL (4.19-5.50) L 01/24/19 06:08 Hgb 10.7 g/dL (12.9-16.9) L D 01/24/19 06:08 Hct 33.8 % (37.5-50.1) L 01/24/19 06:08 MCH 27.7 pg (28.0-33.3) L 01/24/19 06:08 Neutrophils # 9.9 K/mcL (1.6-8.9) H 01/24/19 06:08 Nucleated RBCs/100 WBC 0.9 /100 WBC (0) H 01/24/19 06:08 Platelet Estimate Increased (Normal) H 01/19/19 09:15 PT 25.3 Seconds (9.4-12.1) H 01/23/19 03:50 APTT 188.7 Seconds (26.0-36.0) H* D 01/23/19 03:50 D-Dimer 2144 ng/mLFEU (0-500) H 01/19/19 09:15 Heparin Anti-Xa, Unfract 0.28 IU/mL (0.30-0.70) L 01/24/19 03:15 ABG pO2 78 mmHg (85-104) L 01/24/19 05:51 Sodium 147 mEq/L (136-145) H D 01/24/19 06:08 Chloride 110 mEq/L (98-107) H 01/24/19 06:08 Carbon Dioxide 20 mEq/L (23-29) L 01/24/19 06:08 BUN 112 mg/dL (8-23) H 01/24/19 06:08 Creatinine 2.65 mg/dL (0.70-1.30) H 01/24/19 06:08 Est GFR ( Amer) 29 (> 60) L 01/24/19 06:08 Est GFR (Non-Af Amer) 24 (> 60) L 01/24/19 06:08 BUN/Creatinine Ratio 42 (6-26) H 01/24/19 06:08 Glucose 228 mg/dL (70-105) H 01/24/19 06:08 POC Glucose 222 mg/dL (70-99) H 01/24/19 08:08 Calculated Osmolality 347 (280-300) H 01/24/19 06:08 Uric Acid 13.0 mg/dL (2.3-7.6) H 01/22/19 18:37 Calcium 7.0 mg/dL (8.6-10.3) L 01/24/19 06:08 Venous Ioniz Calcium 1.11 mmol/L (1.15-1.35) L 01/23/19 11:37 Phosphorus 7.2 mg/dL (2.7-4.5) H 01/22/19 18:37 Magnesium 2.8 mg/dL (1.6-2.6) H 01/22/19 17:25 Direct Bilirubin 0.4 mg/dL (0.0-0.2) H 01/23/19 03:50 AST 900 Units/L (13-39) H 01/23/19 03:50 ALT 1305 Units/L (7-52) H 01/23/19 03:50 Creatine Kinase 620 Units/L (30-223) H 01/23/19 03:50 Troponin I 23.68 ng/mL (< 0.04) H* 01/23/19 03:50 B-Natriuretic Peptide 764 pg/mL (Less than 100) H 01/19/19 09:15 Serum Total Protein 4.4 g/dL (6.4-8.9) L 01/23/19 03:50 Albumin 2.1 g/dL (3.5-5.7) L 01/23/19 03:50 Globulin 2.3 g/dL (2.4-3.5) L 01/23/19 03:50 Albumin/Globulin Ratio 0.9 (1.1-2.2) L 01/23/19 03:50 Urine Clarity Turbid (Clear) A 01/22/19 21:01 Urine Protein 100 mg/dL (Neg-Trace) H 01/22/19 21:01 Urine Ketones Trace mg/dL (Negative) H 01/22/19 21:01 Urine Blood Large (Negative) H 01/22/19 21:01 Urine Bilirubin Small (Negative) H 01/22/19 21:01 Ur Leukocyte Esterase Trace (Negative) H 01/22/19 21:01 Urine Microscopic RBC 15-30 per hpf (0-3) H 01/22/19 21:01 Urine Microscopic WBC 30-50 per hpf (0-3) H 01/22/19 21:01 Ur Squamous Epith Cells Many per lpf (None-Few) H 01/22/19 21:01 Urine Bacteria Moderate per hpf (None-Few) H 01/22/19 21:01 Hyaline Casts Many per lpf (None-Few) H 01/22/19 21:01 Pleural Appearance Bloody (Clear) A 01/21/19 14:00 Pleural RBC 0.529 M/mcL (0.000-0.002) H 01/21/19 14:00 Pleural Tot Nuc Cell 1225 TNC/mcL (0-1000) H 01/21/19 14:00 - Microbiology Findings Microbiology Findings: Microbiology, Last 48 Hours 01/21/19 14:00 Body Fluid Culture - Preliminary Pleural Fluid 01/22/19 20:00 Legionella Antigen - Final Urine,Clean Catch Streptococcus pneumoniae Antigen (M - Final 01/21/19 14:00 Acid Fast Stain - Final Pleural Fluid - Clinical Findings Intake & Output: Intake & Output 01/23/19 01/24/19 01/24/19 23:59 07:59 15:59 Intake Total 1082.7 / 1082.7 662.4 / 662.4 Output Total 310 / 310 350 / 350 Balance 772.7 / 772.7 312.4 / 312.4 Weight 82.1 kg - VTE Reasons for not Prescribing Prophylaxis: Not indicated-Anticoagulated or INR therapeutic Consult Discharge Plan - Plan Referrals: Ofelia Peterson CNP [Primary Care Provider] - 01/28/19 1:00 pm <Shashi Kelley - Last Filed: 01/24/19 18:37> Date of Encounter: 01/24/19 Objective PUL Vital signs: Last Vital Signs Temp 97.4 F L 01/24/19 16:00 Pulse 97 01/24/19 17:55 Resp 22 01/24/19 17:55 BP 86/60 01/24/19 17:55 Pulse Ox 98 01/24/19 17:55 Ventilator Settings Ventilator Settings: Ventilator Settings, Last 8 Hours Ventilator Tidal Volume 550 Setting Ventilator Tidal Volume 500 Setting Ventilator Tidal Volume 550 Setting Ventilator Tidal Volume 550 Setting Ventilator Tidal Volume 550 Setting Ventilator Tidal Volume 550 Setting Ventilator Tidal Volume 550 Setting Ventilator Tidal Volume 550 Setting Ventilator Tidal Volume 550 Setting Ventilator Tidal Volume 550 Setting Ventilator Tidal Volume 550 Setting Ventilator Tidal Volume 550 Setting Ventilator Respiratory Rate 22 Setting Ventilator Respiratory Rate 22 Setting Ventilator Respiratory Rate 22 Setting Ventilator Respiratory Rate 22 Setting Ventilator Respiratory Rate 22 Setting Ventilator Respiratory Rate 22 Setting Ventilator Respiratory Rate 22 Setting Ventilator Respiratory Rate 22 Setting Ventilator Respiratory Rate 22 Setting Ventilator Respiratory Rate 22 Setting Ventilator Respiratory Rate 22 Setting Ventilator Respiratory Rate 22 Setting Actual Respiratory Rate 22 Actual Respiratory Rate 22 Actual Respiratory Rate 22 Actual Respiratory Rate 22 Actual Respiratory Rate 22 Actual Respiratory Rate 22 Actual Respiratory Rate 22 Actual Respiratory Rate 22 Actual Respiratory Rate 22 Actual Respiratory Rate 22 Actual Respiratory Rate 22 Actual Respiratory Rate 22 Positive End Expiratory 5 Pressure Positive End Expiratory 5 Pressure Positive End Expiratory 5 Pressure Positive End Expiratory 5 Pressure Positive End Expiratory 5 Pressure Positive End Expiratory 5 Pressure Positive End Expiratory 5 Pressure Positive End Expiratory 5 Pressure Positive End Expiratory 5 Pressure Positive End Expiratory 5 Pressure Positive End Expiratory 5 Pressure Positive End Expiratory 5 Pressure Peak Inspiratory Airway 31 Pressure Peak Inspiratory Airway 25 Pressure Peak Inspiratory Airway 31 Pressure Peak Inspiratory Airway 31 Pressure Peak Inspiratory Airway 27 Pressure Peak Inspiratory Airway 31 Pressure Peak Inspiratory Airway 27 Pressure Peak Inspiratory Airway 31 Pressure Peak Inspiratory Airway 31 Pressure Peak Inspiratory Airway 31 Pressure Peak Inspiratory Airway 29 Pressure Peak Inspiratory Airway 31 Pressure Results - Laboratory Findings CBC and BMP: 01/24/19 17:05 01/24/19 17:05 ABG ABG pH 7.40 pH Units (7.32-7.45) 01/24/19 05:51 ABG pCO2 41 mmHg (35-45) 01/24/19 05:51 ABG pO2 78 mmHg (85-104) L 01/24/19 05:51 ABG O2 Saturation 95 % (95-98) 01/24/19 05:51 PT/INR, D-dimer PT 25.3 Seconds (9.4-12.1) H 01/23/19 03:50 D-Dimer 2144 ng/mLFEU (0-500) H 01/19/19 09:15 Abnormal lab findings: Abnormal lab results WBC 12.6 K/mcL (4.3-11.1) H 01/24/19 17:05 RBC 3.97 M/mcL (4.19-5.50) L 01/24/19 17:05 Hgb 11.0 g/dL (12.9-16.9) L 01/24/19 17:05 Hct 34.8 % (37.5-50.1) L 01/24/19 17:05 MCH 27.7 pg (28.0-33.3) L 01/24/19 17:05 Neutrophils # 10.8 K/mcL (1.6-8.9) H 01/24/19 17:05 Nucleated RBCs/100 WBC 0.9 /100 WBC (0) H 01/24/19 17:05 Platelet Estimate Increased (Normal) H 01/19/19 09:15 PT 25.3 Seconds (9.4-12.1) H 01/23/19 03:50 APTT 188.7 Seconds (26.0-36.0) H* D 01/23/19 03:50 D-Dimer 2144 ng/mLFEU (0-500) H 01/19/19 09:15 ABG pO2 78 mmHg (85-104) L 01/24/19 05:51 VBG pCO2 52 mmHg (41-51) H 01/24/19 16:48 Mixed VBG pH 7.27 pH Units (7.34-7.36) L 01/24/19 14:04 Mixed VBG pCO2 58 mmHg (44-46) H 01/24/19 14:04 Mixed VBG pO2 58 mmHg (35-45) H 01/24/19 14:04 BUN 128 mg/dL (8-23) H 01/24/19 17:05 Creatinine 3.06 mg/dL (0.70-1.30) H 01/24/19 17:05 Est GFR ( Amer) 24 (> 60) L 01/24/19 17:05 Est GFR (Non-Af Amer) 20 (> 60) L 01/24/19 17:05 BUN/Creatinine Ratio 42 (6-26) H 01/24/19 17:05 Glucose 168 mg/dL (70-105) H 01/24/19 17:05 POC Glucose 165 mg/dL (70-99) H 01/24/19 15:52 Calculated Osmolality 339 (280-300) H 01/24/19 17:05 Uric Acid 13.0 mg/dL (2.3-7.6) H 01/22/19 18:37 Calcium 8.3 mg/dL (8.6-10.3) L 01/24/19 17:05 Venous Ioniz Calcium 1.11 mmol/L (1.15-1.35) L 01/23/19 11:37 Phosphorus 7.2 mg/dL (2.7-4.5) H 01/22/19 18:37 Magnesium 2.8 mg/dL (1.6-2.6) H 01/22/19 17:25 Total Bilirubin 1.1 mg/dL (0.3-1.0) H 01/24/19 17:05 Direct Bilirubin 0.6 mg/dL (0.0-0.2) H 01/24/19 17:05 AST 135 Units/L (13-39) H 01/24/19 17:05 ALT 961 Units/L (7-52) H 01/24/19 17:05 Creatine Kinase 620 Units/L (30-223) H 01/23/19 03:50 Troponin I 28.41 ng/mL (< 0.04) H* 01/24/19 08:45 B-Natriuretic Peptide 764 pg/mL (Less than 100) H 01/19/19 09:15 Serum Total Protein 5.6 g/dL (6.4-8.9) L 01/24/19 17:05 Albumin 3.0 g/dL (3.5-5.7) L 01/24/19 17:05 Urine Clarity Turbid (Clear) A 01/22/19 21:01 Urine Protein 100 mg/dL (Neg-Trace) H 01/22/19 21:01 Urine Ketones Trace mg/dL (Negative) H 01/22/19 21:01 Urine Blood Large (Negative) H 01/22/19 21:01 Urine Bilirubin Small (Negative) H 01/22/19 21:01 Ur Leukocyte Esterase Trace (Negative) H 01/22/19 21:01 Urine Microscopic RBC 15-30 per hpf (0-3) H 01/22/19 21:01 Urine Microscopic WBC 30-50 per hpf (0-3) H 01/22/19 21:01 Ur Squamous Epith Cells Many per lpf (None-Few) H 01/22/19 21:01 Urine Bacteria Moderate per hpf (None-Few) H 01/22/19 21:01 Hyaline Casts Many per lpf (None-Few) H 01/22/19 21:01 Pleural Appearance Bloody (Clear) A 01/21/19 14:00 Pleural RBC 0.529 M/mcL (0.000-0.002) H 01/21/19 14:00 Pleural Tot Nuc Cell 1225 TNC/mcL (0-1000) H 01/21/19 14:00 - Microbiology Findings Microbiology Findings: Microbiology, Last 48 Hours 01/21/19 14:00 Body Fluid Culture - Preliminary Pleural Fluid 01/19/19 10:03 Blood Culture - Final Peripheral Venipuncture No growth. Final report. 01/19/19 10:20 Blood Culture - Final Peripheral Venipuncture No growth. Final report. 01/21/19 14:00 Anaerobic Culture - Preliminary Pleural Fluid At this time, no anaerobic growth is present. The culture will be finalized after 5 days of incubation. 01/22/19 20:00 Legionella Antigen - Final Urine,Clean Catch Streptococcus pneumoniae Antigen (M - Final 01/21/19 14:00 Acid Fast Stain - Final Pleural Fluid - Clinical Findings Intake & Output: Intake & Output 01/24/19 01/24/19 01/24/19 07:59 15:59 23:59 Intake Total 662.4 / 662.4 614.9 / 614.9 Output Total 350 / 350 425 / 425 150 / 150 Balance 312.4 / 312.4 189.9 / 189.9 -140 / -140 Weight 82.1 kg - Attending Attestation I examined this patient and my medical decision-making was reviewed with the Resident Physician. I agree with the documented findings, disposition and treatment plan as described except to the extent set forth below. We independently had [id number] contact with the patient I spent 60min of Critical Care time with this patient. It involved decision making of high complexity to assess, manipulate, and support vital organ system failure and/or to prevent further life threatening deterioration of the patient's condition. The time involved in the performance of separately reportable procedures was not counted toward critical care time. Patient seen and examined at bedside Labs, radiology, chart personally reviewed. Management was reviewed during multidisciplinary critical care rounds. 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 I have decreased his tidal volume to be closer to 6 mL per KG ideal body weight acute rn espiratory failure and pneumonia Cards: Cardiogenic shock on norepinephrine and dobutamine encouragingly urine output is improving and liver enzymes are also downtrending this is secondary to NSTEMI. His been evaluated by cardiology her last EF is 15% the cardiology service feels the patient is too high risk for any invasive procedure years such as left or right heart catheterization I think it will be difficult if not i mpossible to liberate patient from vent without comprehensive management of this problem and plan to transfer to a tertiary referral center for further evaluatio GI: GI prophylaxis given; acute ischemic hepatitis which is improving Nutrition: Nothing by mouth for now Renal: Acute kidney injury secondary to shock improving urine output no acute need for renal replacement therapy UOP Monitored, Cont to Trend sCr and monitor Electrolytes. ID: Likely pneumonia he is on the antibiotic for this cultures remained negative planned to de-escalate the next 24-48 hours Heme/Onc: He is on heparin infusion blood counts are stable and he has some mild thrombocytopenia in the context of critical illness. High suspicion for primary lung malignancy however this has not been definitively diagnosed. Endo: Glucose Monitored Integ/MSK: Skin Care per routine ICU Nursing Protocol to prevent ulcers. Lines: All lines examined without evidence of infection : Dispo: Plan to transfer to [facility] for ongoing care CODE: DNAR. Prognosis guarded he is currently critical. I have had extensive conversations with the patient's and his sister at bedside throughout the day and keeping them updated on the current clinical situation and final plan for transfer to referral center for evaluation of cardiogenic shock all questions were answered. Appreciate palliative care evaluation as well
[2019-01-24] MEDS: Doxycycline 100 MG in 0.9 % Sodium Chloride Mini Bag 100 ML IVPB SCH (08:55)
[2019-01-24] MEDS ORDERED: Pantoprazole 40 MG VIAL IVP SCH (09:00)
[2019-01-24 09:13] LABS: Albumin 2.5 g/dL (3.5-5.7); Albumin/Globulin Ratio 1.1 (1.1-2.2); Bilirubin,Direct 0.5 mg/dL (0.0-0.2); Bilirubin,Indirect 0.6 mg/dL (0.0-1.2); Bilirubin,Total 1.1 mg/dL (0.3-1.0); Globulin 2.3 g/dL (2.4-3.5); Total Protein 4.8 g/dL (6.4-8.9)
[2019-01-24] MEDS ORDERED: Perflutren Lipid Microsphere 1.3 ML in 0.9 % Sodium Chloride 8.7 ML IVP ONE (10:03)
[2019-01-24] MEDS: FentaNYL (PF) 1,000 MCG in 0.9 % Sodium Chloride 80 ML IVC SCH ×2 (10:49→17:53)
[2019-01-24] MEDS: Heparin 25,000 UNIT/250 ML D5W 25,000 UNIT/250 ML IV.SOLN IVC SCH (10:53)
[2019-01-24] MEDS ORDERED: Dexmedetomidine HCl 400 MCG/100 ML MLS IVC ONE (11:57)
--- NOTE | 2019-01-24 12:59 | Procedure Note ---
<Lisa Vanegas M - Last Filed: 01/24/19 15:48> Date of procedure: 01/24/19 Procedure: Procedure: Central Line Placement Date: 01/24/19 Time: 1230 Indication: Hemodynamic monitoring/Intravenous access Resident: Dr. Vanegas Attending: Dr. Kelley A time-out was completed verifying correct patient, procedure, site, posit ioning, and special equipment if applicable. The patient was placed in a dependent position appropriate for central line placement based on the vein to be cannulated. The patients right neck was prepped and draped in sterile fashion. A triple lumen 7 [place] catheter was introduced into the right internal jugular vein using the Seldinger technique and under ultrasound guidance. The catheter was threaded smoothly over the guide wire and appropriate blood return was obtained. Each lumen of the catheter was evacuated of air and flushed with sterile saline. The catheter was then sutured in place to the skin and a sterile dressing applied. Perfusion to the extremity distal to the point of catheter insertion was checked and found to be adequate. Dr. Kelley was present for the entire procedure. The patient tolerated the procedure well and there were no complications. Post procedure CXR was obtained to ensure appropriate placement of the catheter. No pneumothorax was visualized. Was there an assistant in nursing present: Yes Event Marketing Intern: Shashi Kelley Estimated blood loss (cc): 5 Specimen: none <Shashi Kelley - Last Filed: 01/24/19 18:04> Attestation Statement: I was present and supervised for the entire procedure was done skillfully by the resident physician Dr Vanegas
[2019-01-24] MEDS: Dexmedetomidine HCl 400 MCG/100 ML MLS IVC SCH ×2 (13:03→18:44)
[2019-01-24 14:10] LABS: Mixed Venous Blood pCO2 58 mmHg (44-46); Mixed Venous Blood pH 7.27 pH Units (7.34-7.36); Mixed Venous Blood pO2 58 mmHg (35-45)
--- NOTE | 2019-01-24 15:14 | Palliative - Consult Note ---
Date of Encounter: 01/24/19 Time of Encounter: 15:00 - Assessment and Plan (1) Generalized pain Current Visit: Yes Status: Acute Assessment and plan: Patient is on Fentanyl per ICU protocol, currently at 50mcg/hr. Monitor and ti trate per protocol (2) Anxiety Current Visit: Yes Status: Acute Assessment and plan: Was agitated earlier and removed central line. Currently on Precedex 0.2 and Versed 2mg/hr. He is likely to have delirium. Monitor. (3) Goals of care, counseling/discussion Current Visit: Yes Status: Acute Assessment and plan: Spoke with Carly, who states she is patient's and POA. We do not have copy of this on file here, and has not been able to provide this document, however, pt sister Rosario and multiple family members here confirm this. Carly states Rosario is alternate POA. They have good family support and their pressure tester has also visited. She states that patient has had some 30lb weight loss over the past year, but was still quite active. Utilized oxygen for a while r/t COPD, but stopped smoking last year and was able to stop oxygen use. However, and sister has noticed increased confusion over the past month. He lived at home with her with no services for his health. Decision was made last night to transition to [facility]. Dr. Kelley was in this afternoon to update family on clinical condition. still trying to hold onto hope that he will improve, but understands that he is still very critically ill. States that she is praying that God will touch him and his condition will improve. I discussed the role of palliative care and that we would be following his clinical course closely. I discussed that if he would not improve and if they would ever decide to transition more to keeping him comfortable, we would assist and support pt/family during that transition. was appreciative of information, but did not desire to discuss this any further. States she is "taking it a day at a time". She did state that she was appreciative of everyone's honesty with her and her family. Will continue to follow. (4) Acute hypoxemic respiratory failure Current Visit: Yes Status: Acute Assessment and plan: Remains on vent support - FIO2 30%, PEEP 5 (5) Acute kidney injury Current Visit: Yes Status: Acute Assessment and plan: Creatinine slightly better today, is making some urine. Nephrology following. (6) Acute on chronic systolic heart failure Current Visit: Yes Status: Acute (7) Cardiogenic shock Current Visit: Yes Status: Acute Assessment and plan: Remains on vasopressor support/dobutamine Palliative-CN HPI - Data of Consult Consult date: 01/24/19 Requesting Physician: Nela Villela MD Primary Care Provider: Ofelia Peterson CNP - Consult Narrative History of present illness: Mr. Lea is a 73y/o male who presented to ER with increasing shortness of breath and hemoptysis. He was admitted last month with similar symptoms and had bronch at that time with findings of clots in [place], RLL, right mainstem. Patient is intubated and sedated so and patients sister are at bedside providing information. states that after discharge, he was extremely weak and had some ongoing confusion. Upon admission, he was found to have elevated troponin, RLL infiltrate, and pleural effusion. Cardiology was consulted and heparin drip began, but did not appear to be acute coronary event. EF was 25- 30% at that time. Pulmonology consulted and Thoracentesis was performed with 1L bloody fluid obtained. Cardiothoracic surgery saw patient and pt was taken to OR on 01/22/19 for bronchoscopy/thorascopy. Bronchoscopy demonstrated mucous plugs, then patient deteriorated before thorascopy began with hypotension /tachycardia. Went into cardiogenic shock with multiple organs, including liver/kidney affected. He was intubated and returned to ICU. Has required vasopressor/dobutamine for support. Considered very high risk for heart cath and this was declined by . Also declined transfer to tertiary care center. Repeat echo today demonstrated EF 15% with severe left ventricular dysfunction. Some improvement noted in liver function, and increased urine production today. However, he becomes very agitated if not heavily sedated, and pulled out central line earlier today. Palliative care was consulted to assist with goals of care discussion with this very critical patient who likely has a poor prognosis. Upon my visit, he remains sedated and on ventilator support. His , Carly and sister Rosario are at bedside. He is calm and appears in no distress at this time. Vitals B/P 87/60, P 98, SAO2 98. On 30% Fio2 on vent with PEEP 5, [id number], CR 2.65 decreased from 2.72 yesterday. Troponin increased from 23 yesterday to 28 today. CC: Nela Villela MD - Time Spent with Patient Time: Total time spent is greater than 50% in coordination of care (as documented) at patient's floor/unit and/or counseling patient: Time with patient: 45 minutes Past Med Surg Social Fam HX - Past Medical History Medical history: COPD, hypertension Psychiatric history: no psych history - Past Surgical History Surgical History: no surgical history - Social History Smoking Status: Former smoker (up to 4 packs per day for 50 to 55 years.) Smokeless Tobacco Status: No Alcohol use: none Drug use: none - Family History Father Living Status: Hx Family Cardiac Disorders: Yes Hx Family Cancer: Yes (Lung Cancer) Mother Living Status: Hx Family Endocrine Disorder: Yes Medications and Allergies RX: Montelukast [Singulair] 10 mg PO HS 05/11/18 [History] RX: Quinapril/Hydrochlorothiazide [Quinapril-Hctz 20-12.5 mg Tab] 1 tab PO DAILY 05/11/18 [History] RX: HydrOXYzine 10 mg PO DAILY PRN 12/29/18 [History] Albuterol Sulfate [Albuterol Inhaler] 2 puff IH DAILY PRN 01/19/19 [History] Tiotropium [place] [Spiriva Respimat] 2 puff IH DAILY 01/20/19 [History] Allergy/AdvReac Type Severity Reaction Status Date / Time Penicillins Allergy See Verified 01/20/19 12:52 Comments ROS unobtainable: due to endotracheal tube, due to mental status Palliative Care-Exam - Constitutional Vitals: Temp Pulse Resp BP Pulse Ox 97.9 F 98 22 87/60 98 01/24/19 12:26 01/24/19 15:00 01/24/19 15:00 01/24/19 15:00 01/24/19 15:00 General appearance: Present: no acute distress - Head Head Exam: Present: normal inspection, normocephalic - Eye Eye exam: Present: normal appearance, PERRL - Respiratory Respiratory exam: Present: CTAB - Cardiovascular Cardiovascular exam: Present: +S1, +S2 - GI/Abdominal Exam GI/Abdominal exam: Present: normal bowel sounds, soft - Catheter Type: Urethral (Carr) Additional comments: Small amount cloudy yellow urine present in catheter tubing - Extremities Exam Extremities exam: Present: normal capillary refill, normal inspection Internal Medicine - CN: Reslt - Labs CBC & Chem 7: 01/24/19 06:08 01/24/19 06:08 Labs: Short CBC 01/24/19 Range/Units 06:08 WBC 11.7 H (4.3-11.1) K/mcL Hgb 10.7 L D (12.9-16.9) g/dL Hct 33.8 L (37.5-50.1) % Plt Count 234 (140-400) K/mcL Neutrophils # 9.9 H (1.6-8.9) K/mcL BMP 01/24/19 06:08 Sodium 147 H D Potassium 4.0 D Chloride 110 H Carbon Dioxide 20 L BUN 112 H Creatinine 2.65 H Glucose 228 H Calcium 7.0 L Cardiac Enzymes 01/24/19 Range/Units 08:45 Troponin I 28.41 H* (< 0.04) ng/mL Liver Function 01/24/19 Range/Units 06:08 Total Bilirubin 1.1 H (0.3-1.0) mg/dL Direct Bilirubin 0.5 H (0.0-0.2) mg/dL AST 203 H (13-39) Units/L ALT 976 H (7-52) Units/L Alkaline Phosphatase 49 (34-104) Units/L Albumin 2.5 L (3.5-5.7) g/dL - ABG Interpretation ABG results: ABG ABG pH 7.40 pH Units (7.32-7.45) 01/24/19 05:51 ABG pCO2 41 mmHg (35-45) 01/24/19 05:51 ABG pO2 78 mmHg (85-104) L 01/24/19 05:51 ABG O2 Saturation 95 % (95-98) 01/24/19 05:51 PT/INR, D-dimer PT 25.3 Seconds (9.4-12.1) H 01/23/19 03:50 D-Dimer 2144 ng/mLFEU (0-500) H 01/19/19 09:15 - Impressions Impressions Retroperitoneum Ultrasound 01/23/19 16:00 IMPRESSION: 1. No evidence of hydronephrosis. 2. Underdistended bladder. D/ / Laura Harris MD / Laura Harris MD Interpreting Provider: Laura Harris MD Echocardiogram Limited Views 01/24/19 09:30 Impressions: LVEF 15%. Normal LV chamber size, wall thickness. Severe global left ventricular systolic dysfunction. There is no LV thrombus. Limited study for LV function. Left Ventricular Wall Motion: Rest Echo Findings The apex, apical inferior, mid inferior, basal inferior, apical anterior, mid anterior, basal anterior, apical septal, mid inferior septal, basal inferior septal, apical lateral, mid anterior lateral, basal anterior lateral, mid anterior septal, mid inferior lateral, basal anterior septal and basal inferior lateral cheek were hypokinetic. Findings: Study Quality * Technically adequate exam. ECG Findings * Tachycardia noted. Difficult to determine rhythm. Left Ventricle * LVEF 15%. * Normal LV chamber size, wall thickness. * Severe global left ventricular systolic dysfunction. * There is no LV thrombus. IVC * The IVC is dilated. Chest X-Ray 01/24/19 12:37 IMPRESSION: Right internal jugular central venous catheter placement with the tip projecting over the cavoatrial junction. No pneumothorax. Enteric tube courses below the diaphragm and the tip is exclude on this exam. Otherwise stable chest. D/ / Evette Moreno MD / Evette Moreno MD Interpreting Provider: Evette Moreno MD Consult Discharge Plan - Plan Referrals: Ofelia Peterson CNP [Primary Care Provider] - 01/28/19 1:00 pm Palliative Quality Palliative Quality: Screen for Code Status: Yes, Screen for Goals of Care: Yes, Screen for Pain: Yes, If Pain Regimen Started, Initiate Bowel Regimen: NA, Screen for Nausea/Vomitting: Yes Code Status: 01/19/19 14:43 Resuscitation Status: Active [RES] Routine Comment: Resuscitation Status: Full Code 01/23/19 19:14 CODE [Resuscitation Status: Active] [RES] Routine Comment: Resuscitation Status: [facility]
--- NOTE | 2019-01-24 16:38 | Discharge Summary ---
<Lisa Vanegas M - Last Filed: 01/24/19 18:22> Orders not resulted at time of discharge: Pending orders 01/21/19 14:00 AFB Culture, Body Fluid [TB] Routine AFB Smear [TB] Routine Culture,Anaerobic [RM] Routine Culture,Body Fluid [RM] Routine Fungal Culture [MYC] Routine 01/22/19 20:05 Aldosterone, Blood Routine Renin, Activity Routine 01/24/19 08:45 Hep Ind Thromb(HIT) PF4 IgG Stat 01/24/19 14:04 Mixed Venous Blood Gas Routine 01/24/19 16:09 VBG [Venous Blood Gas] Routine 01/25/19 04:00 Basic Metabolic Panel AM 0400 Complete Blood Count [HEME] AM 0400 Hepatic Panel AM 0400 PTT [Activated Partial Thrombo Time] [COAG] AM 0400 Prothrombin Time INR [COAG] AM 0400 Troponin I AM 0400 01/25/19 10:45 Arterial Blood Gas DAILY 01/26/19 10:45 Arterial Blood Gas DAILY 01/27/19 10:45 Arterial Blood Gas DAILY 01/28/19 10:45 Arterial Blood Gas DAILY 01/29/19 10:45 Arterial Blood Gas DAILY 01/30/19 10:45 Arterial Blood Gas DAILY 01/31/19 10:45 Arterial Blood Gas DAILY 02/01/19 10:45 Arterial Blood Gas DAILY Date of Encounter: 01/24/19 Time of Encounter: 16:30 - Discharge Diagnosis (1) Acute hypoxemic respiratory failure Priority: Primary Status: Acute Comments: intubated and mechanical ventilation Likely due to pneumonia, acute on chronic CHF, right-sided pleural effusion, cardiogenic shock (2) Cardiogenic shock Priority: Secondary Status: Acute Comments: Ejection fraction 25% 2 days ago with new ejection fraction 15% today with severe global and segmental LV systolic dysfunction On dobutamine and levofed (3) HCAP (healthcare-associated pneumonia) Priority: Secondary Status: Acute Comments: CXR 01/22 with right sided pleural effusion and bibasilar volume loss Pleural effusion likely malignancy related to pro-calcitonin negative and low suspicion for recurrent pneumonia (4) NSTEMI (non-ST elevated myocardial infarction) Priority: Secondary Status: Acute Comments: Troponin elevating. 14.62, 23.68, today 28.41 Has worsening systolic function likely ischemic cardiomyopathy (5) Acute on chronic systolic heart failure Priority: Secondary Status: Acute Comments: Patient has cardiogenic shock and likely iscemic cardiomyopathy with NSTEMI (6) COPD exacerbation Priority: Secondary Status: Acute (7) Shock liver Priority: Secondary Status: Acute Comments: Likely ischemic hepatitis from from low output state from systolic heart failure (8) Pleural effusion Priority: Secondary Status: Acute Comments: Bilateral pleural effusion R>L with 1L of hemorrhagic pleural effusion removed on 01/21/19 Concerning for malignancy (9) Acute kidney injury Priority: Secondary Status: Acute Comments: Likely due to acute tubular necrosis due to low output state from systolic heart failure - Discharge Medications Prescriptions: No Action Montelukast [Singulair] 10 mg PO HS Quinapril/Hydrochlorothiazide [Quinapril-Hctz 20-12.5 mg Tab] 1 tab PO DAILY HydrOXYzine 10 mg PO DAILY PRN PRN Reason: Anxiety Albuterol Sulfate [Albuterol Inhaler] 2 puff IH DAILY PRN PRN Reason: Wheezing Tiotropium [place] [Spiriva Respimat] 2 puff IH DAILY Home Medications: Montelukast [Singulair] 10 mg PO HS 05/11/18 [History] Quinapril/Hydrochlorothiazide [Quinapril-Hctz 20-12.5 mg Tab] 1 tab PO DAILY 05/11/18 [History] HydrOXYzine 10 mg PO DAILY PRN 12/29/18 [History] Albuterol Sulfate [Albuterol Inhaler] 2 puff IH DAILY PRN 01/19/19 [History] Tiotropium [place] [Spiriva Respimat] 2 puff IH DAILY 01/20/19 [History] Allergies/Adverse Reactions: Allergy/AdvReac Type Severity Reaction Status Date / Time Penicillins Allergy See Verified 01/20/19 12:52 Comments Labs on day of discharge: Labs from last 24 hours 01/24/19 01/24/19 01/24/19 15:52 14:04 11:34 WBC RBC Hgb Hct MCV MCH MCHC RDW Plt Count MPV Immature Gran % Seg Neutrophils % Lymphocytes % Monocytes % Eosinophils % Basophils % Neutrophils # Lymphocytes # Monocytes # Eosinophils # Basophils # Nucleated RBCs/100 WBC Heparin Anti-Xa, Unfract Sample Site ABG pH ABG pCO2 ABG pO2 ABG HCO3 ABG Total CO2 ABG O2 Saturation ABG Base Excess Fredrick Test Mixed VBG pH 7.27 L Mixed VBG pCO2 58 H Mixed VBG pO2 58 H Respiration Rate O2 Delivery Device Blood Gas Modality Inspired O2 Tidal Volume PEEP Sodium Potassium Chloride Carbon Dioxide BUN Creatinine Est GFR ( Amer) Est GFR (Non-Af Amer) BUN/Creatinine Ratio Glucose POC Glucose 165 H 205 H Calculated Osmolality Calcium Total Bilirubin Direct Bilirubin Indirect Bilirubin AST ALT Alkaline Phosphatase Troponin I Serum Total Protein Albumin Globulin Albumin/Globulin Ratio Ur Eosinophil Smear Chlamy pneumoniae PCR Adenovirus (PCR) B. pertussis DNA (PCR) B.parapertussis DNA PCR Coronavirus OC43 (PCR) Coronavirus HKU1 (PCR) Coronavirus 229E (PCR) Coronavirus NL63 (PCR) Human Metapneumovir PCR Influenza A (H1) PCR Influ A (H1N1) PCR Influenza A (H3) PCR Influenza A Untype (PCR) Influenza Type B (PCR) M.pneumoniae DNA (PCR) Parainfluenza 1 (PCR) Parainfluenza 2 (PCR) Parainfluenza 3 (PCR) Parainfluenza 4 (PCR) RSV (PCR) Entero/Rhino (PCR) 01/24/19 01/24/19 01/24/19 10:00 08:45 08:08 WBC RBC Hgb Hct MCV MCH MCHC RDW Plt Count MPV Immature Gran % Seg Neutrophils % Lymphocytes % Monocytes % Eosinophils % Basophils % Neutrophils # Lymphocytes # Monocytes # Eosinophils # Basophils # Nucleated RBCs/100 WBC Heparin Anti-Xa, Unfract 0.61 Sample Site ABG pH ABG pCO2 ABG pO2 ABG HCO3 ABG Total CO2 ABG O2 Saturation ABG Base Excess Fredrick Test Mixed VBG pH Mixed VBG pCO2 Mixed VBG pO2 Respiration Rate O2 Delivery Device Blood Gas Modality Inspired O2 Tidal Volume PEEP Sodium Potassium Chloride Carbon Dioxide BUN Creatinine Est GFR ( Amer) Est GFR (Non-Af Amer) BUN/Creatinine Ratio Glucose POC Glucose 222 H Calculated Osmolality Calcium Total Bilirubin Direct Bilirubin Indirect Bilirubin AST ALT Alkaline Phosphatase Troponin I 28.41 H* Serum Total Protein Albumin Globulin Albumin/Globulin Ratio Ur Eosinophil Smear Chlamy pneumoniae PCR Adenovirus (PCR) B. pertussis DNA (PCR) B.parapertussis DNA PCR Coronavirus OC43 (PCR) Coronavirus HKU1 (PCR) Coronavirus 229E (PCR) Coronavirus NL63 (PCR) Human Metapneumovir PCR Influenza A (H1) PCR Influ A () PCR Influenza A (H3) PCR Influenza A Untype (PCR) Influenza Type B (PCR) M.pneumoniae DNA (PCR) Parainfluenza 1 (PCR) Parainfluenza 2 (PCR) Parainfluenza 3 (PCR) Parainfluenza 4 (PCR) RSV (PCR) Entero/Rhino (PCR) 01/24/19 01/24/19 01/24/19 06:08 06:08 05:51 WBC 11.7 H RBC 3.86 L Hgb 10.7 L D Hct 33.8 L MCV 87.6 MCH 27.7 L MCHC 31.7 RDW 14.0 Plt Count 234 MPV 9.9 Immature Gran % 0.8 Seg Neutrophils % 84.9 Lymphocytes % 4.9 Monocytes % 9.4 Eosinophils % 0.0 Basophils % 0.0 Neutrophils # 9.9 H Lymphocytes # 0.6 Monocytes # 1.1 Eosinophils # 0.0 Basophils # 0.0 Nucleated RBCs/100 WBC 0.9 H Heparin Anti-Xa, Unfract Sample Site Art Line ABG pH 7.40 ABG pCO2 41 ABG pO2 78 L ABG HCO3 25 ABG Total CO2 26 ABG O2 Saturation 95 ABG Base Excess 0 Fredrick Test N/A Mixed VBG pH Mixed VBG pCO2 Mixed VBG pO2 Respiration Rate 22 O2 Delivery Device Adult Vent Blood Gas Modality ASSIST CONTROL Inspired O2 30.0 Tidal Volume 550 PEEP 5 Sodium 147 H D Potassium 4.0 D Chloride 110 H Carbon Dioxide 20 L BUN 112 H Creatinine 2.65 H Est GFR ( Amer) 29 L Est GFR (Non-Af Amer) 24 L BUN/Creatinine Ratio 42 H Glucose 228 H POC Glucose Calculated Osmolality 347 H Calcium 7.0 L Total Bilirubin 1.1 H Direct Bilirubin 0.5 H Indirect Bilirubin 0.6 AST 203 H ALT 976 H Alkaline Phosphatase 49 Troponin I Serum Total Protein 4.8 L Albumin 2.5 L Globulin 2.3 L Albumin/Globulin Ratio 1.1 Ur Eosinophil Smear Chlamy pneumoniae PCR Adenovirus (PCR) B. pertussis DNA (PCR) B.parapertussis DNA PCR Coronavirus OC43 (PCR) Coronavirus HKU1 (PCR) Coronavirus 229E (PCR) Coronavirus NL63 (PCR) Human Metapneumovir PCR Influenza A (H1) PCR Influ A (H1N1/09) PCR Influenza A (H3) PCR Influenza A Untype (PCR) Influenza Type B (PCR) M.pneumoniae DNA (PCR) Parainfluenza 1 (PCR) Parainfluenza 2 (PCR) Parainfluenza 3 (PCR) Parainfluenza 4 (PCR) RSV (PCR) Entero/Rhino (PCR) 01/24/19 01/23/19 01/23/19 03:15 22:57 22:00 WBC RBC Hgb Hct MCV MCH MCHC RDW Plt Count MPV Immature Gran % Seg Neutrophils % Lymphocytes % Monocytes % Eosinophils % Basophils % Neutrophils # Lymphocytes # Monocytes # Eosinophils # Basophils # Nucleated RBCs/100 WBC Heparin Anti-Xa, Unfract 0.28 L Sample Site ABG pH ABG pCO2 ABG pO2 ABG HCO3 ABG Total CO2 ABG O2 Saturation ABG Base Excess Fredrick Test Mixed VBG pH Mixed VBG pCO2 Mixed VBG pO2 Respiration Rate O2 Delivery Device Blood Gas Modality Inspired O2 Tidal Volume PEEP Sodium Potassium Chloride Carbon Dioxide BUN Creatinine Est GFR ( Amer) Est GFR (Non-Af Amer) BUN/Creatinine Ratio Glucose POC Glucose 240 H Calculated Osmolality Calcium Total Bilirubin Direct Bilirubin Indirect Bilirubin AST ALT Alkaline Phosphatase Troponin I Serum Total Protein Albumin Globulin Albumin/Globulin Ratio Ur Eosinophil Smear Chlamy pneumoniae PCR Not Detected Adenovirus (PCR) Not Detected B. pertussis DNA (PCR) Not Detected B.parapertussis DNA PCR Not Detected Coronavirus OC43 (PCR) Not Detected Coronavirus HKU1 (PCR) Not Detected Coronavirus 229E (PCR) Not Detected Coronavirus NL63 (PCR) Not Detected Human Metapneumovir PCR Not Detected Influenza A (H1) PCR Not Detected Influ A (H1N1/09) PCR Not Detected Influenza A (H3) PCR Not Detected Influenza A Untype (PCR) Not Detected Influenza Type B (PCR) Not Detected M.pneumoniae DNA (PCR) Not Detected Parainfluenza 1 (PCR) Not Detected Parainfluenza 2 (PCR) Not Detected Parainfluenza 3 (PCR) Not Detected Parainfluenza 4 (PCR) Not Detected RSV (PCR) Not Detected Entero/Rhino (PCR) Not Detected 01/23/19 01/23/19 19:05 14:00 WBC RBC Hgb Hct MCV MCH MCHC RDW Plt Count MPV Immature Gran % Seg Neutrophils % Lymphocytes % Monocytes % Eosinophils % Basophils % Neutrophils # Lymphocytes # Monocytes # Eosinophils # Basophils # Nucleated RBCs/100 WBC Heparin Anti-Xa, Unfract 0.22 L Sample Site ABG pH ABG pCO2 ABG pO2 ABG HCO3 ABG Total CO2 ABG O2 Saturation ABG Base Excess Fredrick Test Mixed VBG pH Mixed VBG pCO2 Mixed VBG pO2 Respiration Rate O2 Delivery Device Blood Gas Modality Inspired O2 Tidal Volume PEEP Sodium Potassium Chloride Carbon Dioxide BUN Creatinine Est GFR ( Amer) Est GFR (Non-Af Amer) BUN/Creatinine Ratio Glucose POC Glucose Calculated Osmolality Calcium Total Bilirubin Direct Bilirubin Indirect Bilirubin AST ALT Alkaline Phosphatase Troponin I Serum Total Protein Albumin Globulin Albumin/Globulin Ratio Ur Eosinophil Smear 0 Chlamy pneumoniae PCR Adenovirus (PCR) B. pertussis DNA (PCR) B.parapertussis DNA PCR Coronavirus OC43 (PCR) Coronavirus HKU1 (PCR) Coronavirus 229E (PCR) Coronavirus NL63 (PCR) Human Metapneumovir PCR Influenza A (H1) PCR Influ A (H1N1/09) PCR Influenza A (H3) PCR Influenza A Untype (PCR) Influenza Type B (PCR) M.pneumoniae DNA (PCR) Parainfluenza 1 (PCR) Parainfluenza 2 (PCR) Parainfluenza 3 (PCR) Parainfluenza 4 (PCR) RSV (PCR) Entero/Rhino (PCR) Preliminary micro results at discharge 01/21/19 14:00 Body Fluid Culture - Preliminary Pleural Fluid 01/21/19 14:00 Anaerobic Culture - Preliminary Pleural Fluid At this time, no anaerobic growth is present. The culture will be finalized after 5 days of incubation. - Impressions ITS Impressions Chest X-Ray 01/19/19 09:14 IMPRESSION: Dense airspace consolidation the right lower lobe concerning for right lower lobe pneumonia. Diffuse bilateral airspace opacities suggesting concomitant pulmonary edema. D/ / Brian Mcdaniel MD / Brian Mcdaniel MD Interpreting Provider: Brian Mcdaniel MD Chest CTA 01/19/19 09:49 IMPRESSION: No findings diagnostic of pulmonary embolus Increasing airspace disease throughout the right hemithorax suggesting pneumonia. Increasing multifocal pleural thickening. Along with the interstitial prominence, this raises the question of lymphangitic pathology. Lymphangitic metastatic disease would be difficult to exclude. Soft tissue density in the azygoesophageal recess region is likely developing adenopathy. Similar findings are noted along the margin of the right main bronchus. D/ / Tobin Smith / Tobin Smith Interpreting Provider: Tobin Smith Echocardiogram 01/20/19 13:14 Impressions: LVEF 25-30%. Severe global and segmental left ventricular systolic dysfunction. Indeterminate diastolic function. Mild right ventricular hypokinesis. Severely calcified aortic valve with moderate aortic stenosis, no significant change compared to 05/11/2018 study Mild mitral regurgitation. Unable to estimate RVSP due to lack of TR jet. Recommend repeat limited echo with definity after rate control. Cardiology consult team notified via [employer]. Left Ventricular Wall Motion: Rest Echo Findings The apical inferior, mid inferior, basal inferior, basal anterior, mid inferior septal, basal inferior septal, mid anterior lateral, basal anterior lateral, mid inferior lateral, basal anterior septal and basal inferior lateral cheek were hypokinetic. The apex, apical anterior, mid anterior, apical septal, apical lateral and mid anterior septal cheek were akinetic. Findings: Study Quality * Technically sub-optimal due to clinical status. ECG Findings * Atrial fibrillation, RVR, BBB. Left Ventricle * LVEF 25-30%. * Normal LV chamber size and wall thickness. * Severe global and segmental left ventricular systolic dysfunction. * Indeterminate diastolic function. * Definity echo contrast was not used. Right Ventricle * Normal right ventricular size. * Mild right ventricular hypokinesis. Left Atrium * Normal left atrial size. Right Atrium * Normal right atrial size. Interatrial Septum * Interatrial septum not well evaluated. Aortic Valve * Severely calcified aortic valve leaflets. * Moderate aortic stenosis. * Peak and mean gradients are 46, 25 mmHg, respectively. * Trace aortic regurgitation. Mitral Valve * Normal mitral valve structure. * No mitral stenosis. * Mild mitral regurgitation. Tricuspid Valve * Normal tricuspid valve structure. * No tricuspid stenosis. * Trace tricuspid regurgitation. * Unable to estimate RVSP due to lack of TR jet. Pulmonic Valve * Pulmonic valve is not well visualized. * No pulmonic stenosis. * No pulmonic regurgitation. Aorta * Normally sized aortic root. Pericardium * The pericardium appears normal. IVC * The IVC is not well evaluated. Thoracentesis 01/21/19 09:09 IMPRESSION: Successful ultrasound guided thoracentesis. D/ / Que Bravo MD / Que Bravo MD Interpreting Provider: Que Bravo MD Chest X-Ray 01/21/19 14:05 IMPRESSION: 1. There appears to be decrease in the right pleural effusion. 2. No pneumothorax. 3. Otherwise, stable chest D/ / Vipul Ayala MD / Vipul Ayala MD Interpreting Provider: Vipul Ayala MD Chest X-Ray 01/22/19 16:54 IMPRESSION: 1. Endotracheal tube in satisfactory position 2. Unchanged bibasilar volume loss and right-sided pleural effusion 3. Possible pulmonary edema D/ / Vipul Ayala MD / Vipul Ayala MD Interpreting Provider: Viplu Ayala MD Echocardiogram Limited Views 01/22/19 17:13 Impressions: LVEF 25%. Severe global and segmental left ventricular systolic dysfunction. Normal RV size with moderate right ventricular hypokinesis. Estimated RA pressure 15 mmHg. LV and RV function slightly worse compared to 01/20/2019 study. Left Ventricular Wall Motion: Rest Echo Findings The basal inferior, mid anterior, basal anterior, basal inferior septal, apical lateral, mid anterior lateral, basal anterior lateral, mid inferior lateral and basal inferior lateral cheek were hypokinetic. The apex, apical inferior, mid inferior, apical anterior, apical septal, mid inferior septal, mid anterior septal and basal anterior septal cheek were akinetic. Findings: Study Quality * Technically adequate exam. ECG Findings * Sinus tachycardia. Left Ventricle * LVEF 25%. * Severe global and segmental left ventricular systolic dysfunction. * There is no LV thrombus. * Definity echo contrast was used. Right Ventricle * Normal RV size with moderate right ventricular hypokinesis. Left Atrium * Normal left atrial size. Right Atrium * Normal right atrial size. Tricuspid Valve * Estimated RA pressure is 15 mmHg. IVC * The IVC is dilated. * < 50% respiratory change. Pleural Effusion * Moderate pleural effusion. KUB X-Ray 01/23/19 10:47 IMPRESSION: 1. Enteric catheter tip overlies the body of the stomach. Side hole is distal to the GE junction. D/ / Pérez Lindsay MD / Pérez Lindsay MD Interpreting Provider: Pérez Lindsay MD Retroperitoneum Ultrasound 01/23/19 16:00 IMPRESSION: 1. No evidence of hydronephrosis. 2. Underdistended bladder. D/ / Laura Harris MD / Laura Harris MD Interpreting Provider: Laura Harris MD Echocardiogram Limited Views 01/24/19 09:30 Impressions: LVEF 15%. Normal LV chamber size, wall thickness. Severe global left ventricular systolic dysfunction. There is no LV thrombus. Limited study for LV function. Left Ventricular Wall Motion: Rest Echo Findings The apex, apical inferior, mid inferior, basal inferior, apical anterior, mid anterior, basal anterior, apical septal, mid inferior septal, basal inferior septal, apical lateral, mid anterior lateral, basal anterior lateral, mid anterior septal, mid inferior lateral, basal anterior septal and basal inferior lateral cheek were hypokinetic. Findings: Study Quality * Technically adequate exam. ECG Findings * Tachycardia noted. Difficult to determine rhythm. Left Ventricle * LVEF 15%. * Normal LV chamber size, wall thickness. * Severe global left ventricular systolic dysfunction. * There is no LV thrombus. IVC * The IVC is dilated. Chest X-Ray 01/24/19 12:37 IMPRESSION: Right internal jugular central venous catheter placement with the tip projecting over the cavoatrial junction. No pneumothorax. Enteric tube courses below the diaphragm and the tip is exclude on this exam. Otherwise stable chest. D/ / Evette Moreno MD / Evette Moreno MD Interpreting Provider: Evette Moreno MD Date of admission: 01/19/19 15:23 Primary care physician: Ofelia Peterson CNP Consults: 01/19/19 10:44 Consult to Cardiology [CONS] Stat Comment: Consulting Provider: Cardiology Dea Reason for Consult: Elevated trop/EKG changes Call Completed: Yes 01/19/19 13:17 Consult to Pulmonology [CONS] Stat Consulting Provider: Pulm Crit Care & Sleep Dea Reason for Consult: New CT lung finding lymophadenopathy, pleural thickening Time Notified: 13:17 Call Completed: Yes 01/20/19 18:08 Consult to Interventional Radiology [CONS] Routine Consulting Provider: Radiology Interventional Cols Reason for Consult: Patient has right sided effusion with pneumonia to do diagnostic /therapeutic thoracentesis Call Completed: No 01/21/19 15:08 Consult to Thoracic Surgery [CONS] Routine Consulting Provider: Cardiothoracic Surgery Dea Reason for Consult: Patient has bloody hemorrhagic pleural effusion concerning for malignancy. Time Notified: 15:00 Call Completed: Yes 01/22/19 09:29 Consult to Nurse Navigator [CONS] Routine Comment: CHF 01/22/19 17:10 Consult to Nephrology [CONS] Routine Consulting Provider: Kidney Dea/SAMAN/MERE/GIGI Reason for Consult: Acute kidney injury Call Completed: No 01/24/19 11:10 Consult to Palliative Care [CONS] Routine Comment: Consulting Provider: Palliative Care [place] Reason for Consult: DNR CC arrest, cardiogenic shock, likely has stage IV lung carcinoma Call Completed: No 01/24/19 11:15 Consult to Nutrition [CONS] Routine Comment: Consulting Provider: NUTRITION Reason for Dietary Consult: Tube Feed Start & Manage Discharging clinician: Lisa Vanegas Anticipated date of discharge: 01/24/19 - Patient Status Disposition: Transfer Other Condition: Critical - Discharge Instructions Follow Up With: Ofelia Peterson CNP [Primary Care Provider] - 01/28/19 1:00 pm - Hospital Course Hospital course: Mr. Lea is a 73 year old male medical history of COPD, systolic heart fialure, hypertension, recent admission for hemoptysis and right-sided pneumonia in December 2018 who presents with 3 days of shortness of breath and coughing up sputum without any hemoptysis. Patient was started on antibiotics 2 days prior to arrival. Patient was admitted on 01/19/2019. In the ER, the patient had elevated troponin and minimal elevation in V1 to V3 and cardiology was consultative. Patient was started on IV heparin drip. D-dimer was elevated and a CTA chest was obtained and negative for pulmonary embolism. Results showed new pleural thickening and lymphadenopathy in the chest since the prior CT 25 days ago. Patient was found to be septic secondary to likely bacterial pneumonia. He was initially started on IV vancomycin, cefepime, azithromycin. Urine Legionella antigen and streptococcus antigen were negative. Patient was receiving BiPAP. He is also started on IV steroids. Blood cultures from January 19 were no growth. Influenza was negative. Troponin were initially elevated on admission at 0.21, 0.22, 0.84, and 0.89, 0.65. EKG showed no acute ischemic changes. Echocardiogram was obtained on January 21 that showed left ventricular ejection fraction at 25-30% compared to echo from April 2018 at 50-55%. There is also right wall motion abnormality. Repeat EKG showed no acute ischemic changes. Cardiology was consultative and recommended optimizing medical management. He received heparin drip for 48 hours. Patient did also have a worsening pleural effusion and pulmonology was consulted. On January 21, the patient underwent an ultrasound did guided thoracentesis on the right and 1 L of hemorrhagic fluid was removed. Fluid is concerning for malignancy. Total nucleated cells were 1225 with 54 neutrophils. Total protein was less than 3, pleural LDH was 792, glucose 166. Acid fast stain of the pleural fluid was negative. Preliminary anaerobic culture is negative. Thoracic surgery consultation was obtained. The plan was to take the patient to the OR for bronchoscopy and right thoracoscopy for diagnosis and treatment. While the patient was in the OR on January 22, the procedure was not completed as the patient developed cardiogenic shock, hypotension, decrease in ST segments. The procedure was stopped and the patient was brought to ICU for further care. Central line was placed. He was started on pressor support. Patient remains intubated and on mechanical ventilation. Repeat troponin were significantly elevated. Patient is a high risk candidate for left heart catheterization and right heart catheterization. He was started on inotropic dobutamine. Patient also had elevated LFTs likely secondary to shock liver from low perfusion from systolic heart failure. He also had worsening of his acute kidney injury. Cardiogenic shock likely secondary to NSTEMI. Patient's code status was changed from full code to [id number] and palliative care consult was obtained. Repeat echocardiogram was done today that showed worsening LV EF of 15% with severe global left ventricular systolic dysfunction. However there is improvement in acute kidney injury as well as the patient's hepatic panel today. The patient's antibiotics were Deescalated to doxycycline and cefepime, today is day 2. There is much discussion with the family, and it was decided to transfer the patient to [place] for further care of the patient's cardiogenic shock as well as acute decompensated systolic heart failure. Patient accepted to [facility] hospitalist. He will be transported via ground transport on levofed and dobutamine for presser support. Most recent vitals at time of transport is 97 heart rate, blood pressure 86/60, and still remains on mechanical ventilation. - Time Spent with Patient Total time spent providing and/or coordinating discharge services: Physical Examination Vital Signs: Vital Signs, Last 4 Hours Pulse Resp BP Pulse Ox 01/24/19 15:59 22 87/61 95 01/24/19 15:00 98 22 87/60 98 01/24/19 14:11 22 85/59 95 01/24/19 14:00 99 22 86/60 98 01/24/19 13:00 111 22 86/61 98 General appearance: other (sedated and intubated) Eyes: nonicteric, other (normal conjunctiva) ENT: oropharynx moist Neck: supple, other (Right IJ central venous catheter) Effort: other (bibasilar diminished breath sounds with no crackles or wheezing) Cardiovascular: other (regular rhythm, tachycardic) Gastrointestinal: normoactive bowel sounds, soft, non-tender Extremities: no cyanosis, no edema other (unable to assess neurologic status due to sedation) other (unable to assess psychiatric due to sedation) - VTE Reasons for not Prescribing Prophylaxis: Not indicated-Anticoagulated or INR therapeutic <Shashi Kelley - Last Filed: 01/24/19 19:03> Orders not resulted at time of discharge: Pending orders 01/21/19 14:00 AFB Culture, Body Fluid [TB] Routine AFB Smear [TB] Routine Culture,Anaerobic [RM] Routine Culture,Body Fluid [RM] Routine Fungal Culture [MYC] Routine 01/22/19 20:05 Aldosterone, Blood Routine Renin, Activity Routine 01/24/19 08:45 Hep Ind Thromb(HIT) PF4 IgG Stat 01/24/19 14:04 Mixed Venous Blood Gas Routine 01/24/19 16:43 Heparin anti-factor XA UFH [COAG] Stat 01/25/19 04:00 Basic Metabolic Panel AM 0400 Complete Blood Count [HEME] AM 0400 Hepatic Panel AM 0400 PTT [Activated Partial Thrombo Time] [COAG] AM 0400 Prothrombin Time INR [COAG] AM 0400 Troponin I AM 0400 01/25/19 10:45 Arterial Blood Gas DAILY 01/26/19 10:45 Arterial Blood Gas DAILY 01/27/19 10:45 Arterial Blood Gas DAILY 01/28/19 10:45 Arterial Blood Gas DAILY 01/29/19 10:45 Arterial Blood Gas DAILY 01/30/19 10:45 Arterial Blood Gas DAILY 01/31/19 10:45 Arterial Blood Gas DAILY 02/01/19 10:45 Arterial Blood Gas DAILY Date of Encounter: 01/24/19 Labs on day of discharge: Labs from last 24 hours 01/24/19 01/24/19 01/24/19 17:05 17:05 17:05 WBC 12.6 H RBC 3.97 L Hgb 11.0 L Hct 34.8 L MCV 87.7 MCH 27.7 L MCHC 31.6 RDW 14.0 Plt Count 255 MPV 9.7 Immature Gran % 0.6 Seg Neutrophils % 85.5 Lymphocytes % 4.8 Monocytes % 9.0 Eosinophils % 0.0 Basophils % 0.1 Neutrophils # 10.8 H Lymphocytes # 0.6 Monocytes # 1.1 Eosinophils # 0.0 Basophils # 0.0 Nucleated RBCs/100 WBC 0.9 H Heparin Anti-Xa, Unfract Sample Site ABG pH ABG pCO2 ABG pO2 ABG HCO3 ABG Total CO2 ABG O2 Saturation ABG Base Excess Fredrick Test VBG pH VBG pCO2 VBG pO2 VBG HCO3 Mixed VBG pH Mixed VBG pCO2 Mixed VBG pO2 Respiration Rate O2 Delivery Device Blood Gas Modality Inspired O2 Tidal Volume PEEP Sodium 142 Potassium 4.4 Chloride 106 Carbon Dioxide 26 BUN 128 H Creatinine 3.06 H Est GFR ( Amer) 24 L Est GFR (Non-Af Amer) 20 L BUN/Creatinine Ratio 42 H Glucose 168 H POC Glucose Calculated Osmolality 339 H Lactic Acid 1.5 Calcium 8.3 L Total Bilirubin 1.1 H Direct Bilirubin 0.6 H Indirect Bilirubin 0.5 AST 135 H ALT 961 H Alkaline Phosphatase 55 Troponin I Serum Total Protein 5.6 L Albumin 3.0 L Globulin 2.6 Albumin/Globulin Ratio 1.2 Chlamy pneumoniae PCR Adenovirus (PCR) B. pertussis DNA (PCR) B.parapertussis DNA PCR Coronavirus OC43 (PCR) Coronavirus HKU1 (PCR) Coronavirus 229E (PCR) Coronavirus NL63 (PCR) Human Metapneumovir PCR Influenza A (H1) PCR Influ A () PCR Influenza A (H3) PCR Influenza A Untype (PCR) Influenza Type B (PCR) M.pneumoniae DNA (PCR) Parainfluenza 1 (PCR) Parainfluenza 2 (PCR) Parainfluenza 3 (PCR) Parainfluenza 4 (PCR) RSV (PCR) Entero/Rhino (PCR) 01/24/19 01/24/19 01/24/19 16:48 15:52 14:04 WBC RBC Hgb Hct MCV MCH MCHC RDW Plt Count MPV Immature Gran % Seg Neutrophils % Lymphocytes % Monocytes % Eosinophils % Basophils % Neutrophils # Lymphocytes # Monocytes # Eosinophils # Basophils # Nucleated RBCs/100 WBC Heparin Anti-Xa, Unfract Sample Site ABG pH ABG pCO2 ABG pO2 ABG HCO3 ABG Total CO2 ABG O2 Saturation ABG Base Excess Fredrick Test VBG pH 7.33 VBG pCO2 52 H VBG pO2 38 VBG HCO3 27 Mixed VBG pH 7.27 L Mixed VBG pCO2 58 H Mixed VBG pO2 58 H Respiration Rate O2 Delivery Device Blood Gas Modality Inspired O2 Tidal Volume PEEP Sodium Potassium Chloride Carbon Dioxide BUN Creatinine Est GFR ( Amer) Est GFR (Non-Af Amer) BUN/Creatinine Ratio Glucose POC Glucose 165 H Calculated Osmolality Lactic Acid Calcium Total Bilirubin Direct Bilirubin Indirect Bilirubin AST ALT Alkaline Phosphatase Troponin I Serum Total Protein Albumin Globulin Albumin/Globulin Ratio Chlamy pneumoniae PCR Adenovirus (PCR) B. pertussis DNA (PCR) B.parapertussis DNA PCR Coronavirus OC43 (PCR) Coronavirus HKU1 (PCR) Coronavirus 229E (PCR) Coronavirus NL63 (PCR) Human Metapneumovir PCR Influenza A (H1) PCR Influ A (H1N1) PCR Influenza A (H3) PCR Influenza A Untype (PCR) Influenza Type B (PCR) M.pneumoniae DNA (PCR) Parainfluenza 1 (PCR) Parainfluenza 2 (PCR) Parainfluenza 3 (PCR) Parainfluenza 4 (PCR) RSV (PCR) Entero/Rhino (PCR) 01/24/19 01/24/19 01/24/19 11:34 10:00 08:45 WBC RBC Hgb Hct MCV MCH MCHC RDW Plt Count MPV Immature Gran % Seg Neutrophils % Lymphocytes % Monocytes % Eosinophils % Basophils % Neutrophils # Lymphocytes # Monocytes # Eosinophils # Basophils # Nucleated RBCs/100 WBC Heparin Anti-Xa, Unfract 0.61 Sample Site ABG pH ABG pCO2 ABG pO2 ABG HCO3 ABG Total CO2 ABG O2 Saturation ABG Base Excess Fredrick Test VBG pH VBG pCO2 VBG pO2 VBG HCO3 Mixed VBG pH Mixed VBG pCO2 Mixed VBG pO2 Respiration Rate O2 Delivery Device Blood Gas Modality Inspired O2 Tidal Volume PEEP Sodium Potassium Chloride Carbon Dioxide BUN Creatinine Est GFR ( Amer) Est GFR (Non-Af Amer) BUN/Creatinine Ratio Glucose POC Glucose 205 H Calculated Osmolality Lactic Acid Calcium Total Bilirubin Direct Bilirubin Indirect Bilirubin AST ALT Alkaline Phosphatase Troponin I 28.41 H* Serum Total Protein Albumin Globulin Albumin/Globulin Ratio Chlamy pneumoniae PCR Adenovirus (PCR) B. pertussis DNA (PCR) B.parapertussis DNA PCR Coronavirus OC43 (PCR) Coronavirus HKU1 (PCR) Coronavirus 229E (PCR) Coronavirus NL63 (PCR) Human Metapneumovir PCR Influenza A (H1) PCR Influ A (H1N1/09) PCR Influenza A (H3) PCR Influenza A Untype (PCR) Influenza Type B (PCR) M.pneumoniae DNA (PCR) Parainfluenza 1 (PCR) Parainfluenza 2 (PCR) Parainfluenza 3 (PCR) Parainfluenza 4 (PCR) RSV (PCR) Entero/Rhino (PCR) 01/24/19 01/24/19 01/24/19 08:08 06:08 06:08 WBC 11.7 H RBC 3.86 L Hgb 10.7 L D Hct 33.8 L MCV 87.6 MCH 27.7 L MCHC 31.7 RDW 14.0 Plt Count 234 MPV 9.9 Immature Gran % 0.8 Seg Neutrophils % 84.9 Lymphocytes % 4.9 Monocytes % 9.4 Eosinophils % 0.0 Basophils % 0.0 Neutrophils # 9.9 H Lymphocytes # 0.6 Monocytes # 1.1 Eosinophils # 0.0 Basophils # 0.0 Nucleated RBCs/100 WBC 0.9 H Heparin Anti-Xa, Unfract Sample Site ABG pH ABG pCO2 ABG pO2 ABG HCO3 ABG Total CO2 ABG O2 Saturation ABG Base Excess Fredrick Test VBG pH VBG pCO2 VBG pO2 VBG HCO3 Mixed VBG pH Mixed VBG pCO2 Mixed VBG pO2 Respiration Rate O2 Delivery Device Blood Gas Modality Inspired O2 Tidal Volume PEEP Sodium 147 H D Potassium 4.0 D Chloride 110 H Carbon Dioxide 20 L BUN 112 H Creatinine 2.65 H Est GFR ( Amer) 29 L Est GFR (Non-Af Amer) 24 L BUN/Creatinine Ratio 42 H Glucose 228 H POC Glucose 222 H Calculated Osmolality 347 H Lactic Acid Calcium 7.0 L Total Bilirubin 1.1 H Direct Bilirubin 0.5 H Indirect Bilirubin 0.6 AST 203 H ALT 976 H Alkaline Phosphatase 49 Troponin I Serum Total Protein 4.8 L Albumin 2.5 L Globulin 2.3 L Albumin/Globulin Ratio 1.1 Chlamy pneumoniae PCR Adenovirus (PCR) B. pertussis DNA (PCR) B.parapertussis DNA PCR Coronavirus OC43 (PCR) Coronavirus HKU1 (PCR) Coronavirus 229E (PCR) Coronavirus NL63 (PCR) Human Metapneumovir PCR Influenza A (H1) PCR Influ A (H1N1/09) PCR Influenza A (H3) PCR Influenza A Untype (PCR) Influenza Type B (PCR) M.pneumoniae DNA (PCR) Parainfluenza 1 (PCR) Parainfluenza 2 (PCR) Parainfluenza 3 (PCR) Parainfluenza 4 (PCR) RSV (PCR) Entero/Rhino (PCR) 01/24/19 01/24/19 01/23/19 05:51 03:15 22:57 WBC RBC Hgb Hct MCV MCH MCHC RDW Plt Count MPV Immature Gran % Seg Neutrophils % Lymphocytes % Monocytes % Eosinophils % Basophils % Neutrophils # Lymphocytes # Monocytes # Eosinophils # Basophils # Nucleated RBCs/100 WBC Heparin Anti-Xa, Unfract 0.28 L Sample Site Art Line ABG pH 7.40 ABG pCO2 41 ABG pO2 78 L ABG HCO3 25 ABG Total CO2 26 ABG O2 Saturation 95 ABG Base Excess 0 Fredrick Test N/A VBG pH VBG pCO2 VBG pO2 VBG HCO3 Mixed VBG pH Mixed VBG pCO2 Mixed VBG pO2 Respiration Rate 22 O2 Delivery Device Adult Vent Blood Gas Modality ASSIST CONTROL Inspired O2 30.0 Tidal Volume 550 PEEP 5 Sodium Potassium Chloride Carbon Dioxide BUN Creatinine Est GFR ( Amer) Est GFR (Non-Af Amer) BUN/Creatinine Ratio Glucose POC Glucose 240 H Calculated Osmolality Lactic Acid Calcium Total Bilirubin Direct Bilirubin Indirect Bilirubin AST ALT Alkaline Phosphatase Troponin I Serum Total Protein Albumin Globulin Albumin/Globulin Ratio Chlamy pneumoniae PCR Adenovirus (PCR) B. pertussis DNA (PCR) B.parapertussis DNA PCR Coronavirus OC43 (PCR) Coronavirus HKU1 (PCR) Coronavirus 229E (PCR) Coronavirus NL63 (PCR) Human Metapneumovir PCR Influenza A (H1) PCR Influ A (H1N1/09) PCR Influenza A (H3) PCR Influenza A Untype (PCR) Influenza Type B (PCR) M.pneumoniae DNA (PCR) Parainfluenza 1 (PCR) Parainfluenza 2 (PCR) Parainfluenza 3 (PCR) Parainfluenza 4 (PCR) RSV (PCR) Entero/Rhino (PCR) 01/23/19 01/23/19 22:00 19:05 WBC RBC Hgb Hct MCV MCH MCHC RDW Plt Count MPV Immature Gran % Seg Neutrophils % Lymphocytes % Monocytes % Eosinophils % Basophils % Neutrophils # Lymphocytes # Monocytes # Eosinophils # Basophils # Nucleated RBCs/100 WBC Heparin Anti-Xa, Unfract 0.22 L Sample Site ABG pH ABG pCO2 ABG pO2 ABG HCO3 ABG Total CO2 ABG O2 Saturation ABG Base Excess Fredrick Test VBG pH VBG pCO2 VBG pO2 VBG HCO3 Mixed VBG pH Mixed VBG pCO2 Mixed VBG pO2 Respiration Rate O2 Delivery Device Blood Gas Modality Inspired O2 Tidal Volume PEEP Sodium Potassium Chloride Carbon Dioxide BUN Creatinine Est GFR ( Amer) Est GFR (Non-Af Amer) BUN/Creatinine Ratio Glucose POC Glucose Calculated Osmolality Lactic Acid Calcium Total Bilirubin Direct Bilirubin Indirect Bilirubin AST ALT Alkaline Phosphatase Troponin I Serum Total Protein Albumin Globulin Albumin/Globulin Ratio Chlamy pneumoniae PCR Not Detected Adenovirus (PCR) Not Detected B. pertussis DNA (PCR) Not Detected B.parapertussis DNA PCR Not Detected Coronavirus OC43 (PCR) Not Detected Coronavirus HKU1 (PCR) Not Detected Coronavirus 229E (PCR) Not Detected Coronavirus NL63 (PCR) Not Detected Human Metapneumovir PCR Not Detected Influenza A (H1) PCR Not Detected Influ A (H1N1/09) PCR Not Detected Influenza A (H3) PCR Not Detected Influenza A Untype (PCR) Not Detected Influenza Type B (PCR) Not Detected M.pneumoniae DNA (PCR) Not Detected Parainfluenza 1 (PCR) Not Detected Parainfluenza 2 (PCR) Not Detected Parainfluenza 3 (PCR) Not Detected Parainfluenza 4 (PCR) Not Detected RSV (PCR) Not Detected Entero/Rhino (PCR) Not Detected Preliminary micro results at discharge 01/21/19 14:00 Body Fluid Culture - Preliminary Pleural Fluid 01/21/19 14:00 Anaerobic Culture - Preliminary Pleural Fluid At this time, no anaerobic growth is present. The culture will be finalized after 5 days of incubation. - Impressions ITS Impressions Chest X-Ray 01/19/19 09:14 IMPRESSION: Dense airspace consolidation the right lower lobe concerning for right lower lobe pneumonia. Diffuse bilateral airspace opacities suggesting concomitant pulmonary edema. D/ / Brian Mcdaniel MD / Brian Mcdaniel MD Interpreting Provider: Brian Mcdaniel MD Chest CTA 01/19/19 09:49 IMPRESSION: No findings diagnostic of pulmonary embolus Increasing airspace disease throughout the right hemithorax suggesting pneumonia. Increasing multifocal pleural thickening. Along with the interstitial prominence, this raises the question of lymphangitic pathology. Lymphangitic metastatic disease would be difficult to exclude. Soft tissue density in the azygoesophageal recess region is likely developing adenopathy. Similar findings are noted along the margin of the right main bronchus. D/ / Tobin Smith / Tobin Smith Interpreting Provider: Tobin Smith Echocardiogram 01/20/19 13:14 Impressions: LVEF 25-30%. Severe global and segmental left ventricular systolic dysfunction. Indeterminate diastolic function. Mild right ventricular hypokinesis. Severely calcified aortic valve with moderate aortic stenosis, no significant change compared to 05/11/2018 study Mild mitral regurgitation. Unable to estimate RVSP due to lack of TR jet. Recommend repeat limited echo with definity after rate control. Cardiology consult team notified via [employer]. Left Ventricular Wall Motion: Rest Echo Findings The apical inferior, mid inferior, basal inferior, basal anterior, mid inferior septal, basal inferior septal, mid anterior lateral, basal anterior lateral, mid inferior lateral, basal anterior septal and basal inferior lateral cheek were hypokinetic. The apex, apical anterior, mid anterior, apical septal, apical lateral and mid anterior septal cheek were akinetic. Findings: Study Quality * Technically sub-optimal due to clinical status. ECG Findings * Atrial fibrillation, RVR, BBB. Left Ventricle * LVEF 25-30%. * Normal LV chamber size and wall thickness. * Severe global and segmental left ventricular systolic dysfunction. * Indeterminate diastolic function. * Definity echo contrast was not used. Right Ventricle * Normal right ventricular size. * Mild right ventricular hypokinesis. Left Atrium * Normal left atrial size. Right Atrium * Normal right atrial size. Interatrial Septum * Interatrial septum not well evaluated. Aortic Valve * Severely calcified aortic valve leaflets. * Moderate aortic stenosis. * Peak and mean gradients are 46, 25 mmHg, respectively. * Trace aortic regurgitation. Mitral Valve * Normal mitral valve structure. * No mitral stenosis. * Mild mitral regurgitation. Tricuspid Valve * Normal tricuspid valve structure. * No tricuspid stenosis. * Trace tricuspid regurgitation. * Unable to estimate RVSP due to lack of TR jet. Pulmonic Valve * Pulmonic valve is not well visualized. * No pulmonic stenosis. * No pulmonic regurgitation. Aorta * Normally sized aortic root. Pericardium * The pericardium appears normal. IVC * The IVC is not well evaluated. Thoracentesis 01/21/19 09:09 IMPRESSION: Successful ultrasound guided thoracentesis. D/ / Que Bravo MD / Que Bravo MD Interpreting Provider: Que Bravo MD Chest X-Ray 01/21/19 14:05 IMPRESSION: 1. There appears to be decrease in the right pleural effusion. 2. No pneumothorax. 3. Otherwise, stable chest D/ / Vipul Ayala MD / Vipul Ayala MD Interpreting Provider: Vipul Ayala MD Chest X-Ray 01/22/19 16:54 IMPRESSION: 1. Endotracheal tube in satisfactory position 2. Unchanged bibasilar volume loss and right-sided pleural effusion 3. Possible pulmonary edema D/ / Vipul Ayala MD / Vipul Ayala MD Interpreting Provider: Vipul Ayala MD Echocardiogram Limited Views 01/22/19 17:13 Impressions: LVEF 25%. Severe global and segmental left ventricular systolic dysfunction. Normal RV size with moderate right ventricular hypokinesis. Estimated RA pressure 15 mmHg. LV and RV function slightly worse compared to 01/20/2019 study. Left Ventricular Wall Motion: Rest Echo Findings The basal inferior, mid anterior, basal anterior, basal inferior septal, apical lateral, mid anterior lateral, basal anterior lateral, mid inferior lateral and basal inferior lateral cheek were hypokinetic. The apex, apical inferior, mid inferior, apical anterior, apical septal, mid inferior septal, mid anterior septal and basal anterior septal cheek were akinetic. Findings: Study Quality * Technically adequate exam. ECG Findings * Sinus tachycardia. Left Ventricle * LVEF 25%. * Severe global and segmental left ventricular systolic dysfunction. * There is no LV thrombus. * Definity echo contrast was used. Right Ventricle * Normal RV size with moderate right ventricular hypokinesis. Left Atrium * Normal left atrial size. Right Atrium * Normal right atrial size. Tricuspid Valve * Estimated RA pressure is 15 mmHg. IVC * The IVC is dilated. * < 50% respiratory change. Pleural Effusion * Moderate pleural effusion. KUB X-Ray 01/23/19 10:47 IMPRESSION: 1. Enteric catheter tip overlies the body of the stomach. Side hole is distal to the GE junction. D/ / Pérez Lindsay MD / Pérez Lindsay MD Interpreting Provider: Pérez Lindsay MD Retroperitoneum Ultrasound 01/23/19 16:00 IMPRESSION: 1. No evidence of hydronephrosis. 2. Underdistended bladder. D/ / Laura Harris MD / Laura Harris MD Interpreting Provider: Laura Harris MD Echocardiogram Limited Views 01/24/19 09:30 Impressions: LVEF 15%. Normal LV chamber size, wall thickness. Severe global left ventricular systolic dysfunction. There is no LV thrombus. Limited study for LV function. Left Ventricular Wall Motion: Rest Echo Findings The apex, apical inferior, mid inferior, basal inferior, apical anterior, mid anterior, basal anterior, apical septal, mid inferior septal, basal inferior septal, apical lateral, mid anterior lateral, basal anterior lateral, mid anterior septal, mid inferior lateral, basal anterior septal and basal inferior lateral cheek were hypokinetic. Findings: Study Quality * Technically adequate exam. ECG Findings * Tachycardia noted. Difficult to determine rhythm. Left Ventricle * LVEF 15%. * Normal LV chamber size, wall thickness. * Severe global left ventricular systolic dysfunction. * There is no LV thrombus. IVC * The IVC is dilated. Chest X-Ray 01/24/19 12:37 IMPRESSION: Right internal jugular central venous catheter placement with the tip projecting over the cavoatrial junction. No pneumothorax. Enteric tube courses below the diaphragm and the tip is exclude on this exam. Otherwise stable chest. D/ / Evette Moreno MD / Evette Moreno MD Interpreting Provider: Evette Moreno MD Date of admission: 01/19/19 15:23 Primary care physician: Ofelia Peterson CNP Consults: 01/19/19 10:44 Consult to Cardiology [CONS] Stat Comment: Consulting Provider: Cardiology Dea Reason for Consult: Elevated trop/EKG changes Call Completed: Yes 01/19/19 13:17 Consult to Pulmonology [CONS] Stat Consulting Provider: Pulm Crit Care & Sleep Dea Reason for Consult: New CT lung finding lymophadenopathy, pleural thickening Time Notified: 13:17 Call Completed: Yes 01/20/19 18:08 Consult to Interventional Radiology [CONS] Routine Consulting Provider: Radiology Interventional [place] Reason for Consult: Patient has right sided effusion with pneumonia to do diagnostic /therapeutic thoracentesis Call Completed: No 01/21/19 15:08 Consult to Thoracic Surgery [CONS] Routine Consulting Provider: Cardiothoracic Surgery Dea Reason for Consult: Patient has bloody hemorrhagic pleural effusion concerning for malignancy. Time Notified: 15:00 Call Completed: Yes 01/22/19 09:29 Consult to Nurse Navigator [CONS] Routine Comment: CHF 01/22/19 17:10 Consult to Nephrology [CONS] Routine Consulting Provider: Kidney Dea/SAMAN/MERE/GIGI Reason for Consult: Acute kidney injury Call Completed: No 01/24/19 11:10 Consult to Palliative Care [CONS] Routine Comment: Consulting Provider: Palliative Care [place] Reason for Consult: DNR CC arrest, cardiogenic shock, likely has stage IV lung carcinoma Call Completed: No 01/24/19 11:15 Consult to Nutrition [CONS] Routine Comment: Consulting Provider: NUTRITION Reason for Dietary Consult: Tube Feed Start & Manage - Hospital Course Hospital course: Mr. Lea is a 73 year old male - Time Spent with Patient Total time spent providing and/or coordinating discharge services: Physical Examination Vital Signs: Vital Signs, Last 4 Hours Temp Pulse Resp BP Pulse Ox 01/24/19 17:55 97 22 86/60 98 01/24/19 17:02 23 87/60 96 01/24/19 17:00 100 22 86/60 98 01/24/19 16:00 97.4 F L 100 22 89/61 98 01/24/19 15:59 22 87/61 95 - Attending Attestation I examined this patient and my medical decision-making was reviewed with the Resident Physician. I agree with the documented findings, disposition and treatment plan as described except to the extent set forth below. We independently had [id number] contact with the patient Unfortunate 73-year-old gentleman with likely but not proven lung carcinoma. During planned bronchoscopy by thoracic surgery patient developed NSTEMI leading to cardiogenic shock his been on vasopressor and inotropic support since further course complicated by renal failure and hepatic Insufficiency also pneumonia leading to respiratory failure requiring mechanical ventilatory support. Ejection fraction decreased from greater than 60 to below 20% Given complexity his heart condition plan for transfer to tertiary referral center for ongoing care. Family aware of plan and agrees for transfer
[2019-01-24 16:52] LABS: VBG HCO3 27 mEq/L (21-27); VBG PCO2 52 mmHg (41-51); VBG PH 7.33 pH Units (7.32-7.42); VBG PO2 38 mmHg (25-50)
--- NOTE | 2019-01-24 16:52 | Cardiology Progress Note ---
Date of Encounter: 01/24/19 Time of Encounter: 15:00 Assessment and Plan (1) Elevated troponin Current Visit: Yes Status: Resolved No acute overnight events. Reviewed all pertinent overnight data. Patient continues to be clinically guarded. Echo demonstrates severely reduced LV systolic function as well as RV failure. This was discussed at length with the patient's . If an aggressive approach is desired, I would recommend transfer to a tertiary care center where advanced heart failure therapies can be employed. If there is concern for an advanced metastatic malignancy then a palliative approach would be recommended. (2) Systolic CHF Current Visit: Yes Status: Acute Biventricular heart failure in setting of pneumonia and respiratory failure. Overall clinical condition is guarded. Qualifiers: Heart failure chronicity: acute Qualified Code(s): I50.21 - Acute systolic (congestive) heart failure Discussion w patient/family: The assessment and plan as outlined above was discussed with the patient and/or family members who expressed understanding and agreement. All questions were answered. Thank you for involving us in the care of your patient. Please call with any questions. Subjective Principal diagnosis: Hypoxic respiratory failure with penumonia and CHF exacerbation Interval history: No new overnight events. Discussed overnight care with nursing. Patient remains ventilated and sedated. Objective Vital Signs, Last 4 Hours Pulse Resp BP Pulse Ox 01/24/19 16:00 100 22 89/61 98 01/24/19 15:59 22 87/61 95 01/24/19 15:00 98 22 87/60 98 01/24/19 14:11 22 85/59 95 01/24/19 14:00 99 22 86/60 98 01/24/19 13:00 111 22 86/61 98 General: Other (intubated, sedated) HEENT: Other (ETT in place) Cardiac: Other (Regular rhythm, tachycardic) Lungs: Other (Diminished breath sounds) Neuro: Other (intubated and sedated) Extremities: Other (no significant LE edema) Results 01/24/19 06:08 01/24/19 06:08 Lab Results 01/24/19 01/24/19 01/24/19 06:08 06:08 08:45 WBC 11.7 H Hgb 10.7 L D Hct 33.8 L Plt Count 234 Sodium 147 H D Potassium 4.0 D Chloride 110 H Carbon Dioxide 20 L BUN 112 H Creatinine 2.65 H Glucose 228 H Calcium 7.0 L Total Bilirubin 1.1 H AST 203 H ALT 976 H Alkaline Phosphatase 49 Troponin I 28.41 H* - Imaging and Cardiology Echo: report reviewed, image reviewed - VTE Reasons for not Prescribing Prophylaxis: Not indicated-Anticoagulated or INR therapeutic Consult Discharge Plan - Plan Referrals: Ofelia Peterson CNP [Primary Care Provider] - 01/28/19 1:00 pm
[2019-01-24 17:22] LABS: Basophils % 0.1 %; Hematocrit 34.8 % (37.5-50.1); Immature Granulocytes % 0.6 % (0-4); Lymphocytes # 0.6 K/mcL (0.6-4.6); Lymphocytes % 4.8 %; Mean Corpuscular HGB Conc 31.6 g/dL (31.6-35.5); Mean Corpuscular Hemoglobin 27.7 pg (28.0-33.3); Mean Corpuscular Volume 87.7 fL (83.0-100.0); Mean Platelet Volume 9.7 fL (9.4-12.4); Monocytes # 1.1 K/mcL (0.0-1.3); Neutrophils # 10.8 K/mcL (1.6-8.9); Nucleated Red Blood Cells 0.9 /100 WBC (0); Platelet Count 255 K/mcL (140-400); Red Blood Count 3.97 M/mcL (4.19-5.50); Segmented Neutrophils % 85.5 %
[2019-01-24 17:56] VITALS: BP 86/60
[2019-01-24 18:00] LABS: Albumin/Globulin Ratio 1.2 (1.1-2.2); Bilirubin,Direct 0.6 mg/dL (0.0-0.2); Bilirubin,Indirect 0.5 mg/dL (0.0-1.2); Bilirubin,Total 1.1 mg/dL (0.3-1.0); Calcium 8.3 mg/dL (8.6-10.3); Globulin 2.6 g/dL (2.4-3.5); Potassium 4.4 mEq/L (3.5-5.1); Total Protein 5.6 g/dL (6.4-8.9)
[2019-01-24] MEDS ORDERED: MethylPREDNISolone 40 MG/ML VIAL IVP SCH (18:00)
[2019-01-24] MEDS ORDERED: Insulin LISPRO 300 UNITS/3 ML VIAL SQ SCH (21:00)
[2019-01-25] MEDS ORDERED: Cefepime HCl 2,000 MG in Water for inj. (sterile) 20 ML 20 ML IVP SCH (08:00)
== END 2019-01-24 19:22 | disposition other institution (70) | DRG 853 ==
LOC: 2NNU 09:05 → EMEROOARM 09:05 → SUATTDRO 15:23 → 2NNU 16:50 → ICNU 01-22 16:40
PROVIDERS: ADMIT Internal Medicine; ATTEND Student in an Organized Health Care Education/Training Program